=== PATIENT | male | born 1960 | race American Indian/Alaskan Native ===

== ENCOUNTER 2016-07-19 14:11 | Emergency (ER) | payer MEDICARE, MEDICAID ==
[2016-07-19 14:12] VITALS: PULSE 69
[2016-07-19 14:22] VITALS: TEMP 97.9; O2SAT 100; BMI 19.1
[2016-07-19 15:51] VITALS: RESP 12
--- NOTE | 2016-07-19 16:25 | RAD ---
PROCEDURE: Left Knee Radiographs. HISTORY: Pain. COMPARISON: None. FINDINGS: BONES: Normal. No fracture. JOINTS: Normal. No osteoarthritis. JOINT EFFUSION: None. OTHER FINDINGS: None. IMPRESSION: Normal radiographs of the left knee.
--- NOTE | 2016-07-19 17:13 | ED PDOC ---
Arrival/HPI - General Chief Complaint: Lower Extremity Problem/Injury Time Seen by Provider: 07/19/16 14:43 Historian: Patient - History of Present Illness Narrative History of Present Illness (Text): 07/19/16 17:12 56-year-old male presents today with left knee pain and left leg pain 2 weeks. Patient denies trauma or injury. Patient denies numbness weakness or tingling in the extremity. Patient states the leg was more swollen but seems to have decreased. Patient states is a history of DVT in the past. Denies fevers or chills. No chest pain or shortness of breath. Patient states he just came down after dialysis to have his knee evaluated. Past Medical History - Provider Review Nursing Documentation Reviewed: Yes - Travel History Have you recently traveled outside [place] w/in the past 3 mons?: No - Infectious Disease Hx of Infectious Diseases: None - Tetanus Immunization Tetanus Immunization: Up to Date - Cardiac Hx Congestive Heart Failure: Yes Hx Hypertension: Yes - Pulmonary Hx Respiratory Disorders: No Hx Asthma: No Hx Bronchitis: No Hx Chronic Obstructive Pulmonary Disease (COPD): Yes Hx Emphysema: No Hx Pneumonia: No Hx Respiratory Aspiration: No Hx Respiratory Tract Infection: No Hx Sleep Apnea: No Hx Tuberculosis: No - Neurological Hx Neurological Disorder: No Hx Alzheimer's Disease: No HX Cerebrovascular Accident: No Hx Dementia: No Hx Dizziness: Yes (after dialysis) Hx Meningitis: No Hx Migraine: No Hx Parkinson's Disease: No Hx Seizures: No Hx Transient Ischemic Attacks (TIA): No - HEENT Hx HEENT Disorder: No Hx Blind: No Hx Cataracts: No Hx Deafness: No Hx Difficulty Chewing: No Hx Epistaxis: No Hx Glaucoma: No Hx Macular Degeneration: No - Renal Hx Renal Disorder: Yes Hx Dialysis: Yes (Mon) Date of Last Dialysis Treatment: 07/19/16 Hx Kidney Stones: No Hx Neurogenic Bladder: No Hx Pyelonephritis: No Hx Renal Cancer: No Hx Renal Failure: No - Endocrine/Metabolic Hx Endocrine Disorders: No Hx Adrenal Cancer: No Hx Diabetes Insipidus: No Hx Diabetes Mellitus Type 1: No Hx Diabetes Mellitus Type 2: Yes Hx Hyperthyroidism: No Hx Hypothyroidism: No Hx Systemic Lupus Erythematosus: No - Hematological/Oncological Hx Blood Disorders: Yes Hx AIDS: No Hx Anemia: Yes Hx Cancer: No Hx Chemotherapy: No Hx Cirrhosis: No Hx Hemophilia: No Hx Hepatitis A: No Hx Hepatitis B: No Hx Hepatitis C: No Hx Metastasis: No Hx Shingles: No Hx Sickle Cell Disease: No Hx Unexplained Bleeding: No - Integumentary Hx Dermatological Disorder: No Hx Basal Cell Carcinoma: No Hx Eczema: No Hx Melanoma: No Hx Psoriasis: No Hx Squamous Cell Carcinoma: No - Musculoskeletal/Rheumatological Hx Musculoskeletal Disorders: No Hx Arthritis: No Hx Back Pain: Yes Hx Degenerative Joint Disease: No Hx Falls: No Hx Fractures: No Hx Gout: No Hx Herniated Disk: No Hx Myasthenia Gravis: No Hx Osteoarthritis: No Hx Osteomyelitis: No Hx Osteoporosis: No Hx Rhabdomyolysis: No Hx Spinal Stenosis: No Hx Unsteady Gait: No - Gastrointestinal Hx Gastrointestinal Disorders: Yes Hx Colostomy: No Hx Crohn's Disease: No Hx Diverticulitis: No Hx Gall Bladder Disease: No Hx Gastroesophageal Reflux: No Hx Gastrointestinal Ulcer: No Hx Ileostomy: No Hx Liver Failure: No Hx Pancreatitis: No HX Swallowing Problems: Yes - Genitourinary/Gynecological Hx Genitourinary Disorders: Yes Hx Hematuria: No Hx Incontinence: Yes Hx Prostate Problems: No Hx Sexually Transmitted Diseases: No Hx Urinary Tract Infection: No - Psychiatric Hx Psychophysiologic Disorder: No Hx Anxiety: No Hx Bipolar Disorder: No Hx Depression: Yes Hx Emotional Abuse: No Hx Hallucinations: No Hx Panic Disorder: No Hx Post Traumatic Stress Disorder: No Hx Psychosis: No Hx Physical Abuse: No Hx Schizophrenia: No Hx Sexual Abuse: No Hx Substance Use: No - Past Surgical History Past Surgical History: Non-Contributing - Surgical History Hx Amputation: No Hx Appendectomy: No Hx Cardiac Catheterization: No Hx Cholecystectomy: No Hx Coronary Stent: No Hx Gastric Bypass Surgery: No Hx Hysterectomy: No Hx Joint Replacement: No Hx Kidney Transplant: No Hx Liver Transplant: No Hx Mastectomy: No Hx Musculoskeletal Surgery: No Hx Open Heart Surgery: No Hx Orthopedic Surgery: No Hx Splenectomy: No Hx Valve Replacement: No - Anesthesia Hx Anesthesia: Yes Hx Anesthesia Reactions: No Hx Malignant Hyperthermia: No - Suicidal Assessment Feels Threatened In Home Enviroment: No Family/Social History - Physician Review Nursing Documentation Reviewed: Yes Family/Social History: Unknown Family HX Smoking Status: Never Smoked Hx Alcohol Use: No Hx Substance Use: No Hx Substance Use Treatment: No Allergies/Home Meds Allergies/Adverse Reactions: Allergies No Known Allergies Allergy (Verified 07/19/16 14:23) Home Medications: Home Meds Medication Instructions Recorded Confirmed Insulin Detemir [Levemir] 14 units SC BID PRN 03/11/13 05/17/16 Metoclopramide [Reglan] 10 mg PO DAILY 02/25/16 05/17/16 Calcium Acetate [Phoslyra] 667 mg PO TID 05/17/16 05/17/16 Darbepoetin Rony [Aranesp (RENAL)] 80 mcg IVP QWK 05/17/16 05/17/16 Doxercalciferol [Hectorol (RENAL)] 4 mcg IVP QOTHERDAY 05/17/16 05/17/16 Heparin [Heparin (RENAL)] 2,000 units IV QOTHERDAY 05/17/16 05/17/16 Iron Sucrose (RENAL) [Venofer 100 mg IV QOTHERDAY 05/17/16 05/17/16 (RENAL)] Review of Systems - Review of Systems Constitutional: absent: Fatigue, Fevers Respiratory: absent: SOB, Cough Cardiovascular: absent: Chest Pain, Palpitations Genitourinary Male: absent: Dysuria, Frequency Musculoskeletal: Arthralgias. absent: Back Pain, Neck Pain Skin: absent: Rash, Pruritis Psychiatric: absent: Anxiety, Depression Physical Exam Vital Signs Reviewed: Yes Vital Signs Temp Pulse Resp BP Pulse Ox 07/19/16 15:00 77 12 186/92 H 100 07/19/16 14:22 97.9 F 76 18 151/93 H 100 Temperature: Afebrile Blood Pressure: Hypertensive Pulse: Regular Respiratory Rate: Normal Appearance: Positive for: Well-Appearing, Non-Toxic, Comfortable Pain Distress: None Mental Status: Positive for: Alert and Oriented X 3 - Systems Exam Head: Present: Atraumatic Neck: Present: Normal Range of Motion Respiratory/Chest: Present: Clear to Auscultation, Good Air Exchange. No: Respiratory Distress, Accessory Muscle Use Cardiovascular: Present: Regular Rate and Rhythm, Normal S1, S2. No: Murmurs Lower Extremity: Present: NORMAL PULSES, Tenderness (left leg; + ttp over the lateral aspect of the thigh and anterior aspect of the knee. slightly decreased flexion of the knee. NO erythema. no calf tenderness. minimal edema of lower leg; sensation and distal pulses intact. ), Swelling, Neurovascularly Intact, Capillary Refill < 2 s. No: CALF TENDERNESS, Normal ROM, Erythema, Deformity Neurological: Present: GCS=15, Speech Normal Skin: Present: Warm, Dry, Rashes, Normal Color Psychiatric: Present: Alert, Oriented x 3 Medical Decision Making ED Course and Treatment: 07/19/16 17:18 Patient is nontoxic well-appearing in no distress with stable vital signs lungs are clear to auscultation bilaterally. Venous duplex of the left lower extremity: No DVT as read by the radiologist X-rays of the left knee: No fracture Tramadol given for pain Patient reassessment; patient is nontoxic well-appearing in no distress with stable vital signs Patient feeling better after medications julianne wrap applied. I discussed the results with patient about followup with a primary care physician within the next 2 days as well as the orthopedist. I've advised return if symptoms worsen persist or if there's concerning symptoms develop. Patient verbalizes understanding of discharge instructions and need for immediate followup. all aspects of this case were discussed the attending of record. Impression: Leg pain, knee pain Tramadol one tablet every 6 hours as needed for moderate to severe pain: May cause drowsiness Followup primary care physician within the next 2 days Follow up with the orthopedist within the next 2 days Return if symptoms worsen persist or if new symptoms develop - RAD Interpretation Radiology Orders: 07/19/16 14:43 KNEE LEFT 2 VIEWS (AP & LAT) [RAD] Stat DUPLEX LOWER EXTRM VEIN LEFT [US] Stat - Medication Orders Current Medication Orders: Discontinued Medications Tramadol HCl (Ultram) 50 mg PO STAT STA Stop: 07/19/16 14:45 Last Admin: 07/19/16 15:54 Dose: 50 MG Disposition/Present on Arrival - Present on Arrival Any Indicators Present on Arrival: No History of DVT/PE: No History of Uncontrolled Diabetes: No Urinary Catheter: No History of Decub. Ulcer: No History Surgical Site Infection Following: None - Disposition Have Diagnosis and Disposition been Completed?: Yes Diagnosis: Leg pain, Knee pain Disposition: HOME/ ROUTINE Disposition Time: 16:50 Patient Plan: Discharge Patient Problems: Current Active Problems Problem Status Diagnosed ESRD (end stage renal disease) Acute Fever Acute GI bleed Acute Pleural effusion Acute Condition: GOOD Discharge Instructions (ExitCare): Knee Pain (ED), Leg Pain (ED) Additional Instructions: tramadol every 6 hours as needed for moderate to severe pain follow up with the primary care physician within the next 2 days follow up with the orthopedist within the next 2 days return if symptoms worsen,persist or if new symptoms develop. Prescriptions: traMADol [Ultram] 50 mg PO Q6H PRN #6 tab PRN Reason: moderate to severe pain Referrals: Makenzie Miranda MD [Staff Provider] - Follow up with primary Leandro Gilbert MD [Primary Care Provider] - Follow up with primary Kamari Martinez III, MD [Medical Doctor] - Follow up with primary
--- NOTE | 2016-07-19 17:14 | US ---
PROCEDURE: Left lower extremity venous US HISTORY: Leg pain and swelling. Evaluate for DVT. PHYSICIAN(S): Rufus Sanchez MD. TECHNIQUE: Duplex sonography and color-flow Doppler with graded compression were used to evaluate the deep venous system of the left lower extremity. FINDINGS: The visualized deep venous system of the left lower extremity is sonographically normal and compressible. Normal wave forms and augmentation are seen. There is no sonographic evidence for deep venous thrombosis in the visualized segments of the left lower extremity. IMPRESSION: 1. No sonographic evidence for deep venous thrombosis in the visualized segments of the left lower extremity.
[2016-07-19 17:23] VITALS: BP 155/112; PULSE 79
== END 2016-07-19 17:27 | disposition home or self-care (01) ==
LOC: ED 14:11
DX: M25.562 Pain in left knee (principal); M79.605 Pain in left leg

== ENCOUNTER 2017-05-06 00:53 | Inpatient (IN) | payer MEDICARE, MEDICAID ==
[2017-05-06 00:54] VITALS: PULSE 69
--- NOTE | 2017-05-06 02:05 | ED PDOC ---
Arrival/HPI - General Chief Complaint: Trauma Time Seen by Provider: 05/06/17 01:03 Historian: Patient - History of Present Illness Narrative History of Present Illness (Text): 05/06/17 01:06 57 year old male, whose past medical history includes ESRD on (Dialysis , and Mon), secondary hyperparathyroidism, anemia, type II diabetes mellitus , diabetic neuropathy, diabetic retinopathy, DVT, PE, diabetic foot ulcers, esophageal cyst, abscess of the right lung, COPD, and nonischemic cardiomyopathy , presents s/p mechanical fall. Patient reports left hip pain, but denies any head injuries, LOC, fever, chills, chest pain, shortness of breath, nausea, vomiting, diarrhea, urinary symptoms, back pain, neck pain, headache, dizziness , or any other complaints. PMD: Dr. Miranda Symptom Onset: Sudden Symptom Course: Unchanged Activities at Onset: Light Context: Home Past Medical History - Provider Review Nursing Documentation Reviewed: Yes - Infectious Disease Hx of Infectious Diseases: None - Tetanus Immunization Tetanus Immunization: Up to Date - Cardiac Hx Congestive Heart Failure: Yes Hx Hypertension: Yes - Pulmonary Hx Respiratory Disorders: No Hx Asthma: No Hx Bronchitis: No Hx Chronic Obstructive Pulmonary Disease (COPD): Yes Hx Emphysema: No Hx Pneumonia: No Hx Respiratory Aspiration: No Hx Respiratory Tract Infection: No Hx Sleep Apnea: No Hx Tuberculosis: No - Neurological Hx Neurological Disorder: No Hx Alzheimer's Disease: No HX Cerebrovascular Accident: No Hx Dementia: No Hx Dizziness: Yes (after dialysis) Hx Meningitis: No Hx Migraine: No Hx Parkinson's Disease: No Hx Seizures: No Hx Transient Ischemic Attacks (TIA): No - HEENT Hx HEENT Disorder: No Hx Blind: No Hx Cataracts: No Hx Deafness: No Hx Difficulty Chewing: No Hx Epistaxis: No Hx Glaucoma: No Hx Macular Degeneration: No - Renal Hx Renal Disorder: Yes Hx Dialysis: Yes (Mon) Date of Last Dialysis Treatment: 07/19/16 Hx Kidney Stones: No Hx Neurogenic Bladder: No Hx Pyelonephritis: No Hx Renal Cancer: No Hx Renal Failure: No - Endocrine/Metabolic Hx Endocrine Disorders: No Hx Adrenal Cancer: No Hx Diabetes Insipidus: No Hx Diabetes Mellitus Type 1: No Hx Diabetes Mellitus Type 2: Yes Hx Hyperthyroidism: No Hx Hypothyroidism: No Hx Systemic Lupus Erythematosus: No - Hematological/Oncological Hx Blood Disorders: Yes Hx AIDS: No Hx Anemia: Yes Hx Cancer: No Hx Chemotherapy: No Hx Cirrhosis: No Hx Hemophilia: No Hx Hepatitis A: No Hx Hepatitis B: No Hx Hepatitis C: No Hx Metastasis: No Hx Shingles: No Hx Sickle Cell Disease: No Hx Unexplained Bleeding: No - Integumentary Hx Dermatological Disorder: No Hx Basal Cell Carcinoma: No Hx Eczema: No Hx Melanoma: No Hx Psoriasis: No Hx Squamous Cell Carcinoma: No - Musculoskeletal/Rheumatological Hx Musculoskeletal Disorders: No Hx Arthritis: No Hx Back Pain: Yes Hx Degenerative Joint Disease: No Hx Falls: No Hx Fractures: No Hx Gout: No Hx Herniated Disk: No Hx Myasthenia Gravis: No Hx Osteoarthritis: No Hx Osteomyelitis: No Hx Osteoporosis: No Hx Rhabdomyolysis: No Hx Spinal Stenosis: No Hx Unsteady Gait: No - Gastrointestinal Hx Gastrointestinal Disorders: Yes Hx Colostomy: No Hx Crohn's Disease: No Hx Diverticulitis: No Hx Gall Bladder Disease: No Hx Gastroesophageal Reflux: No Hx Ileostomy: No Hx Liver Failure: No Hx Pancreatitis: No HX Swallowing Problems: Yes - Genitourinary/Gynecological Hx Genitourinary Disorders: Yes Hx Hematuria: No Hx Incontinence: Yes Hx Prostate Problems: No Hx Sexually Transmitted Diseases: No Hx Urinary Tract Infection: No - Psychiatric Hx Psychophysiologic Disorder: No Hx Anxiety: No Hx Bipolar Disorder: No Hx Depression: Yes Hx Emotional Abuse: No Hx Hallucinations: No Hx Panic Disorder: No Hx Post Traumatic Stress Disorder: No Hx Psychosis: No Hx Physical Abuse: No Hx Schizophrenia: No Hx Sexual Abuse: No Hx Substance Use: No - Past Surgical History Past Surgical History: Non-Contributing - Surgical History Hx Amputation: No Hx Appendectomy: No Hx Cardiac Catheterization: No Hx Cholecystectomy: No Hx Coronary Stent: No Hx Gastric Bypass Surgery: No Hx Hysterectomy: No Hx Joint Replacement: No Hx Kidney Transplant: No Hx Liver Transplant: No Hx Mastectomy: No Hx Musculoskeletal Surgery: No Hx Open Heart Surgery: No Hx Orthopedic Surgery: No Hx Splenectomy: No Hx Valve Replacement: No - Anesthesia Hx Anesthesia: Yes Hx Anesthesia Reactions: No Hx Malignant Hyperthermia: No - Suicidal Assessment Feels Threatened In Home Enviroment: No Family/Social History - Physician Review Nursing Documentation Reviewed: Yes Family/Social History: No Known Family HX Smoking Status: Never Smoked Hx Alcohol Use: No Hx Substance Use: No Hx Substance Use Treatment: No Allergies/Home Meds Allergies/Adverse Reactions: Allergies No Known Allergies Allergy (Verified 07/19/16 14:23) Home Medications: Home Meds Medication Instructions Recorded Confirmed Insulin Detemir [Levemir] 14 units SC BID PRN 03/11/13 05/06/17 Metoclopramide [Reglan] 10 mg PO DAILY 02/25/16 05/06/17 Calcium Acetate [Phoslyra] 667 mg PO TID 05/17/16 05/06/17 Darbepoetin Rony [Aranesp (RENAL)] 80 mcg IVP QWK 05/17/16 05/06/17 Doxercalciferol [Hectorol (RENAL)] 4 mcg IVP QOTHERDAY 05/17/16 05/06/17 Heparin 2,000 units IV QOTHERDAY 05/17/16 05/06/17 Iron Sucrose (RENAL) [Venofer 100 mg IV QOTHERDAY 05/17/16 05/06/17 (RENAL)] Review of Systems - Physician Review All systems were reviewed & negative as marked: Yes - Review of Systems Constitutional: absent: Fevers, Other (Chills) Respiratory: absent: SOB Cardiovascular: absent: Chest Pain Gastrointestinal: absent: Diarrhea, Nausea, Vomiting Genitourinary Male: absent: Dysuria, Frequency, Hematuria Musculoskeletal: Other (left hip pain). absent: Back Pain, Neck Pain Neurological: absent: Headache, Dizziness Physical Exam Vital Signs Reviewed: Yes Vital Signs Temp Pulse Resp BP Pulse Ox 05/06/17 01:09 98.7 F 89 18 190/111 H 97 Temperature: Afebrile Blood Pressure: Hypertensive Pulse: Regular Respiratory Rate: Normal Appearance: Positive for: Well-Appearing, Non-Toxic, Comfortable Pain Distress: None Mental Status: Positive for: Alert and Oriented X 3 - Systems Exam Head: Present: Atraumatic, Normocephalic Pupils: Present: PERRL Extroacular Muscles: Present: EOMI Conjunctiva: Present: Normal Mouth: Present: Moist Mucous Membranes Neck: Present: Normal Range of Motion Respiratory/Chest: Present: Clear to Auscultation, Good Air Exchange. No: Respiratory Distress, Accessory Muscle Use Cardiovascular: Present: Regular Rate and Rhythm, Normal S1, S2. No: Murmurs Abdomen: Present: Normal Bowel Sounds. No: Tenderness, Distention, Peritoneal Signs Back: Present: Normal Inspection Upper Extremity: Present: Normal Inspection. No: Cyanosis, Edema Lower Extremity: Present: Tenderness (Left hip tender to palpation. ), Neurovascularly Intact, Other (Noted shortened distally ). No: Edema Neurological: Present: GCS=15, CN II-XII Intact, Speech Normal, Other ( Tremulous ) Skin: Present: Warm, Dry, Normal Color. No: Rashes Psychiatric: Present: Alert, Oriented x 3, Normal Insight, Normal Concentration Medical Decision Making ED Course and Treatment: 05/06/17 01:06 Impression: 57 year old male presents s/p mechanical fall. Patient complaining of left hip pain. Plan: -- Labs -- Dilaudid -- Hip Min 2V w/ Pelvis LT -- Reassess and disposition Progress Notes: 05/06/17 02:20 Hip X-Ray Impression: As read by me, left intertrochanteric hip fracture moderately displaced. 05/06/17 04:[address] Miranda who is aware and agrees with the plan. Patient will be admitted with orthopedic consult. - Lab Interpretations Lab Results: 05/06/17 02:58 05/06/17 02:58 Lab Results 05/06/17 02:58: Sodium 131 L, Potassium 5.0, Chloride 90 L, Carbon Dioxide 28, Anion Gap 19, BUN 61 H, Creatinine 8.4 H*, Est GFR ( Amer) 8, Est GFR ( Non-Af Amer) 7, Random Glucose 399 H* D, Calcium 9.5, Total Bilirubin 0.7, AST 31, ALT 30, Alkaline Phosphatase 126 D, Total Protein 8.1, Albumin 4.2, Globulin 3.9, Albumin/Globulin Ratio 1.1 05/06/17 02:58: PT 11.4, INR 1.00 05/06/17 02:58: WBC 10.4 D, RBC 4.44, Hgb 10.9 L, Hct 34.9 L, MCV 78.6 L, MCH 24.5 L, MCHC 31.2, RDW 13.8, Plt Count 178, MPV 11.2 H, Gran % 82.6 H, Lymph % ( Auto) 8.5 L, Tyler % (Auto) 8.5 H, Eos % (Auto) 0.2 L, Baso % (Auto) 0.2, Gran # 8.59 H, Lymph # 0.9 L, Tyler # 0.9 H, Eos # 0.0, Baso # 0.02 I have reviewed the lab results: Yes - RAD Interpretation Radiology Orders: 05/06/17 01:06 Hip Left [HIP MIN 2V W/ PELVIS LT] [RAD] Stat 05/06/17 02:17 CHEST PORTABLE [RAD] Stat - Medication Orders Current Medication Orders: Discontinued Medications Hydromorphone HCl (Dilaudid) 1 mg IVP STAT STA Stop: 05/06/17 02:19 Last Admin: 05/06/17 03:04 Dose: 1 mg MAR Pain Assessment Document 05/06/17 03:04 AD (Rec: 05/06/17 03:04 AD [facility] [id number] Pain Reassessment Is this a pain reassessment? No Presence of Pain Presence of Pain Yes Pain Scale Used Pain Scale Used Numeric Location Left, Right or Bilateral Left Pain Location Body Site Hip Description Intensity of Pain at present 8 Pain Behavior Facial Grimacing IVP Administration Document 05/06/17 03:04 AD (Rec: 05/06/17 03:04 AD [id number] Charges for Administration # of IVP Administrations 1 Insulin Human Regular (Humulin R) 10 units SC STAT STA Stop: 05/06/17 03:58 Last Admin: 05/06/17 04:07 Dose: 10 units MAR Blood Glucose Document 05/06/17 04:07 IT (Rec: 05/06/17 04:07 IT [id number]) Blood Glucose Finger Stick Blood Glucose (70-120) 343 Subcutaneous Administrations Document 05/06/17 04:07 IT (Rec: 05/06/17 04:07 IT [id number]) Injection Site MAR Injection Site Left Abdomen Charges for Administration # of Subcutaneous Administrations 1 - Scribe Statement The provider has reviewed the documentation as recorded by the Scribrocío Hoover Provider Scribe Attestation: All medical record entries made by the Scribe were at my direction and personally dictated by me. I have reviewed the chart and agree that the record accurately reflects my personal performance of the history, physical exam, medical decision making, and the department course for this patient. I have also personally directed, reviewed, and agree with the discharge instructions and disposition. Disposition/Present on Arrival - Present on Arrival Any Indicators Present on Arrival: No History of DVT/PE: No History of Uncontrolled Diabetes: No Urinary Catheter: No History of Decub. Ulcer: No History Surgical Site Infection Following: None - Disposition Have Diagnosis and Disposition been Completed?: Yes Diagnosis: Closed left hip fracture, ESRD (end stage renal disease) Disposition: HOSPITALIZED Disposition Time: 04:30 Patient Plan: Admission Patient Problems: Current Active Problems Problem Status Onset ESRD (end stage renal disease) Acute Closed left hip fracture Acute Condition: STABLE Forms: [employer] (Indian)
[2017-05-06] MEDS ORDERED: HYDROmorphone 2 mg/ml ISec IVP STA (02:18)
[2017-05-06 03:12] LABS: BASO # 0.02 K/mm3 (0.0-2.0); BASO % 0.2 % (0.0-3.0); EOS % 0.2 % (1.5-5.0); GRAN # 8.59 (1.4-6.5); GRAN % 82.6 % (50.0-68.0); HEMOGLOBIN 10.9 g/dL (14.0-18.0); LYMPH # 0.9 (1.2-3.4); LYMPH % 8.5 % (22.0-35.0); MEAN CELL VOLUME 78.6 fl (80.0-105.0); MEAN CORPUSCULAR HEMOGLOBIN 24.5 pg (25.0-35.0); MEAN CORPUSCULAR HGB CONC 31.2 g/dl (31.0-37.0); MEAN PLATELET VOLUME 11.2 fl (7.0-11.0); MONO # 0.9 (0.1-0.6); MONO % 8.5 % (1.0-6.0); RBC 4.44 10^6/uL (3.5-6.1); RED CELL DISTRIBUTION WIDTH 13.8 % (11.5-14.5); WHITE BLOOD COUNT 10.4 10^3/ul (4.5-11.0)
[2017-05-06 03:30] LABS: PROTHROMBIN TIME 11.4 SECONDS (9.4-12.5)
[2017-05-06 03:55] LABS: ALB/GLOB RATIO 1.1 (1.1-1.8); ALBUMIN 4.2 g/dL (3.0-4.8); CALCIUM 9.5 mg/dL (8.4-10.5)
[2017-05-06] MEDS ORDERED: Insulin Regular 1 UNITS/0.01 ML ML SC STA (03:57)
--- NOTE | 2017-05-06 08:21 | RAD ---
HISTORY: fall COMPARISON: 02/25/2016 FINDINGS: LUNGS: Mild alveolar density at the right lung base. Small infiltrate in this region is not excluded. No left lung infiltrate is seen. PLEURA: Chronic appearing right pleural thickening or pleural effusion. CARDIOVASCULAR: Stable. Aorta is unchanged. No pneumothorax is seen. OSSEOUS STRUCTURES: No significant abnormalities. VISUALIZED UPPER ABDOMEN: Normal. OTHER FINDINGS: Left axillary stent is stable. Trachea is midline. IMPRESSION: Possible small right lower lung field infiltrate. Chronic right pleural thickening or small pleural effusion. No appreciable rib fracture after reported trauma. No reading has been provided by the treating emergency room physician. The case was placed into the PA review folder.
--- NOTE | 2017-05-06 08:23 | RAD ---
PROCEDURE: Left Hip X-ray Radiographs. HISTORY: fall COMPARISON: None. FINDINGS: BONES: There is a angulated intertrochanteric fracture of the left hip. Left femoral head remains in position. Pubic rami and symphysis are intact. Left iliac bone and right iliac bone are intact. Right hip is intact. No sacroiliac joint widening is seen. JOINTS: See above SOFT TISSUES: Normal. OTHER FINDINGS: None. IMPRESSION: Left hip fracture.
[2017-05-06 12:37] LABS: INR 1.01 (0.93-1.08); PARTIAL THROMBOPLASTIN TIME 31.1 Seconds (25.1-36.5); PROTHROMBIN TIME 11.6 SECONDS (9.4-12.5)
[2017-05-06 13:18] VITALS: BMI 18.3
[2017-05-06] MEDS ORDERED: Pneumococcal 23-Valent Vaccine IM ONE (13:18)
[2017-05-06] MEDS ORDERED: Influenza Vaccine 60 mcg/0.5 mL SYR (4YR UP) IM ONE (13:18)
--- NOTE | 2017-05-06 20:48 | CON ---
DATE: HISTORY OF PRESENT ILLNESS: This is a 57-year-old male with left hip fracture, intertrochanteric, currently came to the emergency room this morning after falling at home. He has been prepared for renal dialysis and left hip needs to be stabilized with a peritrochanteric kai from [employer]. We are going to get a medical clearance by Dr. Sy, Dr. De Los Santos, and Dr. Miranda to perform the surgery this afternoon. FINAL DIAGNOSIS: Intertrochanteric fracture, left hip and for surgery when medically cleared. Joel Awad DO
[2017-05-06] MEDS ORDERED: Insulin Reg-LOW-Coverage SC SCH (22:00)
[2017-05-06] MEDS: Insulin Detemir 100 units/ml Vial (Levemir) SC SCH (22:05)
[2017-05-06] MEDS: Insulin Reg-LOW-Coverage SC SCH (22:06)
--- NOTE | 2017-05-06 23:20 | CON ---
DATE: CARDIOLOGY CONSULTATION REASON FOR CONSULTATION: Preoperative evaluation. HISTORY OF PRESENT ILLNESS: The patient is a 57-year-old male who has end-stage renal disease on hemodialysis 3 times a week, Monday, , and Monday for the past 5 years according to him, history of secondary hyperparathyroidism, history of diabetes mellitus, diabetic neuropathy, and diabetic foot ulcer. The patient presented because of a fall. He stated that he was sleeping on a chair and had a nightmare that made him jump and fall to the floor. The patient sustained left hip angulated intertrochanteric fracture. The patient is being considered for open reduction internal fixation. The cardiac history of this patient can be summarized due to the fact that in 04/2014 he had a cardiac catheterization, which revealed nonischemic cardiomyopathy and moderate pulmonary hypertension. The most recent echo from last year revealed normal ejection fraction and right ventricular systolic pressure was measured at 31 mmHg. SPECT myocardial perfusion study performed in 05/2016 was essentially a normal SPECT myocardial perfusion study with fixed inferior defect most likely due to diaphragmatic attenuation and normal gated wall motion of the left ventricle. The patient denies any chest pain or shortness of breath at this time. He is currently undergoing hemodialysis. MEDICATIONS: The patient's home medications include Levemir insulin, Reglan, subcutaneous heparin with hemodialysis, and iron sucrose infusion with hemodialysis. REVIEW OF SYSTEMS: No dizziness. No palpitation. No retrosternal chest pain. PHYSICAL EXAMINATION: GENERAL: The patient is a middle-aged male who does not appear to be in acute distress at this time. VITAL SIGNS: Blood pressure 144/83, heart rate 84, temperature 98, and respirations 18. HEENT: Pale conjunctivae. CHEST: Clear. HEART: S1 and S2 regular. ABDOMEN: Soft. EXTREMITIES: No edema. LABORATORY DATA: Hemoglobin and hematocrit are 10.9 and 34.9, white count and platelet count are within normal limits. PT/INR is within normal limits. SMA-7. Sodium 131, potassium 5.2, chloride 90, CO2 28, glucose 399, BUN 61, and creatinine 8.4. ASSESSMENT: 1. Left hip angulated intertrochanteric fracture. 2. End-stage renal disease, on hemodialysis. 3. Anemia. RECOMMENDATIONS: I have reviewed the patient's EKG and clear the patient cardiac barber for open reduction internal fixation if his electrolytes post hemodialysis are within normal limits; however, the patient at this point is insisting not to go for surgery. Bill Sue MD
[2017-05-07 07:33] LABS: BASO # 0.04 K/mm3 (0.0-2.0); BASO % 0.4 % (0.0-3.0); EOS # 0.1 (0.0-0.7); EOS % 0.7 % (1.5-5.0); GRAN # 7.42 (1.4-6.5); GRAN % 70.6 % (50.0-68.0); HEMOGLOBIN 10.6 g/dL (14.0-18.0); LYMPH # 1.6 (1.2-3.4); LYMPH % 15.4 % (22.0-35.0); MEAN CELL VOLUME 79.1 fl (80.0-105.0); MEAN CORPUSCULAR HEMOGLOBIN 24.6 pg (25.0-35.0); MEAN CORPUSCULAR HGB CONC 31.1 g/dl (31.0-37.0); MEAN PLATELET VOLUME 10.9 fl (7.0-11.0); MONO # 1.4 (0.1-0.6); MONO % 12.9 % (1.0-6.0); RBC 4.31 10^6/uL (3.5-6.1); WHITE BLOOD COUNT 10.5 10^3/ul (4.5-11.0)
[2017-05-07 07:48] LABS: ALB/GLOB RATIO 0.9 (1.1-1.8); ALBUMIN 3.4 g/dL (3.0-4.8); CALCIUM 9.4 mg/dL (8.4-10.5)
[2017-05-07] MEDS ORDERED: Propofol 10 mg/ml Inj (20 ML) ONE (09:17)
[2017-05-07] MEDS ORDERED: Bupivacaine 0.5% Inj(30mL) ONE (09:41)
--- NOTE | 2017-05-07 10:00 | CARD ---
APPROVED REPORT EKG Measurement Heart [id number] <Conclusion> Sinus rhythm with frequent premature ventricular complexes, new Left anterior fascicular block Anteroseptal infarct, old STTW changes Prolonged QTc
[2017-05-07] MEDS ORDERED: Bupivacaine 0.5% Inj(30mL) IJ ONE (10:34)
[2017-05-07] MEDS ORDERED: HYDROmorphone 0.5 mg/0.5 ml ISec IVP PRN (10:57)
[2017-05-07] MEDS: Insulin Reg-LOW-Coverage SC SCH ×4 (12:48→22:08)
[2017-05-07 13:30] LABS: IRON 28 ug/dL (45-180)
[2017-05-07 13:41] LABS: TOTAL IRON BINDING CAPACITY 166 ug/dL (261-462)
[2017-05-07 14:10] LABS: % IRON SATURATION 17 % (20-55)
[2017-05-07 17:19] LABS: FOLATE 6.5 ng/mL
--- NOTE | 2017-05-07 20:05 | PN ---
DATE: SUBJECTIVE: The patient underwent open reduction and internal fixation with nail/retrograde approach this morning. He denies any chest pain or shortness of breath. PHYSICAL EXAMINATION VITAL SIGNS: Blood pressure 150/74, heart rate 73, temperature 99.5 and respirations 18. HEENT: [place] conjunctivae. CHEST: Clear. HEART: S1 and S2 regular. EXTREMITIES: No edema. LABORATORY DATA: Hemoglobin and hematocrit in the morning 10.6 and 34.1, white count and platelet count are within normal limits. Today, SMA-7 this morning sodium 133, potassium 4.8, chloride 92, CO2 of 27, glucose of 56, BUN 45, creatinine 6.7. Postoperative EKG revealed sinus rhythm with anterior fascicular block, old anterior wall myocardial infarction. ASSESSMENT: 1. Status post open reduction and internal fixation of left intratrochanteric fracture. 2. End-stage renal disease on hemodialysis. 3. Anemia. 4. Frequent ventricular activity noticed on the preoperative EKG. RECOMMENDATIONS: Continue current subcutaneous Lovenox 30 mg once a day, start Coreg 3.125 mg twice a day. Obtain CBC and SMA-7 and transferred the patient to telemetry. Bill Sue MD
[2017-05-07] MEDS ORDERED: Oxycodone/Acetaminophen 5/325 mg Tab PO PRN (21:07)
[2017-05-07] MEDS: Insulin Detemir 100 units/ml Vial (Levemir) SC SCH (22:07)
--- NOTE | 2017-05-08 00:38 | HP ---
CHIEF COMPLAINT: Trauma and hip pain. HISTORY OF PRESENT ILLNESS: Mr. Stephanie Jackson is a 57-year-old my private patient with past medical history of end-stage renal disease on hemodialysis 3 times a week, secondary hyperthyroidism, anemia, insulin-dependent diabetes mellitus type 2, diabetic neuropathy, diabetic nephropathy, diabetic retinopathy, DVT, PE, diabetic foot ulcers, esophageal cyst, COPD, nonischemic cardiomyopathy, came into the Emergency Room after fall. The patients reports that he has left pain, but denies any head injury, loss of consciousness, fever, chills, nausea, vomiting, or diarrhea. The patient was seen in the presence of his and his son was on the phone and Dr. Awad, Orthopedic was on the bedside also. In my presence, the patient give consent for the surgery. PAST MEDICAL HISTORY: As above. The patient is very noncompliant, has history of COPD, feeling dizziness after dialysis, diabetes mellitus type 2, insulin requiring, not controlled, history of anemia, back pain,. FAMILY HISTORY: Father and mother noncontributory. HABITS: Never smoke, nondrug, or ethanol. ALLERGIES: THE PATIENT IS NOT ALLERGIC WITH ANY MEDICATIONS. HOME MEDICATIONS: Mainly insulin, Reglan, Calcium, iron and Venofer. REVIEW OF SYSTEMS: The patient seen and examined on the bedside in his room on 05/06/2017, was on the bedside also. Dr. Awad was there, explained to the patient of procedure and getting consent. The patient's son was on the phone, having pain in the left hip otherwise, no nausea, vomiting, or diarrhea. No hematuria or hematochezia. No headache. No dizziness. No chest pain or palpitations. No fever. No chills. PHYSICAL EXAMINATION VITAL SIGNS: Temperature of 98.8, pulse of 80, blood pressure of 146/86, respirations of 18. HEENT: Normocephalic and atraumatic. Eyes; PERRLA. Extraocular muscles intact. Conjunctivae clear. Nose patent. Mucous membrane moist. NECK: Supple. No carotid bruits, JVD or thyromegaly. CHEST: Bilaterally symmetrical. HEART: S1 and S2 positive. LUNGS: Clear to auscultation. ABDOMEN: Soft. Bowel sounds are positive. No organomegaly. EXTREMITIES: No edema, no cyanosis. Left leg range of motion is decreased. NEUROLOGIC: The patient is oriented x3. Cranial nerves II to XII are grossly intact. LABORATORY DATA: White blood cell 10.5, hemoglobin 10.6, hematocrit 34.1, platelets 187. Sodium 133, potassium 4.8, BUN 45, creatinine 6.7, glucose 251. ASSESSMENT AND PLAN: Mr. Renetta Brown is a 57-year-old male with history of anemia, hypochloremia, renal insufficiency on hemodialysis, insulin-dependent diabetes mellitus type 2, not very well controlled, noncompliant, seen by the Station Engineer for cardiac clearance. Seen by Dr. Sue, history of secondary hyperthyroidism, diabetic neuropathy, diabetic nephropathy, diabetic retinopathy, history of fall, hip fracture, yesterday went for hip surgery, left hip angulated intratrochanteric fracture, procedure of that surgery and afterwards rehab was explained to the patient by Dr. Awad and by me in the presence of and son was on the phone. We will continue present treatment. Repeat labs. We will followup. Makenzie Miranda MD SUZANNE
[2017-05-08] MEDS: Albuterol-Ipratrop 3 mg / 0.5 (3 ml) UD IH SCH ×4 (03:10→20:03)
--- NOTE | 2017-05-08 06:11 | CON ---
DATE: REFERRING PHYSICIAN: Makenzie Miranda MD REASON FOR CONSULTATION: Management of end-stage renal disease, on hemodialysis. CHIEF COMPLAINT AND HISTORY OF PRESENT ILLNESS: This is a 57-year-old male, who has a past medical history of end-stage renal disease, on hemodialysis; secondary hyperparathyroidism; diabetes type 2; retinopathy, and cardiomyopathy. The patient had a fall and was found to have left hip fracture, and he was admitted to the hospital for further management. The patient had his regular dialysis treatment yesterday and had no issues. He was taken to the OR this morning by Dr. Awad, who I spoke with. The patient was comfortable this morning when I saw him before surgery. He has no headaches. No dizziness. No loss of consciousness. No nausea. No vomiting. No dysuria, frequency, no nocturia. He has a fistula that has been working fairly well. ALLERGIES: NO KNOWN DRUG ALLERGIES. HOME MEDICATIONS: Have been reviewed on the [facility]. PAST MEDICAL HISTORY: 1. End-stage renal disease, on hemodialysis. 2. Secondary hyperparathyroidism. 3. Diabetes mellitus type 2. 4. Diabetic neuropathy. 5. Diabetic retinopathy. 6. Diabetic nephropathy. 7. DVT/PE. 8. Esophageal cyst. 9. COPD. 10. Right lung abscess. 11. Nonischemic cardiomyopathy. SOCIAL HISTORY: The patient lives with his whom he is to. He has 2 children. He denies smoking or drinking. FAMILY HISTORY: The patient's mother and father in their early 50s, but the patient is not sure with the causes. PHYSICAL EXAMINATION: VITAL SIGNS: Temperature is 99.5, pulse of 73, blood pressure of 150/74, respirations of 18, and O2 saturation of 99%. GENERAL: The patient lying in bed, uncomfortable, and in no acute distress. HEENT: Atraumatic and normocephalic. Anicteric sclerae. Moist mucosa. [place] conjunctivae. No oral lesions. NECK: No JVD, anterior and posterior adenopathy, thyromegaly, or bruits. CARDIOVASCULAR: S1 and S2 regular. No murmur, rubs, or gallop. LUNGS: Clear to auscultation bilaterally. No wheezes, rales, or rhonchi. ABDOMEN: Bowel sounds are positive. Soft, nontender and nondistended. No hepatosplenomegaly. No rebound and no guarding EXTREMITIES: No cyanosis, clubbing, or edema. NEUROLOGIC: No facial asymmetry. Tongue is midline. No uvula deviation. Power is 5/5 upper extremity and lower extremity. Sensation intact in upper extremity and lower extremity. PSYCHIATRIC: She is awake, alert and oriented x3. No anxiety or depression. She has normal affect. GENITOURINARY: No CVA tenderness. VASCULAR: 2+ pulses in the carotid pulses and pedal pulses. SKIN: No erythema or nodules SPINE: Shows normal curvature. LABORATORY DATA: X-ray of the left hip shows hip fracture. He has a chest x-ray done, it shows possible small left lung infiltrate. ASSESSMENT: 1. Fall. 2. Left hip fracture. 3. End-stage renal disease, on hemodialysis. 4. Secondary hyperparathyroidism. 5. Anemia. 6. Diabetic nephropathy. 7. Diabetic neuropathy. 8. Diabetic retinopathy. 9. Nonischemic cardiomyopathy. PLAN: The patient is currently comfortable. He was optimized for the procedure. The patient is going to continue his current hemodialysis treatment. His pain is under control. The patient is mostly need physical therapy for his hip fracture. He is on insulin coverage. The patient has been placed on Coreg. The patient is on Levemir for his diabetes and Lovenox for DVT prophylaxis, although I would not recommend Lovenox because of the patient being on dialysis. I will put the patient on heparin instead and this should be the agent of choice for DVT prophylaxis subcu. The patient may be placed on oral anticoagulation, preferably with Coumadin if needed. The patient is on Ultram for pain and Tylenol. The patient will have a repeat blood work done tomorrow. He also has iron-deficiency and this will be adjusted on dialysis. Thank you for allowing me to participate in the care of your patient. Leandro Gilbert MD
[2017-05-08 07:13] LABS: HEMOGLOBIN 10.1 g/dL (14.0-18.0); MEAN CELL VOLUME 78.2 fl (80.0-105.0); MEAN CORPUSCULAR HEMOGLOBIN 23.9 pg (25.0-35.0); MEAN CORPUSCULAR HGB CONC 30.6 g/dl (31.0-37.0); MEAN PLATELET VOLUME 12.1 fl (7.0-11.0); RBC 4.22 10^6/uL (3.5-6.1); WHITE BLOOD COUNT 10.8 10^3/ul (4.5-11.0)
[2017-05-08 07:24] LABS: ALB/GLOB RATIO 0.9 (1.1-1.8); ALBUMIN 3.3 g/dL (3.0-4.8); CALCIUM 9.1 mg/dL (8.4-10.5)
--- NOTE | 2017-05-08 07:35 | CON ---
DATE: 05/07/2017 REFERRING PHYSICIAN: Makenzie Miranda MD REASON FOR CONSULTATION: Status post fall with hip fracture, history of chronic lung disease, suspected sleep apnea syndrome. HISTORY OF PRESENT ILLNESS: This is a 57-year-old gentleman with past medical history of significant for renal failure, dialysis dependent; secondary hyperparathyroidism; anemia; diabetes; history of neuropathy; diabetic retinopathy; history of PE and DVT; history of foot ulcer; esophagitis; history of lung abscess; chronic lung disease; cardiomyopathy, apparently had a fall at home which was a mechanical fall, ended up breaking left hip, seen by Orthopedic Surgery, scheduled for hip replacement, status post surgery lying in the bed, is at bedside. No headache. No rhinitis. He has hip pain. No chest pain. No nausea. No leg swelling. PAST MEDICAL HISTORY: As per history of present illness. FAMILY HISTORY: No significant cardiopulmonary disease reported. SOCIAL HISTORY: Nonsmoker, nondrinker. ALLERGIES: NONE KNOWN. MEDICATIONS: He is on Coreg 3.125 mg twice a day, heparin 5000 units subcu q.12 hours, insulin coverage, Levemir 14 units subcu at bedtime, PhosLo 667 with meals three times a day, Reglan 10 mg daily, Tylenol p.r.n., Ultram 50 mg three times a day p.r.n. REVIEW OF SYSTEMS: No headache. No rhinitis. No cough. No sputum production, No hemoptysis. No emesis. No hematuria. No diarrhea. Has left hip pain. No leg swelling. PHYSICAL EXAMINATION GENERAL: Lying in the bed, in mild distress secondary to pain. VITAL SIGNS: Temperature is 99, heart rate is 73, respiratory rate is 18, blood pressure is 150/70, and pulse oximetry is 99% on 3L nasal cannula. HEENT: Moist mucous membrane. Crowded airway. Mallampati score is 4. NECK: Supple. No JVD. LUNGS: Have a fair airflow with few rhonchi. HEART: S1 and S2. ABDOMEN: Soft, nontender. No organomegaly. EXTREMITIES: Left hip tender. NEUROLOGIC: Awake, alert, and follows simple commands. LABORATORY DATA: Shows hemoglobin 10.6, hematocrit 34.1, WBC 10.5, and platelet is 187. INR 1.01, PTT of 31. Sodium 133, potassium 4.8, chloride 92, bicarbonate 27, BUN 45, creatinine 6.7, glucose 256, calcium 9.4, and iron 28. AST 37, ALT 27, alkaline phosphatase is 105, albumin 3.4, cholesterol 119, B12 of 440, folate 6.5. IMPRESSION AND PLAN: Status post fall with hip fracture; renal failure, dialysis dependent; anemia; diabetes; gastroparesis; history of pulmonary embolism/deep venous thrombosis; esophagitis; history of lung abscess in the past; cardiomyopathy. I spoke to the patient's at bedside, all the questions answered. We will add inhaled bronchodilator, incentive spirometer, gastric prophylaxis, we will place on Lovenox 30 mg subcu daily. May add Percocet for a day or so for left hip pain. Out of bed to chair, physical therapy. Thank you and we will follow with you. Lorie Zamora MD
[2017-05-08] MEDS: Insulin Reg-LOW-Coverage SC SCH ×4 (07:53→23:15)
--- NOTE | 2017-05-08 09:20 | CARD ---
APPROVED REPORT EKG Measurement Heart [id number] <Conclusion> Normal sinus rhythm Left anterior fascicular block Anteroseptal infarct, old PVC's no linger present, QTc shorter
[2017-05-08] MEDS: Metoclopramide 5 mg/5 ml Oral Sol PO SCH (09:22)
--- NOTE | 2017-05-08 09:36 | PN ---
DATE: 05/07/2017 SUBJECTIVE: The patient is a 57-year-old male. The patient is seen and examined at the bedside and looking comfortable. Status post surgery today of left hip by Dr. Awad and getting pain medication and eat regular lunch while he was sitting on the bedside. Also underwent open reduction and internal fixation with the nail and retrograde approach. Th is morning no chest pain, no shortness of breath, no fever, no chills. PHYSICAL EXAMINATION: VITAL SIGNS: Blood pressure 150/74, heart rate 73, temperature 99.5, and respiratory rate 18. HEENT: Head is normocephalic and atraumatic. Eyes, PERRLA. Extraocular muscles intact. Conjunctivae clear. Nose patent. Mucous membranes moist. NECK: Supple. No carotid bruits. No JVP or thyromegaly. CHEST: Bilaterally symmetrical. HEART: S1 and S2 positive. LUNGS: Clear to auscultation. ABDOMEN: Soft. Bowel sounds positive. No organomegaly. NEUROLOGIC: The patient is awake and alert. Oriented x3. Obeying simple order. EXTREMITIES: No edema. No cyanosis. Left leg range of motion is 0. MEDICATIONS: Coreg, albuterol, heparin, insulin, Levemir, Percocet, PhosLo, Reglan, Tylenol, and tramadol. LABORATORY DATA: White blood cells 10.5, hemoglobin 10.6, hematocrit 34.1, and platelets 187. Sodium 133, potassium 4.8, BUN 45, creatinine 6.7, glucose 226, iron 28, ASSESSMENT AND PLAN: The patient is a 52-year-old male with anemia, hyperchloremia, renal insufficiency is on hemodialysis, insulin independent uncontrolled diabetes mellitus, iron deficiency, status post open reduction and internal fixation of the left intertrochanteric fracture, frequent ventricular activity on the perioperative EKG as per tack welder. Continue current subcutaneous Lovenox, Coreg, GI and DVT prophylaxis, iron infusion given, history of chronic obstructive pulmonary disease, and obstructive sleep apnea syndrome. The patient is seen by tack welder and transfer table operator, consult written for Dr. Leandro Gilbert, and for also the patient's refrigeration technician. was sitting at the bedside, length of discussion done, all questions answered. The patient has history of secondary hyperthyroidism, diabetic neuropathy, diabetic retinopathy, history of deep venous thrombosis, pulmonary embolism, diabetic foot ulcer, esophageal cyst and abscess, nonischemic cardiomyopathy. Now, we will give pain management out of bed, physical therapy, dialysis, and we will follow up. Makenzie Miranda MD MTDAvi
--- NOTE | 2017-05-08 09:36 | OP ---
PROCEDURE DATE: 05/07/2017 ORTHOPEDIC SURGICAL REPORT PREOPERATIVE DIAGNOSIS: Displaced intertrochanteric fracture, left hip. POSTOPERATIVE DIAGNOSIS: Displaced intertrochanteric fracture, left hip. PROCEDURE: Open reduction and internal fixation with a [employer] peritrochanteric kai 180 mm long, lag screw of 105 mm long, and locked distally with a 34-mm cortical screw. TYPE OF ANESTHESIA: LMA. DESCRIPTION OF PROCEDURE: The patient was taken to OR, left hip prepped and draped in sterile fashion on the fracture table. X-ray showed we could reduce the fracture with traction, so at this time i made an inch and half incision above the greater trochanter size 3 inches. Deep knife was used to go through the fascia. Palpation done under the greater trochanter putting the threaded-tip guidewire just medial to the tip anteriorly and we put the guidewire down, passed the fracture and over-reamed it for 7 cm with a 16 mm reamer and putting the kai and aligned the kai with a femoral neck and head, and with the help of the outriggers put in the second incision to go into the femoral head and neck with a threaded-tip guidewire. Once in good position, we over-reamed it with the 11-mm reamer and then put in the lag screw that was 105 mm long and locked the kai proximally, then put in the third incision with the help of the jig with a 5 mm distal locking screw. X-ray showed good position of the three screws of fracture. Wounds are irrigated with normal saline and Kantrex. The jig was removed and the wounds closed with 2-0 Vicryl with deep layer and fascia and stainless steel nessa. The patient was taken to recovery room in good condition. Joel Awad DO SUZANNE
--- NOTE | 2017-05-08 09:41 | PN ---
DATE: 05/08/2017 FIRST DAY POSTOP REPORT LOCATION: Room 375, bed 1. SUBJECTIVE: Recovering from his left hip surgery from yesterday, which was 05/07/2017. He is feeling much better. No appreciable pain. He is resting in bed. He came to the Telemetry for cardiac reasons, but was still going to write an order for up out of bed in the ambulation with physical therapy, and he will be going to renal dialysis tomorrow. His blood work is good. His hemoglobin started at 10.9 preop and now it is 10.1 postop. PLAN: We will help the medical doctors follow him for the electrolyte balance. Joel Awad DO
[2017-05-08] MEDS ORDERED: Enoxaparin 30 mg Syringe SC SCH (10:00)
[2017-05-08 11:33] LABS: BASO # 0.02 K/mm3 (0.0-2.0); BASO % 0.2 % (0.0-3.0); EOS # 0.1 (0.0-0.7); EOS % 0.7 % (1.5-5.0); GRAN # 8.08 (1.4-6.5); GRAN % 74.2 % (50.0-68.0); LYMPH # 1.4 (1.2-3.4); LYMPH % 13.2 % (22.0-35.0); MEAN CELL VOLUME 78.9 fl (80.0-105.0); MEAN CORPUSCULAR HEMOGLOBIN 24.5 pg (25.0-35.0); MEAN CORPUSCULAR HGB CONC 31.1 g/dl (31.0-37.0); MEAN PLATELET VOLUME 11.2 fl (7.0-11.0); MONO # 1.3 (0.1-0.6); MONO % 11.7 % (1.0-6.0); RBC 4.08 10^6/uL (3.5-6.1); RED CELL DISTRIBUTION WIDTH 13.9 % (11.5-14.5); WHITE BLOOD COUNT 10.9 10^3/ul (4.5-11.0)
[2017-05-08 11:44] LABS: ALB/GLOB RATIO 0.9 (1.1-1.8); ALBUMIN 3.4 g/dL (3.0-4.8); CALCIUM 9.3 mg/dL (8.4-10.5)
--- NOTE | 2017-05-08 12:03 | PN ---
DATE: 05/08/2017 SUBJECTIVE: The patient is comfortable, no complaints of any chest pain. No shortness of breath. No headaches. PHYSICAL EXAMINATION: VITAL SIGNS: Temperature is 99.1, pulse is 83, blood pressure is 136/79, and respirations are 19. GENERAL: The patient is lying in bed, flat, comfortable. HEENT: No oral lesion. Anicteric sclerae. Moist mucosa. NECK: No JVD, adenopathy, or thyromegaly. CARDIOVASCULAR: S1 and S2, regular. No murmurs, rubs, or gallops. LUNGS: Clear to auscultation bilaterally. No wheeze, rales, or rhonchi. ABDOMEN: Bowel sounds are positive, soft, nontender and nondistended. EXTREMITIES: No cyanosis, clubbing or edema. LABORATORY DATA: White count of 10.8, hemoglobin 10.1. Potassium 5.1. ASSESSMENT: 1. End-stage renal disease, on hemodialysis Monday, , and Monday. 2. Left hip fracture, status post open reduction and internal fixation. 3. Secondary hyperparathyroidism. 4. Anemia. 5. Diabetic neuropathy. 6. Diabetic nephropathy. 7. Diabetic retinopathy. 8. Nonischemic cardiomyopathy. PLAN: The patient is currently on carvedilol. He is going to continue with nebulizer treatments. The patient is on heparin for DVT prophylaxis. He is on oxycodone for pain. The patient is on Levemir for diabetes. The patient is on tramadol for pain. He is going to continue with renal diet. The patient is due for dialysis tomorrow. The patient's hemoglobin is stable at 10.1. Leandro Gilbert MD
--- NOTE | 2017-05-08 12:13 | CP.PCM.PN ---
Subjective - Date & Time of Evaluation Date of Evaluation: 05/08/17 Time of Evaluation: 11:00 Objective - Vital Signs/Intake and Output Vital Signs (last 24 hours): Temp Pulse Resp BP Pulse Ox 99.2 F 77 18 101/65 98 05/08/17 12:00 05/08/17 12:00 05/08/17 12:00 05/08/17 12:00 05/08/17 12:00 Intake and Output: 05/08/17 05/08/17 06:59 18:59 Intake Total 120 Output Total 320 Balance -200 - Medications Medications: Current Medications Acetaminophen (Tylenol 325mg Tab) 650 mg PO Q6H PRN PRN Reason: Pain, moderate (4-7) Last Admin: 05/07/17 16:13 Dose: 650 mg Albuterol/Ipratropium (Duoneb 3 Mg/0.5 Mg (3 Ml) Ud) 3 ml IH [id number] [facility] Last Admin: 05/08/17 08:01 Dose: 3 ml Calcium Acetate (Phoslo) 667 mg PO TID [facility] Last Admin: 05/08/17 09:18 Dose: 667 mg Carvedilol (Coreg) 3.125 mg PO BID [facility] Last Admin: 05/08/17 09:18 Dose: 3.125 mg Heparin Sodium (Porcine) (Heparin) 5,000 units SC Q12 [facility] PRN Reason: Protocol Last Admin: 05/08/17 09:18 Dose: 5,000 units Insulin Detemir (Levemir) 14 unit SC HS [facility] Last Admin: 05/07/17 22:07 Dose: 14 unit Insulin Human Regular (Humulin R Low) 0 units SC ACHS [facility] PRN Reason: Protocol Last Admin: 05/08/17 07:53 Dose: Not Given Metoclopramide HCl (Reglan) 10 mg PO DAILY [facility] Last Admin: 05/08/17 09:22 Dose: 10 mg Oxycodone/Acetaminophen (Percocet 5/325 Mg Tab) 1 tab PO Q6H PRN PRN Reason: Pain, severe (8-10) Stop: 05/10/17 21:08 Tramadol HCl (Ultram) 50 mg PO TID PRN PRN Reason: Pain, moderate (4-7) Last Admin: 05/08/17 09:18 Dose: 50 mg - Labs Labs: 05/08/17 11:25 05/08/17 11:25 PT 11.6 SECONDS (9.4-12.5) 05/06/17 11:55 INR 1.01 (0.93-1.08) 05/06/17 11:55 APTT 31.1 Seconds (25.1-36.5) 05/06/17 11:55
--- NOTE | 2017-05-08 15:13 | RAD ---
PROCEDURE: Fluoroscopy up to 1 hour HISTORY: LT ORIF HIP COMPARISON: TECHNIQUE: Fluoroscopy was provided in the operating room. 48 seconds of fluoro time were use. Seven images were submitted FINDINGS: The study shows placement of a compression screw and kai in the left hip. There are no complicating factors IMPRESSION: As above
--- NOTE | 2017-05-08 18:54 | OP ---
PROCEDURE DATE: 05/07/2017 This 57-year-old male underwent left hip open reduction and internal fixation yesterday, which is 05/07/2017. PREOPERATIVE DIAGNOSIS: Left intertrochanteric fracture. POSTOPERATIVE DIAGNOSIS: Left intertrochanteric fracture. PROCEDURE: Open reduction and internal fixation with a peritrochanteric kai using 180 mm long kai x 100 mm long lag screw and locked distally. TYPE OF ANESTHESIA: General anesthesia with LMA. DESCRIPTION OF PROCEDURE: The patient was taken to the OR, left hip prepped and draped in a sterile fashion on the fracture table with gentle traction to reduce the fracture and with adequate LMA anesthesia, we made an incision proximal to the left hip about 3 inches that was 2 cm long greater trochanter, entered the greater trochanter with a threaded-tip guidewire down the shaft and over-reamed the proximal femur with the 17 mm reamer and put in the [employer] peritrochanteric kai 180 mm long x 11 mm. Then, second incision with the help of the jig went into the femoral head and neck to allow us to center of the femoral neck on both the AP and lateral projection and then put in the lag screw 100 mm long in the subchondral bone that locked the fracture in place. Then, we put a third incision to lock the kai with a cortical screw with the help of the jig. X-ray showed good position of the fracture and the hardware. Three wounds were cleaned with normal saline and closed in layers using 0-Vicryl deep layer, 2-0 Vicryl subcutaneous tissue, and skin with stainless steel nessa. The patient was taken to recovery room in good condition with sterile dressing. Joel Awad DO
--- NOTE | 2017-05-08 22:08 | PN ---
DATE: REASON FOR CONSULTATION AND FOLLOWUP: Preop evaluation, postop followup, status post open reduction and internal fixation of left hip. SUBJECTIVE: The patient denies any chest pain, shortness of breath, or any palpitation. OBJECTIVE: GENERAL: Lying flat in the bed, not in apparent distress. VITAL SIGNS: Temperature afebrile, heart rate 87, blood pressure 101/65. HEENT: PERRLA. Extraocular muscles intact. NECK: Supple. No carotid bruits or thyromegaly. CHEST: Clear to auscultation. HEART: S1 and S2, regular. ABDOMEN: Soft. EXTREMITIES: Clubbing and cyanosis negative. LABORATORY DATA: Blood workup as follows: WBC 10.9, hemoglobin 10.0, hematocrit 32.3, and platelet count 186. Chemistry shows sodium 130, potassium 5, chloride 92, carbon dioxide 25, anion gap of 21, BUN 72, and creatinine 8.8. IMPRESSION: Status post fall, status post open reduction fracture of left hip; end-stage renal disease, on dialysis; anemia. The patient had cardiac catheterization, revealed nonischemic cardiomyopathy, moderate pulmonary hypertension. Most recent echo last year revealed ejection fraction of 31%. A SPECT myocardial perfusion study, essentially normal myocardial perfusion study, fixed defect due to diaphragmatic attenuation. RECOMMENDATION: Continue Coreg, continue DVT prophylaxis, continue MARIANO inhibitor as blood pressure tolerated, low dose. We will follow with you. Thank you Dr. Miranda for providing us the opportunity in taking care of the patient, Stephanie Jackson. We will add ramipril. If remains stable, discontinue telemetry, rehab, we will follow with you. We will continue dialysis. Lorie De Los Santos MD
[2017-05-08] MEDS: Insulin Detemir 100 units/ml Vial (Levemir) SC SCH (23:16)
[2017-05-09] MEDS: Albuterol-Ipratrop 3 mg / 0.5 (3 ml) UD IH SCH ×4 (02:03→20:23)
[2017-05-09 06:47] LABS: BASO # 0.01 K/mm3 (0.0-2.0); BASO % 0.1 % (0.0-3.0); EOS # 0.2 (0.0-0.7); EOS % 1.6 % (1.5-5.0); GRAN # 6.38 (1.4-6.5); GRAN % 70.1 % (50.0-68.0); HEMOGLOBIN 9.2 g/dL (14.0-18.0); LYMPH # 1.4 (1.2-3.4); LYMPH % 15.8 % (22.0-35.0); MEAN CELL VOLUME 76.9 fl (80.0-105.0); MEAN CORPUSCULAR HEMOGLOBIN 24.7 pg (25.0-35.0); MEAN CORPUSCULAR HGB CONC 32.1 g/dl (31.0-37.0); MEAN PLATELET VOLUME 11.4 fl (7.0-11.0); MONO # 1.1 (0.1-0.6); MONO % 12.4 % (1.0-6.0); RBC 3.73 10^6/uL (3.5-6.1); RED CELL DISTRIBUTION WIDTH 13.9 % (11.5-14.5); WHITE BLOOD COUNT 9.1 10^3/ul (4.5-11.0)
[2017-05-09 07:01] LABS: ALB/GLOB RATIO 0.9 (1.1-1.8); ALBUMIN 3.1 g/dL (3.0-4.8); MAGNESIUM 2.2 mg/dL (1.7-2.2)
[2017-05-09] MEDS ORDERED: Doxercalciferol 4 mcg/2 ml Inj IVP ONE (07:30)
--- NOTE | 2017-05-09 08:31 | PN ---
DATE: 05/08/2017 PULMONARY PROGRESS NOTE REFERRING PHYSICIAN: Makenzie Miranda MD SUBJECTIVE: He is lying in the bed, feels better, was out of bed to chair, still having hip pain, not much cough, short of breath with exertion. No nausea, no vomiting, no diarrhea reported. OBJECTIVE: GENERAL: In no acute distress. VITAL SIGNS: Temperature is 98, heart rate is , respiratory rate is 18, blood pressure is 125/70, and pulse oximetry is 97% on room air. HEENT: Moist mucous membranes. Crowded airway. NECK: Supple. No JVD. LUNGS: Have a fair airflow with few rhonchi. HEART: S1 and S2. ABDOMEN: Soft, nontender. No organomegaly. EXTREMITIES: There is no edema. NEUROLOGIC: Awake and alert. Follows simple commands. MEDICATIONS: He is on Altace 1.25 mg daily, Coreg 3.125 mg twice a day, DuoNeb q.6 hours, heparin 5000 units subcu q.12 hours, insulin coverage, Levemir 14 units subcu at bedtime, oxycodone with Tylenol 5/325 one tablet q.6 hours p.r.n., PhosLo 667 with meals three times a day, Reglan 10 mg daily, Tylenol p.r.n. basis, Ultram 50 mg three times a day p.r.n. LABORATORY DATA: Shows hemoglobin 10.0, hematocrit , WBC 10.9, and platelet is 186. INR 1.01. PTT is 31. Sodium 133, potassium 5.0, chloride 92, bicarbonate 25, BUN 72, creatinine 8.3, glucose 140, calcium is 9.3, AST 38, ALT 25, alkaline phosphatase is 102, albumin 3.4. IMPRESSION AND PLAN: Status post fall with hip fracture, status post hip replacement, chronic obstructive lung disease, anemia, diabetes, gastroparesis, history of pulmonary embolism/deep venous thrombosis in the remote past, esophagitis, history of lung abscess, cardiomyopathy. Pulmonary point of view, doing well . Continue bronchodilator. Keep head at 45 degrees. Gastric prophylaxis. Start deep venous thrombosis prophylaxis, out of bed to chair, pain management. Thank you and we will follow with you. Lorie Zamora MD [facility] # [id number]
[2017-05-09] MEDS: Insulin Reg-LOW-Coverage SC SCH ×3 (08:47→17:34)
--- NOTE | 2017-05-09 11:14 | PN ---
DATE: SUBJECTIVE: Patient is comfortable. He has no complaint of any chest pain or shortness of breath or headaches. PHYSICAL EXAMINATION VITAL SIGNS: Temperature is 99.4, pulse of 88, blood pressure 123/75, respirations 20. GENERAL: The patient is lying in bed, flat, comfortable. HEENT: No oral lesion. Anicteric sclerae. Moist mucosa. NECK: No JVD, adenopathy, or thyromegaly. CARDIOVASCULAR: S1 and S2, regular. No murmurs, rubs, or gallops. LUNGS: Clear to auscultation bilaterally. No wheeze, rales, or rhonchi. ABDOMEN: Bowel sounds are positive. Soft, nontender and nondistended. EXTREMITIES: No cyanosis, clubbing or edema. LABS: Potassium is 5.3, sodium is 130. ASSESSMENT 1. End-stage renal disease, on hemodialysis on Monday, and Monday. 2. Left hip fracture, status post open reduction and internal fixation. 3. Secondary hyperparathyroidism. 4. Anemia. 5. Diabetic neuropathy. 6. Diabetic nephropathy. 7. Diabetic retinopathy. 8. Nonischemic cardiomyopathy. PLAN: The patient is currently comfortable. He is on ramipril for hypertension. He is on carvedilol also. The patient is on Levemir for his diabetes. Patient is getting dialyzed today. Patient was seen on dialysis, no issues. Patient is on Reglan. He is going to continue on Ultram for pain as needed, mostly likely subacute rehab. Patient has hyponatremia and potassium will improve with dialysis. Leandro Gilbert MD
[2017-05-09] MEDS: Metoclopramide 5 mg/5 ml Oral Sol PO SCH (11:40)
--- NOTE | 2017-05-09 13:09 | PN ---
DATE: REASON FOR CONSULTATION AND FOLLOWUP: Preop evaluation, risk stratification and postop followup, status post fall, status post fracture, status post open reduction internal fixation. SUBJECTIVE: The patient denies any chest pain or shortness of breath. Seen in dialysis, having dialysis. OBJECTIVE: GENERAL: Not in apparent distress. VITAL SIGNS: As follows: Temperature 99.4, heart rate 82, and blood pressure 105/54. HEENT: PERRLA. Extraocular muscles intact. NECK: Supple. No carotid bruits or thyromegaly. CHEST: Clear to auscultation. HEART: S1 and S2, regular. ABDOMEN: Soft. EXTREMITIES: Clubbing and cyanosis negative. LABORATORY DATA: Blood workup as follows: WBC , hematocrit 28.7, and platelet count 189. Chemistry shows sodium 130, potassium 5.3, chloride 90, carbon dioxide 25, anion gap of 21, BUN , and creatinine 9.5. IMPRESSION: Status post fall, status post fracture, status post left hip open reduction internal fixation; end-stage renal disease, on dialysis; anemia; history of cardiac catheterization revealed nonischemic cardiomyopathy, moderate pulmonary hypertension. Most recent echo last year revealed ejection fraction of 31%. A SPECT myocardial perfusion study, essentially normal myocardial perfusion study, fixed defect due to diaphragmatic attenuation. RECOMMENDATIONS: Continue Coreg, continue DVT prophylaxis, continue MARIANO inhibitor as blood pressure is tolerated. Continue dialysis. CVS status is stable. Continue subq heparin. Thank you Dr. Miranda for providing us the opportunity in taking care of the patient, Renetta. Consider rehab. For DVT prophylaxis, continue subq heparin. Lorie De Los Santos MD
[2017-05-09 17:37] VITALS: BP 102/60; PULSE 93; TEMP 100
[2017-05-09 19:10] VITALS: RESP 22; O2SAT 94
--- NOTE | 2017-05-10 01:57 | PN ---
DATE: 05/09/2017 REFERRING PHYSICIAN: Makenzie Miranda MD SUBJECTIVE: He is lying in the bed, having dinner at night, was unremarkable, feels better. No headache. No rhinitis. No nausea. Mild left hip discomfort. No leg swelling. OBJECTIVE: GENERAL: In no acute distress. VITAL SIGNS: Temperature is 100, heart rate is 93, respiratory rate is 22, blood pressure is 102/60 and pulse oximetry 94%. HEENT: Moist mucous membranes. Crowded airway. NECK: Supple. No JVD. LUNGS: Have a fair airflow with rhonchi. HEART: S1 and S2. ABDOMEN: Soft and nontender. No organomegaly. EXTREMITIES: There is left hip tenderness. No edema. NEUROLOGIC: Awake and alert. Follows simple command. MEDICATIONS: Reviewed and noting no new changes in medication reported. LABORATORY DATA: Reviewed and shows hemoglobin 9.2, hematocrit 28.7, WBC 9.1, and platelet is 189. INR is 1.01. PTT 31. Sodium 130, potassium 5.3, chloride 90, bicarbonate 24, BUN 88, creatinine 9.5, glucose 178, calcium is 9.0, phosphors 6.3, magnesium 2.2, AST 31, ALT 16, alk phos is 100. Albumin is 3.1. IMPRESSION AND PLAN: Status post fall with hip fracture, chronic obstructive lung disease, anemia, diabetes, gastroparesis, pulmonary embolism, history of deep vein thrombosis in the past, esophagitis, history of lung abscess, and cardiomyopathy. From pulmonary point of view, doing well, keep head at 45 degrees. Gastric prophylaxis, deep venous thrombosis prophylaxis, fall precautions, may need to send nasal swab for influenza. Thank you and we will follow with you. Lorie Zamora MD
--- NOTE | 2017-05-10 04:21 | PN ---
DATE: 05/08/2017 SUBJECTIVE: The patient was seen and examined at the bedside on 05/08/2017 actually by me and my nurse practitioner, Yazmin, and the patient looks comfortable. No nausea, vomiting, or diarrhea. No hematuria. No hematochezia. No headache. No dizziness. No chest pain. No palpitation. PHYSICAL EXAMINATION: VITAL SIGNS: Temperature 99.2, pulse 77, respiratory rate 18, blood pressure 101/65, pulse oximetry is 98%. HEENT: Head normocephalic, atraumatic. Eyes, PERRLA. Extraocular muscles are intact. Conjunctivae are clear. Nose patent. Mucous membranes moist. NECK: Supple. No carotid bruits, JVD or thyromegaly. CHEST: Bilaterally symmetrical. HEART: S1 and S2 positive. LUNGS: Clear to auscultation. ABDOMEN: Soft. Bowel sounds positive. No organomegaly. EXTREMITIES: No edema. No cyanosis. NEUROLOGICAL: The patient is awake and alert. Moving all 4 extremities. No focal deficits. MEDICATIONS: Acetaminophen, albuterol, calcium acetate, Coreg, heparin, insulin, Reglan, Percocet, tramadol. LABS: White blood cell 10.9, hemoglobin 10, hematocrit 32.2, platelets 182. Sodium 136, potassium 5.0, BUN 72, creatinine 8.6, glucose 140. ASSESSMENT AND PLAN: Mr. Stephanie Jackson is a 57-year-old male with anemia; renal insufficiency, on hemodialysis; insulin-dependent diabetes mellitus, not very well controlled; hypochloremia; status post fall with a hip fracture, status post hip replacement; chronic obstructive lung disease; diabetes mellitus; gastroparesis; history of pulmonary embolism/deep venous thrombosis in the remote past; esophagitis; history of lung abscess; cardiomyopathy. The patient is getting pain management, out of bed, physical therapy, continue bronchodilators. Keep head elevated at 45 degrees, gastric prophylaxis, deep venous thrombosis prophylaxis. We will follow up. Makenzie Miranda MD
== END 2017-05-09 21:25 | disposition home or self-care (01) | DRG 480 ==
LOC: ED 00:53 → ERH 06:23 → 5RNO 08:21 → 3RSO 05-07 18:54 → 3RNO 05-08 22:49
PROVIDERS: ADMIT Internal Medicine; ATTEND Internal Medicine
PROC: 5A1D70Z Performance of Urinary Filtration, Intermittent, Less than 6 Hours Per Day (ICD-10-PCS; 2017-05-06)
PROC: 0QS704Z Reposition Left Upper Femur with Internal Fixation Device, Open Approach (ICD-10-PCS; principal; 2017-05-07 09:00)
PROC: 5A1D70Z Performance of Urinary Filtration, Intermittent, Less than 6 Hours Per Day (ICD-10-PCS; 2017-05-09)
DX: S72.142A Displaced intertrochanteric fracture of left femur, initial encounter for closed fracture (principal); N18.6 End stage renal disease; I13.2 Hypertensive heart and chronic kidney disease with heart failure and with stage 5 chronic kidney disease, or end stage renal disease; E11.21 Type 2 diabetes mellitus with diabetic nephropathy; E87.8 Other disorders of electrolyte and fluid balance, not elsewhere classified; K31.84 Gastroparesis; E11.43 Type 2 diabetes mellitus with diabetic autonomic (poly)neuropathy; E11.319 Type 2 diabetes mellitus with unspecified diabetic retinopathy without macular edema; N25.81 Secondary hyperparathyroidism of renal origin; I42.9 Cardiomyopathy, unspecified; I50.9 Heart failure, unspecified; I27.20 Pulmonary hypertension, unspecified; E11.22 Type 2 diabetes mellitus with diabetic chronic kidney disease; Y92.009 Unspecified place in unspecified non-institutional (private) residence as the place of occurrence of the external cause; E11.65 Type 2 diabetes mellitus with hyperglycemia; J44.9 Chronic obstructive pulmonary disease, unspecified; G47.33 Obstructive sleep apnea (adult) (pediatric); D50.9 Iron deficiency anemia, unspecified; Z79.4 Long term (current) use of insulin; Z86.711 Personal history of pulmonary embolism; Z86.718 Personal history of other venous thrombosis and embolism; Z99.2 Dependence on renal dialysis; Z91.19 Patient's noncompliance with other medical treatment and regimen; K22.8 Other specified diseases of esophagus; W07.XXXA Fall from chair, initial encounter

== ENCOUNTER 2017-06-22 14:19 | Inpatient (IN) | payer MEDICARE, MEDICAID ==
[2017-06-22 14:20] VITALS: PULSE 69; BMI 18.3
--- NOTE | 2017-06-22 14:55 | ED PDOC ---
Arrival/HPI - General Time Seen by Provider: 06/22/17 14:47 Historian: Patient - History of Present Illness Narrative History of Present Illness (Text): 06/22/17 14:54 57 y/o male, pmh including ESRD under dialysis 3times per week (M/W/F)/DM with neuropathy and retinopathy/copd/pleural effusion/dvt/pe/GI bleed, surgical history of lt. intertrochanteric fracture with ORIF on 05/08/2017, nkda, c/o lt. sided facial and jaw swelling x 3 days with pain. Aching and swelling, no fever or chills, no night sweat, no difficulty swallowing, no neck pain, no palpitation, no rash, no other medical or psychological complaints. Past Medical History - Provider Review Nursing Documentation Reviewed: Yes - Infectious Disease Hx of Infectious Diseases: None - Tetanus Immunization Tetanus Immunization: Up to Date - Cardiac Hx Cardiac Disorders: Yes Hx Congestive Heart Failure: Yes Hx Hypertension: Yes - Pulmonary Hx Respiratory Disorders: Yes (PLEURAL EFFUSION,) Hx Asthma: No Hx Bronchitis: No Hx Chronic Obstructive Pulmonary Disease (COPD): Yes Hx Emphysema: No Hx Pneumonia: Yes Hx Respiratory Aspiration: No Hx Respiratory Tract Infection: No Hx Sleep Apnea: No Hx Tuberculosis: No - Neurological Hx Neurological Disorder: Yes (DIABETIC NUEROPATHY) Hx Alzheimer's Disease: No HX Cerebrovascular Accident: No Hx Dementia: No Hx Dizziness: Yes (after dialysis) Hx Meningitis: No Hx Migraine: No Hx Parkinson's Disease: No Hx Seizures: No Hx Transient Ischemic Attacks (TIA): No - HEENT Hx HEENT Disorder: Yes Hx Blind: No Hx Cataracts: No Hx Deafness: No Hx Difficulty Chewing: No Hx Epistaxis: No Hx Glaucoma: No Hx Macular Degeneration: No - Renal Hx Renal Disorder: Yes Hx Dialysis: Yes (Mon) Date of Last Dialysis Treatment: 05/06/17 Hx Kidney Stones: No Hx Neurogenic Bladder: No Hx Pyelonephritis: No Hx Renal Cancer: No Hx Renal Failure: No - Endocrine/Metabolic Hx Endocrine Disorders: Yes Hx Adrenal Cancer: No Hx Diabetes Insipidus: No Hx Diabetes Mellitus Type 1: No Hx Diabetes Mellitus Type 2: Yes Hx Hyperthyroidism: No Hx Hypothyroidism: No Hx Systemic Lupus Erythematosus: No - Hematological/Oncological Hx Blood Disorders: Yes Hx AIDS: No Hx Anemia: Yes Hx Cancer: No Hx Chemotherapy: No Hx Cirrhosis: No Hx Hemophilia: No Hx Hepatitis A: No Hx Hepatitis B: No Hx Hepatitis C: No Hx Metastasis: No Hx Shingles: No Hx Sickle Cell Disease: No Hx Unexplained Bleeding: No - Integumentary Hx Dermatological Disorder: Yes Hx Basal Cell Carcinoma: No Hx Eczema: No Hx Melanoma: No Hx Psoriasis: No Hx Squamous Cell Carcinoma: No Other/Comment: BILATERAL LE EDEMA.VERY TIGHT SKIN TO BOTH LE WITH BUMPS,DRY THIN FLAKY SKIN. PLANTAR SIDE OF FEET HAS CALLOUSED AREA. - Musculoskeletal/Rheumatological Hx Musculoskeletal Disorders: No Hx Arthritis: No Hx Back Pain: Yes Hx Degenerative Joint Disease: No Hx Falls: Yes (last fall 05-05-17) Hx Fractures: No Hx Gout: No Hx Herniated Disk: No Hx Myasthenia Gravis: No Hx Osteoarthritis: No Hx Osteomyelitis: No Hx Osteoporosis: No Hx Rhabdomyolysis: No Hx Spinal Stenosis: No Hx Unsteady Gait: No - Gastrointestinal Hx Gastrointestinal Disorders: Yes Hx Colostomy: No Hx Crohn's Disease: No Hx Diverticulitis: No Hx Gall Bladder Disease: No Hx Gastroesophageal Reflux: No Hx Ileostomy: No Hx Liver Failure: No Hx Pancreatitis: No HX Swallowing Problems: Yes - Genitourinary/Gynecological Hx Genitourinary Disorders: Yes Hx Hematuria: No Hx Incontinence: Yes Hx Prostate Problems: No Hx Sexually Transmitted Diseases: No Hx Urinary Tract Infection: No - Psychiatric Hx Psychophysiologic Disorder: No Hx Anxiety: No Hx Bipolar Disorder: No Hx Depression: Yes Hx Emotional Abuse: No Hx Hallucinations: No Hx Panic Disorder: No Hx Post Traumatic Stress Disorder: No Hx Psychosis: No Hx Physical Abuse: No Hx Schizophrenia: No Hx Sexual Abuse: No Hx Substance Use: No - Past Surgical History Past Surgical History: Non-Contributing - Surgical History Hx Amputation: No Hx Appendectomy: No Hx Cardiac Catheterization: No Hx Cholecystectomy: No Hx Coronary Stent: No Hx Gastric Bypass Surgery: No Hx Hysterectomy: No Hx Joint Replacement: No Hx Kidney Transplant: No Hx Liver Transplant: No Hx Mastectomy: No Hx Musculoskeletal Surgery: No Hx Open Heart Surgery: No Hx Orthopedic Surgery: No Hx Splenectomy: No Hx Valve Replacement: No - Anesthesia Hx Anesthesia: Yes Hx Anesthesia Reactions: No Hx Malignant Hyperthermia: No - Suicidal Assessment Feels Threatened In Home Enviroment: No Family/Social History - Physician Review Nursing Documentation Reviewed: Yes Family/Social History: Unknown Family HX Smoking Status: Never Smoked Hx Alcohol Use: No Hx Substance Use: No Hx Substance Use Treatment: No Allergies/Home Meds Allergies/Adverse Reactions: Allergies No Known Allergies Allergy (Verified 06/22/17 15:10) Home Medications: Home Meds Medication Instructions Recorded Confirmed Metoclopramide [Reglan] 10 mg PO DAILY 02/25/16 05/06/17 Calcium Acetate [Phoslyra] 667 mg PO TID 05/17/16 05/06/17 Darbepoetin Rony [Aranesp (RENAL)] 80 mcg IVP QWK 05/17/16 05/06/17 Doxercalciferol [Hectorol (RENAL)] 4 mcg IVP QOTHERDAY 05/17/16 05/06/17 Iron Sucrose (RENAL) [Venofer 100 mg IV QOTHERDAY 05/17/16 05/06/17 (RENAL)] Review of Systems - Review of Systems Constitutional: absent: Fatigue, Fevers Eyes: absent: Vision Changes ENT: Other (Lt. sided facial and jaw swelling. ). absent: Hearing Changes Respiratory: absent: SOB, Cough Cardiovascular: absent: Chest Pain Gastrointestinal: absent: Abdominal Pain, Nausea, Vomiting Musculoskeletal: absent: Arthralgias, Back Pain Skin: absent: Rash, Pruritis Neurological: absent: Headache Psychiatric: absent: Anxiety, Depression, Suicidal Ideation Physical Exam Vital Signs Reviewed: Yes Vital Signs Temp Pulse Resp BP Pulse Ox 06/22/17 16:20 74 18 166/85 H 98 06/22/17 15:15 98.4 F 73 18 175/86 H 100 Temperature: Afebrile Blood Pressure: Hypertensive Pulse: Regular Respiratory Rate: Normal Appearance: Positive for: Well-Appearing, Non-Toxic, Comfortable Pain Distress: Mild Mental Status: Positive for: Alert and Oriented X 3 - Systems Exam Head: Present: Atraumatic, Normocephalic Pupils: Present: PERRL Extroacular Muscles: Present: EOMI Conjunctiva: Present: Normal Ears: Present: NORMAL TM, Normal Canal. No: Erythema Mouth: Present: Moist Mucous Membranes, Normal Lips, Normal Tounge, Other ( visible multiple dental caries noted on the lt. upper and lower molars with no gingival abscess, moderate lt. sided facial swelling including preseptal with mild celluitis. ) Neck: Present: Normal Range of Motion, Lymphadenopathy (lt. anterior cervical lymphenapathy), Trachea Midline, Other (no chin swelling. ). No: Meningeal Signs, MIDLINE TENDERNESS, Paraspinal Tenderness Respiratory/Chest: Present: Clear to Auscultation, Good Air Exchange. No: Respiratory Distress, Accessory Muscle Use Cardiovascular: Present: Regular Rate and Rhythm, Normal S1, S2. No: Murmurs Abdomen: Present: Normal Bowel Sounds. No: Tenderness, Distention, Peritoneal Signs, Rebound, Guarding Back: Present: Normal Inspection Upper Extremity: Present: Normal Inspection. No: Cyanosis, Edema Lower Extremity: Present: Normal Inspection. No: Edema Neurological: Present: GCS=15, Speech Normal, Motor Func Grossly Intact, Gait Normal, Memory Normal Skin: Present: Warm, Dry, Normal Color. No: Rashes Psychiatric: Present: Alert, Oriented x 3, Normal Insight, Normal Concentration Medical Decision Making ED Course and Treatment: 06/22/17 15:32 -labs -CT facial -IV Vancomycin/zosyn 2.25g due to renal function/percocet/benadryl -observe and reassess 06/22/17 17:28 -CT facial show: Findings are most compatible with left preseptal orbital cellulitis and left facial cellulitis. No evidence of drainable fluid collection. Extensive mandibular periodontal disease. -Labs are non-significant except hgb 9.5 from 9.2 (chronic anemia), BUN 47 from 88, Creatine 7.1 from 9.5 -I discussed with the patient that he will need admission for IV antibiotics, pt. agreed to be admitted -Calling Dr. Miranda for admission. 06/22/17 18:11 -I discussed with Dr. Miranda, discussed about the case/labs/radiology result and treatment, agreed on to admit to her service with Dr. House (ID) for routine consult. -I discussed with Dr. Abdi about the case/labs reviewed, she will put in the admission. - Lab Interpretations Lab Results: 06/22/17 17:00 06/22/17 17:00 Lab Results 06/22/17 17:00: WBC 7.2 D, RBC 3.90, Hgb 9.5 L, Hct 30.8 L, MCV 79.0 L, MCH 24.4 L, MCHC 30.8 L, RDW 14.9 H, Plt Count 223, MPV 9.6, Gran % 62.9, Lymph % ( Auto) 23.3, [place] % (Auto) 11.6 H, Eos % (Auto) 1.9, Baso % (Auto) 0.3, Gran # 4.54, Lymph # (Auto) 1.7, [place] # (Auto) 0.8 H, Eos # (Auto) 0.1, Baso # (Auto) 0.02, ESR Pending 06/22/17 17:00: Sodium 137, Potassium 4.3, Chloride 92 L, Carbon Dioxide 30, Anion Gap 19, BUN 47 H, Creatinine 7.1 H, Est GFR ( Amer) 10, Est GFR ( Non-Af Amer) 8, Random Glucose 222 H, Calcium 10.0, Total Bilirubin 0.4, AST 17 D, ALT 15, Alkaline Phosphatase 93, Total Protein 7.7, Albumin 3.7, Globulin 3.9, Albumin/Globulin Ratio 1.0 L 06/22/17 16:33: POC Glucose (mg/dL) 200 H - RAD Interpretation Radiology Orders: 06/22/17 15:26 MAXILLOFACIAL W/O CONTRAST [CT] Stat FINDINGS: NASAL BONES: The nasal bones are intact. ORBITS: There is mild left periorbital soft tissue swelling. The globes are symmetric. The retro bulbar fat pad is clear. No acute fracture. PARANASAL SINUSES/ MASTOIDS: There is mild polypoid mucosal thickening in the maxillary sinuses. The remaining included paranasal sinuses are predominantly clear. The mastoid air cells are clear. MAXILLA: There is diffuse subcutaneous edema and soft tissue swelling overlying the left maxilla and zygomatic arch. No evidence of drainable fluid collection. MANDIBLE/ TEMPOROMANDIBULAR JOINTS: Within normal limits. SKULL BASE: Unremarkable. TEMPORAL BONES: Middle ears and mastoid grossly unremarkable. OTHER FINDINGS: There are periapical lucencies in the mandibular molars and premolars. IMPRESSION: Findings are most compatible with left preseptal orbital cellulitis and left facial cellulitis. No evidence of drainable fluid collection. Extensive mandibular periodontal disease. Special Education Resource Teacher: Radiologist - Medication Orders Current Medication Orders: Vancomycin HCl (Vancomycin 1gm) 1 gm in 250 mls @ 167 mls/hr IVPB STAT STA PRN Reason: Protocol Stop: 06/22/17 18:13 Discontinued Medications Diphenhydramine HCl (Benadryl) 25 mg IVP STAT STA Stop: 06/22/17 15:29 Last Admin: 06/22/17 16:46 Dose: 25 mg IVP Administration Document 06/22/17 16:46 OCS (Rec: 06/22/17 16:46 [id number] Charges for Administration # of IVP Administrations 1 Piperacillin Sod/Tazobactam Sod (Zosyn 2.25 Gm In 0.9% 100 Ml) 2.25 gm in 100 mls @ 200 mls/hr IVPB STAT STA PRN Reason: Protocol Stop: 06/22/17 17:22 Last Admin: 06/22/17 17:33 Dose: 200 mls/hr eMAR Start Stop Document 06/22/17 17:33 OCS (Rec: 06/22/17 17:33 [id number] Intravenous Solution Start Date 06/22/17 Start Time 17:33 End Date 06/22/17 End time 18:03 Total Infusion Time 30 Oxycodone/Acetaminophen (Percocet 5/325 Mg Tab) 1 tab PO STAT STA Stop: 06/22/17 15:33 Last Admin: 06/22/17 16:45 Dose: 1 tab MAR Pain Assessment Document 06/22/17 16:45 OCS (Rec: 06/22/17 16:46 [id number] Pain Reassessment Is this a pain reassessment? Yes Sleep Is patient sleeping during reassessment? No Presence of Pain Presence of Pain Yes Pain Scale Used Pain Scale Used Numeric Location Pain Location Body Site Face Description Description Constant Aggravating Factors ADL's - PA / LANDMEN / Resident Statement MD/DO has reviewed & agrees with the documentation as recorded. Disposition/Present on Arrival - Present on Arrival Any Indicators Present on Arrival: No History of DVT/PE: No History of Uncontrolled Diabetes: No Urinary Catheter: No History of Decub. Ulcer: No History Surgical Site Infection Following: None - Disposition Have Diagnosis and Disposition been Completed?: Yes Diagnosis: Diffuse cellulitis of face, Dental caries, ESRD (end stage renal disease) Disposition: HOSPITALIZED Disposition Time: 15:32 Patient Plan: Admission Patient Problems: Current Active Problems Problem Status Onset ESRD (end stage renal disease) Acute Diffuse cellulitis of face Acute Dental caries Acute Condition: STABLE Discharge Instructions (ExitCare): Cellulitis (ED)
[2017-06-22] MEDS ORDERED: DiphenhydrAMINE 50 mg/ml Inj IVP STA (15:28)
[2017-06-22] MEDS ORDERED: Oxycodone/Acetaminophen 5/325 mg Tab PO STA (15:32)
--- NOTE | 2017-06-22 16:35 | CT ---
PROCEDURE: CT MAXILLOFACIAL BONES WITHOUT CONTRAST HISTORY: Left sided facial swelling x 3 days. COMPARISON: None TECHNIQUE: Contiguous axial CT images of the maxillofacial bones were obtained. Coronal and sagittal reformats were generated. Radiation dose: Total exam DLP = 836.12 mGy-cm. This CT exam was performed using one or more of the following dose reduction techniques: Automated exposure control, adjustment of the mA and/or kV according to patient size, and/or use of iterative reconstruction technique. FINDINGS: NASAL BONES: The nasal bones are intact. ORBITS: There is mild left periorbital soft tissue swelling. The globes are symmetric. The retro bulbar fat pad is clear. No acute fracture. PARANASAL SINUSES/ MASTOIDS: There is mild polypoid mucosal thickening in the maxillary sinuses. The remaining included paranasal sinuses are predominantly clear. The mastoid air cells are clear. MAXILLA: There is diffuse subcutaneous edema and soft tissue swelling overlying the left maxilla and zygomatic arch. No evidence of drainable fluid collection. MANDIBLE/ TEMPOROMANDIBULAR JOINTS: Within normal limits. SKULL BASE: Unremarkable. TEMPORAL BONES: Middle ears and mastoid grossly unremarkable. OTHER FINDINGS: There are periapical lucencies in the mandibular molars and premolars. IMPRESSION: Findings are most compatible with left preseptal orbital cellulitis and left facial cellulitis. No evidence of drainable fluid collection. Extensive mandibular periodontal disease.
[2017-06-22] MEDS ORDERED: Vancomycin 1gm in NS 250ml 1 GM/250 ML BAG IVPB STA (16:44)
[2017-06-22] MEDS ORDERED: Piperacillin/Tazobact 2.25gm 2.25 GM/100 ML BAG IVPB STA (16:53)
[2017-06-22 17:11] LABS: BASO # 0.02 K/mm3 (0.0-2.0); BASO % 0.3 % (0.0-3.0); EOS # 0.1 (0.0-0.7); EOS % 1.9 % (1.5-5.0); GRAN # 4.54 (1.4-6.5); GRAN % 62.9 % (50.0-68.0); HEMOGLOBIN 9.5 g/dL (14.0-18.0); LYMPH # 1.7 (1.2-3.4); LYMPH % 23.3 % (22.0-35.0); MEAN CORPUSCULAR HEMOGLOBIN 24.4 pg (25.0-35.0); MEAN CORPUSCULAR HGB CONC 30.8 g/dl (31.0-37.0); MEAN PLATELET VOLUME 9.6 fl (7.0-11.0); MONO # 0.8 (0.1-0.6); MONO % 11.6 % (1.0-6.0); RBC 3.9 10^6/uL (3.5-6.1); RED CELL DISTRIBUTION WIDTH 14.9 % (11.5-14.5); WHITE BLOOD COUNT 7.2 10^3/ul (4.5-11.0)
[2017-06-22 17:21] LABS: ALBUMIN 3.7 g/dL (3.0-4.8)
[2017-06-22] MEDS: Insulin Reg-LOW-Coverage SC SCH (22:09)
[2017-06-22] MEDS: Insulin Detemir 100 units/ml Vial (Levemir) SC SCH (22:09)
[2017-06-22] MEDS: Piperacillin/Tazobact 2.25gm 2.25 GM/100 ML BAG IVPB SCH (23:30)
[2017-06-23] MEDS: Albuterol-Ipratrop 3 mg / 0.5 (3 ml) UD IH SCH ×4 (01:31→21:21)
[2017-06-23] MEDS: Piperacillin/Tazobact 2.25gm 2.25 GM/100 ML BAG IVPB SCH ×3 (06:46→23:49)
[2017-06-23 07:52] LABS: ALB/GLOB RATIO 0.9 (1.1-1.8); ALBUMIN 3.4 g/dL (3.0-4.8); BASO # 0.02 K/mm3 (0.0-2.0); BASO % 0.3 % (0.0-3.0); CALCIUM 9.6 mg/dL (8.4-10.5); EOS # 0.2 (0.0-0.7); EOS % 2.7 % (1.5-5.0); GRAN # 4.82 (1.4-6.5); HEMOGLOBIN 8.8 g/dL (14.0-18.0); LYMPH # 1.4 (1.2-3.4); LYMPH % 19.6 % (22.0-35.0); MEAN CELL VOLUME 78.6 fl (80.0-105.0); MEAN CORPUSCULAR HEMOGLOBIN 24.1 pg (25.0-35.0); MEAN CORPUSCULAR HGB CONC 30.7 g/dl (31.0-37.0); MEAN PLATELET VOLUME 10.7 fl (7.0-11.0); MONO # 0.7 (0.1-0.6); MONO % 9.4 % (1.0-6.0); RBC 3.65 10^6/uL (3.5-6.1); WHITE BLOOD COUNT 7.1 10^3/ul (4.5-11.0)
[2017-06-23] MEDS: Insulin Reg-LOW-Coverage SC SCH ×4 (08:00→22:48)
[2017-06-23] MEDS ORDERED: Doxercalciferol 4 mcg/2 ml Inj IVP SCH (08:15)
[2017-06-23] MEDS: Metoclopramide 5 mg/5 ml Oral Sol PO SCH (11:00)
--- NOTE | 2017-06-23 13:09 | CON ---
DATE: REFERRING PHYSICIAN: Makenzie Miranda MD REASON FOR CONSULTATION: Management of end-stage renal disease, on dialysis. CHIEF COMPLAINT AND HISTORY OF PRESENT ILLNESS: This is a 57-year-old male who has a history of end-stage renal disease and is on hemodialysis on Monday, Monday and Monday, with diabetic neuropathy and retinopathy. The patient came into the hospital because he was having swelling of his face and jaw for the past few days. He denies any chest pain, shortness of breath. No nausea. No vomiting. No fever, headache or chills. The patient had a fall and developed a fracture, and had left hip fracture and ORIF done. The patient has no other complaints. He does have difficulty in ambulating. REVIEW OF SYSTEMS: All other review of symptoms are within normal limits except what was mentioned. ALLERGIES: NO KNOWN DRUG ALLERGIES. HOME MEDICATIONS: Has been reviewed on the [facility]. PAST MEDICAL HISTORY: 1. Fall. 2. Left hip fracture. 3. End-stage renal disease, on hemodialysis. 4. Secondary hyperparathyroidism. 5. Diabetes type 2. 6. Diabetic neuropathy. 7. Diabetic retinopathy. 8. Diabetic nephropathy. 9. DVT/PE. 10. Esophageal cyst. 11. COPD. 12. Right lung abscess. 13. Nonischemic cardiomyopathy. SOCIAL HISTORY: The patient is . Lives with his . He has two children. He does not smoke or drink. FAMILY HISTORY: The patient's mother and father in their early 50s. The patient is not sure of the cause. PHYSICAL EXAMINATION: VITAL SIGNS: Temperature is 98.4, pulse is 77, blood pressure is 165/89, respirations 20, O2 saturation 97%. GENERAL: The patient lying in bed, uncomfortable, and in no acute distress. HEENT: Atraumatic and normocephalic. Anicteric sclerae. Moist mucosa. [place] conjunctivae. No oral lesions. There is left-sided facial swelling, mild cellulitis. NECK: No JVD, anterior and posterior adenopathy, thyromegaly, or bruits. CARDIOVASCULAR: S1 and S2 regular. No murmur, rubs, or gallop. LUNGS: Clear to auscultation bilaterally. No wheezes, rales, or rhonchi. ABDOMEN: Bowel sounds are positive. Soft, nontender and nondistended. No hepatosplenomegaly. No rebound and no guarding EXTREMITIES: No cyanosis, clubbing. Lower extremities, 1+ edema. NEUROLOGIC: No facial asymmetry. Tongue is midline. No uvula deviation. Power is 5/5 upper extremity and lower extremity. Sensation intact in upper extremity and lower extremity. PSYCHIATRIC: He is awake, alert and oriented x3. No anxiety or depression. He has normal affect. GENITOURINARY: No CVA tenderness. VASCULAR: 2+ pulses in the carotid pulses and pedal pulses. SKIN: No erythema or nodules SPINE: Shows normal curvature. LABORATORY DATA: Labs have been reviewed. White count of 7.2, hemoglobin 9.5, platelet count is 223. Chemistry shows a creatinine is 7.1, potassium is 4.3. A maxillofacial CT done shows findings consistent with a left orbital cellulitis and left facial cellulitis. There is extensive mandibular periodontal disease. ASSESSMENT: 1. Left orbital cellulitis and left facial cellulitis. 2. Diabetic nephropathy. 3. Diabetic neuropathy. 4. Diabetic retinopathy. 5. Nonischemic cardiomyopathy. 6. Anemia secondary to chronic kidney disease. 7. Secondary hyperparathyroidism. 8. End-stage renal disease, on hemodialysis Monday, Monday and Monday. PLAN: The patient is currently comfortable. He is admitted to the hospital. He is going to continue his Coreg. He is on Hectorol for his secondary hyperparathyroidism. He will get dialysis. He is on Levemir for his diabetes. He is going to continue his PhosLo for his phosphate binder. The patient is on tramadol for pain. He was given vancomycin and Zosyn in the ER. The patient is going to continue with Zosyn, renally dosed. He is on renal diet. The patient is going to get dialyzed today. He is going to continue his Aranesp. He is anemic because of his infection. We will continue dialysis Monday, Monday and Monday. Thank you for allowing me to participate in the care of your patient. Leandro Gilbert MD
--- NOTE | 2017-06-23 14:16 | CP.PCM.HP ---
<Yazmin Hoang - Last Filed: 06/23/17 14:12> History of Present Illness - History of Present Illness History of Present Illness: Chief Complaint: L oribital edema 57 yr male previously discharged from [facility] w/ history of ESRD (HEMO - MWF), fall w. hip fracture, ORIF (05/08/17), COPD, Anemia , DM II, Diabetic neuropathy, Diabetic retinopathy, gasteroparesis, Pulmonary embolism, DVT, esophagitis, lung abscess, & cardiomyopathy. Pt admitted to [facility] for diffuse cellulitis of face & dental caries. Today, pt seen in hemodialysis. With oozing of L eye. Pt denies any fever, chills, chest pain, shortness of breath, diarrhea, constipation, paresthesia, or urinary changes. Present on Admission - Present on Admission Any Indicators Present on Admission: Yes History of DVT/PE: Yes History of Uncontrolled Diabetes: Yes Urinary Catheter: No Decubitus Ulcer Present: No Review of Systems - Constitutional Constitutional: As Per HPI - EENT Eyes: As Per HPI Ears: As Per HPI Nose/Mouth/Throat: As Per HPI - Cardiovascular Cardiovascular: As Per HPI - Respiratory Respiratory: As Per HPI - Gastrointestinal Gastrointestinal: As Per HPI - Genitourinary Genitourinary: As Per HPI - Reproductive: Male Reproductive:Male: As Per HPI - Musculoskeletal Musculoskeletal: As Per HPI - Integumentary Integumentary: As Per HPI - Neurological Neurological: As Per HPI - Psychiatric Psychiatric: As Per HPI - Endocrine Endocrine: As Per HPI - Hematologic/Lymphatic Hematologic: As Per HPI Past Patient History - Infectious Disease Hx of Infectious Diseases: None - Tetanus Immunizations Tetanus Immunization: Up to Date - Past Social History Smoking Status: Never Smoked - CARDIAC Hx Cardiac Disorders: Yes Hx Congestive Heart Failure: Yes Hx Hypertension: Yes - PULMONARY Hx Respiratory Disorders: Yes (PLEURAL EFFUSION,) Hx Asthma: No Hx Bronchitis: No Hx Chronic Obstructive Pulmonary Disease (COPD): Yes Hx Emphysema: No Hx Pneumonia: Yes Hx Respiratory Aspiration: No Hx Respiratory Tract Infection: No Hx Sleep Apnea: No Hx Tuberculosis: No - NEUROLOGICAL Hx Neurological Disorder: Yes (DIABETIC NUEROPATHY) Hx Alzheimer's Disease: No HX Cerebrovascular Accident: No Hx Dementia: No Hx Dizziness: Yes (after dialysis) Hx Meningitis: No Hx Migraine: No Hx Parkinson's Disease: No Hx Seizures: No Hx Transient Ischemic Attacks (TIA): No - HEENT Hx HEENT Problems: Yes Hx Blind: No Hx Cataracts: No Hx Deafness: No Hx Difficulty Chewing: No Hx Epistaxis: No Hx Glaucoma: No Hx Macular Degeneration: No - RENAL Hx Chronic Kidney Disease: Yes Hx Dialysis: Yes (MWF) Hx Kidney Stones: No Hx Neurogenic Bladder: No Hx Pyelonephritis: No Hx Renal (Kidney) Cancer: No Hx Renal Failure: No - ENDOCRINE/METABOLIC Hx Endocrine Disorders: Yes Hx Adrenal Cancer: No Hx Diabetes Insipidus: No Hx Diabetes Mellitus Type 1: No Hx Diabetes Mellitus Type 2: Yes Hx Hyperthyroidism: No Hx Hypothyroidism: No Hx Systemic Lupus Erythematosus: No - HEMATOLOGICAL/ONCOLOGICAL Hx Blood Disorders: Yes Hx AIDS: No Hx Anemia: Yes Hx Cancer: No Hx Chemotherapy: No Hx Cirrhosis: No Hx Hemophilia: No Hx Hepatitis A: No Hx Hepatitis B: No Hx Hepatitis C: No Hx Metastesis: No Hx Shingles: No Hx Sickle Cell Disease: No Hx Unexplained Bleeding: No - INTEGUMENTARY Hx Dermatological Problems: Yes Hx Basil Cell: No Hx Eczema: No Hx Melanoma: No Hx Psoriasis: No Hx Squamous Cell: No Other/Comment: BILATERAL LE EDEMA.VERY TIGHT SKIN TO BOTH LE WITH BUMPS,DRY THIN FLAKY SKIN. PLANTAR SIDE OF FEET HAS CALLOUSED AREA. - MUSCULOSKELETAL/RHEUMATOLOGICAL Hx Musculoskeletal Disorders: No Hx Arthritis: No Hx Back Pain: Yes Hx Degenerative Joint Disease: No Hx Falls: Yes (last fall 05-05-17) Hx Fractures: No Hx Gout: No Hx Herniated Disk: No Hx Myasthenia Gravis: No Hx Osteoarthritis: No Hx Osteomyelitis: No Hx Osteoporosis: No Hx Rhabdomyolysis: No Hx Spinal Stenosis: No Hx Unsteady Gait: No - GASTROINTESTINAL Hx Gastrointestinal Disorders: Yes Hx Colostomy: No Hx Crohn's Disease: No Hx Diverticulitis: No Hx Gall Bladder Disease: No Hx Gastroesophageal Reflux: No Hx Ileostomy: No Hx Liver Failure: No Hx Pancreatitis: No HX Swallowing Problems: Yes - GENITOURINARY/GYNECOLOGICAL Hx Genitourinary Disorders: Yes Hx Hematuria: No Hx Incontinence: Yes Hx Prostate Problems: No Hx Sexually Transmitted Disorders: No Hx Urinary Tract Infection: No - PSYCHIATRIC Hx Psychophysiologic Disorder: No Hx Anxiety: No Hx Bipolar Disorder: No Hx Depression: Yes Hx Emotional Abuse: No Hx Hallucinations: No Hx Panic Symptoms: No Hx Post Traumatic Stress Disorder: No Hx Psychosis: No Hx Physical Abuse: No Hx Schizophrenia: No Hx Sexual Abuse: No Hx Substance Use: No - SURGICAL HISTORY Hx Amputation: No Hx Appendectomy: No Hx Cardiac Catheterization: No Hx Cholecystectomy: No Hx Coronary Stent: No Hx Gastric Bypass Surgery: No Hx Hysterectomy: No Hx Joint Replacement: No Hx Kidney Transplant: No Hx Liver Transplant: No Hx Mastectomy: No Hx Musculoskeletal Surgery: No Hx Open Heart Surgery: No Hx Orthopedic Surgery: No Hx Splenectomy: No Hx Valve Replacement: No - ANESTHESIA Hx Anesthesia: Yes Hx Anesthesia Reactions: No Hx Malignant Hyperthermia: No Meds Allergies/Adverse Reactions: Allergies Allergy/AdvReac Type Severity Reaction Status Date / Time No Known Allergies Allergy Verified 06/22/17 15:10 Physical Exam - Constitutional Appears: No Acute Distress, Older Than Stated Age, Chronically Ill - Head Exam Additional comments: generalized edema - Eye Exam Eye Exam: Conjunctival injection, Periorbital swelling, Periorbital tenderness - ENT Exam Additional comments: poor dentition - Neck Exam Neck exam: Positive for: Normal Inspection - Respiratory Exam Respiratory Exam: Clear to Auscultation Bilateral, NORMAL BREATHING PATTERN - Cardiovascular Exam Cardiovascular Exam: +S1, +S2 - GI/Abdominal Exam GI & Abdominal Exam: Normal Bowel Sounds, Soft. absent: Tenderness - Back Exam Back exam: NORMAL INSPECTION - Neurological Exam Neurological exam: Alert, Oriented x3, Reflexes Normal - Psychiatric Exam Psychiatric exam: Normal Affect, Normal Mood - Skin Skin Exam: Dry, Intact, Warm Results - Vital Signs Recent Vital Signs: Last Vital Signs Temp 98.4 F 06/23/17 07:30 Pulse 77 06/23/17 07:30 Resp 20 06/23/17 07:30 BP 165/89 H 06/23/17 07:30 Pulse Ox 97 06/23/17 07:30 - Labs Result Diagrams: 06/23/17 07:20 06/23/17 07:20 Labs: Laboratory Results - last 24 hr 06/22/17 06/23/17 06/23/17 21:47 07:01 07:20 WBC 7.1 RBC 3.65 Hgb 8.8 L Hct 28.7 L MCV 78.6 L MCH 24.1 L MCHC 30.7 L RDW 15.0 H Plt Count 240 MPV 10.7 Gran % 68.0 Lymph % (Auto) 19.6 L Ness % (Auto) 9.4 H Eos % (Auto) 2.7 Baso % (Auto) 0.3 Gran # 4.82 Lymph # (Auto) 1.4 Ness # (Auto) 0.7 H Eos # (Auto) 0.2 Baso # (Auto) 0.02 Sodium Potassium Chloride Carbon Dioxide Anion Gap BUN Creatinine Est GFR ( Amer) Est GFR (Non-Af Amer) POC Glucose (mg/dL) 244 H 161 H Random Glucose Calcium Phosphorus Total Bilirubin AST ALT Alkaline Phosphatase Total Protein Albumin Globulin Albumin/Globulin Ratio 06/23/17 06/23/17 07:20 11:34 WBC RBC Hgb Hct MCV MCH MCHC RDW Plt Count MPV Gran % Lymph % (Auto) Ness % (Auto) Eos % (Auto) Baso % (Auto) Gran # Lymph # (Auto) Ness # (Auto) Eos # (Auto) Baso # (Auto) Sodium 138 Potassium 4.4 Chloride 97 L Carbon Dioxide 28 Anion Gap 18 BUN 52 H Creatinine 8.0 H* Est GFR ( Amer) 8 Est GFR (Non-Af Amer) 7 POC Glucose (mg/dL) 153 H Random Glucose 210 H Calcium 9.6 Phosphorus 6.5 H Total Bilirubin 0.4 AST 17 ALT 15 Alkaline Phosphatase 78 Total Protein 7.2 Albumin 3.4 Globulin 3.8 Albumin/Globulin Ratio 0.9 L Assessment & Plan (1) Anemia, chronic disease Status: Acute (2) Dental caries Status: Acute (3) Diffuse cellulitis of face Status: Acute (4) ESRD (end stage renal disease) Status: Acute - Assessment and Plan (Free Text) Plan: IV vancomycin & IV zosyn given. L eye culture ordered. Labs ordered. VTE/GI prophylaxis. PT/OT. pain management: PO tramadol Consults: ID - Dr. House Nephro - Dr. Castañeda Reviwed: CT = L preseptal; orbital cellulitis & L facial cellulitis, no evidence of drainable fluid collection, extensive periodental disease - Date & Time Date: 06/23/17 Time: 09:30 <Makenzie Miranda - Last Filed: 06/23/17 21:14> Results - Vital Signs Recent Vital Signs: Last Vital Signs Temp 98.9 F 06/23/17 14:00 Pulse 70 06/23/17 17:06 Resp 18 06/23/17 14:00 BP 177/96 H 06/23/17 17:06 Pulse Ox 94 L 06/23/17 14:00 - Labs Result Diagrams: 06/23/17 07:20 06/23/17 07:20 Labs: Laboratory Results - last 24 hr 06/22/17 06/23/17 06/23/17 21:47 07:01 07:20 WBC 7.1 RBC 3.65 Hgb 8.8 L Hct 28.7 L MCV 78.6 L MCH 24.1 L MCHC 30.7 L RDW 15.0 H Plt Count 240 MPV 10.7 Gran % 68.0 Lymph % (Auto) 19.6 L Ness % (Auto) 9.4 H Eos % (Auto) 2.7 Baso % (Auto) 0.3 Gran # 4.82 Lymph # (Auto) 1.4 Ness # (Auto) 0.7 H Eos # (Auto) 0.2 Baso # (Auto) 0.02 Sodium Potassium Chloride Carbon Dioxide Anion Gap BUN Creatinine Est GFR ( Amer) Est GFR (Non-Af Amer) POC Glucose (mg/dL) 244 H 161 H Random Glucose Calcium Phosphorus Total Bilirubin AST ALT Alkaline Phosphatase Total Protein Albumin Globulin Albumin/Globulin Ratio 06/23/17 06/23/17 06/23/17 07:20 11:34 16:15 WBC RBC Hgb Hct MCV MCH MCHC RDW Plt Count MPV Gran % Lymph % (Auto) Ness % (Auto) Eos % (Auto) Baso % (Auto) Gran # Lymph # (Auto) Ness # (Auto) Eos # (Auto) Baso # (Auto) Sodium 138 Potassium 4.4 Chloride 97 L Carbon Dioxide 28 Anion Gap 18 BUN 52 H Creatinine 8.0 H* Est GFR ( Amer) 8 Est GFR (Non-Af Amer) 7 POC Glucose (mg/dL) 153 H 201 H Random Glucose 210 H Calcium 9.6 Phosphorus 6.5 H Total Bilirubin 0.4 AST 17 ALT 15 Alkaline Phosphatase 78 Total Protein 7.2 Albumin 3.4 Globulin 3.8 Albumin/Globulin Ratio 0.9 L Assessment & Plan - Assessment and Plan (Free Text) Plan: 57 yr male previously discharged from [facility] w/ history of ESRD (HEMO - MWF), fall w. hip fracture, ORIF (05/08/17), COPD, Anemia , DM II, Diabetic neuropathy, Diabetic retinopathy, gasteroparesis, Pulmonary embolism, DVT, esophagitis, lung abscess, & cardiomyopathy. Pt admitted to [facility] for diffuse cellulitis of face & dental caries. Today, pt seen in hemodialysis. With oozing of L eye. Pt denies any fever, chills, chest pain, shortness of breath, diarrhea, constipation, paresthesia, or urinary changes.pt is seen and examined at bed side . agreed all above . d/d with [employer] . , id , nephro consult called , will f/u
--- NOTE | 2017-06-23 19:23 | CP.PCM.CON ---
History of Present Illness - History of Present Illness History of Present Illness: 57 year old male with PMH of ESRD on HD, DM, COPD, diabetic retinopathy and neuropathy, history of DVT and PE, history of diabetic foot ulcers, history of right lung abscess, non-ischemic cardiomyopathy was brought in to [facility] because of a 3-4 day history of left facial swelling and pain. He states that he has been having issues with his teeth and felt some pain along the lower jaw on the right, then he started having swelling of the left side of the face. He denies having trauma to the face, no insect bites, no scratches, no animal contacts. He also denies fever or chills, no sore throat, no cough or rhinorrhea, no eye pain or blurring of vision, no headache or dizziness, no chest pain, no diarrhea , no dysuria, no abdominal pain. CT scan of the face showed pre-septal cellulitis. Infectious Diseases consult is requested to further evaluate and manage. Review of Systems - Review of Systems All systems: reviewed and no additional remarkable complaints except (as per HPI ) Past Patient History - Infectious Disease Hx of Infectious Diseases: None - Tetanus Immunizations Tetanus Immunization: Up to Date - Past Social History Smoking Status: Never Smoked - CARDIAC Hx Cardiac Disorders: Yes Hx Congestive Heart Failure: Yes Hx Hypertension: Yes - PULMONARY Hx Respiratory Disorders: Yes (PLEURAL EFFUSION,) Hx Asthma: No Hx Bronchitis: No Hx Chronic Obstructive Pulmonary Disease (COPD): Yes Hx Emphysema: No Hx Pneumonia: Yes Hx Respiratory Aspiration: No Hx Respiratory Tract Infection: No Hx Sleep Apnea: No Hx Tuberculosis: No - NEUROLOGICAL Hx Neurological Disorder: Yes (DIABETIC NUEROPATHY) Hx Alzheimer's Disease: No HX Cerebrovascular Accident: No Hx Dementia: No Hx Dizziness: Yes (after dialysis) Hx Meningitis: No Hx Migraine: No Hx Parkinson's Disease: No Hx Seizures: No Hx Transient Ischemic Attacks (TIA): No - HEENT Hx HEENT Problems: Yes Hx Blind: No Hx Cataracts: No Hx Deafness: No Hx Difficulty Chewing: No Hx Epistaxis: No Hx Glaucoma: No Hx Macular Degeneration: No - RENAL Hx Chronic Kidney Disease: Yes Hx Dialysis: Yes (MWF) Hx Kidney Stones: No Hx Neurogenic Bladder: No Hx Pyelonephritis: No Hx Renal (Kidney) Cancer: No Hx Renal Failure: No - ENDOCRINE/METABOLIC Hx Endocrine Disorders: Yes Hx Adrenal Cancer: No Hx Diabetes Insipidus: No Hx Diabetes Mellitus Type 1: No Hx Diabetes Mellitus Type 2: Yes Hx Hyperthyroidism: No Hx Hypothyroidism: No Hx Systemic Lupus Erythematosus: No - HEMATOLOGICAL/ONCOLOGICAL Hx Blood Disorders: Yes Hx AIDS: No Hx Anemia: Yes Hx Cancer: No Hx Chemotherapy: No Hx Cirrhosis: No Hx Hemophilia: No Hx Hepatitis A: No Hx Hepatitis B: No Hx Hepatitis C: No Hx Metastesis: No Hx Shingles: No Hx Sickle Cell Disease: No Hx Unexplained Bleeding: No - INTEGUMENTARY Hx Dermatological Problems: Yes Hx Basil Cell: No Hx Eczema: No Hx Melanoma: No Hx Psoriasis: No Hx Squamous Cell: No Other/Comment: BILATERAL LE EDEMA.VERY TIGHT SKIN TO BOTH LE WITH BUMPS,DRY THIN FLAKY SKIN. PLANTAR SIDE OF FEET HAS CALLOUSED AREA. - MUSCULOSKELETAL/RHEUMATOLOGICAL Hx Musculoskeletal Disorders: No Hx Arthritis: No Hx Back Pain: Yes Hx Degenerative Joint Disease: No Hx Falls: Yes (last fall 05-05-17) Hx Fractures: No Hx Gout: No Hx Herniated Disk: No Hx Myasthenia Gravis: No Hx Osteoarthritis: No Hx Osteomyelitis: No Hx Osteoporosis: No Hx Rhabdomyolysis: No Hx Spinal Stenosis: No Hx Unsteady Gait: No - GASTROINTESTINAL Hx Gastrointestinal Disorders: Yes Hx Colostomy: No Hx Crohn's Disease: No Hx Diverticulitis: No Hx Gall Bladder Disease: No Hx Gastroesophageal Reflux: No Hx Ileostomy: No Hx Liver Failure: No Hx Pancreatitis: No HX Swallowing Problems: Yes - GENITOURINARY/GYNECOLOGICAL Hx Genitourinary Disorders: Yes Hx Hematuria: No Hx Incontinence: Yes Hx Prostate Problems: No Hx Sexually Transmitted Disorders: No Hx Urinary Tract Infection: No - PSYCHIATRIC Hx Psychophysiologic Disorder: No Hx Anxiety: No Hx Bipolar Disorder: No Hx Depression: Yes Hx Emotional Abuse: No Hx Hallucinations: No Hx Panic Symptoms: No Hx Post Traumatic Stress Disorder: No Hx Psychosis: No Hx Physical Abuse: No Hx Schizophrenia: No Hx Sexual Abuse: No Hx Substance Use: No - SURGICAL HISTORY Hx Amputation: No Hx Appendectomy: No Hx Cardiac Catheterization: No Hx Cholecystectomy: No Hx Coronary Stent: No Hx Gastric Bypass Surgery: No Hx Hysterectomy: No Hx Joint Replacement: No Hx Kidney Transplant: No Hx Liver Transplant: No Hx Mastectomy: No Hx Musculoskeletal Surgery: No Hx Open Heart Surgery: No Hx Orthopedic Surgery: No Hx Splenectomy: No Hx Valve Replacement: No - ANESTHESIA Hx Anesthesia: Yes Hx Anesthesia Reactions: No Hx Malignant Hyperthermia: No Meds Allergies/Adverse Reactions: Allergies Allergy/AdvReac Type Severity Reaction Status Date / Time No Known Allergies Allergy Verified 06/22/17 15:10 - Medications Medications: Current Medications Acetaminophen (Tylenol 325mg Tab) 650 mg PO Q6H PRN PRN Reason: Pain, Mild (1-3) Albuterol/Ipratropium (Duoneb 3 Mg/0.5 Mg (3 Ml) Ud) 3 ml IH [id number] [facility] Last Admin: 06/23/17 07:17 Dose: Not Given Calcium Acetate (Phoslo) 667 mg PO TID [facility] Carvedilol (Coreg) 3.125 mg PO BID [facility] Last Admin: 06/22/17 22:06 Dose: 3.125 mg Piperacillin Sod/Tazobactam Sod (Zosyn 2.25 Gm In 0.9% 100 Ml) 2.25 gm in 100 mls @ 100 mls/hr IVPB Q6 JEANETTE PRN Reason: Protocol Stop: 07/02/17 00:01 Last Admin: 06/23/17 06:46 Dose: Not Given Insulin Detemir (Levemir) 14 unit SC HS [facility] Last Admin: 06/22/17 22:09 Dose: Not Given Insulin Human Regular (Humulin R Low) 0 units SC ACHS [facility] PRN Reason: Protocol Last Admin: 06/22/17 22:09 Dose: Not Given Metoclopramide HCl (Reglan) 5 mg PO DAILY [facility] Tramadol HCl (Ultram) 50 mg PO TID PRN PRN Reason: Pain, moderate (4-7) Physical Exam - Constitutional Appears: Non-toxic, Chronically Ill - Eye Exam Eye Exam: absent: Conjunctival injection, Periorbital tenderness - ENT Exam ENT Exam: Normal Oropharynx Additional comments: left side of face with swelling along the jaw line, around the left eye; poor dentition noted - Neck Exam Neck exam: Negative for: Lymphadenopathy, Meningismus - Respiratory Exam Respiratory Exam: Decreased Breath Sounds - Cardiovascular Exam Cardiovascular Exam: +S1, +S2 - GI/Abdominal Exam GI & Abdominal Exam: Soft. absent: Tenderness - Extremities Exam Extremities exam: Positive for: normal inspection (left upper arm AV fistula with good thrill) Results - Vital Signs Recent Vital Signs: Last Vital Signs Temp 98.4 F 06/23/17 07:30 Pulse 77 06/23/17 07:30 Resp 20 06/23/17 07:30 BP 165/89 H 06/23/17 07:30 Pulse Ox 97 06/23/17 07:30 - Labs Result Diagrams: 06/23/17 07:20 06/23/17 07:20 Labs: Laboratory Results - last 24 hr 06/22/17 06/23/17 06/23/17 21:47 07:01 07:20 WBC 7.1 RBC 3.65 Hgb 8.8 L Hct 28.7 L MCV 78.6 L MCH 24.1 L MCHC 30.7 L RDW 15.0 H Plt Count 240 MPV 10.7 Gran % 68.0 Lymph % (Auto) 19.6 L Graham % (Auto) 9.4 H Eos % (Auto) 2.7 Baso % (Auto) 0.3 Gran # 4.82 Lymph # (Auto) 1.4 Graham # (Auto) 0.7 H Eos # (Auto) 0.2 Baso # (Auto) 0.02 Sodium Potassium Chloride Carbon Dioxide Anion Gap BUN Creatinine Est GFR ( Amer) Est GFR (Non-Af Amer) POC Glucose (mg/dL) 244 H 161 H Random Glucose Calcium Phosphorus Total Bilirubin AST ALT Alkaline Phosphatase Total Protein Albumin Globulin Albumin/Globulin Ratio 06/23/17 07:20 WBC RBC Hgb Hct MCV MCH MCHC RDW Plt Count MPV Gran % Lymph % (Auto) Graham % (Auto) Eos % (Auto) Baso % (Auto) Gran # Lymph # (Auto) Graham # (Auto) Eos # (Auto) Baso # (Auto) Sodium 138 Potassium 4.4 Chloride 97 L Carbon Dioxide 28 Anion Gap 18 BUN 52 H Creatinine 8.0 H* Est GFR ( Amer) 8 Est GFR (Non-Af Amer) 7 POC Glucose (mg/dL) Random Glucose 210 H Calcium 9.6 Phosphorus 6.5 H Total Bilirubin 0.4 AST 17 ALT 15 Alkaline Phosphatase 78 Total Protein 7.2 Albumin 3.4 Globulin 3.8 Albumin/Globulin Ratio 0.9 L Assessment & Plan - Assessment and Plan (Free Text) Plan: Assessment Left facial pre-septal cellulitis ESRD on HD DM COPD diabetic retinopathy and neuropathy history of DVT and PE history of diabetic foot ulcers history of right lung abscess non-ischemic cardiomyopathy Plan Started patient on a dose of IV Vanco and Zosyn and will follow up blood cx will monitor clinical response
[2017-06-23] MEDS: Insulin Detemir 100 units/ml Vial (Levemir) SC SCH (22:48)
[2017-06-24] MEDS: Albuterol-Ipratrop 3 mg / 0.5 (3 ml) UD IH SCH ×4 (02:21→19:04)
[2017-06-24] MEDS ORDERED: Iron Sucrose 100 mg/5 ml Inj IV SCH (10:00)
[2017-06-24] MEDS ORDERED: Doxercalciferol 4 mcg/2 ml Inj IVP SCH (10:00)
[2017-06-24] MEDS: Insulin Reg-LOW-Coverage SC SCH ×5 (10:17→22:39)
[2017-06-24] MEDS: Piperacillin/Tazobact 2.25gm 2.25 GM/100 ML BAG IVPB SCH ×2 (10:19→21:22)
[2017-06-24] MEDS: Metoclopramide 5 mg/5 ml Oral Sol PO SCH (10:29)
--- NOTE | 2017-06-24 16:21 | PN ---
DATE: SUBJECTIVE: The patient is seen and examined on the bedside, looking comfortable, having the swelling in the left eye and left cheek. No nausea, vomiting, diarrhea. No fever. No chills. No headache. No dizziness. No chest pain. No palpitation. PHYSICAL EXAMINATION: VITAL SIGNS: Temperature 99.1, pulse 86, blood pressure 151/81, respiratory rate 20. HEENT: Head normocephalic, atraumatic. Eyes PERRLA. Extraocular muscles intact. Conjunctivae clear. Nose patent. Mucous membrane moist. NECK: Supple. No carotid bruit. No JVD or thyromegaly. CHEST: Bilaterally symmetrical. HEART: S1 and S2 positive. LUNGS: Clear to auscultation. ABDOMEN: Soft. Bowel sounds positive. No organomegaly. EXTREMITIES: No edema. No cyanosis. NEUROLOGICAL: The patient is awake and alert. Moving all 4 extremities. No focal deficits. LABORATORY DATA: White blood cells 7.1, hemoglobin 8.8, hematocrit 28.7, platelets 240. Sodium 138, potassium 4.4, BUN 52, creatinine 8.0, glucose 231. MEDICATIONS: Codeine, DuoNeb, insulin, Levemir, PhosLo, Reglan, Tylenol, tramadol, Zosyn. ASSESSMENT AND PLAN: Mr. Stephanie Jackson, a 57-year-old male with anemia of chronic disease, renal insufficiency, getting dialysis 3 times a week, has history of diabetes mellitus, chronic obstructive pulmonary disease, diabetic retinopathy, diabetic nephropathy, diabetic neuropathy, history of deep venous thrombosis and pulmonary embolism, diabetic foot ulcers, history of right lung abscess, nonischemic cardiomyopathy, has left facial preseptal cellulitis. Starting the patient on IV vancomycin and Zosyn. We will follow up with blood results and cultures from the left eye. Maxillofacial CT scan done shows compatible with left preseptal orbital cellulitis and left facial cellulitis. No evidence of drainable fluid collection, extensive mandibular periodontal disease. Appreciated ID input. Seen by Dr. Leandro Gilbert, the patient's wheelabrator operator. Repeat labs. We will follow up. Makenzie Miranda MD [facility] # [id number]
[2017-06-24] MEDS: Insulin Detemir 100 units/ml Vial (Levemir) SC SCH (22:39)
[2017-06-25] MEDS: Albuterol-Ipratrop 3 mg / 0.5 (3 ml) UD IH SCH ×4 (01:22→19:10)
[2017-06-25 07:33] LABS: HEMOGLOBIN 8.6 g/dL (14.0-18.0); MEAN CELL VOLUME 78.9 fl (80.0-105.0); MEAN CORPUSCULAR HEMOGLOBIN 23.9 pg (25.0-35.0); MEAN CORPUSCULAR HGB CONC 30.3 g/dl (31.0-37.0); MEAN PLATELET VOLUME 9.9 fl (7.0-11.0); RBC 3.6 10^6/uL (3.5-6.1); WHITE BLOOD COUNT 5.5 10^3/ul (4.5-11.0)
[2017-06-25 07:57] LABS: CALCIUM 10.3 mg/dL (8.4-10.5)
[2017-06-25] MEDS: Insulin Reg-LOW-Coverage SC SCH ×4 (08:04→21:44)
[2017-06-25] MEDS: Metoclopramide 5 mg/5 ml Oral Sol PO SCH (09:10)
[2017-06-25] MEDS: Piperacillin/Tazobact 2.25gm 2.25 GM/100 ML BAG IVPB SCH ×2 (09:11→23:20)
[2017-06-25] MEDS ORDERED: Vancomycin 1gm in NS 250ml 1 GM/250 ML BAG IVPB STA (13:00)
--- NOTE | 2017-06-25 17:05 | PN ---
DATE: 06/25/2017 SUBJECTIVE: The patient is in bed, in no acute distress, nontoxic. PHYSICAL EXAMINATION: VITAL SIGNS: Temperature is 97, blood pressure is 160/90, respiratory rate of 18. HEENT: Reveals the facial edema is less. NECK: Supple. LUNGS: Have decreased breath sounds. HEART: Normal S1, S2. ABDOMEN: Soft, nontender. LABORATORY DATA: Reveals a white count is 5.5, hemoglobin of 8, platelets of 183. Chemistries are noted. Microbiology reveals the blood cultures are negative. ASSESSMENT AND PLAN: This is a 57-year-old male with left facial preseptal cellulitis; end-stage renal disease, on hemodialysis; diabetes; and chronic fructose lung disease. On vancomycin and Zosyn. Slowly improving and the Zosyn is adjusted for renal failure and we will give another dose of vancomycin today and order a vancomycin random level for tomorrow. We will follow closely with you. Marcos House MD
--- NOTE | 2017-06-25 20:48 | PN ---
DATE: SUBJECTIVE: The patient is a 57-year-old male. Patient is seen and examined at the bedside. Looking comfortable. Still has swelling of the left side of the eye and left cheek. No nausea, vomiting, diarrhea. No hematuria, no hematochezia. No headache, no dizziness. No visual changes. No fever, no chills. PHYSICAL EXAMINATION: VITAL SIGNS: Temperature 97.8, pulse 68, blood pressure 156/87, respiratory rate 18. HEENT: Head normocephalic, atraumatic. Eyes, PERRLA. Extraocular muscles are intact. Conjunctivae are clear. Nose patent. Mucous membranes moist. NECK: Supple. No carotid bruits. No JVD or thyromegaly. CHEST: Bilaterally symmetrical. HEART: S1 and S2 positive. LUNGS: Clear to auscultation. ABDOMEN: Soft. Bowel sounds positive. No organomegaly. EXTREMITIES: No edema. No cyanosis. NEUROLOGICAL: The patient is awake and alert. Moving all 4 extremities. No focal deficits. MEDICATIONS: Coreg, DuoNeb, Levemir, calcium, Reglan, Tylenol, tramadol, Zosyn. LABORATORY DATA: White blood cell 5.5, hemoglobin 8.6, hematocrit 28.4, platelets 183. Sodium 135, potassium 5.2, BUN 51, creatinine 8.2, glucose 209. ASSESSMENT AND PLAN: Mr. Stephanie Jackson is a 57-year-old male with anemia, hyperkalemia, hypochloremia, renal insufficiency on hemodialysis, diabetes mellitus, seen by Dr. Everette Leblanc, Infectious Disease, has history of chronic obstructive pulmonary disease, diabetic retinopathy, deep venous thrombosis and pulmonary embolism, diabetic foot ulcers, right lung abscess, nonischemic cardiomyopathy, left facial preseptal cellulitis, getting vancomycin and Zosyn. Follow up with blood cultures. Getting dialysis. Out of bed. Physical therapy. We will follow up. Makenzie Miranda MD
[2017-06-25] MEDS: Insulin Detemir 100 units/ml Vial (Levemir) SC SCH (22:44)
[2017-06-25 23:39] LABS: PH,URINE 6.5 (4.7-8.0); URINE BILIRUBIN NEGATIVE (NEGATIVE); URINE BLOOD LARGE (NEGATIVE); URINE GLUCOSE (UA) NEGATIVE (NEGATIVE); URINE LEUKOCYTE ESTERASE MODERATE Leu/uL (NEGATIVE); URINE PROTEIN >=300 mg/dL (<30 mg/dL); URINE UROBILINOGEN 0.2 E.U./dL (<1 E.U./dL)
[2017-06-25 23:43] LABS: URINE APPEARANCE TURBID (CLEAR); URINE COLOR YELLOW (YELLOW)
[2017-06-26 00:09] LABS: URINE EPITHELIAL CELLS 0 - 2 /hpf (0-5); URINE WBC 15 - 20 /hpf (0-6)
[2017-06-26 00:10] LABS: URINE AMORPHOUS SEDIMENT FEW; URINE BACTERIA MOD (NEG)
[2017-06-26] MEDS: Albuterol-Ipratrop 3 mg / 0.5 (3 ml) UD IH SCH ×3 (01:18→14:22)
[2017-06-26 07:41] LABS: BASO # 0.02 K/mm3 (0.0-2.0); BASO % 0.3 % (0.0-3.0); EOS # 0.2 (0.0-0.7); GRAN # 5.7 (1.4-6.5); GRAN % 71.8 % (50.0-68.0); HEMOGLOBIN 9.1 g/dL (14.0-18.0); LYMPH # 1.4 (1.2-3.4); MEAN CELL VOLUME 77.4 fl (80.0-105.0); MEAN CORPUSCULAR HEMOGLOBIN 23.9 pg (25.0-35.0); MEAN PLATELET VOLUME 10.5 fl (7.0-11.0); MONO # 0.6 (0.1-0.6); MONO % 7.9 % (1.0-6.0); RBC 3.8 10^6/uL (3.5-6.1); WHITE BLOOD COUNT 7.9 10^3/ul (4.5-11.0)
[2017-06-26 07:56] LABS: ALBUMIN 3.6 g/dL (3.0-4.8)
[2017-06-26] MEDS: Insulin Reg-LOW-Coverage SC SCH ×3 (09:08→16:55)
--- NOTE | 2017-06-26 09:57 | PN ---
DATE: 06/24/2017 SUBJECTIVE: The patient is seen earlier this morning. No fevers or chills. No nausea, no vomiting. PHYSICAL EXAMINATION: VITAL SIGNS: Temperature is 98, blood pressure is 150/80, respiratory rate of 16. HEENT: Unremarkable. Left side of his face has improved. NECK: Supple. HEART: Normal S1 and S2. LUNGS: Have decreased breath sounds. ABDOMEN: Soft, nontender. LABORATORY DATA: Reveals a white count of 7.1, hemoglobin of 8. BUN of 52, creatinine of 8. ASSESSMENT AND PLAN: This is a 57-year-old male with end-stage renal disease, on hemodialysis; diabetes mellitus; chronic obstructive lung disease; diabetic retinopathy, neuropathy; history of deep venous thrombosis; pulmonary emboli; history of diabetic foot ulcer; history of right lung abscess; nonischemic cardiomyopathy with a left facial preseptal cellulitis with end-stage renal disease, on hemodialysis. On vancomycin and Zosyn, improving. blood cultures have been negative. We will follow with you. Marcos House MD
--- NOTE | 2017-06-26 10:17 | PN ---
DATE: SUBJECTIVE: The patient has no complaints of any chest pain, any shortness of breath. No headaches or dizziness. PHYSICAL EXAMINATION VITAL SIGNS: Temperature is 99, pulse of 89, blood pressure is 169/91, respirations 18. GENERAL: The patient is lying in bed, flat, comfortable. HEENT: No oral lesion. Anicteric sclerae. Moist mucosa. Left-sided periorbital swelling and edema, improving. NECK: No JVD, adenopathy, or thyromegaly. CARDIOVASCULAR: S1 and S2, regular. No murmurs, rubs, or gallops. LUNGS: Clear to auscultation bilaterally. No wheeze, rales, or rhonchi. ABDOMEN: Bowel sounds are positive. Soft, nontender and nondistended. EXTREMITIES: No cyanosis, clubbing or edema. ASSESSMENT 1. End-stage renal disease, on hemodialysis. 2. Left orbital cellulitis and left facial cellulitis. 3. Diabetic nephropathy. 4. Diabetic retinopathy. 5. Diabetic neuropathy. 6. Nonischemic cardiomyopathy. 7. Anemia secondary to chronic kidney disease. 8. Secondary hyperparathyroidism. PLAN: The patient is currently comfortable. The patient is on Coreg. He is going to continue with Levemir for diabetes. He is on PhosLo for his secondary hyperparathyroidism. The patient is on Zosyn for antibiotics and renal diet. His dialysis in Monday, Monday, and Monday. He should be getting dialysis today. Leandro Gilbert MD
[2017-06-26] MEDS: Metoclopramide 5 mg/5 ml Oral Sol PO SCH (12:16)
[2017-06-26] MEDS: Piperacillin/Tazobact 2.25gm 2.25 GM/100 ML BAG IVPB SCH (12:16)
--- NOTE | 2017-06-26 14:00 | CP.PCM.PN ---
Subjective - Date & Time of Evaluation Date of Evaluation: 06/26/17 Time of Evaluation: 13:00 - Subjective Subjective: Still with some left facial swelling but a little better, no fevers. Objective - Vital Signs/Intake and Output Vital Signs (last 24 hours): Temp Pulse Resp BP Pulse Ox 99 F 89 18 169/91 H 98 06/26/17 09:23 06/26/17 09:23 06/26/17 09:23 06/26/17 09:23 06/26/17 09:23 Intake and Output: 06/26/17 06/26/17 06:59 18:59 Intake Total 940 Balance 940 - Medications Medications: Current Medications Acetaminophen (Tylenol 325mg Tab) 650 mg PO Q6H PRN PRN Reason: Pain, Mild (1-3) Albuterol/Ipratropium (Duoneb 3 Mg/0.5 Mg (3 Ml) Ud) 3 ml IH [id number] [facility] Last Admin: 06/26/17 07:35 Dose: Not Given Calcium Acetate (Phoslo) 667 mg PO TID [facility] Last Admin: 06/25/17 17:53 Dose: 667 mg Carvedilol (Coreg) 3.125 mg PO BID [facility] Last Admin: 06/25/17 17:53 Dose: 3.125 mg Piperacillin Sod/Tazobactam Sod (Zosyn 2.25 Gm In 0.9% 100 Ml) 2.25 gm in 100 mls @ 100 mls/hr IVPB Q12 [facility] PRN Reason: Protocol Last Admin: 06/25/17 23:20 Dose: 100 mls/hr Insulin Detemir (Levemir) 14 unit SC HS [facility] Last Admin: 06/25/17 22:44 Dose: Not Given Insulin Human Regular (Humulin R Low) 0 units SC ACHS [facility] PRN Reason: Protocol Last Admin: 06/26/17 09:08 Dose: Not Given Metoclopramide HCl (Reglan) 5 mg PO DAILY [facility] Last Admin: 06/25/17 09:10 Dose: 5 mg Tramadol HCl (Ultram) 50 mg PO TID PRN PRN Reason: Pain, moderate (4-7) - Labs Labs: 06/26/17 07:00 06/26/17 07:00 - Constitutional Appears: Non-toxic, Chronically Ill - ENT Exam Additional comments: left face still with some swelling but a little better. - Neck Exam Neck Exam: absent: Meningismus - Respiratory Exam Respiratory Exam: Decreased Breath Sounds - Cardiovascular Exam Cardiovascular Exam: +S1, +S2 - GI/Abdominal Exam GI & Abdominal Exam: Soft. absent: Tenderness Assessment and Plan - Assessment and Plan (Free Text) Plan: Assessment Left facial pre-septal cellulitis, slowly improving ESRD on HD DM COPD diabetic retinopathy and neuropathy history of DVT and PE history of diabetic foot ulcers history of right lung abscess non-ischemic cardiomyopathy Plan continue intermittent IV Vanco and Zosyn day 4 to complete 7-10 days of therapy
[2017-06-26 15:54] VITALS: PULSE 80; RESP 20; TEMP 100; O2SAT 93
--- NOTE | 2017-06-26 15:55 | CP.PCM.PN ---
<Yazmin Hoang - Last Filed: 06/26/17 15:52> Subjective - Date & Time of Evaluation Date of Evaluation: 06/26/17 Time of Evaluation: 11:40 - Subjective Subjective: Chief Complaint: L orbital edema, L mandible edema 57 yr male previously discharged from [facility] w/ history of ESRD (HEMO - MWF), fall w. hip fracture, ORIF (05/08/17), COPD, Anemia , DM II, Diabetic neuropathy, Diabetic retinopathy, gasteroparesis, Pulmonary embolism, DVT, esophagitis, lung abscess, & cardiomyopathy. [place] [facility] [place]ulitis of face & dental caries. Today, pt seen at bedside out of bed to chair eating lunch. Less noted of L eye and decreased edema of L side of face. Pt denies any fever, chills, chest pain, shortness of breath, diarrhea , constipation, paresthesia, or urinary changes. Objective - Vital Signs/Intake and Output Vital Signs (last 24 hours): Temp Pulse Resp BP Pulse Ox 99 F 89 18 150/80 98 06/26/17 09:23 06/26/17 09:23 06/26/17 09:23 06/26/17 12:15 06/26/17 09:23 Intake and Output: 06/26/17 06/26/17 06:59 18:59 Intake Total 940 0 Balance 940 0 - Medications Medications: Current Medications Acetaminophen (Tylenol 325mg Tab) 650 mg PO Q6H PRN PRN Reason: Pain, Mild (1-3) Albuterol/Ipratropium (Duoneb 3 Mg/0.5 Mg (3 Ml) Ud) 3 ml IH [id number] [facility] Last Admin: 06/26/17 14:22 Dose: Not Given Calcium Acetate (Phoslo) 667 mg PO TID [facility] Last Admin: 06/26/17 13:58 Dose: 667 mg Carvedilol (Coreg) 3.125 mg PO BID [facility] Last Admin: 06/26/17 12:15 Dose: 3.125 mg Piperacillin Sod/Tazobactam Sod (Zosyn 2.25 Gm In 0.9% 100 Ml) 2.25 gm in 100 mls @ 100 mls/hr IVPB Q12 [facility] PRN Reason: Protocol Last Admin: 06/26/17 12:16 Dose: 100 mls/hr Insulin Detemir (Levemir) 14 unit SC HS [facility] Last Admin: 06/25/17 22:44 Dose: Not Given Insulin Human Regular (Humulin R Low) 0 units SC ACHS [facility] PRN Reason: Protocol Last Admin: 06/26/17 12:08 Dose: Not Given Metoclopramide HCl (Reglan) 5 mg PO DAILY [facility] Last Admin: 06/26/17 12:16 Dose: 5 mg Tramadol HCl (Ultram) 50 mg PO TID PRN PRN Reason: Pain, moderate (4-7) - Labs Labs: 06/26/17 07:00 06/26/17 13:00 - Constitutional Appears: No Acute Distress, Older Than Stated Age, Chronically Ill - Head Exam Additional comments: L face edema - Eye Exam Eye Exam: Conjunctival injection, Periorbital swelling, Periorbital tenderness Additional comments: L eye discharge - ENT Exam ENT Exam: Mucous Membranes Moist Additional comments: poor dentition. L mandible edema - Neck Exam Neck Exam: Full ROM, Normal Inspection. absent: Lymphadenopathy - Respiratory Exam Respiratory Exam: Clear to Ausculation Bilateral, NORMAL BREATHING PATTERN - Cardiovascular Exam Cardiovascular Exam: REGULAR RHYTHM, +S1, +S2. absent: Murmur - GI/Abdominal Exam GI & Abdominal Exam: Soft, Normal Bowel Sounds. absent: Tenderness - Extremities Exam Extremities Exam: Full ROM, Normal Capillary Refill, Normal Inspection. absent : Joint Swelling, Pedal Edema - Back Exam Back Exam: NORMAL INSPECTION - Neurological Exam Neurological Exam: Alert, Awake, Oriented x3 - Psychiatric Exam Psychiatric exam: Normal Affect, Normal Mood - Skin Skin Exam: Dry, Intact, Normal Color, Warm Assessment and Plan (1) Hyperkalemia Status: Acute (2) Anemia, chronic disease Status: Acute (3) Dental caries Status: Acute (4) Diffuse cellulitis of face Status: Acute (5) ESRD (end stage renal disease) Status: Acute - Assessment and Plan (Free Text) Plan: Improved. IV vancomycin & IV zosyn given. L eye culture pending. Labs ordered. VTE/GI prophylaxis. PT/OT. TCU evaluation pending. pain management: PO tramadol Consults: ID - Dr. House Nephro - Dr. Castañeda Reviwed: CT = L preseptal; orbital cellulitis & L facial cellulitis, no evidence of drainable fluid collection, extensive periodental disease <RuthMakenzie - Last Filed: 06/26/17 22:08> Objective - Vital Signs/Intake and Output Vital Signs (last 24 hours): Temp Pulse Resp BP Pulse Ox 100 F H 80 20 140/76 93 L 06/26/17 14:00 06/26/17 14:00 06/26/17 14:00 06/26/17 17:16 06/26/17 14:00 Intake and Output: 06/26/17 06/27/17 18:59 06:59 Intake Total 0 Balance 0 - Labs Labs: 06/26/17 07:00 06/26/17 13:00 Assessment and Plan - Assessment and Plan (Free Text) Plan: 57 yr male previously discharged from [facility] w/ history of ESRD (HEMO - MWF), fall w. hip fracture, ORIF (05/08/17), COPD, Anemia , DM II, Diabetic neuropathy, Diabetic retinopathy, gasteroparesis, Pulmonary embolism, DVT, esophagitis, lung abscess, & cardiomyopathy. [place] [facility] [place] diffuse cellulitis of face & dental caries. Today, pt seen at bedside out of bed to chair eating lunch. Less noted of L eye and decreased edema of L side of face. Pt denies any fever, chills, chest pain, shortness of breath, diarrhea , constipation, paresthesia, or urinary changes.pt is seen and examined at bed side , looking comfortable , chart , meds and labs noted . will f/u
[2017-06-26 17:18] VITALS: BP 140/76
[2017-06-29] MEDS ORDERED: DARBEPOETIN ALFA IVP SCH (10:00)
== END 2017-06-26 18:29 | DRG 602 ==
LOC: ED 14:19 → ERH 18:09 → 5RSO 21:01
PROVIDERS: ADMIT Internal Medicine; ATTEND Internal Medicine
DX: L03.213 Periorbital cellulitis (principal); N18.6 End stage renal disease; I13.2 Hypertensive heart and chronic kidney disease with heart failure and with stage 5 chronic kidney disease, or end stage renal disease; E11.21 Type 2 diabetes mellitus with diabetic nephropathy; H05.012 Cellulitis of left orbit; E11.40 Type 2 diabetes mellitus with diabetic neuropathy, unspecified; E11.319 Type 2 diabetes mellitus with unspecified diabetic retinopathy without macular edema; E87.8 Other disorders of electrolyte and fluid balance, not elsewhere classified; I42.9 Cardiomyopathy, unspecified; N25.81 Secondary hyperparathyroidism of renal origin; I50.9 Heart failure, unspecified; L03.211 Cellulitis of face; K02.9 Dental caries, unspecified; E11.22 Type 2 diabetes mellitus with diabetic chronic kidney disease; D63.1 Anemia in chronic kidney disease; J44.9 Chronic obstructive pulmonary disease, unspecified; K22.8 Other specified diseases of esophagus; K20.9 Esophagitis, unspecified; E87.6 Hypokalemia; Z86.711 Personal history of pulmonary embolism; Z86.718 Personal history of other venous thrombosis and embolism; Z87.01 Personal history of pneumonia (recurrent); Z99.2 Dependence on renal dialysis; Z91.81 History of falling; S72.002D Fracture of unspecified part of neck of left femur, subsequent encounter for closed fracture with routine healing

== ENCOUNTER 2017-06-26 18:37 | Inpatient (IN) | payer OTHER, MEDICAID ==
[2017-06-26 18:55] VITALS: BMI 18.5
[2017-06-26] MEDS: Albuterol-Ipratrop 3 mg / 0.5 (3 ml) UD IH SCH (22:00)
[2017-06-26] MEDS ORDERED: Influenza Vaccine 60 mcg/0.5 mL SYR (4YR UP) IM ONE (22:06)
[2017-06-26] MEDS ORDERED: Pneumococcal 23-Valent Vaccine IM ONE (22:06)
[2017-06-26] MEDS: Insulin Detemir 100 units/ml Vial (Levemir) SC SCH (22:23)
[2017-06-26] MEDS: Insulin Reg-LOW-Coverage SC SCH (22:23)
[2017-06-27] MEDS: Albuterol-Ipratrop 3 mg / 0.5 (3 ml) UD IH SCH ×4 (01:31→20:55)
[2017-06-27] MEDS: Piperacillin/Tazobact 2.25gm 2.25 GM/100 ML BAG IVPB SCH ×2 (05:47→18:26)
[2017-06-27] MEDS: Insulin Reg-LOW-Coverage SC SCH ×4 (06:45→21:59)
[2017-06-27 07:34] LABS: BASO # 0.03 K/mm3 (0.0-2.0); BASO % 0.4 % (0.0-3.0); EOS # 0.2 (0.0-0.7); EOS % 3.1 % (1.5-5.0); GRAN # 4.17 (1.4-6.5); HEMOGLOBIN 8.4 g/dL (14.0-18.0); LYMPH # 1.8 (1.2-3.4); LYMPH % 25.1 % (22.0-35.0); MEAN CELL VOLUME 78.7 fl (80.0-105.0); MEAN CORPUSCULAR HEMOGLOBIN 23.6 pg (25.0-35.0); MEAN PLATELET VOLUME 10.5 fl (7.0-11.0); MONO # 0.9 (0.1-0.6); MONO % 12.4 % (1.0-6.0); RBC 3.56 10^6/uL (3.5-6.1); WHITE BLOOD COUNT 7.1 10^3/ul (4.5-11.0)
[2017-06-27 08:03] LABS: ALB/GLOB RATIO 0.9 (1.1-1.8); ALBUMIN 3.4 g/dL (3.0-4.8); CALCIUM 9.9 mg/dL (8.4-10.5)
--- NOTE | 2017-06-27 16:01 | CP.PCM.CON ---
History of Present Illness - History of Present Illness History of Present Illness: 57 year old male with PMH of ESRD on HD, DM, COPD, diabetic retinopathy and neuropathy, history of DVT and PE, history of diabetic foot ulcers, history of right lung abscess, non-ischemic cardiomyopathy was [place] [facility] [place] because of left sided facial swelling and was found to have left facial pre- septal cellulitis. He has been on antibiotics and has been slowly improving. He is now transferred to [facility] for continued medical therapy and physical rehab. Infectious Diseases consult is requested to continue his antibiotic therapy. He is feeling better, left side swelling is slowly improving, with much improved pain, no fever or chills, no nausea or vomiting, no headache or dizziness, no abdominal pain, no chest pain , no SOB, no cough or colds, no sore throat, no diarrhea, no dysuria. Review of Systems - Review of Systems All systems: reviewed and no additional remarkable complaints except (as per HPI ) Past Patient History - Infectious Disease Hx of Infectious Diseases: None - Tetanus Immunizations Tetanus Immunization: Up to Date - Past Social History Smoking Status: Never Smoked - CARDIAC Hx Cardiac Disorders: Yes Hx Congestive Heart Failure: Yes Hx Hypertension: Yes - PULMONARY Hx Chronic Obstructive Pulmonary Disease (COPD): Yes - NEUROLOGICAL HX Cerebrovascular Accident: No - HEENT Hx HEENT Problems: Yes Hx Blind: No Hx Cataracts: No Hx Deafness: No Hx Difficulty Chewing: No Hx Epistaxis: No Hx Glaucoma: No Hx Macular Degeneration: No - RENAL Hx Renal Failure: No - ENDOCRINE/METABOLIC Hx Diabetes Mellitus Type 1: No Hx Diabetes Mellitus Type 2: Yes Hx Hypothyroidism: No - HEMATOLOGICAL/ONCOLOGICAL Hx Blood Disorders: Yes Hx AIDS: No Hx Anemia: Yes Hx Cancer: No Hx Chemotherapy: No Hx Cirrhosis: No Hx Hemophilia: No Hx Hepatitis A: No Hx Hepatitis B: No Hx Hepatitis C: No Hx Metastesis: No Hx Shingles: No Hx Sickle Cell Disease: No Hx Unexplained Bleeding: No - INTEGUMENTARY Hx Dermatological Problems: Yes Hx Basil Cell: No Hx Eczema: No Hx Melanoma: No Hx Psoriasis: No Hx Squamous Cell: No Other/Comment: BILATERAL LE EDEMA.VERY TIGHT SKIN TO BOTH LE WITH BUMPS,DRY THIN FLAKY SKIN. PLANTAR SIDE OF FEET HAS CALLOUSED AREA. - MUSCULOSKELETAL/RHEUMATOLOGICAL Hx Falls: Yes (past) - GASTROINTESTINAL Hx Gastrointestinal Disorders: (missing teeth) - GENITOURINARY/GYNECOLOGICAL Hx Reproductive Disorders: No - PSYCHIATRIC Hx Psychophysiologic Disorder: No Hx Anxiety: No Hx Bipolar Disorder: No Hx Depression: Yes Hx Emotional Abuse: No Hx Hallucinations: No Hx Panic Symptoms: No Hx Post Traumatic Stress Disorder: No Hx Psychosis: No Hx Physical Abuse: No Hx Schizophrenia: No Hx Sexual Abuse: No Hx Substance Use: No - SURGICAL HISTORY Hx Amputation: No Hx Appendectomy: No Hx Cardiac Catheterization: No Hx Cholecystectomy: No Hx Coronary Stent: No Hx Gastric Bypass Surgery: No Hx Hysterectomy: No Hx Joint Replacement: No Hx Kidney Transplant: No Hx Liver Transplant: No Hx Mastectomy: No Hx Musculoskeletal Surgery: No Hx Open Heart Surgery: No Hx Orthopedic Surgery: No Hx Splenectomy: No Hx Valve Replacement: No - ANESTHESIA Hx Anesthesia: Yes Hx Anesthesia Reactions: No Hx Malignant Hyperthermia: No Meds Allergies/Adverse Reactions: Allergies Allergy/AdvReac Type Severity Reaction Status Date / Time No Known Allergies Allergy Verified 06/22/17 15:10 - Medications Medications: Current Medications Acetaminophen (Tylenol 325mg Tab) 650 mg PO Q4H PRN; Protocol PRN Reason: Pain, Mild (1-3) Albuterol/Ipratropium (Duoneb 3 Mg/0.5 Mg (3 Ml) Ud) 3 ml IH [id number] [facility] PRN Reason: Protocol Calcium Acetate (Phoslo) 667 mg PO WM [facility] PRN Reason: Protocol Carvedilol (Coreg) 3.125 mg PO 0800,1800 [facility] PRN Reason: Protocol Piperacillin Sod/Tazobactam Sod (Zosyn 2.25 Gm In 0.9% 100 Ml) 2.25 gm in 100 mls @ 100 mls/hr IVPB 0600,1800 [facility] PRN Reason: Protocol Stop: 07/04/17 06:01 Insulin Detemir (Levemir) 14 unit SC HS [facility] PRN Reason: Protocol Last Admin: 06/26/17 22:23 Dose: 14 unit Insulin Human Regular (Humulin R Low) 0 units SC ACHS [facility] PRN Reason: Protocol Last Admin: 06/26/17 22:23 Dose: Not Given Metoclopramide HCl (Reglan) 5 mg PO DAILY [facility] PRN Reason: Protocol Tramadol HCl (Ultram) 50 mg PO TID PRN; Protocol PRN Reason: Pain, moderate (4-7) Physical Exam - Constitutional Appears: Non-toxic, Chronically Ill - Head Exam Head Exam: NORMAL INSPECTION - ENT Exam ENT Exam: Mucous Membranes Moist Additional comments: left side of face with slowly improving swelling - Neck Exam Neck exam: Negative for: Meningismus - Respiratory Exam Respiratory Exam: Decreased Breath Sounds - Cardiovascular Exam Cardiovascular Exam: +S1, +S2 - GI/Abdominal Exam GI & Abdominal Exam: Soft. absent: Tenderness Results - Vital Signs Recent Vital Signs: Last Vital Signs Temp 98.8 F 06/26/17 21:56 Pulse 71 06/26/17 21:56 Resp 20 06/26/17 21:56 BP 150/75 06/26/17 21:56 Pulse Ox 94 L 06/26/17 19:44 - Labs Result Diagrams: 06/27/17 06:45 06/27/17 06:45 Labs: Laboratory Results - last 24 hr 06/26/17 22:08 POC Glucose (mg/dL) 287 H Assessment & Plan - Assessment and Plan (Free Text) Plan: Assessment Left facial pre-septal cellulitis, slowly improving ESRD on HD DM COPD diabetic retinopathy and neuropathy history of DVT and PE history of diabetic foot ulcers history of right lung abscess non-ischemic cardiomyopathy Plan continue doxycycline and Zosyn day 5 to complete 7-10 days of therapy
[2017-06-27] MEDS: Insulin Detemir 100 units/ml Vial (Levemir) SC SCH (22:50)
[2017-06-28] MEDS: Albuterol-Ipratrop 3 mg / 0.5 (3 ml) UD IH SCH ×4 (02:30→19:34)
[2017-06-28] MEDS: Piperacillin/Tazobact 2.25gm 2.25 GM/100 ML BAG IVPB SCH ×2 (06:01→18:10)
[2017-06-28] MEDS: Insulin Reg-LOW-Coverage SC SCH ×4 (07:08→21:41)
--- NOTE | 2017-06-28 12:58 | HP ---
CHIEF COMPLAINT: Pain in the eye, deconditioned. HISTORY OF PRESENT ILLNESS: Mr. Jackson is a 57-year-old, my private patient with a past medical history of renal insufficiency - on hemodialysis, insulin-dependent diabetes mellitus, hypertension, hypercholesterolemia, COPD, diabetic retinopathy, diabetic neuropathy, diabetic nephropathy, history of DVT and PE, diabetic foot ulcer, history of right lung abscess, cardiomyopathy, was initially admitted in for the left-sided facial swelling, and eye infection, who was noted to have preseptal cellulitis. He has been given IV antibiotics - slowly improving. He is now transferred to TCU for continuity of medical therapy and PT and OT. ID is on the case. Plan was to continue antibiotics to complete the course. The patient is feeling better, getting physical therapy. No nausea, vomiting or diarrhea. No hematuria or hematochezia. No headache or dizziness. No chest pain, no palpitation. PAST MEDICAL HISTORY: As above - COPD, diabetic nephropathy, diabetic neuropathy, diabetic retinopathy, noncompliance, cardiomyopathy. ALLERGIES: THE PATIENT IS NOT ALLERGIC WITH ANY MEDICATIONS. FAMILY HISTORY: Father and mother, noncontributory. HABITS: Never smoked. No drugs or ethanol. MEDICATIONS: Tylenol, DuoNeb, PhosLo, Coreg, Zosyn, Levemir insulin, Reglan and tramadol. REVIEW OF SYSTEMS: The patient is seen and examined at the bedside, looking comfortable. No nausea, vomiting or diarrhea. No hematuria or hematochezia. No swelling of the legs. No fever. No chills. No dysuria. PHYSICAL EXAMINATION: VITAL SIGNS: Temperature 98.8, pulse 71, respiratory rate 20, and blood pressure 120/75. HEENT: Head: Normocephalic, atraumatic. Eyes: PERRLA. Left eye is a little bit swollen, but better. Nose patent. Mucous membranes are moist. NECK: Supple. No carotid bruit. No JVD or thyromegaly. CHEST: Bilaterally symmetrical. HEART: S1, S2 positive. LUNGS: Clear to auscultation. ABDOMEN: Soft. Bowel sounds are present. No organomegaly. EXTREMITIES: No edema. No cyanosis. NEUROLOGIC: The patient is awake and alert. Moving all four extremities. No focal deficits. LABORATORY DATA: White blood cells 7.1, hemoglobin 8.4, hematocrit 28, and platelets 177,000. Sodium 140, potassium 4.5, BUN 61, creatinine 7.4, and glucose is 72. ASSESSMENT AND PLAN: Mr. Jackson is a 57-year-old male with anemia, renal insufficiency, hyponatremia, has left facial preseptal cellulitis - slowly improving, diabetic retinopathy, diabetic neuropathy, diabetic nephropathy - on hemodialysis, insulin-dependent diabetes mellitus, chronic obstructive pulmonary disease, history of deep venous thrombosis and pulmonary embolism, history of diabetic foot ulcer, right lung abscess and nonischemic cardiomyopathy. Continue doxycycline and Zosyn day #5, to complete 10 days. Out of bed, physical therapy. Repeat labs. We will follow. Makenzie Miranda MD MTDD
[2017-06-28 14:24] LABS: BASO # 0.02 K/mm3 (0.0-2.0); BASO % 0.3 % (0.0-3.0); EOS # 0.3 (0.0-0.7); EOS % 3.7 % (1.5-5.0); GRAN # 4.62 (1.4-6.5); HEMOGLOBIN 8.8 g/dL (14.0-18.0); LYMPH # 1.6 (1.2-3.4); LYMPH % 21.9 % (22.0-35.0); MEAN CORPUSCULAR HEMOGLOBIN 23.8 pg (25.0-35.0); MEAN CORPUSCULAR HGB CONC 30.9 g/dl (31.0-37.0); MEAN PLATELET VOLUME 10.1 fl (7.0-11.0); MONO # 0.7 (0.1-0.6); MONO % 9.1 % (1.0-6.0); RBC 3.7 10^6/uL (3.5-6.1); RED CELL DISTRIBUTION WIDTH 14.8 % (11.5-14.5); WHITE BLOOD COUNT 7.1 10^3/ul (4.5-11.0)
[2017-06-28 15:56] LABS: ALB/GLOB RATIO 0.9 (1.1-1.8); ALBUMIN 3.8 g/dL (3.0-4.8); CALCIUM 10.6 mg/dL (8.4-10.5)
[2017-06-28] MEDS: Insulin Detemir 100 units/ml Vial (Levemir) SC SCH (21:42)
[2017-06-29] MEDS: Albuterol-Ipratrop 3 mg / 0.5 (3 ml) UD IH SCH ×4 (03:00→19:39)
--- NOTE | 2017-06-29 04:27 | PN ---
DATE: SUBJECTIVE: Patient is seen and examined on the bedside. Looking comfortable. Getting physical therapy. No nausea, vomiting or diarrhea. No hematuria or hematochezia. No swelling of the legs. No chest pain. No palpitation. No headache. No dizziness. PHYSICAL EXAMINATION: VITAL SIGNS: Temperature 99, pulse 59, blood pressure 183/95, respiratory rate 18. HEENT: Head is normocephalic and atraumatic. Eyes, PERRLA. Extraocular muscles intact. Conjunctivae clear. Nose patent. Mucous membranes moist. NECK: Supple. No carotid bruit. No JVD or thyromegaly. CHEST: Bilaterally symmetrical. HEART: S1 and S2 positive. LUNGS: Clear to auscultation. ABDOMEN: Soft. Bowel sounds present. No organomegaly. EXTREMITIES: No edema. No cyanosis. NEUROLOGIC: Patient is awake, alert. Moving all 4 extremities. No focal deficit. MEDICATIONS: Coreg, doxycycline, DuoNeb, insulin, Levemir, PhosLo, Reglan, Tylenol, tramadol, Zosyn. LABORATORY DATA: White blood cells 7.1, hemoglobin 8.8, hematocrit 28.5, platelets 178. Sodium 135, potassium 5.3, BUN 77, creatinine 1.0, glucose 275, calcium 10.6. ASSESSMENT AND PLAN: Mr. Stephanie Jackson is a 57-year-old male with anemia, hyperkalemia, hypochloremia, renal insufficiency, hyperglycemia, hypocalcemia, had chronic obstructive pulmonary disease, diabetic nephropathy, diabetic retinopathy, diabetic neuropathy. No new complaint. As per nursing staff, patient is receiving insulin, sugar is high and is taking blood pressure medications also, urged to be compliant. Length of time discussion done. History of right lung abscess and nonischemic cardiomyopathy, history of diabetic foot ulcer. Continue doxycycline and Zosyn day 6, to complete day 10. Gastrointestinal and deep venous thrombosis prophylaxis. Repeat labs. We will follow up. Makenzie Miranda MD
[2017-06-29] MEDS: Piperacillin/Tazobact 2.25gm 2.25 GM/100 ML BAG IVPB SCH ×2 (05:23→17:23)
[2017-06-29] MEDS: Insulin Reg-LOW-Coverage SC SCH ×5 (08:05→22:26)
--- NOTE | 2017-06-29 15:48 | CP.PCM.PN ---
Subjective - Date & Time of Evaluation Date of Evaluation: 06/29/17 Time of Evaluation: 09:20 - Subjective Subjective: Facial swelling is slowly improving, no fevers. Objective - Vital Signs/Intake and Output Vital Signs (last 24 hours): Temp Pulse Resp BP Pulse Ox 99 F 74 18 135/76 95 06/28/17 10:00 06/29/17 08:18 06/28/17 10:00 06/29/17 08:18 06/28/17 10:00 - Medications Medications: Current Medications Acetaminophen (Tylenol 325mg Tab) 650 mg PO Q4H PRN; Protocol PRN Reason: Pain, Mild (1-3) Albuterol/Ipratropium (Duoneb 3 Mg/0.5 Mg (3 Ml) Ud) 3 ml IH [id number] [facility] PRN Reason: Protocol Last Admin: 06/29/17 08:52 Dose: Not Given Calcium Acetate (Phoslo) 667 mg PO WM [facility] PRN Reason: Protocol Last Admin: 06/28/17 18:10 Dose: 667 mg Carvedilol (Coreg) 3.125 mg PO 0800,1800 [facility] PRN Reason: Protocol Last Admin: 06/29/17 08:18 Dose: 3.125 mg Doxycycline Hyclate (Doryx) 100 mg PO Q12 [facility] PRN Reason: Protocol Last Admin: 06/28/17 21:41 Dose: 100 mg Piperacillin Sod/Tazobactam Sod (Zosyn 2.25 Gm In 0.9% 100 Ml) 2.25 gm in 100 mls @ 100 mls/hr IVPB 0600,1800 [facility] PRN Reason: Protocol Stop: 07/04/17 06:01 Last Admin: 06/29/17 05:23 Dose: 100 mls/hr Insulin Detemir (Levemir) 14 unit SC HS [facility] PRN Reason: Protocol Last Admin: 06/28/17 21:42 Dose: 14 unit Insulin Human Regular (Humulin R Low) 0 units SC ACHS [facility] PRN Reason: Protocol Last Admin: 06/29/17 08:05 Dose: Not Given Metoclopramide HCl (Reglan) 5 mg PO DAILY [facility] PRN Reason: Protocol Last Admin: 06/28/17 10:13 Dose: 5 mg Tramadol HCl (Ultram) 50 mg PO TID PRN; Protocol PRN Reason: Pain, moderate (4-7) - Labs Labs: 06/28/17 13:46 06/28/17 13:46 - Constitutional Appears: Chronically Ill - Head Exam Head Exam: NORMAL INSPECTION - ENT Exam ENT Exam: Mucous Membranes Moist Additional comments: left side of face with slowly decreasing swelling - Respiratory Exam Respiratory Exam: Decreased Breath Sounds - Cardiovascular Exam Cardiovascular Exam: +S1, +S2 - GI/Abdominal Exam GI & Abdominal Exam: Soft. absent: Tenderness Assessment and Plan - Assessment and Plan (Free Text) Plan: Assessment Left facial pre-septal cellulitis, slowly improving ESRD on HD DM COPD diabetic retinopathy and neuropathy history of DVT and PE history of diabetic foot ulcers history of right lung abscess non-ischemic cardiomyopathy Plan continue doxycycline and Zosyn day 7 to complete 7-10 days of therapy
[2017-06-29] MEDS: Insulin Detemir 100 units/ml Vial (Levemir) SC SCH ×2 (21:54→22:00)
--- NOTE | 2017-06-30 01:42 | PN ---
DATE: SUBJECTIVE: Patient is seen and examined on the bedside, looking comfortable. Facial swelling is slowly improving and no fever, no chills. Patient is noncompliant, receiving medication, urged to be compliant. Education done. No nausea, vomiting, or diarrhea. No hematuria or hematochezia. No headache. No dizziness. No chest pain. No palpitation. PHYSICAL EXAMINATION: VITAL SIGNS: Temperature 99, pulse 74, respiratory rate 18, blood pressure 135/76, pulse oximetry 95. HEENT: Head is normocephalic and atraumatic. Eyes, PERRLA. Extraocular muscles intact. Conjunctivae clear. Nose patent. Mucous membranes moist. NECK: Supple. No carotid bruits. No JVD or thyromegaly. CHEST: Bilaterally symmetrical. HEART: S1 and S2 positive. LUNGS: Clear to auscultation. ABDOMEN: Soft. Bowel sounds present. No organomegaly. EXTREMITIES: No edema. No cyanosis. NEUROLOGIC: Patient is awake, alert. Moving all 4 extremities. No focal deficit. MEDICATIONS: Tylenol, DuoNeb, PhosLo, Coreg, doxycycline, Zosyn, insulin, Reglan, tramadol. LABORATORY DATA: White blood cell is 7.1, hemoglobin 8.8, hematocrit 28.5, platelets 178. Sodium 135, potassium 5.3, BUN 77, creatinine 10.0, glucose 279. ASSESSMENT AND PLAN: Mr. Stephanie Jackson is a 57-year-old male with anemia, hyperkalemia, hyperchloremia, renal insufficiency, hyperglycemia, insulin-dependent diabetes mellitus type 2, noncompliant, refusing insulin, urged to be compliant, left facial preseptal cellulitis slowly improving, chronic obstructive pulmonary disease, diabetic retinopathy, diabetic neuropathy, diabetic nephropathy, history of deep venous thrombosis and pulmonary embolism, history of diabetic foot ulcer, history of right lung abscess, nonischemic cardiomyopathy. Continue doxycycline and Zosyn, today is day 7 of 7 to 10 days of therapy. Gastrointestinal and deep venous thrombosis prophylaxis. Getting physical therapy. Repeat labs. We will follow up. Makenzie Miranda MD
[2017-06-30] MEDS: Piperacillin/Tazobact 2.25gm 2.25 GM/100 ML BAG IVPB SCH ×3 (05:18→22:16)
[2017-06-30] MEDS: Insulin Reg-LOW-Coverage SC SCH ×4 (06:49→22:15)
[2017-06-30] MEDS: Albuterol-Ipratrop 3 mg / 0.5 (3 ml) UD IH SCH ×3 (07:25→21:00)
--- NOTE | 2017-06-30 12:55 | CP.PCM.PCO ---
Physician Communication Note - Physician Communication Note Physician Communication Note: Patient not in room x2, Psychiatry will assess patient tomorrow
--- NOTE | 2017-06-30 17:08 | CP.PCM.PN ---
Subjective - Date & Time of Evaluation Date of Evaluation: 06/30/17 Time of Evaluation: 11:45 - Subjective Subjective: Facial swelling is slowly improving, no fevers. Objective - Vital Signs/Intake and Output Vital Signs (last 24 hours): Temp Pulse Resp BP Pulse Ox 97.4 F L 74 18 171/75 H 100 06/29/17 17:49 06/30/17 08:34 06/29/17 17:49 06/30/17 08:34 06/29/17 17:49 - Medications Medications: Current Medications Acetaminophen (Tylenol 325mg Tab) 650 mg PO Q4H PRN; Protocol PRN Reason: Pain, Mild (1-3) Albuterol/Ipratropium (Duoneb 3 Mg/0.5 Mg (3 Ml) Ud) 3 ml IH [id number] JEANETTE PRN Reason: Protocol Last Admin: 06/30/17 07:25 Dose: Not Given Calcium Acetate (Phoslo) 667 mg PO WM JEANETTE PRN Reason: Protocol Last Admin: 06/30/17 08:33 Dose: 667 mg Carvedilol (Coreg) 3.125 mg PO 0800,1800 JEANETTE PRN Reason: Protocol Last Admin: 06/30/17 08:34 Dose: 3.125 mg Doxycycline Hyclate (Doryx) 100 mg PO Q12 JEANETTE PRN Reason: Protocol Last Admin: 06/29/17 21:55 Dose: 100 mg Insulin Detemir (Levemir) 14 unit SC HS JEANETTE PRN Reason: Protocol Last Admin: 06/29/17 22:00 Dose: Not Given Insulin Human Regular (Humulin R Low) 0 units SC ACHS JEANETTE PRN Reason: Protocol Last Admin: 06/30/17 06:49 Dose: Not Given Metoclopramide HCl (Reglan) 5 mg PO DAILY JEANETTE PRN Reason: Protocol Last Admin: 06/29/17 09:35 Dose: 5 mg Tramadol HCl (Ultram) 50 mg PO TID PRN; Protocol PRN Reason: Pain, moderate (4-7) - Labs Labs: 06/28/17 13:46 06/28/17 13:46 - Constitutional Appears: Chronically Ill - Head Exam Head Exam: NORMAL INSPECTION - ENT Exam ENT Exam: Mucous Membranes Moist Additional comments: decreasing swelling of the left side of the face - Respiratory Exam Respiratory Exam: Decreased Breath Sounds - Cardiovascular Exam Cardiovascular Exam: +S1, +S2 - GI/Abdominal Exam GI & Abdominal Exam: Soft. absent: Tenderness Assessment and Plan - Assessment and Plan (Free Text) Plan: Assessment Left facial pre-septal cellulitis, slowly improving ESRD on HD DM COPD diabetic retinopathy and neuropathy history of DVT and PE history of diabetic foot ulcers history of right lung abscess non-ischemic cardiomyopathy Plan continue doxycycline and Zosyn day 8 to complete 7-10 days of therapy
--- NOTE | 2017-06-30 22:12 | PN ---
DATE: SUBJECTIVE: Patient is seen and examined on the bedside, looking comfortable, just came back from dialysis. Eye is getting better. Cheek is getting better. No fever, no chills. No nausea, vomiting, or diarrhea. No hematuria or hematochezia. No swelling of legs. No chest pain. No palpitation. PHYSICAL EXAMINATION VITAL SIGNS: Temperature 97.4, pulse 74, respiratory rate 18, blood pressure 175/75, pulse oximetry 100%. HEENT: Head is normocephalic and atraumatic. Eyes, PERRLA. Extraocular muscles intact. Conjunctivae clear. Nose patent. Mucous membranes moist. NECK: Supple. No carotid bruits, JVD or thyromegaly. CHEST: Bilaterally symmetrical. HEART: S1, S2 positive. LUNGS: Clear to auscultation. ABDOMEN: Soft. Bowel sounds present. No organomegaly. EXTREMITIES: No edema. No cyanosis. NEUROLOGIC: Patient is awake, alert. Moving all 4 extremities. No focal deficit. MEDICATIONS: Acetaminophen, DuoNeb, calcium, carvedilol, doxycycline, insulin, Reglan, tramadol. LABORATORY DATA: White blood cell is 7.1, hemoglobin 8.8, hematocrit 28.5, platelets 178. Sodium 135, potassium 5.3, BUN 77, creatinine 10.0, glucose is 279. ASSESSMENT AND PLAN: Mr. Stephanie Jackson is a 57-year-old male with anemia; hyperkalemia; renal insufficiency, on hemodialysis three times a week; hyperglycemia; has left facial preseptal cellulitis slowly improving; chronic obstructive pulmonary disease; diabetic retinopathy; diabetic neuropathy; diabetic nephropathy; history of deep venous thrombosis and pulmonary embolism; history of diabetic foot ulcers; history of right lung abscess; nonischemic cardiomyopathy. Continue doxycycline and Zosyn, day 8, to be completed for 10 days of therapy. Gastrointestinal and deep venous thrombosis prophylaxis. Continue dialysis. We will follow up. Makenzie Miranda MD
[2017-06-30] MEDS: Insulin Detemir 100 units/ml Vial (Levemir) SC SCH (22:15)
[2017-07-01] MEDS: Albuterol-Ipratrop 3 mg / 0.5 (3 ml) UD IH SCH ×4 (01:21→21:40)
[2017-07-01] MEDS: Piperacillin/Tazobact 2.25gm 2.25 GM/100 ML BAG IVPB SCH ×2 (05:13→14:49)
[2017-07-01] MEDS: Insulin Reg-LOW-Coverage SC SCH ×4 (06:43→21:35)
[2017-07-01] MEDS: Insulin Detemir 100 units/ml Vial (Levemir) SC SCH (21:36)
--- NOTE | 2017-07-02 00:36 | CON ---
DATE: HISTORY OF PRESENT ILLNESS: The patient is a male, usually prior history of anxiety, possible depression, no psychiatric follow up at this time, who Psychiatry was consulted on for possible anxiety and depression in the unit. Hiral Hou APN had tried to see the patient on two occasions yesterday; however, he was not in his room. I reviewed recent notes and met with the patient at bedside and it is unclear why the consult was requested. I spoke with the patient who is alert and oriented to month and year, current location, and he denies feeling depressed. He denies having any active anxiety and reports no major issues with sleeping. The patient denies having any perceptual disturbance, specifically, he denies having someone playing tricks on him. Affect is a little constricted and preoccupied; however, he is not responding to internal stimuli. He is in good control and he has been eating breakfast and he does not appear to be bizarrely or oddly related. Responses are relevant to questioning and they are consistent. He defers from any psychiatric management at this time and does not have any specific needs and staff nurse indicates he is generally been in control and compliant with staff request, demonstrating fair insight and judgment. PSYCHIATRIC HISTORY: Patient reports that he was once prescribed Restoril as sleeping pill in the past; but however, this was many years ago. Denies any other psychiatric treatments except for psychiatric condition about 20 to 30 years ago; however, he cannot recall this before. He denies any history of suicide attempts or instances of hallucinations or paranoia. He denies any history of self-harm behavior. SOCIAL HISTORY: The patient was born and raised in . He is . He lives with his and two kids who were 18 and 16-1/2 years old. He is unemployed. He denies any drug or alcohol issues. MEDICATIONS: The patient is not on any relevant psychiatric medications at this time. Vital signs and recent lab works were reviewed by this provider. IMPRESSION: Anxiety disorder by history, rule out adjustment disorder with anxiety though the patient denies having any symptoms at this time. RECOMMENDATION: At this time, there does not appear to be any acute indication for psychiatric intervention at this time and the patient defers any psychiatric management. He is oriented to month, year, and location and superficially oriented to circumstances. He has been in good control and generally responds with staff request. He demonstrates fair appetite. When I spoke with him this morning, he is not responding to internal stimuli. He denies having any mental health problems. This provider will sign off at this time. Please re-consult psychiatrist as necessary if there are any acute changes in the patient's mental status or functioning. Maria Del Rosario Romero MD
[2017-07-02] MEDS: Albuterol-Ipratrop 3 mg / 0.5 (3 ml) UD IH SCH ×5 (03:00→21:36)
[2017-07-02] MEDS: Insulin Reg-LOW-Coverage SC SCH ×4 (07:01→21:50)
--- NOTE | 2017-07-02 13:44 | PN ---
DATE: 07/02/2017 SUBJECTIVE: The patient is in bed, in no acute distress, nontoxic. No fevers. Doing much better. PHYSICAL EXAMINATION VITAL SIGNS: Temperature is 98, blood pressure is 170/90, respiratory rate of 16, heart rate is 70. HEENT: Examination is much improved. The swelling on the cheek on the left side of his face is greatly improved. NECK: Supple. LUNGS: Have decreased breath sounds. HEART: Normal S1 and S2. ABDOMEN: Soft. LABORATORY DATA: Examination reveals a white count of 7.1, hemoglobin of 8, platelets of 178,000. Chemistries are noted. The patient's creatinine is 10. ASSESSMENT AND PLAN: This is a 57-year-old male with left facial preseptal cellulitis, improving with an end-stage renal disease, on hemodialysis; diabetes mellitus; chronic obstructive lung disease; diabetic retinopathy; neuropathy and today is day #10 of Zosyn and the patient is also on p.o. doxycycline. The Zosyn was discontinued by pharmacy, will reinstate it to complete the therapy. We will follow with you. Marcos House MD
[2017-07-02] MEDS: Piperacillin/Tazobact 2.25gm 2.25 GM/100 ML BAG IVPB SCH ×3 (14:29→23:00)
[2017-07-02] MEDS: Insulin Detemir 100 units/ml Vial (Levemir) SC SCH (21:50)
[2017-07-03] MEDS: Piperacillin/Tazobact 2.25gm 2.25 GM/100 ML BAG IVPB SCH ×2 (05:03→18:36)
[2017-07-03] MEDS: Insulin Reg-LOW-Coverage SC SCH ×4 (07:04→22:06)
--- NOTE | 2017-07-03 08:58 | PN ---
DATE: 07/01/2017 SUBJECTIVE: The patient is in bed in no acute distress, nontoxic. No fevers. PHYSICAL EXAMINATION: VITAL SIGNS: Temperature is 97, blood pressure is 170/70, respiratory rate of 20. HEENT: Unremarkable. NECK: Supple. LUNGS: Have decreased breath sounds. HEART: Normal S1, S2. ABDOMEN: Soft, nontender. LABORATORY EXAMINATION: Reveals a white count of 7.1, hemoglobin of 8, platelets of 177. Chemistries reveals the patient has a BUN of 77, creatinine of 10. ASSESSMENT AND PLAN: A 57-year-old male with left facial preseptal cellulitis, slowly improving; end-stage renal disease on hemodialysis; diabetes mellitus, chronic obstructive lung disease, diabetic retinopathy, neuropathy and currently on day #9 of Zosyn and doxycycline. Review of orders reveals the patient's doxycycline and his active Zosyn has been discontinued. The patient states he is doing much better and we will follow with you. Marcos House MD
[2017-07-03] MEDS: Albuterol-Ipratrop 3 mg / 0.5 (3 ml) UD IH SCH ×3 (10:44→15:13)
[2017-07-03 13:51] VITALS: O2SAT 95
--- NOTE | 2017-07-03 14:50 | CP.PCM.PN ---
Subjective - Date & Time of Evaluation Date of Evaluation: 07/03/17 Time of Evaluation: 12:35 - Subjective Subjective: Left facial swelling is slowly improving, no fevers. Objective - Vital Signs/Intake and Output Vital Signs (last 24 hours): Temp Pulse Resp BP Pulse Ox 98.5 F 70 20 168/86 H 91 L 07/02/17 17:32 07/03/17 08:58 07/02/17 17:32 07/03/17 08:58 07/02/17 17:32 - Medications Medications: Current Medications Acetaminophen (Tylenol 325mg Tab) 650 mg PO Q4H PRN; Protocol PRN Reason: Pain, Mild (1-3) Albuterol/Ipratropium (Duoneb 3 Mg/0.5 Mg (3 Ml) Ud) 3 ml IH [id number] JEANETTE PRN Reason: Protocol Last Admin: 07/03/17 10:44 Dose: Not Given Calcium Acetate (Phoslo) 667 mg PO WM JEANETTE PRN Reason: Protocol Last Admin: 07/03/17 08:58 Dose: 667 mg Carvedilol (Coreg) 3.125 mg PO 0800,1800 JEANETTE PRN Reason: Protocol Last Admin: 07/03/17 08:58 Dose: 3.125 mg Doxycycline Hyclate (Doryx) 100 mg PO Q12 JEANETTE PRN Reason: Protocol Last Admin: 07/03/17 09:02 Dose: 100 mg Piperacillin Sod/Tazobactam Sod (Zosyn 2.25 Gm In 0.9% 100 Ml) 2.25 gm in 100 mls @ 100 mls/hr IVPB Q6 JEANETTE PRN Reason: Protocol Stop: 07/11/17 12:01 Last Admin: 07/03/17 05:03 Dose: 100 mls/hr Insulin Detemir (Levemir) 14 unit SC HS JEANETTE PRN Reason: Protocol Last Admin: 07/02/17 21:50 Dose: Not Given Insulin Human Regular (Humulin R Low) 0 units SC ACHS JEANETTE PRN Reason: Protocol Last Admin: 07/03/17 07:04 Dose: Not Given Metoclopramide HCl (Reglan) 5 mg PO DAILY JEANETTE PRN Reason: Protocol Last Admin: 07/03/17 09:02 Dose: 5 mg Tramadol HCl (Ultram) 50 mg PO TID PRN; Protocol PRN Reason: Pain, moderate (4-7) - Labs Labs: 06/28/17 13:46 06/28/17 13:46 - Constitutional Appears: Chronically Ill - Head Exam Head Exam: NORMAL INSPECTION - ENT Exam ENT Exam: Mucous Membranes Moist Additional comments: left side of the face with slowly improving swelling - Neck Exam Neck Exam: absent: Meningismus - Respiratory Exam Respiratory Exam: Decreased Breath Sounds - Cardiovascular Exam Cardiovascular Exam: +S1, +S2 - GI/Abdominal Exam GI & Abdominal Exam: Soft. absent: Tenderness Assessment and Plan - Assessment and Plan (Free Text) Plan: Assessment Left facial pre-septal cellulitis, slowly improving ESRD on HD DM COPD diabetic retinopathy and neuropathy history of DVT and PE history of diabetic foot ulcers history of right lung abscess non-ischemic cardiomyopathy Plan continue doxycycline and Zosyn day 11 and august d/c after today
[2017-07-03 14:51] LABS: BASO # 0.03 K/mm3 (0.0-2.0); BASO % 0.3 % (0.0-3.0); EOS # 0.2 (0.0-0.7); EOS % 2.5 % (1.5-5.0); GRAN # 6.82 (1.4-6.5); GRAN % 73.4 % (50.0-68.0); LYMPH # 1.6 (1.2-3.4); LYMPH % 17.5 % (22.0-35.0); MEAN CELL VOLUME 74.6 fl (80.0-105.0); MEAN CORPUSCULAR HEMOGLOBIN 25.1 pg (25.0-35.0); MEAN CORPUSCULAR HGB CONC 33.7 g/dl (31.0-37.0); MEAN PLATELET VOLUME 10.6 fl (7.0-11.0); MONO # 0.6 (0.1-0.6); MONO % 6.3 % (1.0-6.0); RBC 3.58 10^6/uL (3.5-6.1); RED CELL DISTRIBUTION WIDTH 14.8 % (11.5-14.5); WHITE BLOOD COUNT 9.3 10^3/ul (4.5-11.0)
[2017-07-03 15:05] LABS: ALBUMIN 3.7 g/dL (3.0-4.8); CALCIUM 10.5 mg/dL (8.4-10.5)
--- NOTE | 2017-07-03 19:09 | CP.PCM.PN ---
<Yazmin Hoang - Last Filed: 07/03/17 19:09> Subjective - Date & Time of Evaluation Date of Evaluation: 07/03/17 Time of Evaluation: 11:30 - Subjective Subjective: Chief Complaint: deconditioning 57 yr male previously discharged from [facility] w/ history of ESRD (HEMO - MWF), fall w. hip fracture, ORIF (05/08/17), COPD, Anemia , DM II, Diabetic neuropathy, Diabetic retinopathy, gasteroparesis, Pulmonary embolism, DVT, esophagitis, lung abscess, & cardiomyopathy. Pt admitted to [facility] for diffuse cellulitis of face & dental caries. Pt transfered to TCU for physical therapy. Today, pt seen sitting in hallway on his walker seat. Improvement noted of L eye and decreased edema of L side of face. Pt denies any fever, chills, chest pain, shortness of breath, diarrhea, constipation, paresthesia, or urinary changes. Objective - Vital Signs/Intake and Output Vital Signs (last 24 hours): Temp Pulse Resp BP Pulse Ox 98.7 F 72 16 189/96 H 95 07/03/17 10:00 07/03/17 10:00 07/03/17 10:00 07/03/17 18:34 07/03/17 10:00 - Medications Medications: Current Medications Acetaminophen (Tylenol 325mg Tab) 650 mg PO Q4H PRN; Protocol PRN Reason: Pain, Mild (1-3) Albuterol/Ipratropium (Duoneb 3 Mg/0.5 Mg (3 Ml) Ud) 3 ml IH [id number] JEANETTE PRN Reason: Protocol Last Admin: 07/03/17 15:13 Dose: Not Given Calcium Acetate (Phoslo) 667 mg PO WM JEANETTE PRN Reason: Protocol Last Admin: 07/03/17 18:35 Dose: 667 mg Carvedilol (Coreg) 3.125 mg PO 0800,1800 JEANETTE PRN Reason: Protocol Last Admin: 07/03/17 18:34 Dose: 3.125 mg Doxycycline Hyclate (Doryx) 100 mg PO Q12 JEANETTE PRN Reason: Protocol Last Admin: 07/03/17 09:02 Dose: 100 mg Piperacillin Sod/Tazobactam Sod (Zosyn 2.25 Gm In 0.9% 100 Ml) 2.25 gm in 100 mls @ 100 mls/hr IVPB Q6 JEANETTE PRN Reason: Protocol Stop: 07/11/17 12:01 Last Admin: 07/03/17 18:36 Dose: 100 mls/hr Insulin Detemir (Levemir) 14 unit SC HS JEANETTE PRN Reason: Protocol Last Admin: 07/02/17 21:50 Dose: Not Given Insulin Human Regular (Humulin R Low) 0 units SC ACHS JEANETTE PRN Reason: Protocol Last Admin: 07/03/17 18:35 Dose: Not Given Metoclopramide HCl (Reglan) 5 mg PO DAILY JEANETTE PRN Reason: Protocol Last Admin: 07/03/17 09:02 Dose: 5 mg Tramadol HCl (Ultram) 50 mg PO TID PRN; Protocol PRN Reason: Pain, moderate (4-7) - Labs Labs: 07/03/17 13:50 07/03/17 13:50 - Constitutional Appears: Older Than Stated Age, Chronically Ill - Eye Exam Additional comments: L eye edema improved. - ENT Exam Additional comments: L mandible edema improved. poor dentition - Neck Exam Neck Exam: Full ROM, Normal Inspection. absent: Lymphadenopathy - Respiratory Exam Respiratory Exam: Clear to Ausculation Bilateral, NORMAL BREATHING PATTERN - Cardiovascular Exam Cardiovascular Exam: REGULAR RHYTHM, +S1, +S2. absent: Murmur - GI/Abdominal Exam GI & Abdominal Exam: Soft, Normal Bowel Sounds. absent: Tenderness - Extremities Exam Additional comments: L AV fistula - Back Exam Back Exam: NORMAL INSPECTION - Neurological Exam Neurological Exam: Alert, Awake, Oriented x3 - Psychiatric Exam Psychiatric exam: Normal Affect, Normal Mood - Skin Skin Exam: Dry, Intact, Normal Color, Warm Assessment and Plan (1) Anemia, chronic disease Status: Acute (2) Dental caries Status: Acute (3) Diffuse cellulitis of face Status: Acute (4) ESRD (end stage renal disease) Status: Acute - Assessment and Plan (Free Text) Plan: Improved. PO doxycycline & IV zosyn. s/p IV vancomycin. VTE/GI prophylaxis. PT/ OT in TCU. pain management: PO tramadol Consults: ID - Dr. House Nephro - Dr. Castañeda Reviwed: CT = L preseptal; orbital cellulitis & L facial cellulitis, no evidence of drainable fluid collection, extensive periodental disease <Makenzie Miranda - Last Filed: 07/03/17 23:19> Objective - Vital Signs/Intake and Output Vital Signs (last 24 hours): Temp Pulse Resp BP Pulse Ox 98.7 F 72 16 189/96 H 95 07/03/17 10:00 07/03/17 10:00 07/03/17 10:00 07/03/17 18:34 07/03/17 10:00 - Medications Medications: Current Medications Acetaminophen (Tylenol 325mg Tab) 650 mg PO Q4H PRN; Protocol PRN Reason: Pain, Mild (1-3) Albuterol/Ipratropium (Duoneb 3 Mg/0.5 Mg (3 Ml) Ud) 3 ml IH [id number] JEANETTE PRN Reason: Protocol Last Admin: 07/03/17 15:13 Dose: Not Given Calcium Acetate (Phoslo) 667 mg PO WM JEANETTE PRN Reason: Protocol Last Admin: 07/03/17 18:35 Dose: 667 mg Carvedilol (Coreg) 3.125 mg PO 0800,1800 JEANETTE PRN Reason: Protocol Last Admin: 07/03/17 18:34 Dose: 3.125 mg Doxycycline Hyclate (Doryx) 100 mg PO Q12 JEANETTE PRN Reason: Protocol Last Admin: 07/03/17 21:52 Dose: 100 mg Piperacillin Sod/Tazobactam Sod (Zosyn 2.25 Gm In 0.9% 100 Ml) 2.25 gm in 100 mls @ 100 mls/hr IVPB Q6 JEANETTE PRN Reason: Protocol Stop: 07/11/17 12:01 Last Admin: 07/03/17 18:36 Dose: 100 mls/hr Insulin Detemir (Levemir) 14 unit SC HS JEANETTE PRN Reason: Protocol Last Admin: 07/03/17 22:06 Dose: Not Given Insulin Human Regular (Humulin R Low) 0 units SC ACHS JEANETTE PRN Reason: Protocol Last Admin: 07/03/17 22:06 Dose: Not Given Metoclopramide HCl (Reglan) 5 mg PO DAILY JEANETTE PRN Reason: Protocol Last Admin: 07/03/17 09:02 Dose: 5 mg Tramadol HCl (Ultram) 50 mg PO TID PRN; Protocol PRN Reason: Pain, moderate (4-7) - Labs Labs: 07/03/17 13:50 07/03/17 13:50 Assessment and Plan - Assessment and Plan (Free Text) Plan: 57 yr male previously discharged from [facility] w/ history of ESRD (HEMO - MWF), fall w. hip fracture, ORIF (05/08/17), COPD, Anemia , DM II, Diabetic neuropathy, Diabetic retinopathy, gasteroparesis, Pulmonary embolism, DVT, esophagitis, lung abscess, & cardiomyopathy. Pt admitted to [facility] for diffuse cellulitis of face & dental caries. Pt transfered to TCU for physical therapy. Today, pt seen sitting in hallway on his walker seat. Improvement noted of L eye and decreased edema of L side of face. Pt denies any fever, chills, chest pain, shortness of breath, diarrhea, constipation, paresthesia, or urinary changes.pt is seen and examined at bed side , looking comfortable . agreed all above , d/d with veterinary manager , chart , meds and labs noted , will f/u
[2017-07-03] MEDS: Insulin Detemir 100 units/ml Vial (Levemir) SC SCH (22:06)
[2017-07-04] MEDS: Piperacillin/Tazobact 2.25gm 2.25 GM/100 ML BAG IVPB SCH ×4 (00:04→17:35)
[2017-07-04] MEDS: Albuterol-Ipratrop 3 mg / 0.5 (3 ml) UD IH SCH ×3 (02:50→13:15)
[2017-07-04] MEDS: Insulin Reg-LOW-Coverage SC SCH ×3 (06:34→17:33)
--- NOTE | 2017-07-04 08:52 | PN ---
DATE: 07/02/2017 SUBJECTIVE: Patient is a 57-year-old male. Patient was seen and examined on the bedside on 07/02/2017, looking comfortable. No nausea, vomiting, or diarrhea. No hematuria or hematochezia. No swelling of the legs. No chest pain. No palpitation. No headache. No dizziness. PHYSICAL EXAMINATION: VITAL SIGNS: Temperature is 98, blood pressure 170/90, respiratory rate 16, pulse 70. HEENT: Head normocephalic, atraumatic. Eyes: PERRLA. Extraocular movements are intact. Conjunctivae clear. Nose: Patent. Mucous membranes are moist. NECK: Supple. No carotid bruits, JVD, or thyromegaly. CHEST: Bilaterally symmetrical. HEART: S1 and S2 positive. LUNGS: Clear to auscultation. ABDOMEN: Soft. Bowel sounds positive. No organomegaly. EXTREMITIES: No edema. No cyanosis. NEUROLOGIC: Patient is awake, alert. Moving all 4 extremities. No focal deficit. LABORATORY DATA: White blood cells 7.1, hemoglobin 8, platelet 178,000. We do not have recent labs today, but I reviewed old labs. MEDICATIONS: Reviewed by me. ASSESSMENT AND PLAN: a 57-year-old male with left facial preseptal cellulitis, got intravenous antibiotics, improved with; has a history of end-stage renal disease, on hemodialysis 3 times a week; insulin-dependent diabetes mellitus, not very well controlled; noncompliant for insulin; urged to be compliant; chronic obstructive lung disease; diabetic retinopathy; diabetic neuropathy; diabetic nephropathy. Today is day #10 of the Zosyn and patient is also on p.o. doxycycline. Zosyn discontinued by the pharmacy and Dr. House restarted that to complete the therapy. Appreciated Dr. House's input. Physical therapy, gastrointestinal and deep venous thrombosis prophylaxis. Repeat labs. We will follow. Makenzie Miranda MD MTDD
--- NOTE | 2017-07-04 17:14 | CP.PCM.PN ---
Subjective - Date & Time of Evaluation Date of Evaluation: 07/04/17 Time of Evaluation: 11:40 - Subjective Subjective: Left facial swelling is improved, no fevers, no diarrhea. Objective - Vital Signs/Intake and Output Vital Signs (last 24 hours): Temp Pulse Resp BP Pulse Ox 98.3 F 72 18 151/85 H 95 07/04/17 10:00 07/04/17 10:00 07/04/17 10:00 07/04/17 10:00 07/04/17 10:00 - Medications Medications: Current Medications Acetaminophen (Tylenol 325mg Tab) 650 mg PO Q4H PRN; Protocol PRN Reason: Pain, Mild (1-3) Albuterol/Ipratropium (Duoneb 3 Mg/0.5 Mg (3 Ml) Ud) 3 ml IH [id number] JEANETTE PRN Reason: Protocol Last Admin: 07/04/17 13:15 Dose: Not Given Calcium Acetate (Phoslo) 667 mg PO WM JEANETTE PRN Reason: Protocol Last Admin: 07/04/17 12:39 Dose: 667 mg Carvedilol (Coreg) 3.125 mg PO 0800,1800 JEANETTE PRN Reason: Protocol Last Admin: 07/04/17 08:30 Dose: 3.125 mg Doxycycline Hyclate (Doryx) 100 mg PO Q12 JEANETTE PRN Reason: Protocol Last Admin: 07/04/17 09:26 Dose: 100 mg Piperacillin Sod/Tazobactam Sod (Zosyn 2.25 Gm In 0.9% 100 Ml) 2.25 gm in 100 mls @ 100 mls/hr IVPB Q6 JEANETTE PRN Reason: Protocol Stop: 07/11/17 12:01 Last Admin: 07/04/17 12:12 Dose: 100 mls/hr Insulin Detemir (Levemir) 14 unit SC HS JEANETTE PRN Reason: Protocol Last Admin: 07/03/17 22:06 Dose: Not Given Insulin Human Regular (Humulin R Low) 0 units SC ACHS JEANETTE PRN Reason: Protocol Last Admin: 07/04/17 12:38 Dose: Not Given Metoclopramide HCl (Reglan) 5 mg PO DAILY JEANETTE PRN Reason: Protocol Last Admin: 07/04/17 09:27 Dose: 5 mg Tramadol HCl (Ultram) 50 mg PO TID PRN; Protocol PRN Reason: Pain, moderate (4-7) - Labs Labs: 07/03/17 13:50 07/03/17 13:50 - Constitutional Appears: Chronically Ill - Head Exam Head Exam: NORMAL INSPECTION - ENT Exam ENT Exam: Mucous Membranes Moist Additional comments: decreased left facial swelling - Neck Exam Neck Exam: absent: Meningismus - Respiratory Exam Respiratory Exam: Decreased Breath Sounds - Cardiovascular Exam Cardiovascular Exam: +S1, +S2 - GI/Abdominal Exam GI & Abdominal Exam: Soft. absent: Tenderness Assessment and Plan - Assessment and Plan (Free Text) Plan: Assessment Left facial pre-septal cellulitis, clinically improving ESRD on HD DM COPD diabetic retinopathy and neuropathy history of DVT and PE history of diabetic foot ulcers history of right lung abscess non-ischemic cardiomyopathy Plan on doxycycline and Zosyn day 12 and august d/c after today
[2017-07-04 17:38] VITALS: BP 178/95; PULSE 71
[2017-07-04 17:50] VITALS: RESP 16; TEMP 97.8
--- NOTE | 2017-07-05 03:26 | DS ---
CHIEF COMPLAINT: Swelling of the eye, pain in the eye, need IV antibiotics. HISTORY OF PRESENT ILLNESS: Mr. Stephanie Jackson is a 57-year-old male with past medical history of renal insufficiency on hemodialysis, insulin-dependent diabetes mellitus, hypertension, hypercholesterolemia, COPD, diabetic adenopathy, diabetic neuropathy, diabetic nephropathy, DVT, PE, foot ulcers, came in [facility] for swelling of the eye, infection of the left-sided eye, who was noticed to have cellulitis, started on antibiotics, improving slowly. The patient was transferred to TCU to continue medical treatment, antibiotics, PT and OT, now patient improved. I saw the patient early in the morning. His eyes was better, antibiotics was done. Discharged home. Follow up as out patient. PAST MEDICAL HISTORY: As above, COPD, diabetic neuropathy, diabetic nephropathy, diabetic retinopathy, noncompliance, cardiomyopathy. ALLERGIES: THE PATIENT IS NOT ALLERGIC WITH ANY MEDICATIONS. FAMILY HISTORY: Father and mother noncontributory. HABITS: Never smoked. No drug. No ethanol. HOME MEDICATIONS: Reviewed by me. REVIEW OF SYSTEMS: The patient was seen and examined at the bedside, early in the morning, looking comfortable. No nausea, vomiting or diarrhea. No hematuria, hematochezia. No swelling of the leg. No chest pain. No palpitation. No headache. No dizziness. Left facial swelling improved. No fever. No chills. PHYSICAL EXAMINATION: VITAL SIGNS: Temperature 98.3, pulse 72, respiratory rate 18, blood pressure 150/85, pulse oximetry 95, HEENT: Head normocephalic and atraumatic. Eyes, PERRLA. Extraocular muscles intact. Conjunctivae clear. Nose patent. Mucous membranes moist. NECK: Supple. No carotid bruit, JVD, or thyromegaly. CHEST: Bilaterally symmetrical. HEART: S1 and S2 positive. LUNGS: Clear to auscultation. ABDOMEN: Soft, bowel sounds positive. No organomegaly. EXTREMITIES: No edema. No cyanosis. NEUROLOGICAL: The patient is awake and alert. Moving all four extremities. No focal deficits. MEDICATIONS: Tylenol, albuterol, calcium, Coreg, doxycycline, Zosyn, insulin, Reglan, tramadol. LABORATORY DATA: White blood cells 9.3, hemoglobin 9.0, hematocrit 26.7, platelets 228. Sodium 137, potassium 5.0, BUN 92, creatinine 11.1, glucose 153. ASSESSMENT AND PLAN: Mr. Stephanie Jackson is a 57-year-old male with anemia, renal insufficiency, on hemodialysis; came with left facial preseptal cellulitis, clinically improved; diabetes mellitus; chronic obstructive pulmonary disease; diabetic retinopathy; diabetic neuropathy; diabetic nephropathy; history of deep venous thrombosis and pulmonary embolism; history of diabetic foot ulcer; right lung abscess; nonischemic cardiomyopathy, was on doxycycline and Zosyn day 12 and now discontinued antibiotics. Discharged the patient to home. Discussion done with the patient's . Prescription medication was given on the bedside. Follow up as outpatient. Makenzie Miranda MD
== END 2017-07-04 18:18 | disposition home health service (06) | DRG 602 ==
LOC: TRCU 18:37
PROVIDERS: ADMIT Internal Medicine; ATTEND Internal Medicine
PROC: F07Z9FZ Gait Training/Functional Ambulation Treatment using Assistive, Adaptive, Supportive or Protective Equipment (ICD-10-PCS; principal; 2017-06-28)
PROC: F07L6YZ Therapeutic Exercise Treatment of Musculoskeletal System - Lower Back / Lower Extremity using Other Equipment (ICD-10-PCS; 2017-06-28)
PROC: F08Z2ZZ Grooming/Personal Hygiene Treatment (ICD-10-PCS; 2017-06-28)
PROC: F08Z1ZZ Dressing Techniques Treatment (ICD-10-PCS; 2017-06-28)
PROC: F07Z8ZZ Transfer Training Treatment (ICD-10-PCS; 2017-07-01)
DX: L03.213 Periorbital cellulitis (principal); N18.6 End stage renal disease; I13.2 Hypertensive heart and chronic kidney disease with heart failure and with stage 5 chronic kidney disease, or end stage renal disease; I42.9 Cardiomyopathy, unspecified; L03.211 Cellulitis of face; E11.21 Type 2 diabetes mellitus with diabetic nephropathy; E11.319 Type 2 diabetes mellitus with unspecified diabetic retinopathy without macular edema; E11.40 Type 2 diabetes mellitus with diabetic neuropathy, unspecified; E83.51 Hypocalcemia; I50.9 Heart failure, unspecified; J44.9 Chronic obstructive pulmonary disease, unspecified; E11.65 Type 2 diabetes mellitus with hyperglycemia; E11.22 Type 2 diabetes mellitus with diabetic chronic kidney disease; E87.5 Hyperkalemia; D63.8 Anemia in other chronic diseases classified elsewhere; E78.00 Pure hypercholesterolemia, unspecified; F41.9 Anxiety disorder, unspecified; K02.9 Dental caries, unspecified; Z86.711 Personal history of pulmonary embolism; Z99.2 Dependence on renal dialysis; Z86.718 Personal history of other venous thrombosis and embolism; Z91.19 Patient's noncompliance with other medical treatment and regimen; Z79.4 Long term (current) use of insulin

== ENCOUNTER 2017-07-09 00:09 | Inpatient (IN) | payer MEDICARE, MEDICAID ==
[2017-07-09 00:09] VITALS: PULSE 69; BMI 18.5
[2017-07-09] MEDS ORDERED: Piperacill/Tazo 4.5gm in NS 4.5 GM/100 ML BAG IVPB STA (00:56)
--- NOTE | 2017-07-09 01:03 | ED PDOC ---
Arrival/HPI - General Historian: Patient <Jason Samson - Last Filed: 07/09/17 01:19> <Chris Arias - Last Filed: 07/09/17 02:03> - General Chief Complaint: ENT Problem Time Seen by Provider: 07/09/17 00:12 - History of Present Illness Narrative History of Present Illness (Text): 07/09/17 00:59 57yo male with PMHx of IDDM, hypertension, COPD, neuropathy, PE/DVT, ESRD on dialysis MWF referred to ED by Dr. Salinas. The by the bedside states patient was seen here for left sided facial and arm pain on 06/26/17. Patient was discharged on 07/06/17. the states patient still had some swelling, when he was discharged home, but it became worse. she spoke with Dr. Staples this evening and was referred to ED. Pt admits to an episode of vomiting 2days ago. He otherwise denies fever, chills, chest pain, abdominal pain, dizziness, any other complaint. (Jason Samson) Past Medical History - Provider Review Nursing Documentation Reviewed: Yes - Infectious Disease Hx of Infectious Diseases: None - Tetanus Immunization Tetanus Immunization: Up to Date - Cardiac Hx Cardiac Disorders: Yes Hx Hypertension: Yes - Pulmonary Hx Chronic Obstructive Pulmonary Disease (COPD): Yes - Neurological HX Cerebrovascular Accident: No - HEENT Hx HEENT Disorder: Yes Hx Blind: No Hx Cataracts: No Hx Deafness: No Hx Difficulty Chewing: No Hx Epistaxis: No Hx Glaucoma: No Hx Macular Degeneration: No - Renal Date of Last Dialysis Treatment: 07/07/17 Hx Renal Failure: Yes - Endocrine/Metabolic Hx Diabetes Mellitus Type 2: Yes - Hematological/Oncological Hx Blood Disorders: Yes Hx AIDS: No Hx Anemia: Yes Hx Cancer: No Hx Chemotherapy: No Hx Cirrhosis: No Hx Hemophilia: No Hx Hepatitis A: No Hx Hepatitis B: No Hx Hepatitis C: No Hx Metastasis: No Hx Shingles: No Hx Sickle Cell Disease: No Hx Unexplained Bleeding: No - Integumentary Hx Dermatological Disorder: Yes Hx Basal Cell Carcinoma: No Hx Eczema: No Hx Melanoma: No Hx Psoriasis: No Hx Squamous Cell Carcinoma: No Other/Comment: BILATERAL LE EDEMA.VERY TIGHT SKIN TO BOTH LE WITH BUMPS,DRY THIN FLAKY SKIN. PLANTAR SIDE OF FEET HAS CALLOUSED AREA. - Musculoskeletal/Rheumatological Hx Arthritis: Yes - Gastrointestinal Hx Gastrointestinal Disorders: (missing teeth) - Genitourinary/Gynecological Hx Reproductive Disorders: No - Psychiatric Hx Psychophysiologic Disorder: No Hx Anxiety: No Hx Bipolar Disorder: No Hx Depression: Yes Hx Emotional Abuse: No Hx Hallucinations: No Hx Panic Disorder: No Hx Post Traumatic Stress Disorder: No Hx Psychosis: No Hx Physical Abuse: No Hx Schizophrenia: No Hx Sexual Abuse: No Hx Substance Use: No - Past Surgical History Past Surgical History: Non-Contributing - Surgical History Hx Amputation: No Hx Appendectomy: No Hx Cardiac Catheterization: No Hx Cholecystectomy: No Hx Coronary Stent: No Hx Gastric Bypass Surgery: No Hx Hysterectomy: No Hx Joint Replacement: No Hx Kidney Transplant: No Hx Liver Transplant: No Hx Mastectomy: No Hx Musculoskeletal Surgery: No Hx Open Heart Surgery: No Hx Orthopedic Surgery: No Hx Splenectomy: No Hx Valve Replacement: No - Anesthesia Hx Anesthesia: Yes Hx Anesthesia Reactions: No Hx Malignant Hyperthermia: No - Suicidal Assessment Feels Threatened In Home Enviroment: No <Jason Samson A - Last Filed: 07/09/17 01:19> Family/Social History - Physician Review Nursing Documentation Reviewed: Yes Family/Social History: Unknown Family HX Smoking Status: Never Smoked Hx Alcohol Use: No Hx Substance Use: No Hx Substance Use Treatment: No <Jason Samson A - Last Filed: 07/09/17 01:19> Allergies/Home Meds <Jason Samson A - Last Filed: 07/09/17 01:19> <Chris Arias - Last Filed: 07/09/17 02:03> Allergies/Adverse Reactions: Allergies No Known Allergies Allergy (Verified 07/09/17 00:51) Home Medications: Home Meds Medication Instructions Recorded Confirmed Metoclopramide [Reglan] 5 mg PO ACTID 06/23/17 07/09/17 Review of Systems - Physician Review All systems were reviewed & negative as marked: Yes - Review of Systems Constitutional: Normal Eyes: Other (LEft facial/eye swelling) ENT: Normal Respiratory: Normal Cardiovascular: Normal Gastrointestinal: Normal Genitourinary Male: Normal Musculoskeletal: Arthralgias (Left arm swelling) Skin: Normal Neurological: Normal Endocrine: Normal Hemo/Lymphatic: Normal Psychiatric: Normal <Jason Samson A - Last Filed: 07/09/17 01:19> Physical Exam Vital Signs Reviewed: Yes Temperature: Afebrile Blood Pressure: Normal Pulse: Regular Respiratory Rate: Normal Appearance: Positive for: Well-Appearing, Non-Toxic, Comfortable Pain Distress: None Mental Status: Positive for: Alert and Oriented X 3 - Systems Exam Head: Present: Atraumatic, Normocephalic Pupils: Present: PERRL Extroacular Muscles: Present: EOMI, Other (Left periorbital swelling) Conjunctiva: Present: Normal Mouth: Present: Moist Mucous Membranes Neck: Present: Normal Range of Motion Respiratory/Chest: Present: Clear to Auscultation, Good Air Exchange. No: Respiratory Distress, Accessory Muscle Use Cardiovascular: Present: Regular Rate and Rhythm, Normal S1, S2. No: Murmurs Abdomen: Present: Normal Bowel Sounds. No: Tenderness, Distention, Peritoneal Signs Back: Present: Normal Inspection Upper Extremity: Present: Normal ROM, NORMAL PULSES, Swelling (Diffuse left arm swelling), Other (Contracted left fingers noted, likley baseline). No: Cyanosis , Edema, Tenderness, Temperature Abnormalties Lower Extremity: Present: Normal Inspection. No: Edema Neurological: Present: GCS=15, CN II-XII Intact, Speech Normal Skin: Present: Warm, Dry, Normal Color. No: Rashes Psychiatric: Present: Alert, Oriented x 3, Normal Insight, Normal Concentration <Jason Samson - Last Filed: 07/09/17 01:19> Vital Signs Temp Pulse Resp BP Pulse Ox 07/09/17 00:46 98.4 F 69 18 187/92 H 98 Medical Decision Making <Jason Samson - Last Filed: 07/09/17 01:19> <Chris Arias - Last Filed: 07/09/17 02:03> ED Course and Treatment: 07/09/17 01:20 Pt in ED for stated history. He was hemodynamically stable. Prominent swelling of the left preorbital and left arm was noted. Labs pending Case was DW Dr. Guero Baker who is covering Dr. Miranda and pt was admitted. Dr. House consult. Review of pt's chart show that he was treated with Zosyn and Doxycyline. PT was was treated with same medication in ED. (Jason Samson A) - Medication Orders Current Medication Orders: Doxycycline Hyclate 100 mg/ (Sodium Chloride) 100 mls @ 100 mls/hr IVPB STAT STA PRN Reason: Protocol Stop: 07/09/17 02:16 Discontinued Medications Piperacillin Sod/Tazobactam Sod (Zosyn 4.5 Gm In Ns 100ml) 4.5 gm in 100 mls @ 200 mls/hr IVPB STAT STA PRN Reason: Protocol Stop: 07/09/17 01:25 Last Admin: 07/09/17 01:54 Dose: 200 mls/hr eMAR Start Stop Document 07/09/17 01:54 RD (Rec: 07/09/17 01:55 RD [id number]) Intravenous Solution Start Date 07/09/17 Start Time 01:55 End Date 07/09/17 End time 02:25 Total Infusion Time 30 - PA / PRINTER FLOOR COVERING ASSISTANT / Resident Statement / has reviewed & agrees with the documentation as recorded. DRAGAN has examined the patient and agrees with the treatment plan. <Chris Arias - Last Filed: 07/09/17 02:03> Disposition/Present on Arrival - Present on Arrival Any Indicators Present on Arrival: No History of DVT/PE: No History of Uncontrolled Diabetes: No Urinary Catheter: No History of Decub. Ulcer: No History Surgical Site Infection Following: None - Disposition Have Diagnosis and Disposition been Completed?: Yes Disposition Time: 01:15 Patient Plan: Admission <Jason Samson - Last Filed: 07/09/17 01:19> <Chris Arias - Last Filed: 07/09/17 02:03> - Disposition Diagnosis: Periorbital cellulitis of left eye, Left arm swelling Disposition: HOSPITALIZED Condition: FAIR Discharge Instructions (ExitCare): Cellulitis (ED) Forms: [employer] (Polish)
[2017-07-09 02:03] LABS: VENOUS BLOOD GAS PO2 52 mm/Hg (30-55); VENOUS BLOOD PH 7.33 (7.32-7.43)
[2017-07-09 02:10] LABS: BASO # 0.03 K/mm3 (0.0-2.0); BASO % 0.4 % (0.0-3.0); EOS # 0.2 (0.0-0.7); EOS % 2.9 % (1.5-5.0); GRAN # 4.29 (1.4-6.5); GRAN % 61.3 % (50.0-68.0); HEMOGLOBIN 10.2 g/dL (14.0-18.0); LYMPH # 1.7 (1.2-3.4); LYMPH % 24.3 % (22.0-35.0); MEAN CELL VOLUME 74.9 fl (80.0-105.0); MEAN CORPUSCULAR HEMOGLOBIN 24.2 pg (25.0-35.0); MEAN CORPUSCULAR HGB CONC 32.3 g/dl (31.0-37.0); MONO # 0.8 (0.1-0.6); MONO % 11.1 % (1.0-6.0); PLATELET COUNT 214 10^3/uL (120.0-450.0); RBC 4.22 10^6/uL (3.5-6.1); RED CELL DISTRIBUTION WIDTH 14.9 % (11.5-14.5)
[2017-07-09 02:24] LABS: INR 1.03 (0.93-1.08); PARTIAL THROMBOPLASTIN TIME 30.5 Seconds (25.1-36.5); PROTHROMBIN TIME 11.8 SECONDS (9.4-12.5)
[2017-07-09 02:40] LABS: ALBUMIN 3.8 g/dL (3.0-4.8); CALCIUM 10.6 mg/dL (8.4-10.5)
--- NOTE | 2017-07-09 04:28 | CP.PCM.PN ---
Subjective - Date & Time of Evaluation Date of Evaluation: 07/09/17 Time of Evaluation: 04:23 - Subjective Subjective: Nurse call with BP 187/91. Patient seen at bedside. Has no complaints. Denies headache, dizziness, nausea, chest pain, sob, pains anywhere, anxiety. States that he is on Coreg 3.125mg at home twice a day and did not skip any dose. Medical record was reviewed. 57 year old male was admitted with periorbital cellulitis of left eye, left arm swelling Has PMH of HTN, COPD, IDDM, ESRD, PE/DVT, neuropathy, anemia. Objective - Vital Signs/Intake and Output Vital Signs (last 24 hours): Temp Pulse Resp BP Pulse Ox 98.4 F 75 20 187/91 H 96 07/09/17 00:46 07/09/17 04:14 07/09/17 03:35 07/09/17 04:14 07/09/17 02:42 - Labs Labs: PT 11.8 SECONDS (9.4-12.5) 07/09/17 01:50 INR 1.03 (0.93-1.08) 07/09/17 01:50 APTT 30.5 Seconds (25.1-36.5) 07/09/17 01:50 Most Recent Lab Values WBC 7.0 10^3/ul (4.5-11.0) D 07/09/17 01:50 RBC 4.22 10^6/uL (3.5-6.1) 07/09/17 01:50 Hgb 10.2 g/dL (14.0-18.0) L 07/09/17 01:50 Hct 31.6 % (42.0-52.0) L 07/09/17 01:50 MCV 74.9 fl (80.0-105.0) L 07/09/17 01:50 MCH 24.2 pg (25.0-35.0) L 07/09/17 01:50 MCHC 32.3 g/dl (31.0-37.0) 07/09/17 01:50 RDW 14.9 % (11.5-14.5) H 07/09/17 01:50 Plt Count 214 10^3/uL (120.0-450.0) 07/09/17 01:50 Gran % 61.3 % (50.0-68.0) 07/09/17 01:50 Lymph % (Auto) 24.3 % (22.0-35.0) 07/09/17 01:50 Morgan % (Auto) 11.1 % (1.0-6.0) H 07/09/17 01:50 Eos % (Auto) 2.9 % (1.5-5.0) 07/09/17 01:50 Baso % (Auto) 0.4 % (0.0-3.0) 07/09/17 01:50 Gran # 4.29 (1.4-6.5) 07/09/17 01:50 Lymph # (Auto) 1.7 (1.2-3.4) 07/09/17 01:50 Morgan # (Auto) 0.8 (0.1-0.6) H 07/09/17 01:50 Eos # (Auto) 0.2 (0.0-0.7) 07/09/17 01:50 Baso # (Auto) 0.03 K/mm3 (0.0-2.0) 07/09/17 01:50 PT 11.8 SECONDS (9.4-12.5) 07/09/17 01:50 INR 1.03 (0.93-1.08) 07/09/17 01:50 APTT 30.5 Seconds (25.1-36.5) 07/09/17 01:50 pO2 52 mm/Hg (30-55) 07/09/17 01:50 VBG pH 7.33 (7.32-7.43) 07/09/17 01:50 VBG pCO2 60.0 (40-60) 07/09/17 01:50 VBG HCO3 31.6 mmol/l (21-28) H 07/09/17 01:50 VBG Total CO2 33.4 mmol.L (22-28) H 07/09/17 01:50 VBG O2 Sat (Calc) 85.8 % (40-65) H 07/09/17 01:50 VBG Base Excess 4.0 mmol/L (0.0-2.0) H 07/09/17 01:50 VBG Potassium 3.9 mmol/L (3.6-5.2) 07/09/17 01:50 Sodium 135.0 mmol/L (132-148) 07/09/17 01:50 Chloride 96.0 mmol/L (98-107) L 07/09/17 01:50 Glucose 254 mg/dl (75-110) H 07/09/17 01:50 Lactate 0.9 mmol/L (0.7-2.1) 07/09/17 01:50 FiO2 21.0 % 07/09/17 01:50 Sodium 137 mmol/L (132-148) 07/09/17 01:50 Potassium 4.0 mmol/L (3.6-5.0) 07/09/17 01:50 Chloride 93 mmol/L (98-107) L 07/09/17 01:50 Carbon Dioxide 30 mmol/L (21-33) 07/09/17 01:50 Anion Gap 18 (10-20) 07/09/17 01:50 BUN 60 mg/dL (7-21) H 07/09/17 01:50 Creatinine 8.1 mg/dl (0.8-1.5) H* D 07/09/17 01:50 Est GFR ( Amer) 8 07/09/17 01:50 Est GFR (Non-Af Amer) 7 07/09/17 01:50 POC Glucose (mg/dL) 220 mg/dL (65-110) H 07/09/17 03:34 Random Glucose 247 mg/dL (70-110) H 07/09/17 01:50 Calcium 10.6 mg/dL (8.4-10.5) H 07/09/17 01:50 Phosphorus 8.2 mg/dL (2.5-4.5) H 07/09/17 01:50 Magnesium 2.2 mg/dL (1.7-2.2) 07/09/17 01:50 Total Bilirubin 0.5 mg/dL (0.2-1.3) 07/09/17 01:50 AST 27 U/L (17-59) 07/09/17 01:50 ALT 21 U/L (7-56) 07/09/17 01:50 Alkaline Phosphatase 62 U/L (38-126) 07/09/17 01:50 Total Protein 7.7 g/dL (5.8-8.3) 07/09/17 01:50 Albumin 3.8 g/dL (3.0-4.8) 07/09/17 01:50 Globulin 3.9 gm/dL 07/09/17 01:50 Albumin/Globulin Ratio 1.0 (1.1-1.8) L 07/09/17 01:50 Venous Blood Potassium 3.9 mmol/L (3.6-5.2) 07/09/17 01:50 - Constitutional Appears: Well, No Acute Distress - Head Exam Head Exam: ATRAUMATIC, NORMAL INSPECTION - Eye Exam Additional comments: Left periorbital swelling + - ENT Exam ENT Exam: Normal External Ear Exam - Neck Exam Neck Exam: Normal Inspection - Respiratory Exam Respiratory Exam: NORMAL BREATHING PATTERN - Cardiovascular Exam Cardiovascular Exam: absent: JVD - GI/Abdominal Exam GI & Abdominal Exam: absent: Distended - Rectal Exam Rectal Exam: Deferred - Exam Additional comments: Deferred. - Extremities Exam Extremities Exam: Normal Inspection - Back Exam Back Exam: NORMAL INSPECTION - Neurological Exam Neurological Exam: Alert, Awake, Oriented x3 - Psychiatric Exam Psychiatric exam: Normal Affect, Normal Mood - Skin Skin Exam: Normal Color Assessment and Plan - Assessment and Plan (Free Text) Assessment: Elevated blood pressure reading. HTN. ESRD. COPD. IDDM. Hx PE/DVT. Neuropathy. Anemia. Plan: Clonidine 0.1 mg PO x 1. Continue present management.
[2017-07-09] MEDS: Insulin Regular 1 UNITS/0.01 ML ML SC SCH ×4 (08:06→21:24)
[2017-07-09] MEDS ORDERED: Vancomycin 1gm in NS 250ml 1 GM/250 ML BAG IVPB STA (09:06)
[2017-07-09] MEDS ORDERED: Influenza Vaccine 60 mcg/0.5 mL SYR (4YR UP) IM ONE (11:40)
[2017-07-09] MEDS ORDERED: Pneumococcal 23-Valent Vaccine IM ONE (11:40)
--- NOTE | 2017-07-09 20:10 | HP ---
HISTORY OF PRESENT ILLNESS: The patient is a 57-year-old male admitted today for left facial and arm pain. Patient is status post discharged on 07/06/2017 for facial cellulitis and received IV antibiotics and returns to the emergency room for recurrence of facial swelling and discomfort. He denies any fevers or chills. He denies any shortness of breath. PAST MEDICAL HISTORY: Includes type 2 insulin dependent diabetes mellitus; hypertension; history of end-stage kidney disease, on hemodialysis; COPD. PAST SURGICAL HISTORY: Includes DVT, diabetic foot ulcer, right lung abscess. He also has a left axillary shunt present on chest x-ray. ALLERGIES: PATIENT REPORTS NO KNOWN ALLERGIES. CURRENT MEDICATIONS: Include Coreg 3.125 mg twice daily, PhosLo 667 mg three times daily. He is currently on tramadol 50 mg three times daily, Reglan 5 mg three times daily with meals, Tylenol p.r.n., and he was started on meropenem per Infectious Disease, Dr. House. FAMILY HISTORY: Noncontributory. SOCIAL HISTORY: Patient denies any tobacco or alcohol use. REVIEW OF SYSTEMS: Essentially as above. PHYSICAL EXAMINATION: GENERAL: Patient is a well-developed male in no acute distress. HEENT: Shows some predominantly left-sided periorbital and facial swelling with some neck swelling as well as left shoulder and arm swelling. There is an AV fistula present in the left arm with good bruit. NECK: Supple. LUNGS: Clear. HEART: Regular rate and rhythm. ABDOMEN: Soft, nontender. Bowel sounds are normoactive. EXTREMITIES: Without cyanosis. There is 2+ edema of the left upper extremity. LABORATORY DATA: WBC is 7.0, hemoglobin 10.2, hematocrit 31.6. Sodium 137, potassium 4.0, chloride 93, CO2 of 30, BUN 60, creatinine 8.1, glucose 247, calcium 10.6, phosphorus 8.2. IMPRESSION: 1. Rule out recurrent facial cellulitis, rule out subclavian vein thrombosis. 2. Insulin-dependent diabetes mellitus. 3. End-stage kidney disease, on hemodialysis. 4. Chronic obstructive pulmonary disease. 5. Cardiomyopathy. 6. History of deep venous thrombosis and pulmonary embolus. PLAN: As above, the patient has been seen by Infectious Disease. Dr. House has started empirically on meropenem. We will obtain a stat venous Doppler of the left upper extremity to rule out subclavian vein thrombosis. We will check D-dimer. Continue renal followup and Dr. Miranda to resume care of the patient in the a.m. MANJIT Gibson MD
--- NOTE | 2017-07-09 20:27 | CON ---
DATE: 07/09/2017 LOCATION: The patient is seen in room 563, bed 2. CHIEF COMPLAINT: Facial swelling x1 day. HISTORY OF PRESENT ILLNESS: This is a 57-year-old male with end-stage renal disease on hemodialysis, chronic obstructive lung disease, diabetic retinopathy and neuropathy, history of DVT, pulmonary emboli, history of diabetic foot ulcer, history of a right lung abscess, nonischemic cardiomyopathy, had been complaining of facial swelling, was just recently discharged, now readmitted with facial swelling and arm swelling of the left side. The patient denies any fevers, any chills. No nausea, no vomiting, no chest pain, and recently had completed the antibiotic therapy. No abdominal pain, diarrhea, or constipation. No headaches. The patient was seen by emergency room and states the patient was recently discharged on 07/06, had been doing well. However, last 24 hours at home, the patient's face swelled up. PAST MEDICAL HISTORY: Significant for pulmonary emboli, DVT, diabetes with diabetic foot ulcer, diabetic neuropathy, diabetic retinopathy and nephropathy, end-stage renal disease on hemodialysis. Patient with chronic obstructive lung disease and hypertension. The patient is dialyzed on Monday, Monday, and Monday. The patient has nonischemic cardiomyopathy, congestive heart failure, history of right lung abscess. PAST SURGICAL HISTORY: Significant for dialysis catheter and access. ALLERGIES: THE PATIENT HAS NO KNOWN ALLERGIES. MEDICATIONS AT HOME: Include insulin, Coreg, tramadol. PHYSICAL EXAMINATION: VITAL SIGNS: The patient is in bed with a temperature of 98, blood pressure is 165/80, respiratory rate of 20, heart rate of 71. HEENT: Reveal the left side of face is swollen. Oral cavity has significant cavitary cavities in his tooth, necrotic tooth on the left side. Molar tooth is evident. LUNGS: Decreased breath sounds. HEART: Normal S1, S2. ABDOMEN: Soft, nontender. No organomegaly. No rebound. LABORATORY EXAMINATION: Reveals a white count of 7, hemoglobin of 10, and platelets of 214. BUN of 60, creatinine of 8.1. ASSESSMENT AND PLAN: A 57-year-old male with end-stage renal disease on hemodialysis, chronic obstructive lung disease, diabetes with diabetic retinopathy and neuropathy, history of deep venous thrombosis and pulmonary emboli, diabetic foot infection, nonischemic cardiomyopathy with congestive heart failure and hypertension. He is admitted with a left facial cellulitis and edema secondary to left molar necrotic tooth and we will treat the patient with a dose of vancomycin 1 g IV x1 dose adjusted for renal failure and meropenem 250 mg IV every 12 hours, also adjusted for renal failure. Pending blood culture results. Should have an oral surgeon and dental evaluation of that tooth and we will make further recommendations upon availability of initial results and response. The patient has had an HIV test in 01/2017, which was negative and hepatitis profile which was negative. We will follow closely with you. Marcos House MD
[2017-07-09] MEDS: Insulin Detemir 100 units/ml Vial (Levemir) SC SCH ×2 (21:27→21:37)
--- NOTE | 2017-07-09 23:18 | CARD ---
APPROVED REPORT EKG Measurement Heart [id number] CT [id number] <Conclusion> Normal sinus rhythm Left anterior fascicular block Minimal voltage criteria for LVH, may be normal variant Anteroseptal infarct, age undetermined Abnormal ECG
[2017-07-10 08:06] LABS: BASO # 0.03 K/mm3 (0.0-2.0); BASO % 0.4 % (0.0-3.0); EOS # 0.3 (0.0-0.7); EOS % 3.1 % (1.5-5.0); GRAN # 5.37 (1.4-6.5); GRAN % 67.4 % (50.0-68.0); HEMOGLOBIN 8.8 g/dL (14.0-18.0); LYMPH # 1.7 (1.2-3.4); LYMPH % 21.2 % (22.0-35.0); MEAN CELL VOLUME 73.5 fl (80.0-105.0); MEAN CORPUSCULAR HEMOGLOBIN 23.5 pg (25.0-35.0); MONO # 0.6 (0.1-0.6); MONO % 7.9 % (1.0-6.0); PLATELET COUNT 215 10^3/uL (120.0-450.0); RBC 3.74 10^6/uL (3.5-6.1); RED CELL DISTRIBUTION WIDTH 14.7 % (11.5-14.5)
[2017-07-10 08:24] LABS: ALB/GLOB RATIO 0.9 (1.1-1.8); ALBUMIN 3.5 g/dL (3.0-4.8); CALCIUM 10.5 mg/dL (8.4-10.5)
--- NOTE | 2017-07-10 09:13 | US ---
PROCEDURE: Left upper extremity venous ultrasound HISTORY: Arm pain and swelling. Evaluate for deep venous thrombosis. PHYSICIAN(S): uRfus Sanchez MD. FINDINGS: The visualized leftinternal jugular vein is sonographically normal and compressible. No evidence of obstruction or thrombus is seen. The visualized segments of the left subclavian vein are patent. No sonographic evidence of obstruction or thrombosis is seen. The visualized deep venous system of the proximal leftupper extremity is sonographically normal and compressible. IMPRESSION: 1. No sonographic evidence for deep venous thrombosis in the visualized segments of the left upper extremity.
[2017-07-10] MEDS: Insulin Regular 1 UNITS/0.01 ML ML SC SCH ×3 (17:11→21:36)
--- NOTE | 2017-07-10 17:42 | CON ---
DATE: 07/10/2017 CHIEF COMPLAINT AND HISTORY OF PRESENT ILLNESS: This is a 57-year-old male who is coming into the hospital because of left arm swelling, left facial swelling. The patient has a past medical history of end-stage renal disease, on hemodialysis. He has hypertension, diabetes type 2. The patient had gone to [place] for evaluation of his access last week. I spoke to the patient's on Monday regarding the access. I also spoke with the interventional project executive who saw the patient. The patient has a central vein stenosis. He said that the fistula is still functional. The patient had been at [facility] for dialysis and was discharged home. The patient complains of vomiting for the past two days. He is concerned about the swelling that he has. The patient was also admitted to the hospital few weeks ago because he had facial cellulitis and received IV antibiotics. The patient denies any chest pain or shortness of breath. No nausea, no vomiting today. No dysuria. No weakness. He has been continuing to go for dialysis. ALLERGIES: NO KNOWN DRUG ALLERGIES. HOME MEDICATIONS: Have been reviewed on the [facility]. The patient is on carvedilol, insulin, PhosLo, metoclopramide, and tramadol. PAST MEDICAL HISTORY: 1. Fall. 2. Left hip fracture. 3. End-stage renal disease, on hemodialysis. 4. Secondary hyperparathyroidism. 5. Diabetes type 2. 6. Diabetic neuropathy. 7. Diabetic retinopathy. 8. Diabetic nephropathy. 9. DVT/PE. 10. Esophageal cyst. 11. COPD. 12. Right lung abscess. 13. Nonischemic cardiomyopathy. FAMILY HISTORY: The patient's mother and father in their early 50s. The patient is not sure the cause. SOCIAL HISTORY: The patient is . He lives with his . He has two children. He does not smoke or drink. PHYSICAL EXAMINATION: VITAL SIGNS: Temperature is 98.2, pulse is 69, blood pressure is 176/86, respirations 20, O2 saturation 96%. Height is 5 feet 7 inches, weight is 122 pounds, and BMI is 19. GENERAL: The patient lying in bed, uncomfortable, and in no acute distress. HEENT: Left facial swelling. NECK: No JVD, anterior and posterior adenopathy, thyromegaly, or bruits. CARDIOVASCULAR: S1 and S2 regular. No murmur, rubs, or gallop. LUNGS: Clear to auscultation bilaterally. No wheezes, rales, or rhonchi. ABDOMEN: Bowel sounds are positive. Soft, nontender and nondistended. No hepatosplenomegaly. No rebound and no guarding. EXTREMITIES: There is swelling in the left arm. In the fistula, there is thrill and bruit that is present. NEUROLOGIC: No facial asymmetry. Tongue is midline. No uvula deviation. Power is 5/5 upper extremity and lower extremity. Sensation intact in upper extremity and lower extremity. PSYCHIATRIC: She is awake, alert and oriented x3. No anxiety or depression. She has normal affect. GENITOURINARY: No CVA tenderness. VASCULAR: 2+ pulses in the carotid pulses and pedal pulses. SKIN: No erythema or nodules. SPINE: Shows normal curvature. LABORATORY DATA: White count is 7, hemoglobin 10.2. INR is 1.03. Chemistry shows creatinine of 8.8, calcium is 10.6. The patient's EKG shows sinus rhythm with left anterior fascicular block. There is minimal voltage criteria for LVH. Left arm ultrasound is pending. ASSESSMENT: 1. Left arm swelling secondary to central vein stenosis. 2. Diabetic nephropathy. 3. Diabetic neuropathy. 4. Diabetic retinopathy. 5. End-stage renal disease, on hemodialysis Monday, Monday, Monday. 6. Secondary hyperparathyroidism. 7. Anemia secondary to chronic kidney disease. PLAN: The patient is currently having significant amount of swelling. He had a fistulogram done in [facility] [facility], the number there is [phone]. I did speak to the interventional project executive there. The patient may need further vascular evaluation. I have asked consultation with Felix Dockery for evaluation. The patient may need his fistula ligated and a new fistula placed. In the meantime, he may need a Perm-A-Cath placed. The patient had been in [facility] before coming home and he was there for rehab after his hip fracture. The patient's calcium is elevated. I will discontinue his PhosLo and place him on Renagel to help improve his calcium. The patient is on tramadol for pain. He has been started on IV antibiotics. He is on Coreg for his cardiomyopathy. His blood pressure is elevated, so I will place him on Norvasc to see if the blood pressure improves. He is currently in a heart-healthy diet, I will change that to a renal diet. Thank you for allowing me to participate in the care of your patient. I did speak to the patient's a few days ago and gave her the plan of care. Leandro Gilbert MD
--- NOTE | 2017-07-10 17:59 | CP.PCM.PN ---
Subjective - Date & Time of Evaluation Date of Evaluation: 07/10/17 Time of Evaluation: 11:40 - Subjective Subjective: Still with swelling of the left side of the face but a little less painful, no fevers, not in distress. Objective - Vital Signs/Intake and Output Vital Signs (last 24 hours): Temp Pulse Resp BP Pulse Ox 98.3 F 79 20 160/96 H 96 07/10/17 07:30 07/10/17 07:30 07/10/17 07:30 07/10/17 07:30 07/10/17 07:30 Intake and Output: 07/10/17 07/10/17 06:59 18:59 Intake Total 900 Balance 900 - Medications Medications: Current Medications Acetaminophen (Tylenol 325mg Tab) 650 mg PO Q6 PRN PRN Reason: Pain, Mild (1-3) Amlodipine Besylate (Norvasc) 10 mg PO DAILY [facility] Carvedilol (Coreg) 3.125 mg PO BID [facility] Last Admin: 07/09/17 17:02 Dose: 3.125 mg Meropenem 250 mg/ Sodium (Chloride) 100 mls @ 100 mls/hr IVPB Q12H [facility] PRN Reason: Protocol Stop: 07/18/17 09:16 Last Admin: 07/09/17 21:27 Dose: 100 mls/hr Insulin Detemir (Levemir) 14 unit SC HS [facility] Last Admin: 07/09/17 21:37 Dose: Not Given Insulin Human Regular (Humulin R) 0 units SC ACHS [facility] PRN Reason: Protocol Last Admin: 07/09/17 21:24 Dose: Not Given Metoclopramide HCl (Reglan) 5 mg PO ACTID [facility] Last Admin: 07/09/17 17:03 Dose: 5 mg Sevelamer HCl (Renagel) 800 mg PO AC [facility] Tramadol HCl (Ultram) 50 mg PO TID PRN PRN Reason: Pain, moderate (4-7) - Labs Labs: 07/10/17 08:00 07/10/17 08:00 PT 11.8 SECONDS (9.4-12.5) 07/09/17 01:50 INR 1.03 (0.93-1.08) 07/09/17 01:50 APTT 30.5 Seconds (25.1-36.5) 07/09/17 01:50 - Constitutional Appears: Non-toxic, Chronically Ill - Head Exam Head Exam: NORMAL INSPECTION - ENT Exam ENT Exam: Mucous Membranes Moist Additional comments: swelling on the left side of the face, left lower teeth with caries and some necrosis - Neck Exam Neck Exam: absent: Meningismus - Respiratory Exam Respiratory Exam: Decreased Breath Sounds - Cardiovascular Exam Cardiovascular Exam: +S1, +S2 - GI/Abdominal Exam GI & Abdominal Exam: Soft. absent: Tenderness Assessment and Plan - Assessment and Plan (Free Text) Plan: Assessment Left facial pre-septal cellulitis, with dental caries and necrotic left lower molars ESRD on HD DM COPD diabetic retinopathy and neuropathy history of DVT and PE history of diabetic foot ulcers history of right lung abscess non-ischemic cardiomyopathy Plan continue Merrem day 2; patient need oral surgeon will monitor clinically
[2017-07-10] MEDS: Insulin Detemir 100 units/ml Vial (Levemir) SC SCH (21:36)
--- NOTE | 2017-07-10 23:03 | CP.PCM.PN ---
<Yazmin Hoang - Last Filed: 07/10/17 22:59> Subjective - Date & Time of Evaluation Date of Evaluation: 07/10/17 Time of Evaluation: 11:40 - Subjective Subjective: Chief Complaint: L sided arm swelling 57 yr male w/ history of ESRD ([facility] - MWF), fall w. hip fracture, ORIF (05/08/17), COPD, Anemia, DM II, Diabetic neuropathy, Diabetic retinopathy, gasteroparesis, Pulmonary embolism, DVT, esophagitis, lung abscess , & cardiomyopathy. Pt previously admitted for diffuse cellulitis of face & dental caries and discharged from TCU on 07/06. Pt re-admitted to [facility] for L sided facial pain (related to L eye periorbital cellulitis) and L arm pain ( related to swelling). Today, pt seen eating his lunch in bed. Pt denies any fever, chills, chest pain, shortness of breath, diarrhea, constipation, paresthesia, or urinary changes. Objective - Vital Signs/Intake and Output Vital Signs (last 24 hours): Temp Pulse Resp BP Pulse Ox 98.4 F 67 18 173/84 H 94 L 07/10/17 14:00 07/10/17 18:39 07/10/17 14:00 07/10/17 18:39 07/10/17 14:00 Intake and Output: 07/10/17 07/11/17 18:59 06:59 Intake Total 120 480 Balance 120 480 - Medications Medications: Current Medications Acetaminophen (Tylenol 325mg Tab) 650 mg PO Q6 PRN PRN Reason: Pain, Mild (1-3) Amlodipine Besylate (Norvasc) 10 mg PO DAILY [facility] Last Admin: 07/10/17 11:57 Dose: 10 mg Carvedilol (Coreg) 3.125 mg PO BID [facility] Last Admin: 07/10/17 18:39 Dose: 3.125 mg Meropenem 250 mg/ Sodium (Chloride) 100 mls @ 100 mls/hr IVPB Q12H [facility] PRN Reason: Protocol Stop: 07/18/17 09:16 Last Admin: 07/10/17 21:36 Dose: 100 mls/hr Insulin Detemir (Levemir) [address] [facility] Last Admin: 07/10/17 21:36 Dose: Not Given Insulin Human Regular (Humulin R) 0 units SC ACHS [facility] PRN Reason: Protocol Last Admin: 07/10/17 21:36 Dose: Not Given Metoclopramide HCl (Reglan) 5 mg PO ACTID [facility] Last Admin: 07/10/17 20:06 Dose: Not Given Sevelamer HCl (Renagel) 800 mg PO AC [facility] Last Admin: 07/10/17 17:10 Dose: 800 mg Tramadol HCl (Ultram) 50 mg PO TID PRN PRN Reason: Pain, moderate (4-7) - Labs Labs: 07/10/17 08:00 07/10/17 08:00 PT 11.8 SECONDS (9.4-12.5) 07/09/17 01:50 INR 1.03 (0.93-1.08) 07/09/17 01:50 APTT 30.5 Seconds (25.1-36.5) 07/09/17 01:50 - Constitutional Appears: Older Than Stated Age, Chronically Ill - Head Exam Head Exam: ATRAUMATIC - Eye Exam Eye Exam: Periorbital swelling Additional comments: L eye periorbital swelling - ENT Exam Additional comments: L sided facial/mandibular swelling. poor dentition - Neck Exam Neck Exam: Full ROM, Normal Inspection - Respiratory Exam Respiratory Exam: Clear to Ausculation Bilateral, NORMAL BREATHING PATTERN - Cardiovascular Exam Cardiovascular Exam: REGULAR RHYTHM, +S1, +S2. absent: Murmur - GI/Abdominal Exam GI & Abdominal Exam: Soft, Normal Bowel Sounds. absent: Tenderness - Extremities Exam Additional comments: L AV fistula. L arm swelling +2 - Back Exam Back Exam: NORMAL INSPECTION - Neurological Exam Neurological Exam: Alert, Awake, CN II-XII Intact, Normal Gait, Oriented x3 - Psychiatric Exam Psychiatric exam: Normal Affect, Normal Mood - Skin Skin Exam: Dry, Intact Assessment and Plan (1) Left arm swelling Status: Acute (2) Periorbital cellulitis of left eye Status: Acute (3) Anemia, chronic disease Status: Acute (4) Dental caries Status: Acute (5) ESRD (end stage renal disease) Status: Acute - Assessment and Plan (Free Text) Plan: IV merren (s/p vanco IV, zosyn IV & s/p PO doxycycline). Per ID, pt has facial edma seconday to L molar nectroic tooth & should have oral surgeon & dental evaluation). Per Nephro, patient needs his fistula to have further vascular evaluation and possible perm-a-cath placement. VTE/GI prophylaxis. PT onboard. pain management: PO tramadol Consults: ID - Dr. House Nephro - Dr. Castañeda Vascular - Dr. Alex Dockery Reviwed: ECG = ABNORMAL, NSR, L anterior fasicular block, min voltage criteria for LVH, may be a normal vaiant, anteroseptal infarct, age undetermined L arm doppler = WNL CT = L preseptal; orbital cellulitis & L facial cellulitis, no evidence of drainable fluid collection, extensive periodental disease <Makenzie Miranda - Last Filed: 07/13/17 08:30> Subjective - Subjective Subjective: 57 yr male w/ history of ESRD ([facility] - MWF), fall w. hip fracture, ORIF (05/08/17), COPD, Anemia, DM II, Diabetic neuropathy, Diabetic retinopathy, gasteroparesis, Pulmonary embolism, DVT, esophagitis, lung abscess , & cardiomyopathy. Pt previously admitted for diffuse cellulitis of face & dental caries and discharged from TCU on 07/06. Pt re-admitted to [facility] for L sided facial pain (related to L eye periorbital cellulitis) and L arm pain ( related to swelling). Today, pt seen eating his lunch in bed. Pt denies any fever, chills, chest pain, shortness of breath, diarrhea, constipation, paresthesia, or urinary changes.pt is seen and examined at bed side , agreed all above , chart , meds and labs noted , d/d done with TILE DECORATOR , will f/u Objective - Vital Signs/Intake and Output Vital Signs (last 24 hours): Temp Pulse Resp BP Pulse Ox 98.0 F 76 18 150/81 95 07/12/17 07:30 07/12/17 13:11 07/12/17 07:30 07/12/17 13:11 07/12/17 07:30 Intake and Output: 07/13/17 07/13/17 06:59 18:59 Intake Total 720 Balance 720 - Medications Medications: Current Medications Acetaminophen (Tylenol 325mg Tab) 650 mg PO Q6 PRN PRN Reason: Pain, Mild (1-3) Amlodipine Besylate (Norvasc) 10 mg PO DAILY [facility] Last Admin: 07/12/17 13:11 Dose: 10 mg Carvedilol (Coreg) 3.125 mg PO BID [facility] Last Admin: 07/12/17 17:10 Dose: Not Given Meropenem 250 mg/ Sodium (Chloride) 100 mls @ 100 mls/hr IVPB Q12H [facility] PRN Reason: Protocol Stop: 07/18/17 09:16 Last Admin: 07/12/17 21:59 Dose: 100 mls/hr Insulin Detemir (Levemir) 14 unit SC HS [facility] Last Admin: 07/12/17 22:00 Dose: Not Given Insulin Human Regular (Humulin R) 0 units SC ACHS [facility] PRN Reason: Protocol Last Admin: 07/12/17 21:59 Dose: Not Given Metoclopramide HCl (Reglan) 5 mg PO ACTID [facility] Last Admin: 07/12/17 17:09 Dose: 5 mg Sevelamer HCl (Renagel) 800 mg PO AC [facility] Last Admin: 07/12/17 17:09 Dose: 800 mg Tramadol HCl (Ultram) 50 mg PO TID PRN PRN Reason: Pain, moderate (4-7) - Labs Labs: 07/12/17 07:50 07/12/17 07:50 PT 11.8 SECONDS (9.4-12.5) 07/09/17 01:50 INR 1.03 (0.93-1.08) 07/09/17 01:50 APTT 30.5 Seconds (25.1-36.5) 07/09/17 01:50
--- NOTE | 2017-07-11 08:15 | CON ---
DATE: 07/10/2017 REQUESTING PHYSICIAN: Leandro Gilbert MD REASON FOR REQUEST: Chronic renal failure, left arm edema. REPORT OF CONSULTATION: This 57-year-old male patient with chronic renal failure had an AV graft placed in his arm six years ago. The patient denies any problems with dialysis and denies any intervention on his dialysis access. The patient was recently hospitalized and left the hospital with edema of his left arm, which was stated to have gotten worse since he was admitted. The patient had a left arm venous Duplex which did not show any evidence of obstruction. PAST MEDICAL HISTORY: Remarkable for coronary artery disease, chronic obstructive pulmonary disease, diabetes mellitus, hypertension. PAST SURGICAL HISTORY: Remarkable for the previously mentioned upper extremity left AV graft. REVIEW OF SYSTEMS: SKIN: The patient gave no history of acne, eczema, dermatitis. HEAD AND NECK: No migraines. No , double vision, sore throat, hearing disorder. RESPIRATORY: No recent cough, cold, hemoptysis. CARDIOVASCULAR: No chest pains or palpitations. GASTROINTESTINAL: No abdominal pain. The patient gave a history of nausea, vomiting. No constipation or hematochezia. GENITOURINARY: The patient has chronic renal failure. MUSCULOSKELETAL: The patient has swelling of his left upper extremity. NEUROLOGIC: No paralysis, paresthesias, seizures, problems swallowing or speaking. PSYCHIATRIC: The patient has a history of depression. ALLERGIES: NO KNOWN ALLERGIES. FAMILY HISTORY: Not contributory. SOCIAL HISTORY: The patient is disabled and denies alcohol or tobacco use. MEDICATIONS: As reviewed in the medical reconciliation sheet. PHYSICAL EXAMINATION: GENERAL: Revealed a cooperative middle-aged patient, in no acute distress. VITAL SIGNS: Stable. HEAD AND NECK: Neck supple. No masses. Mucous membranes pink. No jaundice. CHEST: No masses. Equal expansion. Pulse, good volume, regular. CARDIOVASCULAR: Heart sounds 1 and 2 were heard without any murmurs. LUNGS: Clear. Good air entry. ABDOMEN: Soft, nontender. No masses. Bowel sounds were present. BACK: No masses, no tenderness. EXTREMITIES: Lower extremity, no edema, ulcers, or gangrene. Upper extremity, there was 1 to 2+ swelling of the left upper extremity with thrill in his left AV graft. LYMPHATIC: No adenopathy. THYROID: No masses, no enlargement. NEUROLOGIC: Alert, oriented. No obvious gross deficits. IMPRESSION: Chronic renal failure, diabetes mellitus, left arm edema. RECOMMENDATIONS: In the absence of any improvement of his edema with elevation and the fact that the upper arm Duplex was normal, a fistulogram of the graft as well as the central veins looking for any abnormalities would be indicated. Felix Dockery MD
[2017-07-11] MEDS: Insulin Regular 1 UNITS/0.01 ML ML SC SCH ×4 (08:47→17:16)
--- NOTE | 2017-07-11 16:14 | PN ---
DATE: 07/11/2017 SUBJECTIVE: The patient does not complain of any chest pain or shortness of breath. PHYSICAL EXAMINATION VITAL SIGNS: Temperature is 98.2, pulse of 66, blood pressure 146/69, respirations 20. HEENT: Left face has mild edema. EXTREMITIES: Left arm with 1+ edema. ASSESSMENT 1. Left arm swelling secondary to chronic central vein stenosis. 2. Diabetic nephropathy. 3. Diabetic neuropathy. 4. Diabetic retinopathy. 5. End-stage renal disease, on hemodialysis Monday, Monday, Monday. 6. Left arteriovenous fistula. 7. Secondary hyperparathyroidism. 8. Anemia secondary to chronic kidney disease. 9. Chronic obstructive pulmonary disease. PLAN: The patient is currently admitted to the hospital. The patient has a chronic central venous stenosis. I did review the records from [facility]. The patient is on Levemir for his diabetes. He is going to continue on Norvasc for hypertension. He is on Reglan. The patient was on Renagel for secondary hyperparathyroidism. He is on Ultram for pain. I did review the notes from Dr. Felix Dockery. The patient did have a fistulogram done and the records are in the chart. We will await for the input from Vascular Surgery. The patient is on renal diet as well. Leandro Gilbert MD
--- NOTE | 2017-07-12 00:30 | PN ---
DATE: 07/11/2017 SUBJECTIVE: The patient is in bed, in no acute distress. The patient is seen earlier today in room 563, bed 2. PHYSICAL EXAMINATION VITAL SIGNS: Temperature is 98, blood pressure is 150/80, respiratory rate of 16. HEENT: Unremarkable. NECK: Supple. LUNGS: Have decreased breath sounds. HEART: Normal S1 and S2. ABDOMEN: Soft. LABORATORY EXAMINATION: Reveals the patient's white count is 8,000, hemoglobin of 8, platelets of 215. Coagulation is noted. Chemistries are noted with a creatinine of 10. Microbiology revels the blood cultures are negative. Review of orders reveals the patient to be on meropenem. ASSESSMENT AND PLAN: This is a 57-year-old male with left facial preseptal cellulitis and dental cavities and necrotic the molar and an end-stage renal disease, on hemodialysis; diabetes; chronic obstructive lung disease; diabetic retinopathy; neuropathy, on day #3 of meropenem and we will have surgical involvement regarding the tooth. Dr. Gilbert note is reviewed. Dr. Felix Dockery's note is reviewed. We will follow closely with you. Marcos House MD
[2017-07-12] MEDS: Insulin Regular 1 UNITS/0.01 ML ML SC SCH ×5 (04:45→21:59)
[2017-07-12] MEDS: Insulin Detemir 100 units/ml Vial (Levemir) SC SCH ×2 (04:46→22:00)
[2017-07-12 07:56] LABS: HEMOGLOBIN 8.9 g/dL (14.0-18.0); MEAN CELL VOLUME 74.1 fl (80.0-105.0); MEAN CORPUSCULAR HEMOGLOBIN 23.5 pg (25.0-35.0); MEAN CORPUSCULAR HGB CONC 31.8 g/dl (31.0-37.0); MEAN PLATELET VOLUME 10.3 fl (7.0-11.0); RBC 3.78 10^6/uL (3.5-6.1); RED CELL DISTRIBUTION WIDTH 14.5 % (11.5-14.5); WHITE BLOOD COUNT 7.4 10^3/ul (4.5-11.0)
[2017-07-12 08:15] LABS: CALCIUM 9.8 mg/dL (8.4-10.5)
[2017-07-12] MEDS ORDERED: Darbepoetin Alfa 100 mcg/ml Inj IVP ONE (08:21)
--- NOTE | 2017-07-12 08:33 | PN ---
DATE: 07/11/2017 SUBJECTIVE: The patient is a 57-year-old male. The patient was seen and examined on the bedside, looking comfortable. No nausea, vomiting or diarrhea. No hematuria or hematochezia. No swelling of the legs. No chest pain, no palpitation. No shortness of breath. PHYSICAL EXAMINATION: VITAL SIGNS: Temperature 98.2, pulse 66, blood pressure 143/59, respiratory rate 20. HEENT: Head normocephalic and atraumatic. Eyes, PERRLA. Extraocular muscles intact. Conjunctivae clear. Nose patent. Mucous membrane moist. NECK: Supple. No carotid bruit, JVD, or thyromegaly. CHEST: Bilaterally symmetrical. HEART: S1 and S2 positive. LUNGS: Clear to auscultation. ABDOMEN: Soft. Bowel sounds present. No organomegaly. EXTREMITIES: No edema, no cyanosis. NEUROLOGIC: Patient is awake, alert. Moving all 4 extremities. No focal deficit. MEDICATIONS: Coreg, insulin, Levemir, meropenem, Norvasc, Reglan, Renagel, Tylenol, tramadol. LABORATORY DATA: White blood cell 8.0, hemoglobin 8.8, hematocrit 27.5, platelets 215. Glucose 154. ASSESSMENT AND PLAN: a 57-year-old male with left arm swelling secondary to chronic central venous stenosis, diabetic nephropathy, diabetic neuropathy, diabetic retinopathy, end-stage renal disease, on hemodialysis Monday, Monday and Monday, left arteriovenous fistula, secondary hyperparathyroidism, anemia of chronic disease, acute on chronic due to kidney disease, chronic obstructive pulmonary disease. The patient was recently discharged because of cellulitis of the left preseptal area, history of chronic central venous stenosis. The patient is getting Levemir, Norvasc for hypertension, Reglan for gastroparesis. Reviewed all doctors' notes. Gastrointestinal and deep venous thrombosis prophylaxis. Repeat labs. We will follow up. Makenzie Miranda MD MTDD
--- NOTE | 2017-07-12 12:27 | CP.PCM.CON ---
History of Present Illness - History of Present Illness History of Present Illness: Surgery consult for Dr. Rosa 57 yr male w/ history of ESRD (HEMO - MWF), Central venous stenosis, fall w. hip fracture, ORIF (05/08/17), COPD, Anemia, DM II, Diabetic neuropathy, Diabetic retinopathy, gasteroparesis, Pulmonary embolism, DVT, esophagitis, lung abscess, & cardiomyopathy. Pt previously admitted for diffuse cellulitis of L face, L orbital & extensive mandibular dental caries and discharged from TCU on 07/06. [place] [facility] [place] sided facial pain and L arm pain and swelling. Surgery is consulted to evaluate for L arm swelling that has L AVF being used for HD. Pt seen and evaluated at [facility] with Dr. Rosa. Pt reports that L hand and arm swelling started 6 weeks ago. Symptoms are gradually gotten worse. Reports decreased ROM, redness of the L hands and arm. Pt R IJ HD catheter placed and removed once L AVF matured. L AVF has good flows and denies problem with HD. L AVF was placed in 2013. No bleeding from AVF. Pt denies any trauma, fever, chills, chest pain, shortness of breath, diarrhea, constipation, paresthesia, numbness, tingling, cold hands, nausea, vomiting, chest pain, shortness of breath or urinary changes. L upper extremity venous US shows no DVT during this admissions. PMH: ESRD (HD - MWF), fall w. hip fracture, ORIF (05/08/17), COPD, Anemia, DM II , Diabetic neuropathy, Diabetic retinopathy, gasteroparesis, Pulmonary embolism , DVT, esophagitis, lung abscess, & cardiomyopathy. PSH: L arm fistula 2013, R IJ HD catherter placement and removal 2013 Review of Systems - Review of Systems Review of Systems: See HPI Past Patient History - Infectious Disease Hx of Infectious Diseases: None - Tetanus Immunizations Tetanus Immunization: Up to Date - Past Social History Smoking Status: Never Smoked - CARDIAC Hx Cardiac Disorders: Yes Hx Hypertension: Yes - PULMONARY Hx Respiratory Disorders: Yes Hx Chronic Obstructive Pulmonary Disease (COPD): Yes - NEUROLOGICAL HX Cerebrovascular Accident: No - HEENT Hx HEENT Problems: Yes - RENAL Hx Chronic Kidney Disease: Yes Hx Renal Failure: Yes - ENDOCRINE/METABOLIC Hx Endocrine Disorders: Yes Hx Diabetes Mellitus Type 2: Yes - HEMATOLOGICAL/ONCOLOGICAL Hx Blood Disorders: Yes Hx Anemia: Yes - INTEGUMENTARY Hx Dermatological Problems: Yes - MUSCULOSKELETAL/RHEUMATOLOGICAL Hx Arthritis: Yes Hx Falls: Yes - GASTROINTESTINAL Hx Gastrointestinal Disorders: (missing teeth) - GENITOURINARY/GYNECOLOGICAL Hx Genitourinary Disorders: Yes Hx Incontinence: Yes - PSYCHIATRIC Hx Psychophysiologic Disorder: Yes Hx Anxiety: Yes Hx Depression: Yes Hx Substance Use: No - SURGICAL HISTORY Hx Surgeries: Yes - ANESTHESIA Hx Anesthesia: Yes Hx Anesthesia Reactions: No Hx Malignant Hyperthermia: No Meds Allergies/Adverse Reactions: Allergies Allergy/AdvReac Type Severity Reaction Status Date / Time No Known Allergies Allergy Verified 07/09/17 00:51 - Medications Medications: Current Medications Acetaminophen (Tylenol 325mg Tab) 650 mg PO Q6 PRN PRN Reason: Pain, Mild (1-3) Amlodipine Besylate (Norvasc) 10 mg PO DAILY [facility] Last Admin: 07/11/17 12:33 Dose: Not Given Carvedilol (Coreg) 3.125 mg PO BID [facility] Last Admin: 07/11/17 18:13 Dose: Not Given Meropenem 250 mg/ Sodium (Chloride) 100 mls @ 100 mls/hr IVPB Q12H [facility] PRN Reason: Protocol Stop: 07/18/17 09:16 Last Admin: 07/11/17 21:41 Dose: 100 mls/hr Insulin Detemir (Levemir) 14 unit SC HS [facility] Last Admin: 07/12/17 04:46 Dose: Not Given Insulin Human Regular (Humulin R) 0 units SC ACHS [facility] PRN Reason: Protocol Last Admin: 07/12/17 07:56 Dose: Not Given Metoclopramide HCl (Reglan) 5 mg PO ACTID [facility] Last Admin: 07/12/17 07:56 Dose: Not Given Sevelamer HCl (Renagel) 800 mg PO AC [facility] Last Admin: 07/12/17 07:56 Dose: Not Given Tramadol HCl (Ultram) 50 mg PO TID PRN PRN Reason: Pain, moderate (4-7) Physical Exam - Constitutional Appears: No Acute Distress - Head Exam Additional comments: L facial swelling. - Eye Exam Eye Exam: EOMI, PERRL Pupil Exam: NORMAL ACCOMODATION, PERRL - ENT Exam ENT Exam: Mucous Membranes Moist - Neck Exam Additional comments: L neck swelling - Respiratory Exam Respiratory Exam: NORMAL BREATHING PATTERN - Cardiovascular Exam Cardiovascular Exam: REGULAR RHYTHM - GI/Abdominal Exam GI & Abdominal Exam: Soft. absent: Distended, Guarding, Hernia - Extremities Exam Extremities exam: Negative for: full ROM, normal inspection Additional comments: L arm AVF in place. FUnctioning. No bleeding. L hand/ arm swollen, erythema. L Hand/ finger Decreased ROM - Back Exam Back exam: NORMAL INSPECTION - Neurological Exam Neurological exam: Alert, CN II-XII Intact, Normal Gait, Oriented x3, Reflexes Normal - Psychiatric Exam Psychiatric exam: Normal Affect, Normal Mood - Skin Skin Exam: Dry, Intact, Normal Color, Warm Results - Vital Signs Recent Vital Signs: Last Vital Signs Temp 98.0 F 07/12/17 07:30 Pulse 67 07/12/17 07:30 Resp 18 07/12/17 07:30 BP 162/88 H 07/12/17 07:30 Pulse Ox 95 07/12/17 07:30 - Labs Result Diagrams: 07/12/17 07:50 07/12/17 07:50 Labs: Laboratory Results - last 24 hr 07/11/17 07/11/17 07/12/17 16:10 21:04 06:17 WBC RBC Hgb Hct MCV MCH MCHC RDW Plt Count MPV Sodium Potassium Chloride Carbon Dioxide Anion Gap BUN Creatinine Est GFR ( Amer) Est GFR (Non-Af Amer) POC Glucose (mg/dL) 176 H 154 H 114 H Random Glucose Calcium 07/12/17 07/12/17 07/12/17 07:50 07:50 12:07 WBC 7.4 RBC 3.78 Hgb 8.9 L Hct 28.0 L MCV 74.1 L MCH 23.5 L MCHC 31.8 RDW 14.5 Plt Count 196 MPV 10.3 Sodium 137 Potassium 4.2 Chloride 97 L Carbon Dioxide 25 Anion Gap 19 BUN 71 H Creatinine 9.0 H* Est GFR ( Amer) 7 Est GFR (Non-Af Amer) 6 POC Glucose (mg/dL) 152 H Random Glucose 125 H Calcium 9.8 Assessment & Plan - Assessment and Plan (Free Text) Assessment: L arm swelling with working L AVF with concurrent L facial/orbital cellulitis and extensive periodontal disease and h/o Central venous stenosis US: no upper extremity DVT Plan: -Keep L arm and head elevated. -Recommend IR L arm fistulogram -Control L facial cellulitis -Discussed possible R arm fistula creation with risk and benefits in the future. -We will follow -COntinue using L AVF Pt seem and examined with Dr. Rosa
--- NOTE | 2017-07-12 14:40 | PN ---
DATE: SUBJECTIVE: The patient has no complaints of any chest pain, no shortness of breath, no headaches. OBJECTIVE: VITAL SIGNS: Temperature is 98, pulse of 67, blood pressure 162/88, respirations 18. GENERAL: The patient is lying in bed, flat, comfortable. HEENT: No oral lesion. Anicteric sclerae. Moist mucosa. In the left portion of the face, the patient has edema. NECK: No JVD, adenopathy, or thyromegaly. CARDIOVASCULAR: S1 and S2, regular. No murmurs, rubs, or gallops. LUNGS: Clear to auscultation bilaterally. No wheeze, rales, or rhonchi. ABDOMEN: Bowel sounds are positive, soft, nontender and nondistended. EXTREMITIES: No cyanosis, clubbing. In the left arm, there is 1+ edema. LABORATORY DATA: White count of 7.4, hemoglobin 8.9. Creatinine is 9. ASSESSMENT: 1. Left arm swelling secondary to chronic central vein stenosis. 2. End-stage renal disease, on hemodialysis Monday, Monday, and Monday. 3. Diabetic neuropathy. 4. Diabetic retinopathy. 5. Left arteriovenous fistula. 6. Secondary hyperparathyroidism. 7. Anemia secondary to chronic kidney disease. 8. Chronic obstructive pulmonary disease. PLAN: The patient continues to have left arm edema. I did speak to vascular surgeon, Dr. Felix Dockery. The patient has a chronic central vein stenosis. This was discussed with the patient's . I spoke to her at length yesterday and I also had Dr. Felix Dockery talked to the patient's . He basically has two options regarding his swelling and the central vein stenosis. He can continue with fistula until the fistula is not functional, then he will require second fistula. The other option is that a second fistula will be placed in the right arm and while that matures, continue to use left fistula and when the fistula is ready to be used in the right arm, to close off the fistula in the left arm. I also spoke with Dr. Rosa who had initially put the fistula in the left arm. I will have the patient followed up with him. No surgical intervention is required at this point. Leandro Ofelia, MD
[2017-07-12] MEDS ORDERED: Lidocaine 2% Inj (20ml) ONE (15:05)
[2017-07-12] MEDS ORDERED: Iodixanol 320 MG/ML 100 ML BOTTLE IV ONE (15:07)
[2017-07-12] MEDS ORDERED: Midazolam 2 MG/2 ML VIAL ONE (15:10)
--- NOTE | 2017-07-12 15:44 | CP.PCM.PN ---
Subjective - Date & Time of Evaluation Date of Evaluation: 07/12/17 Time of Evaluation: 11:40 - Subjective Subjective: Chief Complaint: L sided arm swelling 57 yr male w/ history of ESRD (HE[facility] - MWF), fall w. hip fracture, ORIF (05/08/17), COPD, Anemia, DM II, Diabetic neuropathy, Diabetic retinopathy, gasteroparesis, Pulmonary embolism, DVT, esophagitis, lung abscess , & cardiomyopathy. Pt previously admitted for diffuse cellulitis of face & dental caries and discharged from TCU on 07/06. Pt re-admitted to [facility] [place] for L sided facial pain (related to L eye periorbital cellulitis) and L arm pain ( related to swelling). Today, pt seen eating his lunch. He has been saying that he wishes to "stop hemodialysis." Pt has been known to be noncompliant and family is aware of patient's comments/wishes. Pt denies any fever, chills, chest pain, shortness of breath, diarrhea, constipation, paresthesia, or urinary changes. Objective - Vital Signs/Intake and Output Vital Signs (last 24 hours): Temp Pulse Resp BP Pulse Ox 98.0 F 76 18 150/81 95 07/12/17 07:30 07/12/17 13:11 07/12/17 07:30 07/12/17 13:11 07/12/17 07:30 Intake and Output: 07/12/17 07/12/17 06:59 18:59 Intake Total 600 960 Balance 600 960 - Medications Medications: Current Medications Acetaminophen (Tylenol 325mg Tab) 650 mg PO Q6 PRN PRN Reason: Pain, Mild (1-3) Amlodipine Besylate (Norvasc) 10 mg PO DAILY [facility] Last Admin: 07/12/17 13:11 Dose: 10 mg Carvedilol (Coreg) 3.125 mg PO BID [facility] Last Admin: 07/12/17 13:11 Dose: 3.125 mg Meropenem 250 mg/ Sodium (Chloride) 100 mls @ 100 mls/hr IVPB Q12H [facility] PRN Reason: Protocol Stop: 07/18/17 09:16 Last Admin: 07/12/17 13:12 Dose: 100 mls/hr Insulin Detemir (Levemir) 14 unit SC [facility] Last Admin: 07/12/17 04:46 Dose: Not Given Insulin Human Regular (Humulin R) 0 units SC ACHS [facility] PRN Reason: Protocol Last Admin: 07/12/17 12:00 Dose: Not Given Metoclopramide HCl (Reglan) 5 mg PO ACTID [facility] Last Admin: 07/12/17 13:12 Dose: 5 mg Sevelamer HCl (Renagel) 800 mg PO AC [facility] Last Admin: 07/12/17 13:11 Dose: 800 mg Tramadol HCl (Ultram) 50 mg PO TID PRN PRN Reason: Pain, moderate (4-7) - Labs Labs: 07/12/17 07:50 07/12/17 07:50 PT 11.8 SECONDS (9.4-12.5) 07/09/17 01:50 INR 1.03 (0.93-1.08) 07/09/17 01:50 APTT 30.5 Seconds (25.1-36.5) 07/09/17 01:50 - Constitutional Appears: No Acute Distress, Chronically Ill - Head Exam Head Exam: ATRAUMATIC, NORMAL INSPECTION, NORMOCEPHALIC - Eye Exam Eye Exam: EOMI, Normal appearance, PERRL Pupil Exam: NORMAL ACCOMODATION, PERRL - ENT Exam ENT Exam: Mucous Membranes Moist Additional comments: L eye periorbital swelling L sided facial/mandibular swelling. poor dentition - Neck Exam Neck Exam: Full ROM, Normal Inspection. absent: Lymphadenopathy - Respiratory Exam Respiratory Exam: Clear to Ausculation Bilateral, NORMAL BREATHING PATTERN - Cardiovascular Exam Cardiovascular Exam: REGULAR RHYTHM, +S1, +S2. absent: Murmur - GI/Abdominal Exam GI & Abdominal Exam: Soft, Normal Bowel Sounds. absent: Tenderness - Extremities Exam Extremities Exam: Normal Capillary Refill Additional comments: L AV fistula. L arm swelling +2 - Back Exam Back Exam: NORMAL INSPECTION - Neurological Exam Neurological Exam: Alert, Awake, CN II-XII Intact, Oriented x3 - Psychiatric Exam Psychiatric exam: Normal Affect, Normal Mood - Skin Skin Exam: Dry, Intact, Normal Color, Warm Assessment and Plan (1) Left arm swelling Status: Acute (2) Periorbital cellulitis of left eye Status: Acute (3) Anemia, chronic disease Status: Acute (4) Dental caries Status: Acute (5) ESRD (end stage renal disease) Status: Acute - Assessment and Plan (Free Text) Plan: IV merren (s/p vanco IV, zosyn IV & s/p PO doxycycline). Per ID, pt has facial edema secondary to L molar necrotic tooth & should have oral surgeon & dental evaluation). Per Nephro, patient needs his fistula to have further vascular evaluation and possible perm-a-cath placement. Per Surgery/Vascular, continue to use LAVF, elevate extremity and recommendations made for IR L arm fistulogram. VTE/GI prophylaxis. PT onboard. pain management: PO tramadol Consults: ID - Dr. House Nephro - Dr. Castañeda Vascular - Dr. Alex Dockery Surgery - Dr. Shady Sanchez / Dr. Michel Reviwed: ECG = ABNORMAL, NSR, L anterior fasicular block, min voltage criteria for LVH, may be a normal variant, anteroseptal infarct, age undetermined L arm doppler = WNL CT = L preseptal; orbital cellulitis & L facial cellulitis, no evidence of drainable fluid collection, extensive periodontal disease
--- NOTE | 2017-07-12 22:40 | PN ---
DATE: 07/12/2017 SUBJECTIVE: The patient is in bed, in no acute distress, nontoxic. PHYSICAL EXAMINATION: VITAL SIGNS: Temperature is 98, blood pressure is 150/80, respiratory rate of 18. HEENT: Unremarkable. NECK: Supple. LUNGS: Decreased breath sounds. HEART: Normal S1, S2. ABDOMEN: Soft, nontender. LABORATORY DATA: Reveals a white count of 7.4, hemoglobin of 8.9, platelets of 196. Chemistries reveal a BUN of 71, creatinine of 9. Microbiology reveals the blood cultures are negative. ASSESSMENT AND PLAN: A 57-year-old male with a left facial preseptal cellulitis; dental cavity necrotic molar tooth; end-stage renal disease, on hemodialysis; chronic obstructive lung disease; diabetic retinopathy; neuropathy, day #4 of meropenem and appears to be improving. Dr. Will's consultation is appreciated. Dr. Gilbert's note is reviewed. Dr. Miranda's note is reviewed. We will follow with you. Marcos House MD
[2017-07-13] MEDS ORDERED: Iodixanol 320 MG/ML 200 ML BOTTLE IV ONE (06:51)
[2017-07-13] MEDS ORDERED: Lidocaine 2% Inj (20ml) ONE (06:51)
[2017-07-13] MEDS ORDERED: HEPARIN SODIUM/NS 1,000 ML IV ONE (06:51)
[2017-07-13] MEDS ORDERED: Midazolam 2 MG/2 ML VIAL ONE (08:16)
--- NOTE | 2017-07-13 08:19 | CP.PCM.PN ---
Subjective - Date & Time of Evaluation Date of Evaluation: 07/13/17 Time of Evaluation: 08:15 - Subjective Subjective: Surgery: Dr. Rosa Patient feels better today. He feels like the swelling has improved. No acute events overnight. Objective - Vital Signs/Intake and Output Vital Signs (last 24 hours): Temp Pulse Resp BP Pulse Ox 98.0 F 76 18 150/81 95 07/12/17 07:30 07/12/17 13:11 07/12/17 07:30 07/12/17 13:11 07/12/17 07:30 Intake and Output: 07/13/17 07/13/17 06:59 18:59 Intake Total 720 Balance 720 - Medications Medications: Current Medications Acetaminophen (Tylenol 325mg Tab) 650 mg PO Q6 PRN PRN Reason: Pain, Mild (1-3) Amlodipine Besylate (Norvasc) 10 mg PO DAILY [facility] Last Admin: 07/12/17 13:11 Dose: 10 mg Carvedilol (Coreg) 3.125 mg PO BID [facility] Last Admin: 07/12/17 17:10 Dose: Not Given Meropenem 250 mg/ Sodium (Chloride) 100 mls @ 100 mls/hr IVPB Q12H [facility] PRN Reason: Protocol Stop: 07/18/17 09:16 Last Admin: 07/12/17 21:59 Dose: 100 mls/hr Insulin Detemir (Levemir) 14 unit SC HS [facility] Last Admin: 07/12/17 22:00 Dose: Not Given Insulin Human Regular (Humulin R) 0 units SC ACHS [facility] PRN Reason: Protocol Last Admin: 07/12/17 21:59 Dose: Not Given Metoclopramide HCl (Reglan) 5 mg PO ACTID [facility] Last Admin: 07/12/17 17:09 Dose: 5 mg Sevelamer HCl (Renagel) 800 mg PO AC [facility] Last Admin: 07/12/17 17:09 Dose: 800 mg Tramadol HCl (Ultram) 50 mg PO TID PRN PRN Reason: Pain, moderate (4-7) - Labs Labs: 07/12/17 07:50 07/12/17 07:50 PT 11.8 SECONDS (9.4-12.5) 07/09/17 01:50 INR 1.03 (0.93-1.08) 07/09/17 01:50 APTT 30.5 Seconds (25.1-36.5) 07/09/17 01:50 - Constitutional Appears: Non-toxic, No Acute Distress - Head Exam Head Exam: ATRAUMATIC, NORMOCEPHALIC Additional comments: left facial swelling improved - Eye Exam Eye Exam: EOMI, Normal appearance - ENT Exam ENT Exam: Mucous Membranes Moist - Respiratory Exam Respiratory Exam: NORMAL BREATHING PATTERN. absent: Respiratory Distress - Cardiovascular Exam Cardiovascular Exam: REGULAR RHYTHM. absent: Tachycardia - GI/Abdominal Exam GI & Abdominal Exam: absent: Distended, Guarding, Rebound - Extremities Exam Additional comments: left arm swelling, improved - Neurological Exam Neurological Exam: Alert, Awake - Psychiatric Exam Psychiatric exam: Normal Affect, Normal Mood Assessment and Plan - Assessment and Plan (Free Text) Assessment: 57 y/o male w/ left arm AVF and arm swelling Plan: patient for fistulagram today to evaluate for possible venous stenosis f/u results patient states he would like to avoid surgery at this time cont conservative treatment further recs per Dr. Rosa [facility] PGY3
[2017-07-13] MEDS: Insulin Regular 1 UNITS/0.01 ML ML SC SCH ×2 (17:14→20:49)
[2017-07-13 17:23] VITALS: BP 169/91; PULSE 66
[2017-07-13 17:53] VITALS: RESP 18; TEMP 97.4; O2SAT 97
--- NOTE | 2017-07-13 20:36 | VASCULAR ---
PROCEDURE: 1. Left upper extremity AV fistula angiogram. 2. Left innominate vein plasty HISTORY: End-stage renal disease. Malfunctioning AV access severe left neck and arm swelling PHYSICIAN(S): Rufus Sanchez MD. TECHNIQUE: The relative risks and indications of the procedure were explained to the patient and consent obtained. The patient was placed supine on the angiography table and the right arm prepped and draped in usual sterile fashion. Conscious sedation and monitoring provided throughout the procedure by a nurse. The left arm AV fistula was punctured under ultrasound guidance near the elbow in an antegrade direction with a micropuncture set. A 5 Armenian catheter was placed. An overlapping left upper extremity AV fistula angiogram was performed. Central venous imaging was obtained. Pressure was applied near the access site and reflux of the arterial anastomosis performed. A 7 Armenian sheath was placed the puncture site. 5 Armenian bearing sting catheter was is bands to the level of the left innominate vein occlusion. The occlusion could not be crossed with standard guidewire techniques. Subsequently the back end of a 0.035 glidewire was used to ensure across the chronic focal occlusion. Injection confirmed intraluminal position. 0.035 support wire was placed the IVC. The left innominate vein occlusion was dilated with a 6, 12, and 14 mm balloons. An excellent angiographic result was obtained. No stent was required. FINDINGS: The patient has a patent left upper extremity basilic vein transposition fistula. Multiple stents are present in the upper arm. The stents are patent. There is a short segment chronic occlusion of the left innominate vein. This was difficult to cross. Spleen dilated with 6, 12, and 14 mm balloons. The anastomosis is patent and normal. The SVC is patent and normal. IMPRESSION: 1. Chronic left innominate vein occlusion. 2. Successful venous angioplasty with 12 and 14 mm balloons. 3. Patent left basilic vein transposition fistula
--- NOTE | 2017-07-14 02:00 | PN ---
DATE: 07/13/2017 SUBJECTIVE: The patient is in bed, in no acute distress, nontoxic. PHYSICAL EXAMINATION: VITAL SIGNS: Temperature is 97, blood pressure is 160/90, respiratory rate of 18, and heart rate of 62. HEENT: Unremarkable. NECK: Supple. LUNGS: Have decreased breath sounds. HEART: Normal S1 and S2. ABDOMEN: Soft. LABORATORY DATA: Reveals a white count of 7.4, hemoglobin of 8, and platelets of 196. Creatinine is noted. The patient's oral examination is much improved. Blood cultures are negative. ASSESSMENT AND PLAN: This is a 57-year-old male who was admitted with a left facial preseptal cellulitis, dental cavity necrotic molar tooth, end-stage renal disease - on hemodialysis, chronic obstructive lung disease, diabetic retinopathy, neuropathy. May be switched to p.o. antibiotics. Follow the Oral surgeon as an outpatient. The patient is doing much better. Marcos House MD
--- NOTE | 2017-07-14 09:10 | PN ---
DATE: 07/13/2017 SUBJECTIVE: The patient has no complaints of any chest pain. No shortness of breath. No headaches. No dizziness. PHYSICAL EXAMINATION: VITAL SIGNS: Temperature is 97.4, pulse of 66, blood pressure is 169/91, respirations 18. GENERAL: The patient is lying in bed, flat, comfortable. HEENT: No oral lesion. Anicteric sclerae. Moist mucosa. NECK: No JVD, adenopathy, or thyromegaly. CARDIOVASCULAR: S1 and S2, regular. No murmurs, rubs, or gallops. LUNGS: Clear to auscultation bilaterally. No wheeze, rales, or rhonchi. ABDOMEN: Bowel sounds are positive, soft, nontender and nondistended. EXTREMITIES: Left arm, 1+ edema. LABORATORY DATA: Creatinine is 9. ASSESSMENT: 1. Left arm swelling secondary to chronic central vein stenosis, status post angioplasty. 2. End-stage renal disease, on hemodialysis Monday, Monday, and Monday. 3. Diabetic neuropathy. 4. Diabetic retinopathy. 5. Left arteriovenous fistula. 6. Secondary hyperparathyroidism. 7. Anemia secondary to chronic kidney disease. 8. Chronic obstructive pulmonary disease. PLAN: The patient is currently comfortable. The patient had intervention done by Dr. Rufus Sanchez. I appreciate his input. I did speak with him. I also spoke with the patient's . The patient should have improvement of the swelling. I did speak to Dr. Miranda regarding the case. The patient can be discharged from my perspective. We will see if the swelling improves. The other is that the patient will need surgery in the right arm, fistula and then the left fistula will need to be ligated and tied off. Leandro Gilbert MD
== END 2017-07-13 18:23 | disposition home or self-care (01) | DRG 602 ==
LOC: ED 00:09 → ERH 02:02 → 5RNO 03:30
PROVIDERS: ADMIT Internal Medicine; ATTEND Internal Medicine
PROC: 5A1D70Z Performance of Urinary Filtration, Intermittent, Less than 6 Hours Per Day (ICD-10-PCS; principal; 2017-07-10)
PROC: 5A1D70Z Performance of Urinary Filtration, Intermittent, Less than 6 Hours Per Day (ICD-10-PCS; 2017-07-12)
DX: L03.213 Periorbital cellulitis (principal); N18.6 End stage renal disease; I13.2 Hypertensive heart and chronic kidney disease with heart failure and with stage 5 chronic kidney disease, or end stage renal disease; I42.9 Cardiomyopathy, unspecified; I87.1 Compression of vein; N25.81 Secondary hyperparathyroidism of renal origin; Z99.2 Dependence on renal dialysis; E11.22 Type 2 diabetes mellitus with diabetic chronic kidney disease; K04.1 Necrosis of pulp; I50.9 Heart failure, unspecified; E11.21 Type 2 diabetes mellitus with diabetic nephropathy; D63.1 Anemia in chronic kidney disease; I25.10 Atherosclerotic heart disease of native coronary artery without angina pectoris; K31.84 Gastroparesis; E11.43 Type 2 diabetes mellitus with diabetic autonomic (poly)neuropathy; E11.319 Type 2 diabetes mellitus with unspecified diabetic retinopathy without macular edema; Z79.4 Long term (current) use of insulin; J44.9 Chronic obstructive pulmonary disease, unspecified; Z86.718 Personal history of other venous thrombosis and embolism; Z86.711 Personal history of pulmonary embolism

== ENCOUNTER 2017-08-29 05:57 | Inpatient (IN) | payer MEDICARE, MEDICAID ==
[2017-08-29 05:57] VITALS: PULSE 69
--- NOTE | 2017-08-29 06:28 | ED PDOC ---
Arrival/HPI - General Chief Complaint: Weakness/Neurological Deficit Time Seen by Provider: 08/29/17 06:03 Historian: Patient - History of Present Illness Narrative History of Present Illness (Text): Patient is a 57 year old male who presents to the Emergency department complaining of shaking that started 2-3 weeks ago. Patient reports that he has dialysis treatment on(M/W/F) and his last treatment was yesterday. Patient reports that his symptoms always happen after dialysis. He is also complaining of coughs. PMD: Time/Duration: > week Activities at Onset: Rest Context: Other (occurs after dialysis.) Past Medical History - Provider Review Nursing Documentation Reviewed: Yes - Infectious Disease Hx of Infectious Diseases: None - Tetanus Immunization Tetanus Immunization: Up to Date - Cardiac Hx Hypertension: Yes - Pulmonary Hx Chronic Obstructive Pulmonary Disease (COPD): Yes - Neurological HX Cerebrovascular Accident: No - HEENT Hx HEENT Disorder: Yes - Renal Hx Renal Failure: Yes - Endocrine/Metabolic Hx Diabetes Mellitus Type 2: Yes - Hematological/Oncological Hx Blood Disorders: Yes Hx Anemia: Yes - Integumentary Hx Dermatological Disorder: Yes - Musculoskeletal/Rheumatological Hx Arthritis: Yes - Gastrointestinal Hx Gastroesophageal Reflux: Yes - Genitourinary/Gynecological Hx Genitourinary Disorders: Yes Hx Incontinence: Yes - Psychiatric Hx Psychophysiologic Disorder: Yes Hx Anxiety: Yes Hx Depression: Yes Hx Substance Use: No - Past Surgical History Past Surgical History: Non-Contributing - Surgical History Hx Amputation: No Hx Appendectomy: No Hx Cardiac Catheterization: No Hx Cholecystectomy: No Hx Coronary Stent: No Hx Gastric Bypass Surgery: No Hx Hysterectomy: No Hx Joint Replacement: No Hx Kidney Transplant: No Hx Liver Transplant: No Hx Mastectomy: No Hx Musculoskeletal Surgery: No Hx Open Heart Surgery: No Hx Orthopedic Surgery: No Hx Splenectomy: No Hx Valve Replacement: No - Anesthesia Hx Anesthesia: Yes Hx Anesthesia Reactions: No Hx Malignant Hyperthermia: No - Suicidal Assessment Feels Threatened In Home Enviroment: No Family/Social History - Physician Review Nursing Documentation Reviewed: Yes Family/Social History: No Known Family HX Smoking Status: Never Smoked Hx Alcohol Use: No Hx Substance Use: No Hx Substance Use Treatment: No Allergies/Home Meds Allergies/Adverse Reactions: Allergies No Known Allergies Allergy (Verified 07/09/17 00:51) Home Medications: Home Meds Medication Instructions Recorded Confirmed Metoclopramide [Reglan] 5 mg PO ACTID 06/23/17 08/29/17 Review of Systems - Review of Systems Constitutional: absent: Fevers Respiratory: Cough Neurological: Other ("shaking") Physical Exam Vital Signs Reviewed: Yes Vital Signs Temp Pulse Resp BP Pulse Ox 08/29/17 06:13 99.2 F 76 18 178/79 H 95 Temperature: Afebrile Blood Pressure: Hypertensive Pulse: Regular Respiratory Rate: Normal Appearance: Positive for: Well-Appearing Mental Status: Positive for: Alert and Oriented X 3 - Systems Exam Head: Present: Atraumatic, Normocephalic Pupils: Present: PERRL Extroacular Muscles: Present: EOMI Conjunctiva: Present: Normal Mouth: Present: Moist Mucous Membranes Neck: Present: Normal Range of Motion Respiratory/Chest: Present: Clear to Auscultation, Good Air Exchange. No: Respiratory Distress, Accessory Muscle Use Cardiovascular: Present: Regular Rate and Rhythm, Normal S1, S2. No: Murmurs Abdomen: Present: Tenderness (mild diffuse tenderness). No: Distention, Peritoneal Signs Back: Present: Normal Inspection Upper Extremity: Present: Normal Inspection. No: Cyanosis, Edema Lower Extremity: Present: Normal Inspection. No: Edema Neurological: Present: GCS=15, CN II-XII Intact, Speech Normal Skin: Present: Warm, Dry, Normal Color. No: Rashes Psychiatric: Present: Alert, Oriented x 3, Normal Insight, Normal Concentration Medical Decision Making ED Course and Treatment: Impression: Patient is a 57 year old male who is complaining of shaking s/p dialysis with associated cough. Plan: --EKG --cardiac enzymes --labs --Urine culture --Chest X-ray --Pepcid --Zofran -- Reassess and disposition Prior Visits: Notes and results from previous visits were reviewed. Patient was last seen in the emergency department on 07/09/17 for cellulitis and was hospitalized. Progress Notes: EKG shows NSR at 77BPM with LAFB, LAD, left atrial enlargement, and 1 PVC. Interpreted by me. - Lab Interpretations Lab Results: Lab Results 08/29/17 06:06: POC Glucose (mg/dL) 137 H - RAD Interpretation Radiology Orders: 08/29/17 06:25 CHEST PORTABLE [RAD] Stat 08/29/17 06:26 ABD & PELVIS W/O PO OR IV CONT [CT] Stat - EKG Interpretation Interpreted by ED Physician: Yes Type: 12 lead EKG - Medication Orders Current Medication Orders: Famotidine (Pepcid 20mg/50ml Premix) 20 mg in 50 mls @ 100 mls/hr IVPB ONCE ONE Stop: 08/29/17 06:59 Discontinued Medications Ondansetron HCl (Zofran Inj) 8 mg IVP STAT STA Stop: 08/29/17 06:27 - Transfer of Care Patient signed out to Dr:: Boo Pending Labs:: CMP, CBC, trop, UA Pending Radiology Studies:: CXR, CT - Scribe Statement The provider has reviewed the documentation as recorded by the Scribe Rey Smith Provider Scribe Attestation: All medical record entries made by the Scribe were at my direction and personally dictated by me. I have reviewed the chart and agree that the record accurately reflects my personal performance of the history, physical exam, medical decision making, and the department course for this patient. I have also personally directed, reviewed, and agree with the discharge instructions and disposition. Disposition/Present on Arrival - Present on Arrival Any Indicators Present on Arrival: No History of DVT/PE: No History of Uncontrolled Diabetes: No Urinary Catheter: No History of Decub. Ulcer: No History Surgical Site Infection Following: None - Disposition Have Diagnosis and Disposition been Completed?: Yes Diagnosis: Vomiting Disposition Time: 07:00 Patient Problems: Current Active Problems Problem Status Onset Vomiting Acute Condition: UNKNOWN Forms: [employer] (Colombian)
[2017-08-29] MEDS ORDERED: Famotidine 20mg/50ml 20 MG/50 ML BAG IVPB ONE (06:30)
[2017-08-29 06:54] LABS: BASO # 0.02 K/mm3 (0.0-2.0); BASO % 0.2 % (0.0-3.0); EOS # 0.2 (0.0-0.7); EOS % 2.4 % (1.5-5.0); GRAN # 6.73 (1.4-6.5); GRAN % 70.1 % (50.0-68.0); LYMPH # 1.5 (1.2-3.4); MEAN CELL VOLUME 75.1 fl (80.0-105.0); MEAN CORPUSCULAR HEMOGLOBIN 24.1 pg (25.0-35.0); MEAN CORPUSCULAR HGB CONC 32.1 g/dl (31.0-37.0); MONO # 1.1 (0.1-0.6); MONO % 11.3 % (1.0-6.0); PLATELET COUNT 189 10^3/uL (120.0-450.0); RBC 4.86 10^6/uL (3.5-6.1); RED CELL DISTRIBUTION WIDTH 15.5 % (11.5-14.5); WHITE BLOOD COUNT 9.6 10^3/ul (4.5-11.0)
[2017-08-29 06:56] LABS: HEMOGLOBIN 11.7 g/dL (14.0-18.0)
[2017-08-29 07:40] LABS: ALB/GLOB RATIO 1.1 (1.1-1.8); ALBUMIN 3.7 g/dL (3.0-4.8); CALCIUM 10.4 mg/dL (8.4-10.5)
[2017-08-29 07:51] LABS: TROPONIN I 0.07 ng/mL
--- NOTE | 2017-08-29 08:04 | CT ---
EXAM: CT Abdomen and Pelvis Without Intravenous Contrast CLINICAL HISTORY: 57 years old, male; Signs and symptoms; Abdominal tenderness; Additional info: Diffuse tenderness TECHNIQUE: Axial computed tomography images of the abdomen and pelvis without intravenous contrast. All CT scans at this facility use one or more dose reduction techniques, viz.: automated exposure control; ma/kV adjustment per patient size (including targeted exams where dose is matched to indication; i.e. head); or iterative reconstruction technique. Coronal and sagittal reformatted images were created and reviewed. COMPARISON: DX - HIP W/WO PELVIS 2-3 VIEWS LT 2017-05-06 01:27 FINDINGS: Artifacts: Motion artifact does moderately limit the sensitivity of this examination. Lung bases: Right lung base consolidation secondary to atelectasis or infiltrate. Pleural space: Small right pleural effusion. Heart: Trace pericardial effusion. The heart is enlarged. ABDOMEN: Liver: The liver is within normal limits for this noncontrast study. Suspect trace perihepatic free fluid. Gallbladder and bile ducts: Unremarkable. No calcified stones. No ductal dilation. Pancreas: Unremarkable. No ductal dilation. Spleen: Unremarkable. No splenomegaly. Adrenals: Unremarkable. No mass. Kidneys and ureters: Nonspecific perinephric stranding bilaterally. No hydronephrosis or renal stones. Stomach and bowel: Residual barium is present in the colon from a prior exam. No obstruction. No mucosal thickening. There is no wall thickening or pericolonic stranding to suggest colitis. PELVIS: Appendix: Not visualized Bladder: The bladder is thick walled. No stones. Reproductive: The prostate gland demonstrates moderate hypertrophy. ABDOMEN and PELVIS: Intraperitoneal space: No free air. Bones/joints: There are postsurgical changes in the left hip. Surgical screw transfixes the left intertrochanteric fracture. Vasculature: The vasculature demonstrates diffuse atherosclerotic calcification. No abdominal aortic aneurysm. Lymph nodes: Unremarkable. No enlarged lymph nodes. IMPRESSION: Motion artifact limits the study. Thickwalled bladder. Findings could be secondary to cystitis. Clinical correlation recommended. Probable trace perihepatic free fluid. Prostate hypertrophy. Small right pleural effusion with right lung base consolidation secondary to atelectasis or infiltrate. Cardiomegaly and trace pericardial effusion.
[2017-08-29] MEDS ORDERED: cefTRIAXone 1 gm 1 GM/100 ML BAG IVPB STA (08:05)
[2017-08-29] MEDS ORDERED: Azithromycin 500MG/NS 250ml 500 MG/250 ML BAG IVPB STA (08:06)
--- NOTE | 2017-08-29 09:10 | RAD ---
HISTORY: cough COMPARISON: 05/06/2017 FINDINGS: LUNGS: There is an infiltrate in the right lower lobe. There is a small right pleural effusion which extends into the minor fissure PLEURA: As above CARDIOVASCULAR: Normal. OSSEOUS STRUCTURES: No significant abnormalities. VISUALIZED UPPER ABDOMEN: Normal. OTHER FINDINGS: None. IMPRESSION: There is an infiltrate in the right lower lobe. There is a small right pleural effusion which extends into the minor fissure
--- NOTE | 2017-08-29 13:07 | CT ---
PROCEDURE: CT HEAD WITHOUT CONTRAST. HISTORY: seizure / stroke eval COMPARISON: 01/18/2017 TECHNIQUE: Axial computed tomography images were obtained through the head/brain without intravenous contrast. Radiation dose: Total exam DLP = 854 mGy-cm. This CT exam was performed using one or more of the following dose reduction techniques: Automated exposure control, adjustment of the mA and/or kV according to patient size, and/or use of iterative reconstruction technique. FINDINGS: HEMORRHAGE: No intracranial hemorrhage. BRAIN: No mass effect or edema. Severe chronic microvascular changes in the periventricular white matter. No acute findings VENTRICLES: Unremarkable. No hydrocephalus. CALVARIUM: Unremarkable. PARANASAL SINUSES: Mucosal thickening in the maxillary sinuses MASTOID AIR CELLS: Unremarkable as visualized. No inflammatory changes. OTHER FINDINGS: None. IMPRESSION: No acute intracranial findings
--- NOTE | 2017-08-29 15:01 | CARD ---
APPROVED REPORT EKG Measurement Heart [id number] <Conclusion> Sinus rhythm with frequent premature ventricular complexes Possible Left atrial enlargement Left anterior fascicular block Left ventricular hypertrophy with QRS widening and repolarization abnormality Anteroseptal infarct, age undetermined Abnormal ECG
[2017-08-29 15:09] VITALS: BMI 19.1
[2017-08-29] MEDS ORDERED: Pneumococcal 23-Valent Vaccine IM ONE (15:10)
[2017-08-29] MEDS: Insulin Reg-LOW-Coverage SC SCH ×3 (16:10→21:41)
[2017-08-29] MEDS: Insulin Detemir 100 units/ml Vial (Levemir) SC SCH (21:41)
--- NOTE | 2017-08-30 01:42 | CON ---
DATE: PULMONARY CONSULTATION REFERRING PHYSICIAN: Dr. Miranda. REASON FOR CONSULTATION: Chronic lung disease, may have sleep apnea syndrome. HISTORY OF PRESENT ILLNESS: This is a 57-year-old gentleman with multiple medical problems including renal failure, dialysis dependent; hypertension; chronic lung disease; diabetes with peripheral neuropathy; anemia; arthritis; history of GERD; recurrent UTI; anxiety disorder; depression, who was having dialysis, started with a jerky movement of upper and lower extremity, was sent to ER, also was found to have infiltrate, admitted for further workup. At my examination, patient had jerky movement of mostly lower extremity, also has some movement of the upper extremity. He is fully awake and alert. No cough. No sputum production. No nausea, no vomiting, no diarrhea. No leg pain or leg swelling. PAST MEDICAL HISTORY: As per history of present illness. ALLERGIES: NONE KNOWN. SOCIAL HISTORY: Never smoked. Denying any alcohol use. FAMILY HISTORY: No significant cardiopulmonary disease reported. MEDICATIONS: He is on Coreg 3.125 mg twice a day, insulin coverage, Levemir 40 units subcu at bedtime, Norvasc 10 mg daily, PhosLo with the meals, Reglan 10 mg a.c. t.i.d., Tylenol p.r.n., Ultram 50 mg three times a day p.r.n. REVIEW OF SYSTEMS: No headache, no rhinitis. No cough. No sputum production. No vomiting, no hematuria. No diarrhea reported. Does have a jerky movement of upper and lower extremities. He is fully awake. Denying any headache. PHYSICAL EXAMINATION: GENERAL: Lying in the bed, in no acute distress. VITAL SIGNS: Temperature is 98, heart rate is 79, respiratory rate is 20, blood pressure 170/99, pulse ox 98% on room air. HEENT: Moist mucous membrane. Crowded airway. NECK: Supple. No JVD. LUNGS: Fair airflow with rhonchi. HEART: S1 and S2. ABDOMEN: Soft, nontender, no organomegaly. EXTREMITIES: There is no edema. NEUROLOGIC: Awake and alert. Follows simple command with consistent jerky movement of upper extremity. Occasionally have upper extremity jerky movement. LABORATORY DATA: Shows hemoglobin 11.7, hematocrit 36.5, WBC 9.6, platelet is 189. Sodium 141, potassium 4.7, chloride 96, bicarbonate 30, BUN 51, creatinine 7.6, glucose 91, calcium 10.4, magnesium 2.3. AST 18, ALT 20, alk phos is 47. Troponin 0.07. Albumin is 3.7. IMPRESSION AND PLAN: Right pleural effusion with pulmonary infiltrate; cardiomegaly; diabetes; peripheral neuropathy; gastroesophageal reflux disease; renal failure, dialysis dependent, had a jerky movement since the dialysis; stat consult of Dr. Dwaine Yeung has been called, also EEG has been ordered. CT of the head is done, which is unremarkable. We will now start antiseizure medication until seen by Neurology and has an EEG. Patient fully awake and alert. Pulmonary point of view, keep head elevated at 45 degrees. May add inhaled bronchodilator. We will discontinue his Reglan. Gastric prophylaxis, deep venous thrombosis prophylaxis. Aspiration precaution. We will get procalcitonin for the morning. We will give antibiotics. Thank you and we will follow with you. Lorie Zamora MD
--- NOTE | 2017-08-30 08:01 | CP.PCM.CON ---
History of Present Illness - History of Present Illness History of Present Illness: Neurology Consult note for Dr. Bertrand Reason for consult: intermittent shaking Please note patient is a poor historian despite being ao x 3. Patient is a 57yo male PMHx ESRD on HD for 7 years, HTN, DM presented to [facility] [place] for several weeks of intermittent shaking. Patient reports he gets "shaky" after HD at times although he feels better today. He reports he sometimes feels dizzy and "occupied" and admits to an unsteady gait. He reports that over the last few days he felt like he was jumping and shaking in bed with associated numbness. 2 months ago he said he was sleeping and shaking and found himself on the floor. Patient did not remember how he fell but had a L hip and shoulder fracture as a result. Patient denied any biting of the tongue, frothing at the mouth, and loss of bowel/bladder control. He also denied noticing any smells/ sounds prior to his shakes. He did admit to an intermittent headache but his greatest complaint was his "shakes." On ROS he denied fevers but admitted to chills and having had a cold for a week or so. He also admitted to decreased hearing in his left ear. Patient denied any chest pain and SOB but admitted to abdominal pain with no associated nausea, vomiting, bowel/bladder complaints. He also admitted to early satiety and feeling like there is a lot of food on top of his head and not in the proper location. Patient has been complaining of a productive cough and some itchiness. He denied any recent travel/sick contacts. PMHx: ESRD on HD for 7 years, HTN, DM PSurgHx: 2 RLE surgeries, L hip and L foot surgery, hand surgery, fistula Meds: pls see chart ALL: NKDA FamHx: denies SocHx: denies tobacco/EtOH/drug use Review of Systems - Review of Systems All systems: reviewed and no additional remarkable complaints except Review of Systems: as per HPI Past Patient History - Infectious Disease Hx of Infectious Diseases: None - Tetanus Immunizations Tetanus Immunization: Up to Date - Past Social History Smoking Status: Never Smoked - CARDIAC Hx Angina: Yes (after hd) Hx Congestive Heart Failure: Yes Hx Hypercholesterolemia: Yes Hx Hypertension: Yes Hx Peripheral Edema: Yes (ble +1, left arm on and off none presently) Other/Comment: cardiomyopathy, left arm dvt x2 as per pt, stress test 2014 - PULMONARY Hx Chronic Obstructive Pulmonary Disease (COPD): Yes Hx Pneumonia: Yes - NEUROLOGICAL Hx Neurological Disorder: Yes Hx Dizziness: Yes (after hd) Other/Comment: diabetic neuropathy pain/tingling/stinging/itch from b/l knees and below, involuntary jumping, shaking and jerking movements x 2 wks - HEENT Hx HEENT Problems: Yes (missing teeth) Other/Comment: inupiat left ear, blurred vision - RENAL Date of Last Dialysis Treatment: 08/28/17 - ENDOCRINE/METABOLIC Hx Endocrine Disorders: Yes (dka) Hx Diabetes Mellitus Type 2: Yes - HEMATOLOGICAL/ONCOLOGICAL Hx Blood Disorders: Yes Hx Anemia: Yes (blood transfusion) - INTEGUMENTARY Hx Dermatological Problems: Yes Other/Comment: left facial and orbital cellulitis chronic on and off, pt stated "I feel bumps under the skin on my face when I run my hands over skin"./ dry leathery skin ble with multiple dark brown skin discolorations, r knee healed wound scars, dark brown skin discoloratins to feet thick hard toenails both feet , multiple skin discolorations to both arms, multiple dark closed wounds b/l legs, healed diabetic foot ulcers - MUSCULOSKELETAL/RHEUMATOLOGICAL Hx Falls: Yes (apr 2017) - GASTROINTESTINAL Hx Gastrointestinal Disorders: Yes (+c dif 03/15/2013) Hx Gall Bladder Disease: Yes (gallstones dx 02/02/2013) Hx Gastroesophageal Reflux: Yes HX Swallowing Problems: Yes (dysphagia x 1 wk) Other/Comment: endo 02/26/16 dx hiatal hernia, gastric erostions with bx's, gastrophoresis with bx's, poor appetite denies weight loss, gi bleed - GENITOURINARY/GYNECOLOGICAL Hx Genitourinary Disorders: Yes Hx Incontinence: Yes (oliguria) - PSYCHIATRIC Hx Substance Use: No - SURGICAL HISTORY Hx Amputation: No Hx Appendectomy: No Hx Cardiac Catheterization: Yes (01/2013 dr cedeno) Hx Cholecystectomy: No Hx Coronary Stent: No Hx Gastric Bypass Surgery: No Hx Hysterectomy: No Hx Joint Replacement: No Hx Kidney Transplant: No Hx Liver Transplant: No Hx Mastectomy: No Hx Musculoskeletal Surgery: No Hx Open Heart Surgery: No Hx Orthopedic Surgery: Yes (L hip fx orif 05/07/17, pt fell) Hx Splenectomy: No Hx Valve Replacement: No Other/Comment: sanket av shunt, ultrasound guided r thoracentesis 05/20/13 2600 straw fluid drained, fistulagram 07/13/17 - ANESTHESIA Hx Anesthesia: Yes Hx Anesthesia Reactions: No Hx Malignant Hyperthermia: No Meds Allergies/Adverse Reactions: Allergies Allergy/AdvReac Type Severity Reaction Status Date / Time No Known Allergies Allergy Verified 07/09/17 00:51 - Medications Medications: Current Medications Acetaminophen (Tylenol 325mg Tab) 650 mg PO Q6H PRN PRN Reason: Pain, moderate (4-7) Amlodipine Besylate (Norvasc) 10 mg PO DAILY [facility] Calcium Acetate (Phoslo) 667 mg PO TID [facility] Last Admin: 08/29/17 18:58 Dose: 667 mg Carvedilol (Coreg) 3.125 mg PO BID [facility] Last Admin: 08/30/17 06:17 Dose: 3.125 mg Insulin Detemir (Levemir) 14 unit SC HS [facility] Last Admin: 08/29/17 21:41 Dose: Not Given Insulin Human Regular (Humulin R Low) 0 units SC [facility] PRN Reason: Protocol Last Admin: 08/29/17 21:41 Dose: Not Given Tramadol HCl (Ultram) 50 mg PO TID PRN PRN Reason: Pain, moderate (4-7) Last Admin: 08/30/17 03:26 Dose: 50 mg Physical Exam - Constitutional Appears: Non-toxic, No Acute Distress - Head Exam Head Exam: ATRAUMATIC, NORMAL INSPECTION, NORMOCEPHALIC - Eye Exam Eye Exam: EOMI, PERRL. absent: Conjunctival injection, Scleral icterus - ENT Exam ENT Exam: Mucous Membranes Dry - Neck Exam Neck exam: Positive for: Normal Inspection - Respiratory Exam Respiratory Exam: NORMAL BREATHING PATTERN. absent: Accessory Muscle Use, Respiratory Distress - Cardiovascular Exam Cardiovascular Exam: +S1, +S2 - GI/Abdominal Exam GI & Abdominal Exam: Soft. absent: Tenderness - Rectal Exam Rectal Exam: Deferred - Neurological Exam Neurological exam: Alert, CN II-XII Intact, Oriented x3 - Psychiatric Exam Psychiatric exam: Normal Affect, Normal Mood - Skin Skin Exam: Dry, Intact, Normal Color, Warm Results - Vital Signs Recent Vital Signs: Last Vital Signs Temp 97.8 F 08/29/17 22:10 Pulse 77 08/30/17 06:17 Resp 18 08/29/17 22:10 BP 172/88 H 08/30/17 06:17 Pulse Ox 98 08/29/17 22:10 - Labs Result Diagrams: 08/29/17 06:40 08/29/17 07:24 Labs: Laboratory Results - last 24 hr 08/29/17 08/29/17 08/29/17 11:45 16:10 21:07 POC Glucose (mg/dL) 180 H 171 H 91 08/30/17 05:10 POC Glucose (mg/dL) 80 Assessment & Plan - Assessment and Plan (Free Text) Assessment: Patient is a 57yo male PMHx ESRD on HD for 7 years, HTN, DM presented to [facility] [place] for several weeks of intermittent shaking. Plan: -transfer patient to remote TELE for newly dx seizures -please see EEG prelim report for findings -Depakote ER 1000mg po qdaily -Ativan 1mg ivp q2 prn seizures lasting greater than 2 minutes -f/u ammonia and prolactin -PT/OT/Speech therapy Neurology will continue to follow Discussed with Dr. Jerzy Weiss PGY2
--- NOTE | 2017-08-30 17:01 | HP ---
DATE OF EXAM: 08/29/2017 Patient was seen and examined at bedside on 08/29/2017. CHIEF COMPLAINT: Coughing, had a jerky movement. HISTORY OF PRESENT ILLNESS: Mr. Stephanie Jackson is a 57-year-old my private patient with history of multiple medical problems, has renal insufficiency, on hemodialysis three times a week, was sent to emergency department complaining of shaky that started 2-3 weeks ago. Patient reports that he was having dialysis treatment on Monday, Monday and Monday and his last treatment was yesterday. Patient reports that his symptoms always happen after dialysis. He is also complaining about coughing. No fever. No chills. Sometimes he is complaining about vomiting. No hematuria. No hematochezia. We admitted the patient. PAST MEDICAL HISTORY: Hypertension, COPD, renal failure on hemodialysis, diabetes mellitus type 2, anemia, arthritis, urinary incontinence, anxiety, depression, diabetic neuropathy, diabetic retinopathy, diabetic nephropathy. FAMILY HISTORY: Father and mother noncontributory. HABITS: Never smoke. No drugs. No ethanol. ALLERGIES: THE PATIENT IS NOT ALLERGIC WITH ANY MEDICATION. HOME MEDICATIONS: Metoclopramide. REVIEW OF SYSTEMS: The patient was seen and examined at the bedside on 08/29/2017. Shaky, coughing. No nausea or vomiting. No hematuria or hematochezia at that moment. No swelling of the legs. No chest pain. No palpitation. No headache or dizziness. PHYSICAL EXAMINATION: VITAL SIGNS: Temperature 99.2, pulse 76, respiratory rate 18, blood pressure 178/79, pulse oximetry 95%. HEENT: Head: Normocephalic and atraumatic. Eyes: PERRLA. Extraocular muscles intact. Conjunctivae clear. Nose patent. Mucous membranes moist. NECK: Supple. No carotid bruits. No JVD or thyromegaly. CHEST: Bilaterally symmetrical. HEART: S1 and S2 positive. LUNGS: Clear to auscultation. ABDOMEN: Soft. Bowel sounds present. No organomegaly. EXTREMITIES: No edema. No cyanosis. NEUROLOGICAL: Patient is awake and alert. Moving all 4 extremities. No focal deficits. LABORATORY DATA: White blood cell is 9.6, hemoglobin 11.7, hematocrit 36.5, platelet 189. Sodium 141, potassium 4.7, BUN 51, creatinine 7.6, glucose 180, magnesium 2.3. ASSESSMENT AND PLAN: Mr. Stephanie Jackson is 57-year-old male with anemia, hypochloremia, renal insufficiency, on hemodialysis three times a week, hypomagnesemia. CAT scan of the head, abdomen and pelvis done. History of hypertension, chronic obstructive lung disease, diabetes mellitus, peripheral neuropathy, diabetic retinopathy, diabetic nephropathy, arthritis, history of gastroesophageal reflux disease, recurrent urinary tract infection, anxiety, depression, right pleural effusion with pulmonary infiltrates, cardiomegaly, gastroesophageal reflux disease, dyspepsia. Now having jerky movements maybe related with dialysis due to uremia or maybe we need help from neurologist. Dr. Zamora put consult with Dr. Dwaine Yeung. Need EEG to rule out seizures. CAT scan of the head is unremarkable. Dr. Zamora added inhalers. Reglan was discontinued that was started for gastroparesis because he is always vomiting. Gastrointestinal and deep venous thrombosis prophylaxis. Aspiration precautions. We will follow up. Makenzie Miranda MD
[2017-08-30] MEDS: Insulin Reg-LOW-Coverage SC SCH ×2 (18:06→21:39)
[2017-08-30] MEDS: Divalproex 500 mg ER (ONCE DAILY formulation) PO SCH (18:11)
[2017-08-30] MEDS: Insulin Detemir 100 units/ml Vial (Levemir) SC SCH (21:52)
[2017-08-30] MEDS ORDERED: Vancomycin 1gm in NS 250ml 1 GM/250 ML BAG IVPB STA (22:25)
--- NOTE | 2017-08-30 23:22 | PN ---
DATE: 08/30/2017 SUBJECTIVE: The patient is a 57-year-old male. The patient was seen and examined at bedside, looking comfortable. No nausea, vomiting or diarrhea. No hematuria or hematochezia. No swelling of the legs. No chest pain, no palpitation. No headache or dizziness. PHYSICAL EXAMINATION: VITAL SIGNS: Temperature 98.1, pulse 73, blood pressure 162/85, respiratory rate 20. HEENT: Head normocephalic and atraumatic. Eyes, PERRLA. Extraocular muscles intact. Conjunctivae clear. Nose patent. Mucous membrane moist. NECK: Supple. No carotid bruit, JVD, or thyromegaly. CHEST: Bilaterally symmetrical. HEART: S1 and S2 positive. LUNGS: Clear to auscultation. ABDOMEN: Soft. Bowel sounds present. No organomegaly. EXTREMITIES: No edema, no cyanosis. NEUROLOGIC: Patient is awake, alert. Moving all 4 extremities. No focal deficits. MEDICATIONS: Ativan, Coreg, Depakote, Levemir, meropenem, amlodipine, calcium with phosphorus, tramadol, vancomycin. LABORATORY DATA: We do not have recent lab today, but I reviewed old labs. ASSESSMENT AND PLAN: Mr. Stephanie Jackson is a 57-year-old male with anemia, hyperchloremia, renal insufficiency, getting dialysis 3 times a week; hypermagnesemia; seen by Dr. Bertrand, neurologist and Dr. Zamora, computational sciences professor, went for CAT scan of the head. According to Dr. Bertrand, the patient has newly onset seizure, transferred the patient to telemetry. Please see EEG prelim report for findings. Depakote ER started. Ativan given. Follow up ammonia level and prolactin. We will continue present treatment. Gastrointestinal and deep venous thrombosis prophylaxis. Repeat labs. We will follow up. Makenzie Miranda MD
[2017-08-31 07:09] LABS: MEAN CELL VOLUME 75.7 fl (80.0-105.0); MEAN CORPUSCULAR HEMOGLOBIN 23.4 pg (25.0-35.0); MEAN CORPUSCULAR HGB CONC 30.9 g/dl (31.0-37.0); PLATELET COUNT 159 10^3/uL (120.0-450.0); RBC 4.28 10^6/uL (3.5-6.1); RED CELL DISTRIBUTION WIDTH 15.4 % (11.5-14.5); WHITE BLOOD COUNT 7.4 10^3/ul (4.5-11.0)
[2017-08-31 07:43] LABS: IRON 29 ug/dL (45-180)
[2017-08-31 07:49] LABS: ALB/GLOB RATIO 1.1 (1.1-1.8); ALBUMIN 3.7 g/dL (3.0-4.8); CALCIUM 10.1 mg/dL (8.4-10.5)
[2017-08-31 07:55] LABS: % IRON SATURATION 16 % (20-55); TOTAL IRON BINDING CAPACITY 177 ug/dL (261-462)
--- NOTE | 2017-08-31 08:40 | CP.PCM.PN ---
Subjective - Date & Time of Evaluation Date of Evaluation: 08/31/17 Time of Evaluation: 08:45 - Subjective Subjective: PGY2 Neuro Progress note for Dr. Bertrand Patient seen and examined at bedside. No acute events overnight as per nursing. Patient had HD yesterday at [facility]. He was lying in bed this AM under the covers. He denied having any seizures after HD [which he says he usually does have] and denied any headache, dizziness, chest pain, palpitations, SOB, abd pain, nausea, vomiting, bowel complaints, pain/swelling in his legs b/l. He did complain of a cough and some chills but was afebrile overnight. Objective - Vital Signs/Intake and Output Vital Signs (last 24 hours): Temp Pulse Resp BP Pulse Ox 98.4 F 72 18 148/80 92 L 08/31/17 00:00 08/31/17 06:00 08/31/17 00:00 08/31/17 00:00 08/31/17 00:00 Intake and Output: 08/31/17 08/31/17 06:59 18:59 Intake Total 890 Balance 890 - Medications Medications: Current Medications Acetaminophen (Tylenol 325mg Tab) 650 mg PO Q6H PRN PRN Reason: Pain, moderate (4-7) Amlodipine Besylate (Norvasc) 10 mg PO DAILY [facility] Last Admin: 08/30/17 18:12 Dose: 10 mg Calcium Acetate (Phoslo) 667 mg PO TID [facility] Last Admin: 08/30/17 18:12 Dose: 667 mg Carvedilol (Coreg) 3.125 mg PO BID [facility] Last Admin: 08/30/17 18:12 Dose: 3.125 mg Divalproex Sodium (Depakote Er(Once Daily)) 1,000 mg PO DAILY [facility] PRN Reason: Protocol Last Admin: 08/30/17 18:11 Dose: 1,000 mg Meropenem 250 mg/ Sodium (Chloride) 100 mls @ 100 mls/hr IVPB Q12H [facility] PRN Reason: Protocol Stop: 09/08/17 22:31 Last Admin: 08/30/17 23:07 Dose: 100 mls/hr Insulin Detemir (Levemir) 14 unit SC HS [facility] Last Admin: 08/30/17 21:52 Dose: Not Given Insulin Human Regular (Humulin R Low) 0 units SC ACHS [facility] PRN Reason: Protocol Last Admin: 08/30/17 21:39 Dose: Not Given Lorazepam (Ativan) 1 mg IVP Q2H PRN; Protocol PRN Reason: seizure Tramadol HCl (Ultram) 50 mg PO TID PRN PRN Reason: Pain, moderate (4-7) Last Admin: 08/30/17 03:26 Dose: 50 mg - Labs Labs: 08/31/17 06:30 08/31/17 06:30 - Constitutional Appears: Non-toxic, No Acute Distress - Head Exam Head Exam: ATRAUMATIC, NORMAL INSPECTION, NORMOCEPHALIC - Eye Exam Eye Exam: EOMI, Normal appearance, PERRL. absent: Conjunctival injection, Scleral icterus - ENT Exam ENT Exam: Mucous Membranes Moist - Neck Exam Neck Exam: Full ROM - Respiratory Exam Respiratory Exam: NORMAL BREATHING PATTERN. absent: Accessory Muscle Use, Respiratory Distress - Cardiovascular Exam Cardiovascular Exam: +S1, +S2. absent: Murmur - GI/Abdominal Exam GI & Abdominal Exam: Soft. absent: Tenderness - Rectal Exam Rectal Exam: Deferred - Extremities Exam Extremities Exam: Normal Capillary Refill, Normal Inspection - Neurological Exam Neurological Exam: Alert, Awake, CN II-XII Intact, Oriented x3 - Psychiatric Exam Psychiatric exam: Normal Affect, Normal Mood - Skin Skin Exam: Dry, Intact, Normal Color, Warm Assessment and Plan - Assessment and Plan (Free Text) Assessment: Patient is a 57yo male PMHx ESRD on HD for 7 years, HTN, DM presented to [facility] for several weeks of intermittent shaking. Found to have seizures on EEG and transferred to remote TELE. Plan: -please see EEG prelim report for findings of seizure activity -Depakote ER 1000mg po qdaily -Ativan 1mg ivp q2 prn seizures lasting greater than 2 minutes -ammonia wnl -f/u B12 and folate -recommend PT/OT/Speech therapy -continue management as per primary Discussed with Dr. Jerzy Weiss PGY2
[2017-08-31 08:42] VITALS: RESP 20
--- NOTE | 2017-08-31 09:08 | EEG ---
DATE: 08/29/2017 CONDITION OF THE RECORDING: This EEG was acquired by placing 16-channel using 10-20 international electrode system. Continuous EEG monitoring was done using spike detection software. All electrodes referentially to A1/A2 and P1/P2 effectively. There is a normal 8 to 10 Hz posterior dominant rhythm that is reactive, symmetric, and attenuates with eye opening. There is also tremendous muscle activity and electrode artifact as well. During the EEG at 14:08:48 until 14:11:13, there was a 2 Hz rhythmic activity discharge in the left frontal region, which was not artifact, which became a 6 Hz and then a 7 Hz rhythm ending at 14:11:13 with . This rhythm was in the left temporo-occipital region. There is no sleep recorded. Activation maneuvers did not exacerbate event. IMPRESSION: This is an abnormal awake and drowsy EEG. The presence of this multirhythmic activity indicates electrographic seizure. Clinical correlation is required. Daniel Bertrand MD [facility]
[2017-08-31] MEDS: Divalproex 500 mg ER (ONCE DAILY formulation) PO SCH (09:43)
[2017-08-31] MEDS: Insulin Reg-LOW-Coverage SC SCH ×4 (09:43→21:38)
[2017-08-31] MEDS: guaiFENesin DM 100 mg-10 mg/5 ml UD PO PRN ×2 (13:40→21:36)
[2017-08-31] MEDS: Albuterol-Ipratrop 3 mg / 0.5 (3 ml) UD IH SCH ×2 (14:21→20:50)
--- NOTE | 2017-08-31 16:28 | CON ---
DATE: 08/31/2017 REFERRING PHYSICIAN: Makenzie Miranda MD REASON FOR CONSULTATION: End-stage renal disease, on hemodialysis. CHIEF COMPLAINT AND HISTORY OF PRESENT ILLNESS: This is a 57-year-old male who has come into the hospital complaining of intermittent shaking. The patient has a history of end-stage renal disease, hypertension, diabetes type 2. He has been having these shaking episodes after doing the hemodialysis. He says he gets dizzy at times. He denies any headaches or chest pain. No abdominal pain, no back pain, no dysuria, no frequency, no nocturia. The shaking has been occurring for the past 2-3 weeks. He is continuing on dialysis three times a week. He gets dialysis Monday, Monday and Monday. He did get dialyzed yesterday at [facility]. He says he does feel well this morning. ALLERGIES: NO KNOWN DRUG ALLERGIES. MEDICATIONS: His home medications have been reviewed on the [facility]. PAST MEDICAL HISTORY: 1. End-stage renal disease, on hemodialysis. 2. Secondary hyperparathyroidism. 3. Diabetes type 2. 4. Falls. 5. Left hip fracture. 6. Diabetic neuropathy. 7. Diabetic retinopathy. 8. Diabetic nephropathy. 9. DVT/PE. 10. Esophageal cyst. 11. COPD. 12. Right lung abscess. 13. Nonischemic cardiomyopathy. FAMILY HISTORY: The patient's mother and father in their early 50s of unknown causes. SOCIAL HISTORY: The patient is . He lives with his . He has two children. PHYSICAL EXAMINATION VITAL SIGNS: Temperature is 98.7, pulse is 72, blood pressure is 150/80, respirations 20, O2 saturation 93%. Height is 5 feet 11 inches, weight is 136 pounds, and BMI is 19. GENERAL: The patient lying in bed, uncomfortable, and in no acute distress. HEENT: Atraumatic and normocephalic. Anicteric sclerae. Moist mucosa. [place] conjunctivae. No oral lesions. NECK: No JVD, anterior and posterior adenopathy, thyromegaly, or bruits. CARDIOVASCULAR: S1 and S2 regular. No murmur, rubs, or gallop. LUNGS: Clear to auscultation bilaterally. No wheezes, rales, or rhonchi. ABDOMEN: Bowel sounds are positive. Soft, nontender and nondistended. No hepatosplenomegaly. No rebound and no guarding EXTREMITIES: No cyanosis, clubbing, or edema. In the left arm, he has AV fistula with good bruit and thrill. NEUROLOGIC: No facial asymmetry. Tongue is midline. No uvula deviation. Power is 5/5 upper extremity and lower extremity. Sensation intact in upper extremity and lower extremity. PSYCHIATRIC: He has no hallucinations. He denies depression. He does get anxiety at times. He is alert and awake x2. GENITOURINARY: No CVA tenderness. VASCULAR: 2+ pulses in the carotid pulses and pedal pulses. SKIN: No erythema or nodules SPINE: Shows normal curvature. LABORATORY DATA: White count of 9.6, hemoglobin of 11.7, platelet counts of 189. Chemistry shows a sodium of 143, potassium is 4.2, iron saturation is 16%, ammonia is 16, troponin is 0.07. TSH is 1.6. EKG done shows heart rate of 77. There is PVCs. QRS is widened and shows possible LVH. Chest x-ray shows there is an infiltrate in the right lower lobe. CT of the head shows no acute intracranial findings. EEG done shows an abnormal awake EEG. CT of the abdomen and pelvis done shows motion artifact, prostate hypertrophy. ASSESSMENT: 1. End-stage renal disease, on hemodialysis. 2. Diabetic retinopathy. 3. Diabetic neuropathy. 4. Secondary hyperparathyroidism. 5. Anemia secondary to end-stage renal disease. 6. Left arteriovenous fistula. PLAN: The patient is currently comfortable. He has fistula that is functioning. He is continuing to get dialyzed. The patient is going to continue with carvedilol. He is receiving Levemir for his diabetes. He is on meropenem for antibiotics. He is on PhosLo for his secondary hyperparathyroidism and it is a phosphate binder. The patient is on Ultram for pain. He is on a renal diet. He was dialyzed yesterday at [facility]. He is going to be dialyzed tomorrow as per his regular treatment on Monday, Monday and Monday. There is no Acute Dialysis in the hospital at this time because of staffing issues and so the patient is going to [facility]. Thank you for allowing me to participate in the care . Leandro Gilbert MD [facility] # [id number]
--- NOTE | 2017-08-31 16:44 | CON ---
DATE: 08/31/2017 LOCATION: The patient is in bed in room 376, bed 1. CHIEF COMPLAINT: Weakness times several days and chills. HISTORY OF PRESENT ILLNESS: This is a 57-year-old male, known to me from previous admissions with a history of chronic renal failure, on hemodialysis; history of cardiomyopathy; chronic obstructive lung disease; diabetes mellitus with a foot ulcer; retinopathy; diabetic neuropathy and diabetic retinopathy and DVT; pulmonary emboli; history of right lung abscess, who is admitted now through the emergency room complaining of chills, weakness and was admitted with a diagnosis of pneumonia. Infectious Disease consultation requested for antibiotic choice. REVIEW OF SYSTEMS: Reveals the patient had low-grade fevers and chills, mild shortness of breath. No chest pain. No headaches. No blurred vision. No neck pain or sore throat. A 12-point review of systems is performed. PAST MEDICAL HISTORY: Significant for chronic renal failure, on hemodialysis; cardiomyopathy; chronic obstructive lung disease; diabetes mellitus; foot ulcer; diabetic retinopathy; diabetic neuropathy; DVT; PE; right lung abscess. PAST PATIENT REGISTRATION REPRESENTATIVE: Significant for dialysis catheter. ALLERGIES: THE PATIENT HAS NO KNOWN ALLERGIES. MEDICATIONS AT HOME: Include the patient to be on tramadol, Norvasc, Altace, Reglan, insulin, carvedilol, calcium. PHYSICAL EXAMINATION: GENERAL: The patient is in bed, appearing chronically ill and debilitated with a temperature of 98.7, T-max was 99.2 and pulse of 72, it was up to 115, respiratory rate of 20 and blood pressure is 150/80. The patient's O2 saturation at 93%. HEENT: Examination of HEENT is unremarkable. NECK: Supple. LUNGS: Have decreased breath sounds. HEART: Normal S1 and S2. ABDOMEN: Soft, nontender. LABORATORY DATA: Laboratory examination reveals a white count of 9.6, hemoglobin 11, platelets of 189. Chemistries reveals a BUN of 45, creatinine of 6.8. Toxicology is noted. Microbiology is pending. The patient had a chest x-ray and a CAT scan, which showed a right lower lobe infiltrate. ASSESSMENT AND PLAN: A 57-year-old male with chronic renal failure, on hemodialysis; chronic obstructive lung disease; diabetes mellitus; retinopathy; neuropathy; deep venous thrombosis; pulmonary embolism, now presenting with chills and found to have infiltrate. 1. Right lung healthcare-associated pneumonia. 2. Cystitis in a patient with chronic renal failure, on hemodialysis and chronic obstructive pulmonary disease and diabetic. I will treat the patient with vancomycin and meropenem pending panculture, blood culture and sputum culture and we will make further recommendations on the initial response. Of note is the patient's procalcitonin is 0.39 even in phase of a creatinine of 6.8, which speaks against the bacterial pneumonia. We will also order influenza serology and the rapid testing PCR. We will follow with you. On intermittent vancomycin, adjusted for renal failure and meropenem, also dose adjusted for the patient's renal failure. Marcos House MD cc: MD Janelle (Delete if not dictated.)
--- NOTE | 2017-08-31 20:20 | PN ---
DATE: 08/31/2017 PULMONARY PROGRESS NOTE REFERRING PHYSICIAN: Makenzie Miranda MD. SUBJECTIVE: He is lying in the bed, head at 45 degrees. Feels much better. No more jerky movement since antiseizure medication is started. EEG suggested of seizures. No headache. No rhinitis. No nausea. No vomiting. No diarrhea. No leg pain or leg swelling, but he is stuttering his back. OBJECTIVE: GENERAL: In no acute distress. VITAL SIGNS: Temp is 98, heart rate 67, respiratory rate is 20, blood pressure 135/69, pulse ox 94% on room air. HEENT: Moist mucous membrane. Crowded airway. NECK: Supple. No JVD. LUNGS: Have a fair airflow with few rhonchi. HEART: S1 and S2. ABDOMEN: Soft, nontender. No organomegaly. EXTREMITIES: No edema. NEUROLOGIC: Awake and alert. Follows simple command. MEDICATIONS: He is on Ativan 1 mg every 2 hours p.r.n., Coreg 3.125 mg twice a day, Depakote is extended release 1000 mg daily, also on DuoNeb every 6 hours, insulin coverage, meropenem is 250 mg every 12 hours, Norvasc 10 mg daily, PhosLo 667 three times a day, Robitussin DM 5 ml every 4 hours p.r.n., Tylenol p.r.n., Ultram 50 mg every 8 hours p.r.n. LABORATORY DATA: Shows hemoglobin 10, hematocrit 32.4, WBC 7.4, platelet is 159. Sodium 143, potassium 4.2, chloride 98, bicarbonate 30, BUN 45, creatinine 6.8, glucose 165, hemoglobin A1c 7.5, calcium 10.1, AST 27, ALT 28, alk phos is 57, albumin is 3.7, triglyceride 62, cholesterol is 130, TSH 1.63. IMPRESSION AND PLAN: Pleural effusion, pulmonary infiltrate, cardiomyopathy, , diabetes, peripheral neuropathy, gastroesophageal reflux disease, renal failure, dialysis dependent, seizure disorder. Pulmonary point of view, continue bronchodilator. Keep head at 45 degrees. Supplement oxygen. Seizure precaution. May have a sleep apnea syndrome. Refused continuous positive airway pressure use. Continue gastric prophylaxis, deep venous thrombosis prophylaxis. Fall precaution. Physical therapy. Thank you and we will follow with you. Lorie Zamora MD [facility] # [id number]
[2017-08-31] MEDS: Insulin Detemir 100 units/ml Vial (Levemir) SC SCH (21:37)
--- NOTE | 2017-09-01 00:23 | PN ---
DATE: 08/31/2017 SUBJECTIVE: The patient is 57-year-old male. The patient was seen and examined at the bedside, sitting on the chair in his room. Feels much better. No more seizures. No fever. No chills. No nausea, vomiting or diarrhea. No hematuria or hematochezia. No swelling of the leg. No chest pain. No palpitation. No headache. No dizziness. PHYSICAL EXAMINATION: VITAL SIGNS: Temperature 98, heart rate 67, respiratory rate 20, blood pressure 135/69, pulse oximetry 94% on room air. HEENT: Head, normocephalic and atraumatic. Eyes, PERRLA. Extraocular muscles intact. Conjunctivae clear. Nose patent. Mucous membrane moist. NECK: Supple. No carotid bruit. No JVD or thyromegaly. CHEST: Bilaterally symmetrical. HEART: S1, S2 positive. LUNGS: Clear to auscultation. ABDOMEN: Soft. Bowel sounds present. No organomegaly. EXTREMITIES: No edema, no cyanosis. NEUROLOGIC: Patient is awake, alert. Moving all four extremities. No focal deficits. MEDICATIONS: Ativan, Coreg, Depakote, DuoNeb, insulin coverage, meropenem, Norvasc, PhosLo, potassium and tramadol. LABORATORY DATA: Hemoglobin 10, hematocrit 32.4, white blood cells 7.4, platelet 159. Sodium 143, potassium 4.2, BUN 45, creatinine 6.8. Hemoglobin A1c 7.5. AST 27, ALT 28. TSH 1.63. ASSESSMENT AND PLAN: Mr. Stephanie Jackson is a 57-year-old male with pleural effusion, pulmonary infiltrates, rule out pneumonia, cardiomyopathies, insulin-dependant uncontrolled diabetes mellitus type 2, diabetic nephropathy, diabetic neuropathy, diabetic retinopathy, gastroesophageal reflux disease, gastroparesis, having hemodialysis three times a week; seizure disorder, new onset. Patient is getting supplement oxygen. Seizure precautions. Getting dialysis. Sleep apnea syndrome. Refused continuous positive airway pressure use. Patient is noncompliant,urged to be compliant. Continue gastric prophylaxis, deep vein thrombosis prophylaxis. Fall precautions. We will follow up. Makenzie Miranda MD [facility] # [id number]
[2017-09-01] MEDS: Albuterol-Ipratrop 3 mg / 0.5 (3 ml) UD IH SCH ×4 (02:52→20:51)
[2017-09-01 02:53] LABS: URINE BILIRUBIN NEGATIVE (NEGATIVE); URINE BLOOD LARGE (NEGATIVE); URINE GLUCOSE (UA) NEGATIVE (NEGATIVE); URINE LEUKOCYTE ESTERASE MODERATE Leu/uL (NEGATIVE); URINE PROTEIN >=300 mg/dL (<30 mg/dL); URINE UROBILINOGEN 0.2 E.U./dL (<1 E.U./dL)
[2017-09-01 02:54] LABS: URINE APPEARANCE CLOUDY (CLEAR); URINE COLOR YELLOW (YELLOW)
[2017-09-01 03:12] LABS: URINE BACTERIA MOD (NEG); URINE EPITHELIAL CELLS 0 - 2 /hpf (0-5); URINE WBC 20 - 25 /hpf (0-6)
[2017-09-01] MEDS: guaiFENesin DM 100 mg-10 mg/5 ml UD PO PRN (05:05)
[2017-09-01] MEDS: Insulin Reg-LOW-Coverage SC SCH ×6 (07:30→21:30)
--- NOTE | 2017-09-01 08:14 | CP.PCM.PN ---
Subjective - Date & Time of Evaluation Date of Evaluation: 09/01/17 Time of Evaluation: 08:30 - Subjective Subjective: PGY2 Neuro Progress note for Dr. Bertrand Patient seen and examined at bedside. No acute events overnight as per nursing. Patient denied acute complaints of fever, chills, headache, dizziness, chest pain, palpitations, SOB, cough, abd pain, nausea, vomiting, bowel/bladder complaints, pain/swelling in his legs b/l. Objective - Vital Signs/Intake and Output Vital Signs (last 24 hours): Temp Pulse Resp BP Pulse Ox 98.4 F 75 20 140/76 96 09/01/17 04:55 09/01/17 06:00 09/01/17 00:20 09/01/17 00:20 09/01/17 00:20 Intake and Output: 09/01/17 09/01/17 06:59 18:59 Intake Total 540 480 Output Total 100 Balance 440 480 - Medications Medications: Current Medications Acetaminophen (Tylenol 325mg Tab) 650 mg PO Q6H PRN PRN Reason: Pain, moderate (4-7) Albuterol/Ipratropium (Duoneb 3 Mg/0.5 Mg (3 Ml) Ud) 3 ml IH [id number] [facility] Last Admin: 09/01/17 07:31 Dose: 3 ml Amlodipine Besylate (Norvasc) 10 mg PO DAILY [facility] Last Admin: 08/31/17 09:42 Dose: 10 mg Calcium Acetate (Phoslo) 667 mg PO TID [facility] Last Admin: 08/31/17 17:07 Dose: 667 mg Carvedilol (Coreg) 3.125 mg PO BID [facility] Last Admin: 08/31/17 17:07 Dose: 3.125 mg Divalproex Sodium (Depakote Er(Once Daily)) 1,000 mg PO DAILY [facility] PRN Reason: Protocol Last Admin: 08/31/17 09:43 Dose: 1,000 mg Guaifenesin/Dextromethorphan (Robitussin Dm) 5 ml PO Q4H PRN PRN Reason: Cough Last Admin: 09/01/17 05:05 Dose: 5 ml Meropenem 250 mg/ Sodium (Chloride) 100 mls @ 100 mls/hr IVPB Q12H [facility] PRN Reason: Protocol Stop: 09/08/17 22:31 Last Admin: 08/31/17 21:53 Dose: 100 mls/hr Insulin Detemir (Levemir) 14 unit SC HS [facility] Last Admin: 08/31/17 21:37 Dose: Not Given Insulin Human Regular (Humulin R Low) 0 units SC ACHS [facility] PRN Reason: Protocol Last Admin: 08/31/17 21:38 Dose: Not Given Lorazepam (Ativan) 1 mg IVP Q2H PRN; Protocol PRN Reason: seizure Tramadol HCl (Ultram) 50 mg PO TID PRN PRN Reason: Pain, moderate (4-7) Last Admin: 08/31/17 21:35 Dose: 50 mg - Labs Labs: 08/31/17 06:30 08/31/17 06:30 - Constitutional Appears: Non-toxic, No Acute Distress - Head Exam Head Exam: ATRAUMATIC, NORMAL INSPECTION, NORMOCEPHALIC - Eye Exam Eye Exam: EOMI, Normal appearance, PERRL. absent: Conjunctival injection, Scleral icterus Pupil Exam: NORMAL ACCOMODATION, PERRL - ENT Exam ENT Exam: Mucous Membranes Moist - Neck Exam Neck Exam: Full ROM, Normal Inspection - Respiratory Exam Respiratory Exam: Chest Wall Tenderness, NORMAL BREATHING PATTERN. absent: Accessory Muscle Use, Respiratory Distress - Cardiovascular Exam Cardiovascular Exam: +S1, +S2 - Extremities Exam Extremities Exam: Normal Capillary Refill, Normal Inspection - Neurological Exam Neurological Exam: Alert, Awake, CN II-XII Intact, Oriented x3 Neuro motor strength exam: Left Upper Extremity: 5, Right Upper Extremity: 5, Left Lower Extremity: 5, Right Lower Extremity: 5 - Psychiatric Exam Psychiatric exam: Normal Affect, Normal Mood - Skin Skin Exam: Dry, Intact, Normal Color, Warm Assessment and Plan - Assessment and Plan (Free Text) Assessment: 57yo male PMHx ESRD on HD for 7 years, HTN, DM presented to [facility] [place] for several weeks of intermittent shaking. Found to have seizures on EEG and transferred to remote TELE. Plan: -please see EEG prelim report for findings of seizure activity -Depakote ER 1000mg po qdaily -f/u depakote level in the AM Depakote 17: 11 (low) -Ativan 1mg ivp q2 prn seizures lasting greater than 2 minutes -ammonia wnl -B12 and folate wnl -recommend PT/OT/Speech therapy -continue management as per primary Discussed with Dr. Jerzy Weiss PGY2
[2017-09-01] MEDS: Divalproex 500 mg ER (ONCE DAILY formulation) PO SCH (10:05)
--- NOTE | 2017-09-01 13:56 | CP.PCM.PN ---
Subjective - Date & Time of Evaluation Date of Evaluation: 09/01/17 Time of Evaluation: 13:30 - Subjective Subjective: Patient went for dialysis this morning, breathing better, no fevers. Objective - Vital Signs/Intake and Output Vital Signs (last 24 hours): Temp Pulse Resp BP Pulse Ox 98.4 F 75 20 140/76 96 09/01/17 04:55 09/01/17 06:00 09/01/17 00:20 09/01/17 00:20 09/01/17 00:20 Intake and Output: 09/01/17 09/01/17 06:59 18:59 Intake Total 540 480 Output Total 100 Balance 440 480 - Medications Medications: Current Medications Acetaminophen (Tylenol 325mg Tab) 650 mg PO Q6H PRN PRN Reason: Pain, moderate (4-7) Albuterol/Ipratropium (Duoneb 3 Mg/0.5 Mg (3 Ml) Ud) 3 ml IH [id number] [facility] Last Admin: 09/01/17 07:31 Dose: 3 ml Amlodipine Besylate (Norvasc) 10 mg PO DAILY [facility] Last Admin: 09/01/17 10:05 Dose: Not Given Calcium Acetate (Phoslo) 667 mg PO TID [facility] Last Admin: 09/01/17 10:05 Dose: Not Given Carvedilol (Coreg) 3.125 mg PO BID [facility] Last Admin: 09/01/17 10:05 Dose: Not Given Divalproex Sodium (Depakote Er(Once Daily)) 1,000 mg PO DAILY [facility] PRN Reason: Protocol Last Admin: 09/01/17 10:05 Dose: Not Given Guaifenesin/Dextromethorphan (Robitussin Dm) 5 ml PO Q4H PRN PRN Reason: Cough Last Admin: 09/01/17 05:05 Dose: 5 ml Meropenem 250 mg/ Sodium (Chloride) 100 mls @ 100 mls/hr IVPB Q12H [facility] PRN Reason: Protocol Stop: 09/08/17 22:31 Last Admin: 09/01/17 10:05 Dose: Not Given Insulin Detemir (Levemir) 14 unit SC HS [facility] Last Admin: 08/31/17 21:37 Dose: Not Given Insulin Human Regular (Humulin R Low) 0 units SC ACHS [facility] PRN Reason: Protocol Last Admin: 08/31/17 21:38 Dose: Not Given Lorazepam (Ativan) 1 mg IVP Q2H PRN; Protocol PRN Reason: seizure Tramadol HCl (Ultram) 50 mg PO TID PRN PRN Reason: Pain, moderate (4-7) Last Admin: 08/31/17 21:35 Dose: 50 mg - Labs Labs: 08/31/17 06:30 08/31/17 06:30 - Constitutional Appears: Chronically Ill - Head Exam Head Exam: NORMAL INSPECTION - Respiratory Exam Respiratory Exam: Decreased Breath Sounds - Cardiovascular Exam Cardiovascular Exam: +S1, +S2 - GI/Abdominal Exam GI & Abdominal Exam: Soft. absent: Tenderness Assessment and Plan - Assessment and Plan (Free Text) Plan: Assessment right sided HCAP history of left facial pre-septal cellulitis, with dental caries and necrotic left lower molars ESRD on HD DM COPD diabetic retinopathy and neuropathy history of DVT and PE history of diabetic foot ulcers history of right lung abscess non-ischemic cardiomyopathy Plan continue Merrem and intermittent Vancomycin day 2; blood cx are negative x 1 day ; will aim for 4-7 days of therapy will monitor clinically
--- NOTE | 2017-09-01 18:06 | PN ---
DATE: 09/01/2017 SUBJECTIVE: The patient has no complaints of any chest pain, any shortness of breath. No headaches or dizziness. PHYSICAL EXAMINATION: VITAL SIGNS: Temperature is 99.1, pulse is 97, blood pressure 140/79, respiratory rate is 20. GENERAL: The patient is lying in bed, flat, comfortable. HEENT: No oral lesion. Anicteric sclerae. Moist mucosa. NECK: No JVD, adenopathy, or thyromegaly. CARDIOVASCULAR: S1 and S2, regular. No murmurs, rubs, or gallops. LUNGS: Clear to auscultation bilaterally. No wheeze, rales, or rhonchi. ABDOMEN: Bowel sounds are positive, soft, nontender and nondistended. EXTREMITIES: No cyanosis, clubbing or edema. Left arm AV fistula with good thrill and bruit. LABORATORY DATA: Creatinine is 6.8. ASSESSMENT: 1. End-stage renal disease on hemodialysis Monday, Monday, and Monday. 2. Secondary hyperparathyroidism. 3. Diabetic retinopathy. 4. Diabetic neuropathy. 5. Anemia secondary to end-stage renal disease. 6. Left AV fistula. PLAN: The patient is dialyzed today. He is going to continue carvedilol. He is receiving Levemir for his diabetes. He is on amlodipine for his hypertension. The patient is on calcium acetate. He is going to be on a renal diet. Currently, the patient is being evaluated by Neurology for possible seizures. This is not related to uremic symptoms as the patient is being dialyzed adequately. The EEG does show findings of seizure activity. Leandro Gilbert MD
--- NOTE | 2017-09-01 18:49 | PN ---
DATE: 09/01/2017 PULMONARY PROGRESS NOTE REFERRING PHYSICIAN: Makenzie Miranda MD. SUBJECTIVE: He is lying in the dialysis chair, finishing up. Again started his jerky movement, upper and lower extremities. No headache. No rhinitis. No nausea. No vomiting, diarrhea, leg pain, leg swelling. OBJECTIVE: GENERAL: In no acute distress. VITAL SIGNS: Temp is 99, T-max 100.3, heart rate is 80, respiratory rate is 20, blood pressure 148/79, pulse ox 99% on room air. HEENT: Moist mucous membrane. Crowded airway. Mallampati score is 4. NECK: Supple. No JVD. LUNGS: Have a fair airflow with few rhonchi. HEART: S1 and S2. ABDOMEN: Soft, nontender. No organomegaly. EXTREMITIES: No edema. NEUROLOGICAL: Awake and alert. Follows simple command. LABORATORY DATA: Blood sugar this morning 163. Influenza A and B have been negative. Blood culture has been negative. MEDICATIONS: He is on Ativan 1 mg every 2 hours p.r.n., Coreg 3.125 mg twice a day, Depakote 1000 mg daily, insulin coverage, Levemir 40 units subcu at bedtime, meropenem 250 mg every 12 hours, Norvasc 10 mg daily, Robitussin 5 mL every 4 hours p.r.n., Tylenol p.r.n., Ultram 50 mg three times a day p.r.n. IMPRESSION AND PLAN: Pleural effusion, pulmonary infiltrate, cardiomyopathy, diabetes, peripheral neuropathy, gastroesophageal reflux disease, renal failure, dialysis dependent, seizure disorder. Apparently, his medication was not given, again has episode of seizure. Being followed by Neurology. Level is low. May need to increase Depakote, but first need to make sure if he had been getting or not. Seizure precaution. Aspiration precaution. Continue bronchodilator. Follow up labs in the morning. Thank you and we will follow with you. Lorie Zamora MD
[2017-09-01] MEDS: Insulin Detemir 100 units/ml Vial (Levemir) SC SCH (21:30)
--- NOTE | 2017-09-02 00:57 | PN ---
DATE: 09/01/2017 SUBJECTIVE: The patient is a 57-year-old male. The patient was seen and examined on 09/01/2017. Sitting on the chair, looking comfortable. No nausea, vomiting or diarrhea. Shaking movements is getting better. No headache. No dizziness. No fever. No chills. PHYSICAL EXAMINATION VITAL SIGNS: Temperature 99, T-max 100.3, heart rate 80, respiratory rate 20, blood pressure 140/79, pulse oximetry 99% on room air. HEENT: Head, normocephalic and atraumatic. Eyes, PERRLA. Extraocular muscles intact. Conjunctivae clear. Nose patent. Mucous membrane moist. NECK: Supple. No carotid bruit. No JVD or thyromegaly. CHEST: Bilaterally symmetrical. HEART: S1, S2 positive. LUNGS: Clear to auscultation. ABDOMEN: Soft, nontender. No organomegaly. EXTREMITIES: No edema, no cyanosis. NEUROLOGIC: Patient is awake, alert. Follows simple commands. LABORATORY DATA: We do not have recent labs today, but I reviewed old labs. Blood sugar is 163. MEDICATIONS: Ativan, Coreg, Depakote, insulin Levemir, meropenem, Norvasc, Robitussin, Tylenol, tramadol. ASSESSMENT AND PLAN: Mr. Stephanie Jackson is a 57-year-old male with multiple medical problems, pleural effusion, pulmonary hypertension and cardiomyopathy, new onset seizures, diabetes mellitus, diabetic neuropathy, diabetic nephropathy, diabetic retinopathy, gastroesophageal reflux disease, dialysis dependent. Apparently, seizure medication was not given again. Has episodes of seizure, being followed by neurologist, expecting that neurologist will take care of seizures and we will adjust the Depakote. Seizure precautions. Gastrointestinal and deep venous thrombosis prophylaxis. Repeat labs, aspiration precautions. We will follow up Makenzie Miranda MD
[2017-09-02] MEDS: Albuterol-Ipratrop 3 mg / 0.5 (3 ml) UD IH SCH ×3 (02:46→13:48)
[2017-09-02] MEDS: Insulin Reg-LOW-Coverage SC SCH ×2 (08:04→14:30)
[2017-09-02] MEDS: guaiFENesin DM 100 mg-10 mg/5 ml UD PO PRN ×2 (08:10→15:10)
[2017-09-02 08:53] VITALS: TEMP 99; O2SAT 94
[2017-09-02] MEDS: Divalproex 500 mg ER (ONCE DAILY formulation) PO SCH (09:46)
[2017-09-02 09:49] VITALS: BP 167/87
[2017-09-02 12:25] VITALS: PULSE 79
--- NOTE | 2017-09-03 01:26 | PN ---
DATE: 09/02/2017 PULMONARY PROGRESS NOTE REFERRING PHYSICIAN: Dr. Miranda. SUBJECTIVE: Patient is sitting on the side of the bed. Night was unremarkable. Feels better. Jerky movement is much better today. No headache, no rhinitis. No nausea. No vomiting or diarrhea. No leg pain or leg swelling. OBJECTIVE: GENERAL: In no acute distress. VITAL SIGNS: Temperature is 99, heart rate 79, respiratory rate is 20, blood pressure 167/87, pulse ox 94% on room air. HEENT: Moist mucous membrane. No ulcer or thrush noted. NECK: Supple. No JVD. LUNGS: Has fair airflow with rhonchi. HEART: S1 and S2. ABDOMEN: Soft, nontender. No organomegaly. EXTREMITIES: Not much edema. NEUROLOGIC: Awake and alert, follows simple command. MEDICATIONS: Reviewed and noted. No new changes in medication reported since yesterday. LABORATORY DATA: Reviewed. Blood sugar this morning 278. Microbiology, urine culture has gram negative rods. Blood culture has been negative. IMPRESSION AND PLAN: Pleural effusion; pulmonary infiltrate; cardiomyopathy; diabetes; peripheral neuropathy; gastroesophageal reflux disease; renal failure, dialysis dependent; urinary tract infection; seizure disorder. Pulmonary point of view, doing okay. Keep head at 45 degrees. Continue bronchodilator. Continue antibiotics. Continue Depakote. Follow up . Spoke to nursing staff to assure that patient is getting Depakote according to prescription. Thank you and we will follow with you. Lorie Zamora MD
== END 2017-09-02 15:38 | DRG 100 ==
LOC: ED 05:57 → ERH 08:34 → 5RSO 10:24 → OBSVTOIN 08-30 09:48 → 3RSO 08-30 17:30
PROVIDERS: ADMIT Internal Medicine; ATTEND Internal Medicine
DX: G40.909 Epilepsy, unspecified, not intractable, without status epilepticus (principal); J18.9 Pneumonia, unspecified organism; N18.6 End stage renal disease; J44.0 Chronic obstructive pulmonary disease with (acute) lower respiratory infection; I13.2 Hypertensive heart and chronic kidney disease with heart failure and with stage 5 chronic kidney disease, or end stage renal disease; I42.9 Cardiomyopathy, unspecified; N25.81 Secondary hyperparathyroidism of renal origin; D63.1 Anemia in chronic kidney disease; E11.21 Type 2 diabetes mellitus with diabetic nephropathy; E11.319 Type 2 diabetes mellitus with unspecified diabetic retinopathy without macular edema; E11.42 Type 2 diabetes mellitus with diabetic polyneuropathy; E11.22 Type 2 diabetes mellitus with diabetic chronic kidney disease; E11.43 Type 2 diabetes mellitus with diabetic autonomic (poly)neuropathy; E78.00 Pure hypercholesterolemia, unspecified; E83.41 Hypermagnesemia; E87.8 Other disorders of electrolyte and fluid balance, not elsewhere classified; G47.30 Sleep apnea, unspecified; Z86.718 Personal history of other venous thrombosis and embolism; Z86.711 Personal history of pulmonary embolism; I27.20 Pulmonary hypertension, unspecified; I50.9 Heart failure, unspecified; K21.9 Gastro-esophageal reflux disease without esophagitis; S72.002D Fracture of unspecified part of neck of left femur, subsequent encounter for closed fracture with routine healing; S42.90XD Fracture of unspecified shoulder girdle, part unspecified, subsequent encounter for fracture with routine healing; K31.84 Gastroparesis; M19.90 Unspecified osteoarthritis, unspecified site; N30.90 Cystitis, unspecified without hematuria; Y95 Nosocomial condition; Z87.01 Personal history of pneumonia (recurrent); Z87.440 Personal history of urinary (tract) infections; Z91.19 Patient's noncompliance with other medical treatment and regimen; Z99.2 Dependence on renal dialysis; K22.8 Other specified diseases of esophagus

== ENCOUNTER 2017-09-02 15:42 | Inpatient (IN) | payer OTHER, MEDICAID ==
[2017-09-02] MEDS ORDERED: MEROPENEM IVPB SCH (16:00)
[2017-09-02] MEDS: Insulin Reg-LOW-Coverage SC SCH ×2 (17:28→22:17)
[2017-09-02 17:31] VITALS: BMI 19.3
[2017-09-02] MEDS ORDERED: Pneumococcal 23-Valent Vaccine IM ONE (17:32)
[2017-09-02] MEDS: Albuterol-Ipratrop 3 mg / 0.5 (3 ml) UD IH SCH (19:59)
[2017-09-02] MEDS: Insulin Detemir 100 units/ml Vial (Levemir) SC SCH (22:18)
[2017-09-03] MEDS: Albuterol-Ipratrop 3 mg / 0.5 (3 ml) UD IH SCH ×4 (01:51→20:04)
[2017-09-03] MEDS: Insulin Reg-LOW-Coverage SC SCH ×5 (07:36→21:44)
[2017-09-03] MEDS: Divalproex 500 mg ER (ONCE DAILY formulation) PO SCH (10:35)
--- NOTE | 2017-09-03 15:39 | CON ---
DATE: 09/03/2017 LOCATION: The patient is seen earlier in room 322. CHIEF COMPLAINT: Weakness for several days. HISTORY OF PRESENT ILLNESS This is a 57-year-old male with end-stage renal disease on hemodialysis, chronic obstructive lung disease, diabetic retinopathy and neuropathy, history of DVT, history of pulmonary emboli, history of diabetic foot ulcers, right lung abscess, history of nonischemic cardiomyopathy, history of facial cellulitis, who is admitted to the acute care, had been receiving antibiotics and the patient now transferred to transitional care for physical therapy. The patient had episode of seizures, had been on meropenem and acute care. PAST MEDICAL HISTORY: Significant for end-stage renal disease on hemodialysis, chronic obstructive lung disease, diabetic retinopathy, diabetic foot ulcers, diabetic neuropathy, also with DVT, pulmonary emboli, facial cellulitis and nonischemic cardiomyopathy and right lung abscess. PAST SURGICAL HISTORY: Need for dialysis catheter anoop access. ALLERGIES: THE PATIENT HAS NO KNOWN ALLERGIES. MEDICATIONS: Are reviewed. PHYSICAL EXAMINATION: VITAL SIGNS: On exam, the patient's temperature is 98, blood pressure is 120/70, respiratory rate of 16. HEENT: Examination of HEENT is unremarkable. NECK: Supple. LUNGS: Have decreased breath sounds. HEART: Normal S1 and S2. ABDOMEN: Soft, nontender. LABORATORY DATA: Laboratory examination reveals a white count of 7.4, hemoglobin of 10. BUN of 45, creatinine of 6.8. ASSESSMENT AND PLAN: A 57-year-old male with right-sided healthcare-associated pneumonia and with end-stage renal disease on hemodialysis, COPD, had completed meropenem. There is a questionable seizures. We will discontinue the meropenem and complete with p.o. doxycycline. Follow the seizure activity and will complete 5 days of p.o. doxycycline 100 mg p.o. b.i.d. and we will make further recommendations. Marcos House MD
[2017-09-03] MEDS: POLYETHYLENE GLYCOL 3350 17 GM/Dose PACKET PO SCH (17:32)
[2017-09-03] MEDS: Ammonium Lactate 12% Lotion (225 g) EXT SCH (17:42)
[2017-09-03] MEDS: Insulin Detemir 100 units/ml Vial (Levemir) SC SCH (21:44)
[2017-09-03] MEDS: guaiFENesin DM 100 mg-10 mg/5 ml UD PO PRN (21:55)
[2017-09-04] MEDS: Albuterol-Ipratrop 3 mg / 0.5 (3 ml) UD IH SCH ×4 (01:48→21:00)
[2017-09-04] MEDS: Insulin Reg-LOW-Coverage SC SCH ×4 (06:55→22:03)
--- NOTE | 2017-09-04 08:28 | CON ---
DATE: 09/03/2017 REFERRING PHYSICIAN: Makenzie Miranda MD. SUBJECTIVE: He is out of bed to chair. Night was unremarkable. Still occasionally having jerky movement of upper and lower extremity, but overall much improved. No headache, no rhinitis. No nausea, no vomiting, no diarrhea. No leg pain or leg swelling. PAST MEDICAL HISTORY: Positive for renal failure, dialysis dependent, hypertension, chronic lung disease, diabetes, peripheral neuropathy, anemia, arthritis, GERD, reoccurring UTI, anxiety disorder, depression and now has seizures. ALLERGIES: NONE KNOWN. SOCIAL HISTORY: Nonsmoker, nondrinker. FAMILY HISTORY: No significant cardiopulmonary disease reported. OBJECTIVE: GENERAL: In no acute distress. VITAL SIGNS: Temperature is 98, heart rate is 71, respiratory rate is 20, blood pressure 132/72, pulse ox 97% on room air. HEENT: Moist mucous membrane. Crowded airway. NECK: Supple. No JVD. LUNGS: Have a fair airflow with rhonchi. HEART: S1 and S2. ABDOMEN: Soft, nontender. No organomegaly. EXTREMITIES: No edema. NEUROLOGIC: Awake, alert. Follows simple command. MEDICATIONS: He is on Ativan 0.5 mg every 12 p.r.n., Coreg 3.125 mg twice a day, Depakote 1000 mg daily, doxycycline 100 mg twice a day, DuoNeb every 6 hours, insulin coverage, Levemir 40 units subcutaneously at bedtime, Norvasc 10 mg daily, PhosLo with meal three times a day, Robitussin DM 5 mL every 4 hours p.r.n., Tylenol p.r.n., Ultram 50 mg three times a day p.r.n. basis. LABORATORY DATA: Reviewed. Blood sugar is 72. IMPRESSION AND PLAN: Small pleural effusion, pulmonary infiltrate, cardiomyopathy, diabetes, peripheral neuropathy, gastroesophageal reflux disease, renal failure, dialysis dependent, reoccurring seizure, still have seizure, but decreased frequency. We will suggest getting Depakote level for tomorrow. May have to add second drug or increase the dose? We will leave that for Neurology to decide. Keep head at 45 degrees. Bronchodilator, fall precaution, gastric prophylaxis. Mohammad Noah, MD
[2017-09-04] MEDS: Divalproex 500 mg ER (ONCE DAILY formulation) PO SCH (12:28)
[2017-09-04] MEDS: Ammonium Lactate 12% Lotion (225 g) EXT SCH ×2 (12:30→18:09)
[2017-09-04] MEDS: POLYETHYLENE GLYCOL 3350 17 GM/Dose PACKET PO SCH ×2 (12:31→18:09)
[2017-09-04] MEDS: guaiFENesin DM 100 mg-10 mg/5 ml UD PO PRN ×2 (13:26→22:00)
--- NOTE | 2017-09-04 17:15 | CP.PCM.PN ---
Subjective - Date & Time of Evaluation Date of Evaluation: 09/04/17 Time of Evaluation: 10:00 - Subjective Subjective: Patient is feeling better, no fevers, breathing better. No diarrhea. Objective - Vital Signs/Intake and Output Vital Signs (last 24 hours): Temp Pulse Resp BP Pulse Ox 98.6 F 70 16 133/62 97 09/03/17 16:00 09/03/17 17:33 09/03/17 16:00 09/03/17 17:33 09/03/17 16:00 - Medications Medications: Current Medications Acetaminophen (Tylenol 325mg Tab) 650 mg PO Q6H PRN PRN Reason: Pain, moderate (4-7) Albuterol/Ipratropium (Duoneb 3 Mg/0.5 Mg (3 Ml) Ud) 3 ml IH [id number] [facility] Last Admin: 09/04/17 01:48 Dose: Not Given Amlodipine Besylate (Norvasc) 10 mg PO DAILY [facility] Last Admin: 09/03/17 09:55 Dose: 10 mg Calcium Acetate (Phoslo) 667 mg PO TID [facility] Last Admin: 09/03/17 17:33 Dose: 667 mg Carvedilol (Coreg) 3.125 mg PO BID [facility] Last Admin: 09/03/17 17:33 Dose: 3.125 mg Divalproex Sodium (Depakote Er(Once Daily)) 1,000 mg PO DAILY [facility] PRN Reason: Protocol Last Admin: 09/03/17 10:35 Dose: 1,000 mg Docusate Sodium (Colace) 100 mg PO BID [facility] Last Admin: 09/03/17 17:32 Dose: 100 mg Doxycycline Hyclate (Doryx) 100 mg PO Q12 [facility] PRN Reason: Protocol Guaifenesin/Dextromethorphan (Robitussin Dm) 5 ml PO Q4H PRN PRN Reason: Cough Last Admin: 09/03/17 21:55 Dose: 5 ml Insulin Detemir (Levemir) 14 unit SC HS [facility] Last Admin: 09/03/17 21:44 Dose: Not Given Insulin Human Regular (Humulin R Low) 0 units SC ACHS [facility] PRN Reason: Protocol Last Admin: 09/03/17 21:44 Dose: Not Given Lactic Acid (Lac-Hydrin 12% Lotion (225 G)) 1 gm EXT BID [facility] Last Admin: 09/03/17 17:42 Dose: 1 applic Lorazepam (Ativan) 0.5 mg IVP Q2H PRN; Protocol PRN Reason: seizure Polyethylene Glycol (Miralax) 17 gm PO BID [facility] Last Admin: 09/03/17 17:32 Dose: 17 gm Tramadol HCl (Ultram) 50 mg PO TID PRN PRN Reason: Pain, moderate (4-7) Last Admin: 09/03/17 21:45 Dose: 50 mg - Constitutional Appears: Non-toxic, Chronically Ill - Head Exam Head Exam: NORMAL INSPECTION - ENT Exam ENT Exam: Mucous Membranes Moist - Neck Exam Neck Exam: absent: Meningismus - Respiratory Exam Respiratory Exam: Decreased Breath Sounds - Cardiovascular Exam Cardiovascular Exam: +S1, +S2 - GI/Abdominal Exam GI & Abdominal Exam: Soft. absent: Tenderness Assessment and Plan - Assessment and Plan (Free Text) Plan: Assessment right sided HCAP, clinically improving history of left facial pre-septal cellulitis, with dental caries and necrotic left lower molars ESRD on HD DM COPD diabetic retinopathy and neuropathy history of DVT and PE history of diabetic foot ulcers history of right lung abscess non-ischemic cardiomyopathy Plan continue doxycycline for 4 more days will monitor clinically
[2017-09-04] MEDS: Insulin Detemir 100 units/ml Vial (Levemir) SC SCH (22:02)
[2017-09-05] MEDS: Albuterol-Ipratrop 3 mg / 0.5 (3 ml) UD IH SCH ×4 (02:48→21:28)
[2017-09-05] MEDS: Insulin Reg-LOW-Coverage SC SCH ×4 (07:00→22:02)
--- NOTE | 2017-09-05 07:53 | CP.PCM.CON ---
History of Present Illness - History of Present Illness History of Present Illness: Neuro Consult note for Dr. Yeung 57yo male PMHx ESRD on HD for 7 years, HTN, DM presented [place] [facility] [place] for several weeks of intermittent shaking. Patient reports he used to get "shaky" after HD and would feel dizzy and "occupied" and admitted to an unsteady gait. He reports that over the last few days prior to admission he started to feel like he was jumping and shaking in bed with associated numbness. 2 months ago he said he was sleeping and shaking and found himself on the floor. Patient did not remember how he fell but had a L hip and shoulder fracture as a result. He denied any biting of the tongue, frothing at the mouth, and loss of bowel/ bladder control. He also denied noticing any smells/sounds prior to his shakes. He did admit to an intermittent headache but his greatest complaint was his "shakes." During hospital course patient was diagnosed with new onset epileptic seizures on EEG and transferred to [facility]. Patient was started on Depakote ER 1000mg po qd for seizures. Patient is currently in TCU and Neurology was reconsulted for seizure management. Patient was seen and examined standing up by his bed using his walker. He reported feeling much better and stated that his shakes have improved. He denied acute complaints of headache, dizziness, fever, chills, chest pain, SOB, cough, abd pain, nausea, vomiting, bowel complaints, pain/ swelling in his legs b/l. He has been working with PT and reports he feels stronger. PMHx: ESRD on HD for 7 years, HTN, DM PSurgHx: 2 RLE surgeries, L hip and L foot surgery, hand surgery, fistula Meds: pls see chart ALL: NKDA FamHx: denies SocHx: denies tobacco/EtOH/drug use Review of Systems - Review of Systems All systems: reviewed and no additional remarkable complaints except Review of Systems: as per HPI Past Patient History - Infectious Disease Hx of Infectious Diseases: None - Tetanus Immunizations Tetanus Immunization: Up to Date - Past Medical History & Family History Past Medical History?: Yes - Past Social History Smoking Status: Never Smoked - CARDIAC Hx Congestive Heart Failure: Yes Hx Hypercholesterolemia: Yes Hx Hypertension: Yes - PULMONARY Hx Chronic Obstructive Pulmonary Disease (COPD): Yes - NEUROLOGICAL Hx Neurological Disorder: Yes Hx Dizziness: Yes (after hd) Other/Comment: diabetic neuropathy pain/tingling/stinging/itch from b/l knees and below, involuntary jumping, shaking and jerking movements x 2 wks - HEENT Hx HEENT Problems: Yes (missing teeth) Other/Comment: [place] left ear, blurred vision - RENAL Hx Renal Failure: Yes (HD (MWF)) - ENDOCRINE/METABOLIC Hx Diabetes Mellitus Type 2: Yes - HEMATOLOGICAL/ONCOLOGICAL Hx Blood Disorders: Yes Hx Anemia: Yes (blood transfusion) - INTEGUMENTARY Hx Dermatological Problems: Yes Other/Comment: left facial and orbital cellulitis chronic on and off, pt stated "I feel bumps under the skin on my face when I run my hands over skin"./ dry leathery skin ble with multiple dark brown skin discolorations, r knee healed wound scars, dark brown skin discoloratins to feet thick hard toenails both feet , multiple skin discolorations to both arms, multiple dark closed wounds b/l legs, healed diabetic foot ulcers - MUSCULOSKELETAL/RHEUMATOLOGICAL Hx Falls: Yes (past) - GASTROINTESTINAL Hx Gastrointestinal Disorders: Yes (hx c dif/reflux/missing teeth) - GENITOURINARY/GYNECOLOGICAL Hx Genitourinary Disorders: Yes (esrd) Hx Reproductive Disorders: No - PSYCHIATRIC Hx Substance Use: No - SURGICAL HISTORY Hx Amputation: No Hx Appendectomy: No Hx Cardiac Catheterization: Yes (01/2013 dr cedeno) Hx Cholecystectomy: No Hx Coronary Stent: No Hx Gastric Bypass Surgery: No Hx Hysterectomy: No Hx Joint Replacement: No Hx Kidney Transplant: No Hx Liver Transplant: No Hx Mastectomy: No Hx Musculoskeletal Surgery: No Hx Open Heart Surgery: No Hx Orthopedic Surgery: Yes (L hip fx orif 05/07/17, pt fell) Hx Splenectomy: No Hx Valve Replacement: No Other/Comment: sanket av shunt, ultrasound guided r thoracentesis 05/20/13 2600 straw fluid drained, fistulagram 07/13/17 - ANESTHESIA Hx Anesthesia: Yes Hx Anesthesia Reactions: No Hx Malignant Hyperthermia: No Meds Allergies/Adverse Reactions: Allergies Allergy/AdvReac Type Severity Reaction Status Date / Time No Known Allergies Allergy Verified 09/02/17 15:51 - Medications Medications: Current Medications Acetaminophen (Tylenol 325mg Tab) 650 mg PO Q6H PRN PRN Reason: Pain, moderate (4-7) Albuterol/Ipratropium (Duoneb 3 Mg/0.5 Mg (3 Ml) Ud) 3 ml IH [id number] [facility] Last Admin: 09/05/17 02:48 Dose: Not Given Amlodipine Besylate (Norvasc) 10 mg PO DAILY [facility] Last Admin: 09/04/17 12:31 Dose: 10 mg Calcium Acetate (Phoslo) 667 mg PO TID [facility] Last Admin: 09/04/17 18:08 Dose: 667 mg Carvedilol (Coreg) 3.125 mg PO BID [facility] Last Admin: 09/04/17 19:35 Dose: 3.125 mg Divalproex Sodium (Depakote Er(Once Daily)) 1,000 mg PO DAILY [facility] PRN Reason: Protocol Last Admin: 09/04/17 12:28 Dose: 1,000 mg Docusate Sodium (Colace) 100 mg PO BID [facility] Last Admin: 09/04/17 19:36 Dose: 100 mg Doxycycline Hyclate (Doryx) 100 mg PO Q12 [facility] PRN Reason: Protocol Last Admin: 09/04/17 22:00 Dose: 100 mg Guaifenesin/Dextromethorphan (Robitussin Dm) 5 ml PO Q4H PRN PRN Reason: Cough Last Admin: 09/04/17 22:00 Dose: 5 ml Insulin Detemir (Levemir) 14 unit SC HS [facility] Last Admin: 09/04/17 22:02 Dose: Not Given Insulin Human Regular (Humulin R Low) 0 units SC [facility] PRN Reason: Protocol Last Admin: 09/05/17 07:00 Dose: Not Given Lactic Acid (Lac-Hydrin 12% Lotion (225 G)) 1 gm EXT BID [facility] Last Admin: 09/04/17 18:09 Dose: 1 applic Lorazepam (Ativan) 0.5 mg IVP Q2H PRN; Protocol PRN Reason: seizure Polyethylene Glycol (Miralax) 17 gm PO BID [facility] Last Admin: 09/04/17 18:09 Dose: 17 gm Tramadol HCl (Ultram) 50 mg PO TID PRN PRN Reason: Pain, moderate (4-7) Last Admin: 09/03/17 21:45 Dose: 50 mg Physical Exam - Constitutional Appears: Non-toxic, No Acute Distress - Head Exam Head Exam: ATRAUMATIC, NORMAL INSPECTION, NORMOCEPHALIC - Eye Exam Eye Exam: EOMI, Normal appearance, PERRL. absent: Conjunctival injection, Scleral icterus Pupil Exam: NORMAL ACCOMODATION - ENT Exam ENT Exam: Mucous Membranes Moist - Neck Exam Neck exam: Positive for: Full Rom, Normal Inspection - Respiratory Exam Respiratory Exam: NORMAL BREATHING PATTERN. absent: Accessory Muscle Use, Respiratory Distress - Cardiovascular Exam Cardiovascular Exam: +S1, +S2 - Extremities Exam Extremities exam: Positive for: normal capillary refill, normal inspection, pedal pulses present. Negative for: pedal edema - Back Exam Back exam: NORMAL INSPECTION. absent: rash noted - Neurological Exam Neurological exam: Alert, CN II-XII Intact, Oriented x3 Additional comments: strength 5/5 in all 4 extremities and sensation intact in all 4 extremities ambulating with walker - Psychiatric Exam Psychiatric exam: Normal Affect, Normal Mood - Skin Skin Exam: Dry, Intact, Normal Color, Warm Results - Vital Signs Recent Vital Signs: Last Vital Signs Temp 98.8 F 09/04/17 06:00 Pulse 74 09/04/17 19:35 Resp 19 09/04/17 06:00 BP 146/76 09/04/17 19:35 Pulse Ox 91 L 09/04/17 13:14 - Labs Labs: Laboratory Results - last 24 hr 09/04/17 09/04/17 09/04/17 05:30 11:10 17:55 POC Glucose (mg/dL) 151 H 140 H 174 H 09/04/17 09/05/17 09/05/17 21:54 02:02 05:14 POC Glucose (mg/dL) 221 H 176 H 124 H Assessment & Plan - Assessment and Plan (Free Text) Assessment: 57yo male PMHx ESRD on HD for 7 years, HTN, DM presented to [facility] for several weeks of intermittent shaking. Found to have seizures on EEG. Patient currently in TCU for rehab Plan: -please see EEG prelim report for findings of seizure activity -Depakote ER 1000mg po bid -Depakote 09/04: 14 (low) recheck Depakote level in AM -Ativan 1mg ivp q2 prn seizures lasting greater than 2 minutes -ammonia wnl -B12 and folate wnl -continue PT/OT/Speech therapy -continue management as per primary Discussed with Dr. Gamal Weiss PGY2
--- NOTE | 2017-09-05 08:43 | PN ---
DATE: 09/04/2017 PULMONARY PROGRESS NOTE REFERRING PHYSICIAN: Makenzie Miranda MD SUBJECTIVE: The patient is sitting on the chair, participating in therapy. Night was unremarkable. No headache, no rhinitis. No nausea, no vomiting, no diarrhea. Still has the occasional jerky movement of the upper and lower extremity. OBJECTIVE GENERAL: In no acute distress. VITAL SIGNS: Temperature is 98, heart rate is 90, respiratory rate is 20, blood pressure 145/85, pulse ox 91% on room air. HEENT: Moist mucous membrane. Crowded airway. NECK: Supple. No JVD. LUNGS: Have a fair airflow with rhonchi. HEART: S1 and S2. ABDOMEN: Soft, nontender. No organomegaly. EXTREMITIES: No edema. NEUROLOGICAL: Awake and alert. Follows simple command. MEDICATIONS: He is on Ativan 0.5 mg every 2 hours p.r.n., Colace 100 mg twice a day, Coreg 3.125 mg twice a day, Depakote 1000 mg daily, doxycycline 100 mg twice a day, DuoNeb every 6 hours, insulin coverage 40 units subcutaneously at bedtime, MiraLax 17 g twice a day, Norvasc 10 mg daily, PhosLo 667 three times a day, Robitussin 5 mL every 4 hours p.r.n., Tylenol p.r.n., Ultram 50 mg every 8 hours p.r.n. LABORATORY DATA: Shows blood sugar this morning is 140, valproic acid is 14. IMPRESSION AND PLAN: Small pleural effusion, pulmonary infiltrate, cardiomyopathy, diabetes, peripheral neuropathy, gastroesophageal reflux disease, renal failure, dialysis dependent, recurrent seizure, still have subtherapeutic Keppra level. We will reconsult Neurology, continue bronchodilator, keep head at 45 degrees. Continue dialysis. Fall precaution. Continue therapy. Thank you and we will follow with you. Lorie Zamora MD
[2017-09-05] MEDS: POLYETHYLENE GLYCOL 3350 17 GM/Dose PACKET PO SCH ×2 (10:13→17:30)
[2017-09-05] MEDS: Divalproex 500 mg ER (ONCE DAILY formulation) PO SCH (10:14)
[2017-09-05] MEDS: Ammonium Lactate 12% Lotion (225 g) EXT SCH ×2 (10:14→17:30)
--- NOTE | 2017-09-05 17:34 | PN ---
DATE: 09/05/2017 SUBJECTIVE: The patient seen in bed, in no acute distress, nontoxic. PHYSICAL EXAMINATION: VITAL SIGNS: Temperature is 98, blood pressure is 140/70, respiratory rate of 18, heart rate of 68. HEENT: Unremarkable. NECK: Supple. LUNGS: Decreased breath sounds. HEART: Normal S1, S2. ABDOMEN: Soft, nontender. LABORATORY EXAMINATION: Laboratories are reviewed. Microbiology reveals the cultures from the acute care side are negative. He did have a urine culture that grew Morganella morganii. ASSESSMENT AND PLAN: This is a 57-year-old male seen in 322, doing well, feeling much better with right-sided healthcare-associated pneumonia, clinically improving. History of left facial preseptal cellulitis with dental caries and necrotic left lower molar in a patient with end-stage renal disease on hemodialysis, diabetes, diabetic retinopathy, diabetic neuropathy, history of deep vein thrombosis and pulmonary embolism, history of diabetic foot ulcers, history of right lung abscess, nonischemic cardiomyopathy, on doxycycline for 3 more days. Currently, the patient is doing well on p.o. doxycycline and we will follow closely with you. We will discontinue the doxycycline after 3 more days of treatment. Marcos House MD
[2017-09-05] MEDS ORDERED: Divalproex 500 mg ER (ONCE DAILY formulation) PO SCH (18:00)
[2017-09-05] MEDS: guaiFENesin DM 100 mg-10 mg/5 ml UD PO PRN (22:00)
[2017-09-05] MEDS: Insulin Detemir 100 units/ml Vial (Levemir) SC SCH (22:01)
[2017-09-06] MEDS: Albuterol-Ipratrop 3 mg / 0.5 (3 ml) UD IH SCH ×4 (01:31→20:18)
--- NOTE | 2017-09-06 01:49 | PN ---
DATE: 09/05/2017 PULMONARY PROGRESS NOTE REFERRING PHYSICIAN: Dr. Miranda. SUBJECTIVE: Patient is sitting up in the chair. Night was unremarkable. Doing well in therapy. Still having jerky movement of the upper and lower extremities. Seen by Neurology. No new orders noted from Neurology. No nausea. No vomiting or diarrhea. No leg pain. No leg swelling. OBJECTIVE: GENERAL: In no acute distress. VITAL SIGNS: Temperature is 98, heart rate is 64, respiratory rate is 20, blood pressure 133/76, pulse ox 99% on room air. HEENT: Moist mucous membrane. Crowded airway. Mallampati score is 4. NECK: Supple. No JVD. LUNGS: Has fair airflow with rhonchi. HEART: S1 and S2. ABDOMEN: Soft, nontender. No organomegaly. EXTREMITIES: No edema. NEUROLOGIC: Awake and alert, follows simple command. MEDICATIONS: He is on Ativan 0.5 mg IV every 12 hours p.r.n., Colace 100 mg twice a day, Coreg 3.125 mg twice a day, Depakote 1000 mg twice a day, doxycycline 100 mg twice a day, DuoNeb every 6 hours, insulin coverage, Levemir 40 units subcutaneously at bedtime, MiraLax 17 g twice a day, Norvasc 10 mg daily, PhosLo three times a day, Robitussin DM 5 mL every 4 hours p.r.n., Tylenol p.r.n., tramadol 50 mg three times a day p.r.n. LABORATORY DATA: Shows glucose 191, valproic acid was 14 yesterday. IMPRESSION AND PLAN: Small pleural effusion; pulmonary infiltrate; cardiomyopathy; diabetes; peripheral neuropathy; gastroesophageal reflux disease; renal failure, dialysis dependent; seizure disorder; subtherapeutic Keppra. Neurology consult noted. Pulmonary point of view, continue bronchodilator, keep head at 45 degrees. Followup closely for seizure. Fall precaution. Continue therapy. Thank you and we will follow with you. Lorie Zamora MD
--- NOTE | 2017-09-06 04:50 | PN ---
DATE: 09/05/2017 SUBJECTIVE: The patient was seen on the bedside. Looking comfortable. No nausea, no vomiting, no diarrhea. No hematuria, no hematochezia. No swelling of the legs. No chest pain. No palpitation. Does not look like in acute distress. PHYSICAL EXAMINATION: VITAL SIGNS: Temperature 98, blood pressure 140/70, respiratory rate 18, heart rate 68. HEENT: Head normocephalic, atraumatic. Eyes PERRLA. Extraocular muscles are intact. Conjunctivae clear. Nose patent. Mucous membrane moist. NECK: Supple. No carotid bruit. No JVD. No thyromegaly. CHEST: Bilaterally symmetrical. HEART: S1 and S2 positive. LUNGS: Clear to auscultation. ABDOMEN: Soft. Bowel sounds positive. No organomegaly. EXTREMITIES: No edema. No cyanosis. NEUROLOGICAL: The patient is awake, alert. Follows simple commands. LABORATORY DATA: We do not have recent lab . The valproic acid is 14, glucose 173. We will repeat labs. MEDICATIONS: Ativan, Colace, Coreg, Depakote, doxycycline, DuoNeb, insulin, lactulose, Levemir, MiraLax, PhosLo, Robitussin, Tylenol. ASSESSMENT AND PLAN: Mr. Stephanie Jackson, with multiple medical problems, doing better, has right-sided healthcare-associated pneumonia, clinically improving, history of left facial , cellulitis with dental caries and necrotic left lower molar in the patient with end-stage renal disease, getting hemodialysis 3 times a week, history of diabetes mellitus, diabetic nephropathy, diabetic neuropathy, history of deep vein thrombosis, pulmonary emboli, history of diabetic foot ulcer, history of right lung abscess, noncompliant, cardiomyopathy. On doxycycline. Currently, the patient is doing well on p.o. doxycycline, and we will follow closely. The patient has new onset seizures. Neurologist is on the case. Seizure precautions. Repeat labs. We will follow up. Makenzie Miranda MD SUZANNE
[2017-09-06] MEDS: Insulin Reg-LOW-Coverage SC SCH ×4 (06:48→21:20)
[2017-09-06 06:52] LABS: HEMOGLOBIN 9.2 g/dL (14.0-18.0); MEAN CELL VOLUME 74.4 fl (80.0-105.0); MEAN CORPUSCULAR HEMOGLOBIN 23.3 pg (25.0-35.0); MEAN CORPUSCULAR HGB CONC 31.3 g/dl (31.0-37.0); PLATELET COUNT 203 10^3/uL (120.0-450.0); RBC 3.95 10^6/uL (3.5-6.1); RED CELL DISTRIBUTION WIDTH 14.9 % (11.5-14.5); WHITE BLOOD COUNT 6.3 10^3/ul (4.5-11.0)
[2017-09-06 07:47] LABS: CALCIUM 11.1 mg/dL (8.4-10.5)
[2017-09-06] MEDS: guaiFENesin DM 100 mg-10 mg/5 ml UD PO PRN ×3 (08:13→21:21)
--- NOTE | 2017-09-06 08:44 | CP.PCM.PN ---
Subjective - Date & Time of Evaluation Date of Evaluation: 09/06/17 Time of Evaluation: 07:30 - Subjective Subjective: PGY2 Neuro progress note for Dr. Yeung Patient seen and examined at bedside. Nursing reports not acute events overnight. Patient is in good spirits this AM and reported he feels much better. He denied any shaking episodes. On ROS patient denied fever, chills, headache, dizziness, chest pain, palpitations, SOB, cough, abd pain, nausea, vomiting, bowel complaints, pain/swelling in his legs b/l. He is ambulating with the walker and working with physical therapy. He is due for HD today. Objective - Vital Signs/Intake and Output Vital Signs (last 24 hours): Temp Pulse Resp BP Pulse Ox 98 F 64 18 133/76 99 09/05/17 17:56 09/05/17 17:56 09/05/17 17:56 09/05/17 17:56 09/05/17 11:49 - Medications Medications: Current Medications Acetaminophen (Tylenol 325mg Tab) 650 mg PO Q6H PRN PRN Reason: Pain, moderate (4-7) Albuterol/Ipratropium (Duoneb 3 Mg/0.5 Mg (3 Ml) Ud) 3 ml IH [id number] [facility] Last Admin: 09/06/17 07:18 Dose: Not Given Amlodipine Besylate (Norvasc) 10 mg PO DAILY [facility] Last Admin: 09/05/17 10:13 Dose: 10 mg Calcium Acetate (Phoslo) 667 mg PO TID [facility] Last Admin: 09/05/17 17:32 Dose: 667 mg Carvedilol (Coreg) 3.125 mg PO BID [facility] Last Admin: 09/05/17 17:28 Dose: 3.125 mg Divalproex Sodium (Depakote Dr (*Bid*)) 750 mg PO TID [facility] PRN Reason: Protocol Docusate Sodium (Colace) 100 mg PO BID [facility] Last Admin: 09/05/17 17:28 Dose: 100 mg Doxycycline Hyclate (Doryx) 100 mg PO Q12 [facility] PRN Reason: Protocol Last Admin: 09/05/17 22:00 Dose: 100 mg Guaifenesin/Dextromethorphan (Robitussin Dm) 5 ml PO Q4H PRN PRN Reason: Cough Last Admin: 09/06/17 08:13 Dose: 5 ml Insulin Detemir (Levemir) 14 unit SC HS [facility] Last Admin: 09/05/17 22:01 Dose: Not Given Insulin Human Regular (Humulin R Low) 0 units SC ACHS [facility] PRN Reason: Protocol Last Admin: 09/06/17 06:48 Dose: Not Given Lactic Acid (Lac-Hydrin 12% Lotion (225 G)) 1 gm EXT BID [facility] Last Admin: 09/05/17 17:30 Dose: 1 applic Lorazepam (Ativan) 0.25 mg IVP Q6H PRN; Protocol PRN Reason: seizure Polyethylene Glycol (Miralax) 17 gm PO BID [facility] Last Admin: 09/05/17 17:30 Dose: 17 gm - Labs Labs: 09/06/17 06:35 09/06/17 06:35 - Constitutional Appears: Non-toxic, No Acute Distress - Head Exam Head Exam: ATRAUMATIC, NORMAL INSPECTION, NORMOCEPHALIC - Eye Exam Eye Exam: EOMI, Normal appearance, PERRL. absent: Conjunctival injection, Scleral icterus Pupil Exam: NORMAL ACCOMODATION - ENT Exam ENT Exam: Mucous Membranes Moist Additional comments: poor dentition - Neck Exam Neck Exam: Full ROM - Respiratory Exam Respiratory Exam: NORMAL BREATHING PATTERN. absent: Accessory Muscle Use, Respiratory Distress - Cardiovascular Exam Cardiovascular Exam: +S1, +S2 - Neurological Exam Neurological Exam: Alert, Awake, CN II-XII Intact, Oriented x3 Neuro motor strength exam: Left Upper Extremity: 5, Right Upper Extremity: 5, Left Lower Extremity: 5, Right Lower Extremity: 5 - Psychiatric Exam Psychiatric exam: Normal Affect, Normal Mood - Skin Skin Exam: Dry, Intact, Normal Color, Warm Assessment and Plan - Assessment and Plan (Free Text) Assessment: 57yo male PMHx ESRD on HD for 7 years, HTN, DM presented to [facility] for several weeks of intermittent shaking. Found to have seizures on EEG. Patient currently in TCU for rehab Plan: -please see EEG report for findings of seizure activity -Depakote 750mg po tid -Depakote 09/06: 19 (low) recheck Depakote level and CMP in AM -Ativan prn for seizures lasting greater than 2 minutes -ammonia wnl -B12 and folate wnl -continue PT/OT -continue management as per primary Discussed with Dr. Gamal Weiss PGY2
[2017-09-06] MEDS ORDERED: Divalproex 250 mg DR (BID formulation) PO SCH (10:00)
[2017-09-06] MEDS: Divalproex 250 mg DR (BID formulation) PO SCH ×3 (10:39→17:17)
[2017-09-06] MEDS: Ammonium Lactate 12% Lotion (225 g) EXT SCH ×2 (10:40→17:18)
[2017-09-06] MEDS: POLYETHYLENE GLYCOL 3350 17 GM/Dose PACKET PO SCH ×2 (10:40→17:18)
--- NOTE | 2017-09-06 11:48 | HP ---
DATE OF EXAM: 09/05/2017 CHIEF COMPLAINT: Seizure, deconditioning. HISTORY OF PRESENT ILLNESS: Mr. Stephanie Jackson is a 57-year-old my private patient with a history of renal insufficiency, on hemodialysis; history of insulin-dependent diabetes mellitus; started new onset seizures, was brought from dialysis room to the emergency room. We admitted the patient, called Neurology consult. Patient improved and now, we transferred patient to TCU for continuity of care and for physical therapy because patient is deconditioned. Has history of multiple falls. PAST MEDICAL HISTORY: Renal failure, on hemodialysis 3 times a week; hypertension; chronic obstructive lung disease; insulin-dependent diabetes mellitus type 2; peripheral neuropathy; diabetic nephropathy; diabetic retinopathy; anemia; arthritis; GERD; recurrent UTI; anxiety disorder; depression and has new onset seizures. ALLERGIES: PATIENT IS NOT ALLERGIC WITH ANY MEDICATIONS. SOCIAL HISTORY: No smoking. No drug. No ethanol. FAMILY HISTORY: Father and mother, noncontributory. REVIEW OF SYSTEMS: Patient was seen and examined on the bedside, looking comfortable. No nausea, vomiting, or diarrhea. No hematuria or hematochezia. No swelling of the legs. No chest pain. No palpitation. No headache. No dizziness. No fever. No chills. PHYSICAL EXAMINATION: VITAL SIGNS: Temperature 98, heart rate 90, respiratory rate 20, blood pressure 145/85, pulse oximetry 91% on room air. HEENT: Head normocephalic and atraumatic. Eyes, PERRLA. Extraocular muscles intact. Conjunctivae clear. Nose patent. Mucous membrane moist. NECK: Supple. No carotid bruit, JVD, or thyromegaly. CHEST: Bilaterally symmetrical. HEART: S1 and S2 positive. LUNGS: Clear to auscultation. ABDOMEN: Soft. Bowel sounds present. No organomegaly. EXTREMITIES: No edema. No cyanosis. NEUROLOGIC: Patient is awake and alert. Follows simple command. MEDICATIONS: Ativan, Colace, Depakote, doxycycline, DuoNeb, MiraLax, Norvasc, PhosLo, Robitussin, and Tylenol. LABORATORY DATA: We do not have recent labs today, but I reviewed old labs. Sugar is 140. ASSESSMENT AND PLAN: Mr. Stephanie Jackson is a 57-year-old male with multiple medical problems, renal insufficiency, on hemodialysis three times a week; new onset of seizures; small pleural effusion; pulmonary infiltrates; cardiomyopathy; insulin-dependent diabetes mellitus; diabetic neuropathy; diabetic nephropathy; diabetic retinopathy; gastroesophageal reflux disease. Still have subtherapeutic Keppra level. Neurologist is on the case. Out of bed. Physical therapy. Repeat labs. We will follow up. Makenzie Miranda MD MTDD
--- NOTE | 2017-09-06 12:26 | PN ---
DATE: 09/06/2017 SUBJECTIVE: The patient is in bed in no acute distress. PHYSICAL EXAMINATION: VITAL SIGNS: Temperature is 98, blood pressure is 130/70, respiratory rate is16. HEENT: Unremarkable. NECK: Supple. LUNGS: Have decreased breath sounds. HEART: Normal S1, S2. ABDOMEN: Soft. LABORATORY DATA: Reveals a white count of 6.3, hemoglobin of 9. Chemistries are noted and microbiology is noted. ASSESSMENT AND PLAN: This is a 57-year-old male was seen earlier today in room 22, doing well with a right-sided healthcare-associated pneumonia, clinically improving, history of left facial preseptal cellulitis with dental caries and necrotic left lower molar in the patient with end-stage renal disease on hemodialysis, diabetes, diabetic retinopathy, diabetic neuropathy, history of deep venous thrombosis, pulmonary emboli, history of diabetic foot ulcers and history of right lung abscess, nonischemic cardiomyopathy, on doxycycline two more days. The patient is much improved. Review of orders reveals the patient's doxycycline to be active. We will follow with you. Marcos House MD
--- NOTE | 2017-09-06 17:43 | PN ---
DATE: 09/06/2017 PULMONARY PROGRESS NOTE REFERRING PHYSICIAN: Makenzie Miranda MD SUBJECTIVE: He was seen and examined in the dialysis chair. Night was unremarkable. Still on and off having some jerky movement. No nausea. No vomiting. No diarrhea. No leg pain or leg swelling. OBJECTIVE: GENERAL: In no acute distress. VITAL SIGNS: Temperature is 98, heart rate is 64, respiratory rate is 18, blood pressure 133/76, pulse ox 99% on room air. HEENT: Moist mucous membrane. Crowded airway. NECK: Supple. No JVD. LUNGS: Has fair airflow with rhonchi. HEART: S1 and S2. ABDOMEN: Soft, nontender. No organomegaly. EXTREMITIES: No edema. NEUROLOGIC: Awake and alert. Follows simple command. MEDICATIONS: He is on Ativan 0.25 mg every 6 hours p.r.n., Colace 100 mg twice a day, Coreg 3.125 mg twice a day, Depakote 750 mg three times a day, doxycycline 100 mg twice a day, DuoNeb every 6 hours, insulin coverage, Levemir 40 units subcutaneously at bedtime, MiraLax 17 g twice a day, Norvasc 10 mg daily, PhosLo three times a day, Robitussin 5 mL every 4 hours p.r.n., Tylenol p.r.n. basis. LABORATORY DATA: Shows hemoglobin 9.2, hematocrit 29.4, WBC is 6.3, platelet count is 203. Sodium 139, potassium 5.8, chloride 93, bicarbonate 29, BUN 91, creatinine 8.4, glucose 179, calcium is 11.1. Valproic acid today is 19. IMPRESSION AND PLAN: Small pleural effusion, pulmonary infiltrates, cardiomyopathy, diabetes, peripheral neuropathy, gastroesophageal reflux disease, renal failure, dialysis dependent, seizure disorder, subtherapeutic Keppra. Noted patient seen by Neurology, antiseizure is changed, still getting p.r.n. Ativan, still having some jerky movement. Fall precaution. Aspiration precaution. Spoke with nursing staff in dialysis. Thank you and we will follow with you. Lorie Zamora MD [facility] # [id number]
[2017-09-06] MEDS: Insulin Detemir 100 units/ml Vial (Levemir) SC SCH (21:21)
[2017-09-07] MEDS: Albuterol-Ipratrop 3 mg / 0.5 (3 ml) UD IH SCH ×4 (02:36→20:01)
--- NOTE | 2017-09-07 04:50 | PN ---
DATE: 09/06/2017 SUBJECTIVE: Patient is a 57-year-old male. Patient was seen and examined at the bedside on 09/06/2017, looking comfortable. No nausea, vomiting, or diarrhea. No hematuria, no hematochezia. No swelling of legs. No chest pain. No palpitation. No fever, no chills. No headache. No dizziness. PHYSICAL EXAMINATION: VITAL SIGNS: Temperature 98, heart rate 64, respiratory rate 18, blood pressure 130/70, pulse oximetry 99% on room air. HEENT: Head normocephalic, atraumatic. Eyes, PERRLA. Extraocular muscles intact. Conjunctivae clear. Nose patent. Mucous membrane moist. NECK: Supple. No carotid bruit. No JVD, thyromegaly. CHEST: Bilaterally symmetrical. HEART: S1 and S2 positive. LUNGS: Clear to auscultation. ABDOMEN: Soft. Bowel sounds present. No organomegaly. EXTREMITIES: No edema. No cyanosis. MEDICATIONS: Ativan, Colace, Coreg, Depakote, doxycycline, DuoNeb, insulin Levemir, MiraLax, Norvasc, Robitussin. LABORATORY DATA: Hemoglobin 9.2, hematocrit 29.4, white blood cells 6.3, platelets 203. Sodium 139, potassium 5.8, BUN 91, creatinine 8.4, glucose 179, valproic acid is 19. ASSESSMENT AND PLAN: Mr. Stephanie Jackson is a 57-year-old male with small pleural effusion, pulmonary infiltrates, insulin-dependant diabetes mellitus, not controlled very well, diabetic neuropathy, diabetic nephropathy, diabetic retinopathy, cardiomyopathy, gastroesophageal reflux disease, seizure disorder is a new onset. Neurologist is on the case, subtherapeutic Keppra, still having some jerky movements. Patient is seen by neurologist. still getting p.r.n. Ativan. Fall precaution, aspiration precautions. Gastrointestinal, deep vein thrombosis prophylaxis. Repeat labs. We will follow up. Makenzie Miranda MD [facility]
[2017-09-07] MEDS: Insulin Reg-LOW-Coverage SC SCH ×4 (06:39→21:19)
[2017-09-07 07:29] LABS: ALB/GLOB RATIO 1.2 (1.1-1.8); ALBUMIN 3.9 g/dL (3.0-4.8); CALCIUM 10.4 mg/dL (8.4-10.5)
[2017-09-07] MEDS: Divalproex 500 mg DR(BID formulation) PO SCH ×2 (09:41→15:07)
[2017-09-07] MEDS: POLYETHYLENE GLYCOL 3350 17 GM/Dose PACKET PO SCH ×2 (09:42→17:48)
[2017-09-07] MEDS: Ammonium Lactate 12% Lotion (225 g) EXT SCH ×2 (11:55→17:48)
[2017-09-07] MEDS ORDERED: Divalproex 500 mg DR(BID formulation) PO SCH (18:00)
[2017-09-07] MEDS: guaiFENesin DM 100 mg-10 mg/5 ml UD PO PRN (21:19)
[2017-09-07] MEDS: Insulin Detemir 100 units/ml Vial (Levemir) SC SCH (21:20)
[2017-09-08] MEDS: Albuterol-Ipratrop 3 mg / 0.5 (3 ml) UD IH SCH ×4 (01:10→21:17)
--- NOTE | 2017-09-08 01:11 | PN ---
DATE: 09/07/2017 SUBJECTIVE: The patient is seen earlier today in room 322. No fevers. No chills. No nausea or vomiting. PHYSICAL EXAMINATION: VITAL SIGNS: Temperature is 98, blood pressure is 105/58, respiratory rate of 18. HEENT: Unremarkable. NECK: Supple. LUNGS: Have decreased breath sounds. HEART: Normal S1 and S2. ABDOMEN: Soft. LABORATORY DATA: Reveals white count of 6.3, hemoglobin of 9. Chemistries reveal a BUN of 57, creatinine of 5.9 Micrology is noted. ASSESSMENT AND PLAN: This is a 57-year-old male who was seen earlier today in room 322 with a right-sided healthcare-associated pneumonia, clinically improving with a history of left facial preseptal cellulitis with dental caries and necrotic left lower molar with end-stage renal disease on hemodialysis, diabetes mellitus, diabetic retinopathy, diabetic neuropathy, history of deep venous thrombosis, history of pulmonary emboli, history of diabetic foot ulcer and a right lung abscess, nonischemic cardiomyopathy, one more day of doxycycline to complete therapy. we will discontinue the antibiotics. We will follow with you. Marcos House MD
--- NOTE | 2017-09-08 02:30 | PN ---
DATE: 09/07/2017 PULMONARY PROGRESS NOTE REFERRING PHYSICIAN: Dr. Miranda. SUBJECTIVE: He is sitting on the side of the bed. Night was unremarkable, feels better. No seizure activity today. No cough. No sputum production. No nausea. No vomiting or diarrhea. No leg pain or leg swelling. OBJECTIVE: GENERAL: In no acute distress. VITAL SIGNS: Temperature is 98, heart rate is 89, respiratory rate is 18, blood pressure 105/58, pulse ox 100% on room air. HEENT: Moist mucous membrane. Crowded airway. NECK: Supple. No JVD. LUNGS: Has fair airflow with few rhonchi. HEART: S1 and S2. ABDOMEN: Soft, nontender. No organomegaly. EXTREMITIES: No edema. NEUROLOGIC: Awake and alert, follows simple command. MEDICATIONS: He is on Ativan 0.25 mg every 6 hours p.r.n., Colace 100 mg twice a day, Coreg 3.125 mg twice a day, Depakote 1000 mg three times a day, doxycycline 100 mg twice a day, DuoNeb every 6 hours, insulin coverage, Levemir 40 units subcu at bedtime, MiraLax 17 g twice a day, Norvasc 10 mg daily, PhosLo with the meals, Robitussin DM 5 mL every 4 hours p.r.n., Tylenol p.r.n. basis. LABORATORY DATA: Shows sodium 139, potassium 5.1, chloride 94, bicarbonate 30, BUN is 57, creatinine 5.9, glucose 146, calcium 10.4. AST 24, ALT 35, alk phos is 70, albumin is 3.9. IMPRESSION AND PLAN: Small pleural effusion; pulmonary infiltrates; cardiomyopathy; diabetes; peripheral neuropathy; gastroesophageal reflux disease;renal failure, dialysis dependent; seizure disorder; change of medication, much better. Sleep apnea precaution. Keep head at 45 degrees. Bronchodilator. Fall precaution. Continue therapy. Neurology followup. Thank you and we will follow with you. Lorie Zamora MD
[2017-09-08] MEDS: guaiFENesin DM 100 mg-10 mg/5 ml UD PO PRN (04:46)
[2017-09-08] MEDS: Insulin Reg-LOW-Coverage SC SCH ×4 (06:35→21:38)
--- NOTE | 2017-09-08 07:15 | PN ---
DATE: 09/07/2017 SUBJECTIVE: Patient is a 57-year-old male. Patient was seen and examined at the bedside, sitting on the chair, having dinner, looking comfortable. No nausea, vomiting, diarrhea, hematuria, or hematochezia. Complaining about the coughing. No fever, no chills. No headache, no dizziness. PHYSICAL EXAMINATION: VITAL SIGNS: Temperature 98, blood pressure 105/50, respiratory rate 18. HEENT: Head normocephalic, atraumatic. Eyes, PERRLA. Extraocular muscles intact. Conjunctivae clear. Nose patent. NECK: Supple. No carotid bruit. No JVD, thyromegaly. CHEST: Bilaterally symmetrical. HEART: S1 and S2 positive. LUNGS: Clear to auscultation. ABDOMEN: Soft. Bowel sounds present. No organomegaly. EXTREMITIES: No edema. No cyanosis. NEUROLOGIC: Patient is awake and alert. Moving all four extremities. No focal deficits. MEDICATIONS: Ativan, Colace, Coreg, Depakote, doxycycline, albuterol, insulin, Lac-Hydrin, Levemir, MiraLax, Norvasc, PhosLo, Robitussin, and Tylenol. LABORATORY DATA: We do not have recent lab today, but I reviewed old labs. ASSESSMENT AND PLAN: Mr. Stephanie Jackson is a 57-year-old male with anemia, hyperpotassemia, renal insufficiency, improving; hyperglycemia. Valproic acid little better. Seen by Infectious Disease doctor, Dr. House. History of right-sided healthcare-associated pneumonia, clinically improving. History of left facial preseptal cellulitis with dental caries and necrotic left lower molar, end-stage renal disease on hemodialysis, diabetes mellitus, diabetic retinopathy, diabetic nephropathy, diabetic neuropathy, history of venous thrombosis, history of pulmonary emboli, history of diabetic foot ulcer, right lung abscess, nonischemic cardiomyopathy. Doxycycline need to be completed. We will discontinue antibiotics and just continue present treatment. Repeat labs, physical therapy. We will follow up. Makenzie Miranda MD
--- NOTE | 2017-09-08 08:41 | CP.PCM.PN ---
Subjective - Date & Time of Evaluation Date of Evaluation: 09/08/17 Time of Evaluation: 07:45 - Subjective Subjective: Neuro progress note for Dr. Yeung Patient seen and examined in HD unit while receiving dialysis. Patient complained of a dry cough but reported feeling better this AM. Denied acute complaints of headache, dizziness, chest pain, palpitations, SOB, cough, abd pain, nausea, vomiting, bowel complaints, pain/swelling in his legs b/l. Objective - Vital Signs/Intake and Output Vital Signs (last 24 hours): Temp Pulse Resp BP Pulse Ox 98.3 F 89 18 155/73 H 100 09/07/17 17:37 09/07/17 17:37 09/07/17 17:37 09/08/17 08:03 09/07/17 17:37 Intake and Output: 09/08/17 09/08/17 06:59 18:59 Intake Total 420 Balance 420 - Medications Medications: Current Medications Acetaminophen (Tylenol 325mg Tab) 650 mg PO Q6H PRN PRN Reason: Pain, moderate (4-7) Albuterol/Ipratropium (Duoneb 3 Mg/0.5 Mg (3 Ml) Ud) 3 ml IH [id number] [facility] Last Admin: 09/08/17 07:20 Dose: Not Given Amlodipine Besylate (Norvasc) 10 mg PO DAILY [facility] Last Admin: 09/07/17 09:42 Dose: 10 mg Calcium Acetate (Phoslo) 667 mg PO 0800,1200,1800 [facility] Last Admin: 09/08/17 08:03 Dose: 667 mg Carvedilol (Coreg) 3.125 mg PO 0800,1800 [facility] Last Admin: 09/08/17 08:03 Dose: 3.125 mg Divalproex Sodium (Depakote Dr(*Bid*)) 1,000 mg PO TuTh@1000,1400,1800 [facility] PRN Reason: Protocol Last Admin: 09/07/17 17:47 Dose: 1,000 mg Divalproex Sodium (Depakote Dr(*Bid*)) 1,000 mg PO SuSa@1000,1400,1800 [facility] Divalproex Sodium (Depakote Dr(*Bid*)) 1,500 mg PO MoWeFr@1000,1800 [facility] PRN Reason: Protocol Docusate Sodium (Colace) 100 mg PO BID [facility] Last Admin: 09/07/17 17:46 Dose: Not Given Guaifenesin/Dextromethorphan (Robitussin Dm) 5 ml PO Q4H PRN PRN Reason: Cough Last Admin: 09/08/17 04:46 Dose: 5 ml Insulin Detemir (Levemir) 14 unit SC HS [facility] Last Admin: 09/07/17 21:20 Dose: Not Given Insulin Human Regular (Humulin R Low) 0 units SC ACHS [facility] PRN Reason: Protocol Last Admin: 09/08/17 06:35 Dose: Not Given Lactic Acid (Lac-Hydrin 12% Lotion (225 G)) 0 gm EXT BID [facility] Last Admin: 09/07/17 17:48 Dose: 1 applic Lorazepam (Ativan) 0.25 mg IVP Q12H PRN; Protocol PRN Reason: seizure Polyethylene Glycol (Miralax) 17 gm PO BID [facility] Last Admin: 09/07/17 17:48 Dose: Not Given - Labs Labs: 09/06/17 06:35 09/07/17 06:00 - Constitutional Appears: Non-toxic, No Acute Distress - Head Exam Head Exam: ATRAUMATIC, NORMAL INSPECTION, NORMOCEPHALIC - Eye Exam Eye Exam: EOMI, Normal appearance, PERRL. absent: Conjunctival injection, Scleral icterus - ENT Exam ENT Exam: Mucous Membranes Moist - Neck Exam Neck Exam: Full ROM - Respiratory Exam Respiratory Exam: NORMAL BREATHING PATTERN. absent: Accessory Muscle Use, Respiratory Distress - Cardiovascular Exam Cardiovascular Exam: +S1, +S2 - Extremities Exam Extremities Exam: Normal Capillary Refill, Normal Inspection. absent: Pedal Edema - Neurological Exam Neurological Exam: Alert, Awake, CN II-XII Intact, Oriented x3 Neuro motor strength exam: Left Upper Extremity: 5, Right Upper Extremity: 5, Left Lower Extremity: 5, Right Lower Extremity: 5 - Psychiatric Exam Psychiatric exam: Normal Affect, Normal Mood - Skin Skin Exam: Dry, Intact, Normal Color, Warm Assessment and Plan - Assessment and Plan (Free Text) Assessment: 57yo male PMHx ESRD on HD for 7 years, HTN, DM presented [place] [facility] [place] several weeks of intermittent shaking. Found to have seizures on EEG. Patient currently in TCU for rehab Plan: -please see EEG report for findings of seizure activity -Depakote 1000mg po tid on //Mon and 1500mg po bid on / -Depakote 09/08: (low) -Ativan prn for seizures lasting greater than 2 minutes -ammonia wnl -B12 and folate wnl -continue PT/OT -continue management as per primary Neurology will sign off at this time Please reconsult as needed Discussed with Dr. Gamal Weiss PGY2
[2017-09-08] MEDS ORDERED: Divalproex 500 mg DR(BID formulation) PO SCH ×2 (10:00)
[2017-09-08] MEDS: Ammonium Lactate 12% Lotion (225 g) EXT SCH ×2 (10:07→17:51)
[2017-09-08] MEDS: POLYETHYLENE GLYCOL 3350 17 GM/Dose PACKET PO SCH ×2 (10:08→17:51)
[2017-09-08 11:25] LABS: BASO # 0.04 K/mm3 (0.0-2.0); BASO % 0.5 % (0.0-3.0); EOS # 0.1 (0.0-0.7); EOS % 1.7 % (1.5-5.0); GRAN # 5.81 (1.4-6.5); GRAN % 70.8 % (50.0-68.0); HEMOGLOBIN 9.2 g/dL (14.0-18.0); LYMPH # 1.7 (1.2-3.4); LYMPH % 20.5 % (22.0-35.0); MEAN CELL VOLUME 73.8 fl (80.0-105.0); MEAN CORPUSCULAR HEMOGLOBIN 23.2 pg (25.0-35.0); MEAN CORPUSCULAR HGB CONC 31.4 g/dl (31.0-37.0); MONO # 0.5 (0.1-0.6); MONO % 6.5 % (1.0-6.0); PLATELET COUNT 230 10^3/uL (120.0-450.0); RBC 3.97 10^6/uL (3.5-6.1); WHITE BLOOD COUNT 8.2 10^3/ul (4.5-11.0)
[2017-09-08 11:55] LABS: ALB/GLOB RATIO 1.2 (1.1-1.8); ALBUMIN 3.9 g/dL (3.0-4.8); CALCIUM 12.1 mg/dL (8.4-10.5)
[2017-09-08] MEDS ORDERED: Sod Polystyrene Sulf 15 gm/60 ml Susp PO ONE (19:22)
--- NOTE | 2017-09-08 19:54 | CP.PCM.PN ---
Subjective - Date & Time of Evaluation Date of Evaluation: 09/08/17 Time of Evaluation: 10:40 - Subjective Subjective: Comfortable, no fevers, not in distress. Objective - Vital Signs/Intake and Output Vital Signs (last 24 hours): Temp Pulse Resp BP Pulse Ox 98.3 F 89 18 105/58 L 100 09/07/17 17:37 09/07/17 17:37 09/07/17 17:37 09/07/17 17:47 09/07/17 17:37 Intake and Output: 09/07/17 09/08/17 18:59 06:59 Intake Total 420 Balance 420 - Medications Medications: Current Medications Acetaminophen (Tylenol 325mg Tab) 650 mg PO Q6H PRN PRN Reason: Pain, moderate (4-7) Albuterol/Ipratropium (Duoneb 3 Mg/0.5 Mg (3 Ml) Ud) 3 ml IH Q2CTGCM [facility] Last Admin: 09/08/17 01:10 Dose: Not Given Amlodipine Besylate (Norvasc) 10 mg PO DAILY [facility] Last Admin: 09/07/17 09:42 Dose: 10 mg Calcium Acetate (Phoslo) 667 mg PO 0800,1200,1800 [facility] Last Admin: 09/07/17 17:49 Dose: 667 mg Carvedilol (Coreg) 3.125 mg PO 0800,1800 [facility] Last Admin: 09/07/17 17:47 Dose: 3.125 mg Divalproex Sodium (Depakote Dr(*Bid*)) 1,000 mg PO TuTh@1000,1400,1800 [facility] PRN Reason: Protocol Last Admin: 09/07/17 17:47 Dose: 1,000 mg Divalproex Sodium (Depakote Dr(*Bid*)) 1,000 mg PO SuSa@1000,1400,1800 [facility] Divalproex Sodium (Depakote Dr(*Bid*)) 1,500 mg PO MoWeFr@1000,1800 [facility] PRN Reason: Protocol Docusate Sodium (Colace) 100 mg PO BID [facility] Last Admin: 09/07/17 17:46 Dose: Not Given Guaifenesin/Dextromethorphan (Robitussin Dm) 5 ml PO Q4H PRN PRN Reason: Cough Last Admin: 09/08/17 04:46 Dose: 5 ml Insulin Detemir (Levemir) 14 unit SC HS [facility] Last Admin: 09/07/17 21:20 Dose: Not Given Insulin Human Regular (Humulin R Low) 0 units SC ACHS [facility] PRN Reason: Protocol Last Admin: 09/08/17 06:35 Dose: Not Given Lactic Acid (Lac-Hydrin 12% Lotion (225 G)) 0 gm EXT BID [facility] Last Admin: 09/07/17 17:48 Dose: 1 applic Lorazepam (Ativan) 0.25 mg IVP Q12H PRN; Protocol PRN Reason: seizure Polyethylene Glycol (Miralax) 17 gm PO BID [facility] Last Admin: 09/07/17 17:48 Dose: Not Given - Labs Labs: 09/06/17 06:35 09/07/17 06:00 - Constitutional Appears: Non-toxic, Chronically Ill - Head Exam Head Exam: NORMAL INSPECTION - Neck Exam Neck Exam: absent: Meningismus - Respiratory Exam Respiratory Exam: Decreased Breath Sounds - Cardiovascular Exam Cardiovascular Exam: +S1, +S2 - GI/Abdominal Exam GI & Abdominal Exam: Soft. absent: Tenderness Assessment and Plan - Assessment and Plan (Free Text) Plan: Assessment S/P right sided HCAP, clinically improved and S/P treatment history of left facial pre-septal cellulitis, with dental caries and necrotic left lower molars ESRD on HD DM COPD diabetic retinopathy and neuropathy history of DVT and PE history of diabetic foot ulcers history of right lung abscess non-ischemic cardiomyopathy Plan completed course of doxycycline - will continue to monitor the patient off antibiotics since he is at risk for nosocomial infections
[2017-09-08] MEDS: Arformoterol 15 mcg/2 ml Inh Sol IH SCH (21:17)
[2017-09-08] MEDS: Insulin Detemir 100 units/ml Vial (Levemir) SC SCH (21:41)
[2017-09-09] MEDS: Albuterol-Ipratrop 3 mg / 0.5 (3 ml) UD IH SCH ×3 (01:11→13:43)
[2017-09-09] MEDS: Insulin Reg-LOW-Coverage SC SCH ×4 (06:29→21:15)
[2017-09-09] MEDS: Budesonide 0.5 mg/2 ml Inhal Susp UD IH SCH (07:55)
[2017-09-09] MEDS: Arformoterol 15 mcg/2 ml Inh Sol IH SCH (07:55)
--- NOTE | 2017-09-09 09:26 | PN ---
DATE: 09/09/2017 SUBJECTIVE: The patient is in bed, in no acute distress, nontoxic. PHYSICAL EXAMINATION: VITAL SIGNS: Temperature is 98, blood pressure is 140/70, respiratory rate of 18, heart rate is 70. HEENT: Examination of HEENT is unremarkable. NECK: Supple. LUNGS: Have decreased breath sounds. HEART: Normal S1, S2. ABDOMEN: Soft, nontender. LABORATORY DATA: Laboratory examination reveals a white count of 8.2, hemoglobin of 9, platelets of 230. Chemistries are noted with a BUN of 88, creatinine of 8.1. Microbiology is noted. ASSESSMENT AND PLAN: A 57-year-old male with status post right-sided healthcare-associated pneumonia, status post treatment, improving with a history of left facial preseptal cellulitis, dental caries and necrotic lower molars. The patient with an end-stage renal disease, on hemodialysis; diabetes; chronic obstructive pulmonary disease and completed a course of doxycycline and antibiotics. Currently off of antibiotics, afebrile. Review of orders confirms the patient to be off of antibiotics, afebrile, doing better. Marcos House MD
[2017-09-09] MEDS: Ammonium Lactate 12% Lotion (225 g) EXT SCH ×2 (10:13→17:33)
[2017-09-09] MEDS: POLYETHYLENE GLYCOL 3350 17 GM/Dose PACKET PO SCH ×2 (10:13→17:33)
[2017-09-09] MEDS: Divalproex 500 mg DR(BID formulation) PO SCH ×3 (10:14→17:32)
[2017-09-09] MEDS: Insulin Detemir 100 units/ml Vial (Levemir) SC SCH (21:15)
--- NOTE | 2017-09-09 21:32 | PN ---
DATE: 09/09/2017 PULMONARY PROGRESS NOTE REFERRING PHYSICIAN: Makenzie Miranda MD. SUBJECTIVE: He is participating in therapy. Night was unremarkable. No definite seizure activity reported. No nausea. No vomiting, diarrhea, leg pain, leg swelling. OBJECTIVE: GENERAL: In no acute distress. VITAL SIGNS: Temperature is 98, heart rate is 62, respiratory rate is 18, blood pressure 141/71. HEENT: Moist mucous membrane. Crowded airway. NECK: Supple. No JVD. LUNGS: Have a fair airflow with few rhonchi. HEART: S1 and S2. ABDOMEN: Soft, nontender. No organomegaly. EXTREMITIES: No edema. NEUROLOGICAL: Awake and alert. Follows simple command. LABORATORY DATA: Shows blood sugar this morning 167. MEDICATIONS: He is on Brovana inhaled twice a day; Colace 100 mg twice a day; Coreg 3.125 mg twice a day; Depakote 1000 mg three times a day as on , Depakote 1500 mg twice a day on Monday, Monday, Monday and then also 1000 mg three times a day on Monday; albuterol/Atrovent nebulizer every 6 hours; insulin coverage; Levemir 14 units subcu at bedtime; MiraLax 17 g twice a day; Norvasc 10 mg daily; PhosLo 667 three times a day; budesonide inhaled twice a day; Robitussin DM; Tylenol p.r.n. basis. IMPRESSION AND PLAN: Small pleural effusion, pulmonary infiltrate, cardiomyopathy, diabetes, peripheral neuropathy, gastroesophageal reflux disease, renal failure, dialysis dependent, seizure disorder. Pulmonary point of view, doing okay. Continue bronchodilator. Sleep apnea precaution. Careful with sedation. Continue Depakote and adjust doses according to response. Fall precaution. Continue therapy. Thank you and we will follow with you. Lorie Zamora MD
--- NOTE | 2017-09-09 23:09 | PN ---
DATE: 09/09/2017 SUBJECTIVE: The patient is 57-year-old male. The patient is seen and examined on the bedside, looking comfortable. Walking around. Feeling better. No fever. No chills. No nausea, vomiting, diarrhea. No hematuria or hematochezia. No swelling of the legs. No chest pain. No palpitation. No headache. No fevers. No dizziness. REVIEW OF SYSTEMS: Ten-point review of systems is negative except above. PHYSICAL EXAMINATION: VITAL SIGNS: Temperature 98, blood pressure 140/70, respiratory rate 18, heart rate 70. HEENT: Head normocephalic, atraumatic. Eyes PERRLA. Extraocular muscles intact. Conjunctivae clear. Nose patent. Mucous membrane moist. NECK: Supple. No carotid bruit. No JVD. No thyromegaly. CHEST: Bilaterally symmetrical. HEART: S1 and S2 positive. LUNGS: Clear to auscultation. ABDOMEN: Soft. Bowel sounds positive. No organomegaly. EXTREMITIES: No edema. No cyanosis. NEUROLOGICAL: The patient is awake and alert. Moving all 4 extremities. No focal deficits. LABORATORY DATA: White blood cells 8.2, hemoglobin noted , hematocrit 29.3, platelets 230. Sodium 137, potassium 5.9. BUN 18, creatinine 8.1, glucose 236, calcium 12.1. MEDICATIONS: Brovana, Colace, Coreg, Depakote, albuterol, insulin, Levemir, MiraLax, Norvasc, Pulmicort, PhosLo. ASSESSMENT AND PLAN: Mr. Stephanie Jackson, 57-year-old male with anemia; hyperkalemia; renal insufficiency, on hemodialysis 3 times a week; insulin-dependent diabetes mellitus, not controlled; hypercalcemia; hyperphosphatemia; hypermagnesemia; history of new onset seizures. Seen by Infectious Disease. History of right-sided healthcare associated pneumonia, clinically improved status post treatment; history left facial preseptal cellulitis with dental caries and necrotic left lower molar, improved; chronic obstructive pulmonary disease; diabetic retinopathy; diabetic neuropathy; diabetic nephropathy; history of deep venous thrombosis and pulmonary disease; history of diabetic foot ulcers; history of right lung abscess; nonischemic cardiomyopathy. Complete a course of doxycycline. We will continue monitoring the patient off the antibiotics since the patient has risk of nosocomial infection. Getting physical therapy. Repeat labs. We will follow up. Makenzie Miranda MD [facility] # [phone] [facility]
[2017-09-10 06:01] VITALS: RESP 16; TEMP 98.1; O2SAT 92
[2017-09-10] MEDS: Insulin Reg-LOW-Coverage SC SCH (06:43)
[2017-09-10] MEDS: Arformoterol 15 mcg/2 ml Inh Sol IH SCH (08:50)
[2017-09-10] MEDS: Albuterol-Ipratrop 3 mg / 0.5 (3 ml) UD IH SCH (08:51)
[2017-09-10] MEDS: Budesonide 0.5 mg/2 ml Inhal Susp UD IH SCH (08:51)
[2017-09-10] MEDS: POLYETHYLENE GLYCOL 3350 17 GM/Dose PACKET PO SCH ×2 (10:08→17:23)
[2017-09-10] MEDS: Ammonium Lactate 12% Lotion (225 g) EXT SCH ×2 (10:08→17:23)
[2017-09-10] MEDS: Divalproex 500 mg DR(BID formulation) PO SCH ×3 (10:09→17:44)
--- NOTE | 2017-09-10 13:43 | PN ---
DATE: 09/10/2017 SUBJECTIVE: The patient is in bed, in no acute distress, nontoxic. OBJECTIVE: VITAL SIGNS: On exam, temperature is 98, blood pressure is 140/60, respiratory rate of 18, heart rate of 74. HEENT: Examination is unremarkable. NECK: Supple. LUNGS: Have decreased breath sounds. HEART: Normal S1, S2. ABDOMEN: Soft. DATA: Laboratory examination reveals a white count of 6.3, hemoglobin of 9, platelets of 230. Chemistries are noted and BUN of 88, creatinine is 8.1. Review of orders confirm the patient to be off of antibiotics. ASSESSMENT AND PLAN: This is a 57-year-old male with status post right-sided healthcare-associated pneumonia; status post treatment, improving with left-sided facial preseptal cellulitis; dental caries and necrotic lower molars; end-stage renal disease, on hemodialysis; diabetic; chronic obstructive lung disease, now has completed the antibiotic therapy. Currently off of antibiotics. He is at risk for developing new nosocomial infections. Marcos House MD
[2017-09-10 17:46] VITALS: BP 152/83; PULSE 69
--- NOTE | 2017-09-10 21:22 | PN ---
DATE: 09/10/2017 PULMONARY PROGRESS NOTE REFERRING PHYSICIAN: Makenzie Miranda MD. SUBJECTIVE: The patient is sitting on side of the bed. Night was unremarkable. No headache. No rhinitis. No new seizure. No nausea. No vomiting, diarrhea, leg pain, leg swelling. OBJECTIVE: GENERAL: In no acute distress. VITAL SIGNS: Temperature is 98, heart rate is 74, respiratory rate is 16, blood pressure 152/83, pulse ox 92% on room air. HEENT: Moist mucous membrane. No ulcer or thrush noted. NECK: Supple. No JVD. LUNGS: Have a fair airflow with rhonchi. HEART: S1 and S2. ABDOMEN: Soft, nontender. No organomegaly. EXTREMITIES: There is no edema. NEUROLOGICAL: Awake and alert. Follows simple command. LABORATORY DATA: Reviewed and noted blood sugar this morning is 180. MEDICATIONS: Reviewed, no new changes since yesterday. IMPRESSION AND PLAN: Pleural effusion; pulmonary infiltrate, which is improved; cardiomyopathy; diabetes; peripheral neuropathy; gastroesophageal reflux disease; renal failure, dialysis dependent; seizure disorder. Pulmonary point of view, doing okay. Continue bronchodilator. Antibiotics as per Infectious Diseases. On antiseizure medication. Fall precaution. Seizure precaution. Thank you and we will follow with you. Lorie Zamora MD
--- NOTE | 2017-09-12 09:41 | PN ---
DATE: 09/08/2017 PULMONARY PROGRESS NOTE REFERRING PHYSICIAN: Makenzie Miranda MD. SUBJECTIVE: He is sitting on side of the bed. Night was unremarkable. Seizure activity is much better. Still having occasional jerky movement, last one was yesterday evening. No nausea. No vomiting. No diarrhea. No leg swelling. OBJECTIVE: GENERAL: In no acute distress. VITAL SIGNS: Temp is 98, heart rate is 79, respiratory rate is 18, blood pressure 145/78, pulse ox 95% on room air. HEENT: Moist mucous membrane. Crowded airway. NECK: Supple. No JVD. LUNGS: Have a fair airflow with rhonchi. HEART: S1 and S2. ABDOMEN: Soft and nontender. No organomegaly. EXTREMITIES: Not much edema. NEUROLOGICAL: Awake and alert. Follows simple command. LABORATORY DATA: Shows hemoglobin 9.2, hematocrit 29.3, WBC 8.2, platelet count is 230. Sodium 137, potassium 5.9, chloride 93, bicarbonate 28, BUN 88, creatinine 8.1, glucose 236, calcium 12.1, phosphorus 7.5, magnesium 2.3, AST 43, ALT 40, alk phos is 66, albumin 3.9. MEDICATIONS: He is on Ativan 0.25 mg every 12 hours p.r.n.; Colace 100 mg twice a day; Coreg 3.125 mg twice a day; getting Depakote 1000 mg three times a day, which will be increased to 1500 mg twice a day; DuoNeb every 6 hours; insulin coverage; Levemir 14 units subcu at bedtime; MiraLax 17 g twice a day; Norvasc 10 mg daily; PhosLo 3 times a day; Robitussin p.r.n. basis; Tylenol p.r.n. basis. IMPRESSION AND PLAN: Small pleural effusion; pulmonary infiltrate; cardiomyopathy; diabetes; peripheral neuropathy; gastroesophageal reflux disease; renal failure, dialysis dependent; seizure disorder, which is slowly improving as doses of medication being increased. Keep head elevated at 45 degrees. Bronchodilators. May give dose of Kayexalate for hyperkalemia. Thank you and we will follow with you. Lorie Zamora MD
--- NOTE | 2017-09-12 09:41 | PN ---
DATE: 09/08/2017 SUBJECTIVE: Patient is a 57-year-old male. Patient is seen and examined on the bedside, looking comfortable. No nausea, vomiting, or diarrhea, but still coughing especially at night. No hematuria or hematochezia. No headache, no dizziness. No chest pain, no palpitation. Patient has kidney failure, having dialysis 3 times a week. Denies fevers, chills. No dizziness. No chest pain. PHYSICAL EXAMINATION: VITAL SIGNS: Temperature 98.3, pulse 89, respiratory rate 18, blood pressure 155/76, pulse oximetry 100. HEENT: Head: Normocephalic, atraumatic. Eyes: PERRLA. Extraocular muscles intact. Conjunctivae clear. Nose: Patent. Mucosus membrane moist. NECK: Supple, no carotid bruit. No JVD or thyromegaly. CHEST: Bilaterally symmetrical. HEART: S1, S2 positive. LUNGS: Clear to auscultation. ABDOMEN: Soft, bowel sounds present. No organomegaly. EXTREMITIES: No edema, no cyanosis. NEUROLOGICAL: Patient is awake, alert, moving all 4 extremities, no focal deficit. MEDICATIONS: Tylenol, DuoNeb, Norvasc, PhosLo, Depakote, Colace, insulin. LABORATORY DATA: White blood cells 6.3, hemoglobin 9.2, hematocrit 29.4, platelets 203. Sodium 139, potassium 5.1, BUN 67, creatinine 5.9, glucose 146. ASSESSMENT AND PLAN: Mr. Jackson is a 57-year-old male with anemia, hyperkalemia, renal insufficiency, hyperglycemia, has insulin-dependent diabetes mellitus, hypertension. Patient has seizures on EEG. Patient continues in the rehab. History of pulmonary artery disease, chronic obstructive pulmonary disease. Getting Depakote, Ativan p.r.n. Continue physical therapy, out of bed. EEG report shows patient has seizure activity. Gastrointestinal and deep venous thrombosis prophylaxis. Repeat labs. Out of bed, physical therapy. We will follow up. Makenzie Miranda MD
== END 2017-09-10 19:44 | disposition home or self-care (01) | DRG 945 ==
LOC: TRCU 15:42
PROVIDERS: ADMIT Internal Medicine; ATTEND Internal Medicine
PROC: 3E0F7GC Introduction of Other Therapeutic Substance into Respiratory Tract, Via Natural or Artificial Opening (ICD-10-PCS; 2017-09-02)
PROC: F07Z9FZ Gait Training/Functional Ambulation Treatment using Assistive, Adaptive, Supportive or Protective Equipment (ICD-10-PCS; principal; 2017-09-03)
PROC: F08Z4FZ Home Management Treatment using Assistive, Adaptive, Supportive or Protective Equipment (ICD-10-PCS; 2017-09-03)
DX: R53.1 Weakness (principal); R26.81 Unsteadiness on feet; J18.9 Pneumonia, unspecified organism; N18.6 End stage renal disease; I13.2 Hypertensive heart and chronic kidney disease with heart failure and with stage 5 chronic kidney disease, or end stage renal disease; J44.0 Chronic obstructive pulmonary disease with (acute) lower respiratory infection; I42.9 Cardiomyopathy, unspecified; R29.6 Repeated falls; I50.9 Heart failure, unspecified; G40.909 Epilepsy, unspecified, not intractable, without status epilepticus; K21.9 Gastro-esophageal reflux disease without esophagitis; E11.21 Type 2 diabetes mellitus with diabetic nephropathy; E11.42 Type 2 diabetes mellitus with diabetic polyneuropathy; E11.22 Type 2 diabetes mellitus with diabetic chronic kidney disease; D64.9 Anemia, unspecified; F41.9 Anxiety disorder, unspecified; E78.00 Pure hypercholesterolemia, unspecified; Y95 Nosocomial condition; E11.319 Type 2 diabetes mellitus with unspecified diabetic retinopathy without macular edema; E11.621 Type 2 diabetes mellitus with foot ulcer; L97.509 Non-pressure chronic ulcer of other part of unspecified foot with unspecified severity; E87.5 Hyperkalemia; E11.65 Type 2 diabetes mellitus with hyperglycemia; Z79.4 Long term (current) use of insulin; Z99.2 Dependence on renal dialysis; Z91.81 History of falling; Z86.711 Personal history of pulmonary embolism; Z86.718 Personal history of other venous thrombosis and embolism; Z91.19 Patient's noncompliance with other medical treatment and regimen

== ENCOUNTER 2017-11-20 10:41 | Inpatient (IN) | payer MEDICARE, MEDICAID ==
[2017-11-20 10:42] VITALS: PULSE 69
--- NOTE | 2017-11-20 11:46 | ED PDOC ---
Arrival/HPI - General Chief Complaint: GI Problem Time Seen by Provider: 11/20/17 11:11 Historian: Patient - History of Present Illness Narrative History of Present Illness (Text): 11/20/17 11:41 57 year old male, whose past medical history includes chronic kidney disease on dialysis, anemia, nd diabetes, who presents to the emergency department complaining of watery diarrhea x 3 days. Patient notes associated weakness vomiting, chills, and fatique. However, patient states after dialysis he usually experiences these symptoms. Patient states due to symptoms and low hemoglobin the nurse at dialysis told him to visit the Emergency Department. Patient denies any fever, chest pain, shortness of breath, urinary symptoms, back pain, neck pain, headache, dizziness, or any other complaints. Time/Duration: < week (3 days) Symptom Onset: Gradual Symptom Course: Unchanged Activities at Onset: Light Context: Home Past Medical History - Provider Review Nursing Documentation Reviewed: Yes - Infectious Disease Hx of Infectious Diseases: None - Tetanus Immunization Tetanus Immunization: Up to Date - Cardiac Hx Congestive Heart Failure: Yes Hx Hypertension: Yes - Pulmonary Hx Chronic Obstructive Pulmonary Disease (COPD): Yes - Neurological Hx Neurological Disorder: Yes Hx Dizziness: Yes (after hd) Other/Comment: diabetic neuropathy pain/tingling/stinging/itch from b/l knees and below, involuntary jumping, shaking and jerking movements x 2 wks - HEENT Hx HEENT Disorder: Yes (missing teeth) Other/Comment: [place] left ear, blurred vision - Renal Hx Renal Failure: Yes (HD (MWF)) - Endocrine/Metabolic Hx Diabetes Mellitus Type 2: Yes - Hematological/Oncological Hx Blood Disorders: Yes Hx Anemia: Yes (blood transfusion) - Integumentary Hx Dermatological Disorder: Yes Other/Comment: left facial and orbital cellulitis chronic on and off, pt stated "I feel bumps under the skin on my face when I run my hands over skin"./ dry leathery skin ble with multiple dark brown skin discolorations, r knee healed wound scars, dark brown skin discoloratins to feet thick hard toenails both feet , multiple skin discolorations to both arms, multiple dark closed wounds b/l legs, healed diabetic foot ulcers - Musculoskeletal/Rheumatological Hx Falls: Yes (past) - Gastrointestinal Hx Gastrointestinal Disorders: Yes (hx c dif/reflux/missing teeth) - Genitourinary/Gynecological Hx Genitourinary Disorders: Yes (esrd) Hx Reproductive Disorders: No - Psychiatric Hx Psychophysiologic Disorder: Yes Hx Anxiety: Yes Hx Depression: Yes Hx Substance Use: No - Past Surgical History Past Surgical History: Non-Contributing - Surgical History Hx Amputation: No Hx Appendectomy: No Hx Cardiac Catheterization: Yes (01/2013 dr cedeno) Hx Cholecystectomy: No Hx Coronary Stent: No Hx Gastric Bypass Surgery: No Hx Hysterectomy: No Hx Joint Replacement: No Hx Kidney Transplant: No Hx Liver Transplant: No Hx Mastectomy: No Hx Musculoskeletal Surgery: No Hx Open Heart Surgery: No Hx Orthopedic Surgery: Yes (L hip fx orif 05/07/17, pt fell) Hx Splenectomy: No Hx Valve Replacement: No Other/Comment: sanket av shunt, ultrasound guided r thoracentesis 05/20/13 2600 straw fluid drained, fistulagram 07/13/17 - Anesthesia Hx Anesthesia: Yes Hx Anesthesia Reactions: No Hx Malignant Hyperthermia: No - Suicidal Assessment Feels Threatened In Home Enviroment: No Family/Social History - Physician Review Nursing Documentation Reviewed: Yes Family/Social History: Unknown Family HX Smoking Status: Never Smoked Hx Alcohol Use: No Hx Substance Use: No Hx Substance Use Treatment: No Allergies/Home Meds Allergies/Adverse Reactions: Allergies No Known Allergies Allergy (Verified 09/02/17 15:51) Review of Systems - Physician Review All systems were reviewed & negative as marked: Yes - Review of Systems Constitutional: Fatigue Eyes: Normal ENT: Normal Respiratory: Normal. absent: SOB, Cough Cardiovascular: Normal. absent: Chest Pain Gastrointestinal: Diarrhea, Vomiting Genitourinary Male: Normal. absent: Dysuria, Frequency Musculoskeletal: Normal. absent: Back Pain, Neck Pain Skin: Normal. absent: Rash Neurological: Normal. absent: Headache, Dizziness Endocrine: Normal Hemo/Lymphatic: Normal Psychiatric: Normal Physical Exam Vital Signs Reviewed: Yes Vital Signs Temp Pulse Resp BP Pulse Ox 11/20/17 16:04 97.6 F 70 18 129/72 98 11/20/17 14:06 98.1 F 67 18 152/77 H 100 11/20/17 12:44 97.8 F 66 18 149/81 100 11/20/17 10:57 98.7 F 72 18 151/67 H 98 Temperature: Afebrile Blood Pressure: Normal Pulse: Regular Respiratory Rate: Normal Appearance: Positive for: Well-Appearing, Non-Toxic, Comfortable Pain Distress: None Mental Status: Positive for: Alert and Oriented X 3 - Systems Exam Head: Present: Atraumatic, Normocephalic Pupils: Present: PERRL Extroacular Muscles: Present: EOMI Conjunctiva: Present: Normal Mouth: Present: Moist Mucous Membranes Neck: Present: Normal Range of Motion Respiratory/Chest: Present: Clear to Auscultation, Good Air Exchange. No: Respiratory Distress, Accessory Muscle Use Cardiovascular: Present: Regular Rate and Rhythm, Normal S1, S2. No: Murmurs Abdomen: No: Tenderness, Distention, Peritoneal Signs Back: Present: Normal Inspection Upper Extremity: Present: Normal Inspection. No: Cyanosis, Edema Lower Extremity: Present: Normal Inspection. No: Edema Neurological: Present: GCS=15, CN II-XII Intact, Speech Normal Skin: Present: Warm, Dry, Normal Color. No: Rashes Psychiatric: Present: Alert, Oriented x 3, Normal Insight, Normal Concentration Medical Decision Making ED Course and Treatment: 11/20/17 11:47 Impression: 57 year old male presents to the emergency department complaining of diarrhea x 3 days. Plan: -- Labs -- Stool Culture -- Chest X-ray -- CT Chest -- Cardiac Enzymes -- Reassess and disposition Progress Notes: 11/20/17 12:00 EKG reviewed, shows NSR at 66 bpm. Left Anterior Fascicular block. 11/20/17 12:14 Chest X-ray reviewed shows: IMPRESSION: No significant interval change in right lower lobe consolidation and small right pleural effusion. Short-term interval follow-up after medical management and if clinically indicated CT scan is recommended for further evaluation. 11/20/17 16:04 CT Chest reviewed, shows: IMPRESSION: Persistent airspace disease in the posterior right lower lobe which may represent chronic pneumonia versus atelectasis. No definite evidence for mass. Follow-up after medical management is recommended to ensure complete resolution. Persistent small right pleural effusion. - Lab Interpretations Lab Results: 11/20/17 11:50 11/20/17 11:50 Lab Results 11/20/17 11:50: Sodium 134, Potassium 4.7, Chloride 91 L, Carbon Dioxide 27, Anion Gap 20, BUN 91 H, Creatinine 10.8 H* D, Est GFR ( Amer) 6, Est GFR (Non-Af Amer) 5, Random Glucose 259 H, Calcium 8.3 L, Phosphorus 5.5 H, Magnesium 2.3 H, Total Bilirubin 0.5, AST 36, ALT 49, Alkaline Phosphatase 80, Lactate Dehydrogenase 586, Total Creatine Kinase 437 H, CK-MB (CK-2) 8.0 H, CK- MB (CK-2) % 1.8 L, Troponin I 0.05 D, NT-Pro-B Natriuret Pep 16109 H, Total Protein 7.2, Albumin 3.9, Globulin 3.3, Albumin/Globulin Ratio 1.2 11/20/17 11:50: PT 11.7, INR 1.02 11/20/17 11:50: WBC 6.1 D, RBC 3.40 L, Hgb 8.0 L, Hct 25.5 L, MCV 75.0 L, MCH 23.5 L, MCHC 31.4, RDW 14.9 H, Plt Count 163, Gran % 65.7, Lymph % (Auto) 23.2, [place] % (Auto) 7.9 H, Eos % (Auto) 3.0, Baso % (Auto) 0.2, Gran # 3.99, Lymph # ( Auto) 1.4, [place] # (Auto) 0.5, Eos # (Auto) 0.2, Baso # (Auto) 0.01 11/20/17 11:41: Blood Type A POSITIVE, Antibody Screen Negative, BBK History Checked Patient has bt - RAD Interpretation Radiology Orders: 11/20/17 11:41 CHEST PORTABLE [RAD] Stat 11/20/17 14:37 CHEST W/O CONTRAST [CT] Stat - Medication Orders Current Medication Orders: Amlodipine Besylate (Norvasc) 10 mg PO DAILY [facility] Calcium Acetate (Phoslo) 667 mg PO TID JEANETTE Divalproex Sodium (Depakote Dr(*Bid*)) 1,500 mg PO BID JEANETTE Insulin Detemir (Levemir) 16 unit SC HS JEANETTE Insulin Human Regular (Humulin R Low) 0 units SC ACHS JEANETTE PRN Reason: Protocol Discontinued Medications Ceftriaxone Sodium (Rocephin 1 Gram Ivpb) 1 gm in 100 mls @ 200 mls/hr IVPB STAT STA PRN Reason: Protocol Stop: 11/20/17 14:50 Last Admin: 11/20/17 15:08 Dose: 200 mls/hr eMAR Start Stop Document 11/20/17 15:08 LA (Rec: 11/20/17 15:08 LA [facility]) Intravenous Solution Start Date 11/20/17 Start Time 15:08 End Date 11/20/17 End time 15:38 Total Infusion Time 30 Azithromycin (Zithromax 500mg In Ns) 500 mg in 250 mls @ 167 mls/hr IVPB STAT STA PRN Reason: Protocol Stop: 11/20/17 15:50 Last Admin: 11/20/17 15:35 Dose: 167 mls/hr eMAR Start Stop Document 11/20/17 15:35 LA (Rec: 11/20/17 15:36 LA [facility]) Intravenous Solution Start Date 11/20/17 Start Time 15:35 End Date 11/20/17 End time 17:05 Total Infusion Time 90 - Scribe Statement The provider has reviewed the documentation as recorded by the Scribrocío Cervantes All medical record entries made by the Nixonibrocío were at my direction and personally dictated by me. I have reviewed the chart and agree that the record accurately reflects my personal performance of the history, physical exam, medical decision making, and the department course for this patient. I have also personally directed, reviewed, and agree with the discharge instructions and disposition. Disposition/Present on Arrival - Present on Arrival Any Indicators Present on Arrival: No History of DVT/PE: No History of Uncontrolled Diabetes: No Urinary Catheter: No History of Decub. Ulcer: No History Surgical Site Infection Following: None - Disposition Have Diagnosis and Disposition been Completed?: Yes Diagnosis: Pneumonia, Diarrhea, ESRD (end stage renal disease) Disposition: HOSPITALIZED Disposition Time: 20:13 Patient Plan: Admission Condition: FAIR
--- NOTE | 2017-11-20 12:10 | RAD ---
Date of service: 11/20/2017 HISTORY: ?Volume Status/Overload? COMPARISON: 08/29/2017 FINDINGS: LUNGS: The lungs are well inflated. There is persistent consolidation in the right lower lobe. PLEURA: No change in small right pleural effusion, no pneumothorax apparent. There is interval resolution of fluid in the minor fissure. CARDIOVASCULAR: Normal. OSSEOUS STRUCTURES: No significant abnormalities. VISUALIZED UPPER ABDOMEN: Normal. OTHER FINDINGS: Stable appearance of left axillary stent graft. IMPRESSION: No significant interval change in right lower lobe consolidation and small right pleural effusion. Short-term interval follow-up after medical management and if clinically indicated CT scan is recommended for further evaluation.
[2017-11-20 12:16] LABS: BASO # 0.01 K/mm3 (0.0-2.0); BASO % 0.2 % (0.0-3.0); EOS # 0.2 (0.0-0.7); GRAN # 3.99 (1.4-6.5); GRAN % 65.7 % (50.0-68.0); LYMPH # 1.4 (1.2-3.4); LYMPH % 23.2 % (22.0-35.0); MEAN CORPUSCULAR HEMOGLOBIN 23.5 pg (25.0-35.0); MEAN CORPUSCULAR HGB CONC 31.4 g/dl (31.0-37.0); MONO # 0.5 (0.1-0.6); MONO % 7.9 % (1.0-6.0); PLATELET COUNT 163 10^3/uL (120.0-450.0); RED CELL DISTRIBUTION WIDTH 14.9 % (11.5-14.5); WHITE BLOOD COUNT 6.1 10^3/ul (4.5-11.0)
[2017-11-20 12:20] LABS: ALB/GLOB RATIO 1.2 (1.1-1.8); ALBUMIN 3.9 g/dL (3.0-4.8); CALCIUM 8.3 mg/dL (8.4-10.5)
[2017-11-20 12:22] LABS: INR 1.02; PROTHROMBIN TIME 11.7 SECONDS (9.4-12.5)
[2017-11-20 12:26] LABS: TROPONIN I 0.05 ng/mL
[2017-11-20 12:30] LABS: CK MB% 1.8 % (2.5-3.0)
[2017-11-20] MEDS ORDERED: Azithromycin 500MG/NS 250ml 500 MG/250 ML BAG IVPB STA (14:21)
[2017-11-20] MEDS ORDERED: cefTRIAXone 1 gm 1 GM/100 ML BAG IVPB STA (14:21)
--- NOTE | 2017-11-20 15:44 | CT ---
Date of service: 11/20/2017 PROCEDURE: CT Chest without contrast HISTORY: Presistenr RLL Infiltrate/Mass? COMPARISON: Plain radiographs from 11/20/2017 and 08/29/2017 TECHNIQUE: Contiguous axial images were obtained through the chest without intravenous contrast enhancement. Sagittal and coronal reconstructions were performed. Radiation dose (DLP): mGy-cm. This CT exam was performed using one or more of the following dose reduction techniques: Automated exposure control, adjustment of the mA and/or kV according to patient size, and/or use of iterative reconstruction technique. FINDINGS: LUNGS: The lungs are well inflated. There is persistent airspace disease in the posterior right lower lobe. No suspicious pulmonary nodule. There are no endobronchial lesions. MEDIASTINUM: There is moderate cardiomegaly. No pericardial effusion. The aorta is not dilated. No bulky mediastinal adenopathy. PLEURA: Small right pleural effusion. No pneumothorax. There is minimal fluid in the minor fissure. BONES: No fracture. No destructive lesion. UPPER ABDOMEN: Grossly unremarkable. OTHER FINDINGS: None. IMPRESSION: Persistent airspace disease in the posterior right lower lobe which may represent chronic pneumonia versus atelectasis. No definite evidence for mass. Follow-up after medical management is recommended to ensure complete resolution. Persistent small right pleural effusion.
[2017-11-20] MEDS: Divalproex 500 mg DR(BID formulation) PO SCH (21:06)
[2017-11-20] MEDS: Insulin Detemir 100 units/ml Vial (Levemir) SC SCH (21:07)
[2017-11-20] MEDS: Insulin Reg-LOW-Coverage SC SCH (22:20)
--- NOTE | 2017-11-20 22:33 | CARD ---
APPROVED REPORT Date of service: 11/20/2017 EKG Measurement Heart [id number] <Conclusion> Normal sinus rhythm Left anterior fascicular block Left ventricular hypertrophy with QRS widening Cannot rule out Septal infarct, age undetermined Abnormal ECG
[2017-11-20 23:25] VITALS: BMI 18.3
[2017-11-20] MEDS ORDERED: Pneumococcal 23-Valent Vaccine IM ONE (23:25)
[2017-11-21] MEDS: Insulin Reg-LOW-Coverage SC SCH ×3 (07:46→17:06)
[2017-11-21 09:03] LABS: IRON 95 ug/dL (45-180)
[2017-11-21 09:19] LABS: % IRON SATURATION 46 % (20-55); TOTAL IRON BINDING CAPACITY 206 ug/dL (261-462)
[2017-11-21] MEDS ORDERED: Azithromycin 500 MG in Sodium Chloride 0.9% 250 ML IVPB SCH (10:00)
[2017-11-21] MEDS ORDERED: Azithromycin 500MG/NS 250ml 500 MG/250 ML BAG IVPB SCH (10:00)
[2017-11-21] MEDS: Divalproex 500 mg DR(BID formulation) PO SCH ×2 (10:11→18:00)
[2017-11-21] MEDS: cefTRIAXone 1 gm 1 GM/100 ML BAG IVPB SCH (11:06)
[2017-11-21 13:47] LABS: FOLATE 7.7 ng/mL
--- NOTE | 2017-11-21 15:55 | HP ---
Copied To: Makenzie Miranda MD Attending MD: Makenzie Miranda MD CHIEF COMPLAINTS: Diarrhea, feeling fatigued and tired. HISTORY OF PRESENT ILLNESS: Mr. Stephanie Jackson, 57-year-old male whose past medical history includes chronic kidney disease, on hemodialysis 3 times a week, anemia, diabetes mellitus. Came to the Emergency Department complaining of watery diarrhea from a couple of days. The patient noticed associated weakness, vomiting, chills, fatigue. The patient states after dialysis he usually experiences these symptoms. The patient states that due to symptoms and low hemoglobin, dialysis nurse sent the patient to the emergency room. No fever. No chest pain. No hematuria. No hematochezia. No neck pain, back pain, headache or dizziness. Discussion done with the patient's . [facility]. PAST MEDICAL HISTORY: As above. Renal insufficiency, on hemodialysis 3 times a week; COPD; history of dizziness; diabetic neuropathy; parkinsonism; anxiety; depression; left hip fracture, ORIF, due to fall. FAMILY HISTORY: Father and mother, noncontributory. HABITS: Never smoked. No drugs. No ethanol. ALLERGIES: THE PATIENT IS NOT ALLERGIC WITH ANY MEDICATIONS. HOME MEDICATIONS: Reviewed by me. REVIEW OF SYSTEMS: The patient was seen and examined on 11/20/2017 and looking comfortable. No nausea, vomiting, diarrhea. No hematuria or hematochezia. No headache. No dizziness. No swelling of the leg. No fever. No chills. Still having feeling fatigue and tired, having diarrhea and vomiting. PHYSICAL EXAMINATION: VITAL SIGNS: Temperature 98.7, pulse 72, respiratory rate 18, blood pressure 115/67, pulse oximetry 98. HEENT: Head normocephalic, atraumatic. Eyes PERRLA. Extraocular muscles intact. Conjunctivae clear. Nose patent. Mucous membrane moist. NECK: Supple. No carotid bruit. No JVD or thyromegaly. CHEST: Bilaterally symmetrical. HEART: S1 and S2 positive. LUNGS: Clear to auscultation. ABDOMEN: Soft. Bowel sounds positive. No organomegaly. EXTREMITIES: No edema. No cyanosis. NEUROLOGICAL: The patient is awake and alert. Moving all 4 extremities. No focal deficits. LABORATORY DATA: White blood cells 6.1, hemoglobin 8, hematocrit 25.5, platelets 153. Sodium 134, potassium 4.7, BUN 91, creatinine 10.8, glucose 259. ASSESSMENT AND PLAN: Mr. Stephanie Jackson, a 57-year-old male with anemia; renal insufficiency, on hemodialysis; hyperglycemia. Came with intractable nausea, vomiting, diarrhea. End-stage renal disease, on hemodialysis 3 times a week. Rule out pneumonia. Chronic obstructive pulmonary disease; dizziness; diabetes mellitus, insulin dependent; anxiety; depression. We admitted the patient. Antibiotics started. The patient has history of pneumonia. Did CAT scan of the chest. Persistent airspace disease in the posterior right upper lobe, which may represent chronic pneumonia versus atelectasis. No definite evidence for mass. We will call Pulmonology consult. Persistent small right pleural effusion. We will follow up. Makenzie Miranda MD
[2017-11-21] MEDS: Albuterol-Ipratrop 3 mg / 0.5 (3 ml) UD IH SCH (20:06)
--- NOTE | 2017-11-21 23:40 | PN ---
Copied To: Makenzie Miranda MD Attending MD: Makenzie Miranda MD DATE: 11/21/2017 SUBJECTIVE: The patient is seen and examined on the bedside. Sitting on the chair, feeling shivers, runny nose. No headache. No dizziness. No chest pain. No palpitation. REVIEW OF SYSTEMS: Twelve-point review of systems was done. Negative except above. PHYSICAL EXAMINATION: VITAL SIGNS: Temperature 97.6, pulse 69, blood pressure 152/88, respiratory rate 18. HEENT: Head normocephalic, atraumatic. Eyes PERRLA. Extraocular muscles intact. Conjunctivae clear. Nose patent. Mucous membrane moist. NECK: Supple. No carotid bruit. No JVD or thyromegaly. CHEST: Bilaterally symmetrical. HEART: S1 and S2 positive. LUNGS: Clear to auscultation. ABDOMEN: Soft. Bowel sounds positive. No organomegaly. EXTREMITIES: No edema. No cyanosis. NEUROLOGICAL: The patient is awake and alert. Moving all 4 extremities. No focal deficits. MEDICATIONS: Depakote, DuoNeb, insulin, Levemir, Norvasc, PhosLo, Rocephin, azithromycin, Zofran. LABORATORY DATA: White blood cells 6.1, hemoglobin 8, hematocrit 25.5, platelets 163. Glucose 153, 105. Hemoglobin A1c is 9.1. ASSESSMENT AND PLAN: Mr. Stephanie Jackson, a 57-year-old male with uncontrolled diabetes mellitus, hemoglobin A1c is 9.1; history of anemia, acute on chronic; history of renal insufficiency, on hemodialysis 3 times a week, not compliant, urged to be compliant. Came with nausea, vomiting and diarrhea. CAT scan of the chest done, history of pneumonia. Still has infiltrates. We will do followup with CAT scan. Pulmonary consult called. Antibiotics as per Infectious Disease. Chronic obstructive lung disease, dizziness, depression. GI, deep venous thrombosis prophylaxis. The patient has persistent small right pleural effusion. We will follow up. Makenzie Miranda MD
--- NOTE | 2017-11-22 00:19 | CON ---
Copied To: Leandro Gilbert MD Attending MD: Leandro Gilbert MD DATE: 11/21/2017 CHIEF COMPLAINT AND HISTORY OF PRESENT ILLNESS: This is a 57-year-old male who has come here to the hospital complaining of diarrhea. The patient has a past medical history of end-stage renal disease, on hemodialysis Monday, and Monday. He has been having watery diarrhea for the past 3 days. The patient says that he has weakness. He has been vomiting. He also has chills. He says that he experienced these after dialysis. He was advised to go to the ER for further evaluation. The patient has no complaints of any abdominal pain. He has no dysuria. No says that he has a vein in his head that starts "popping" when he is on dialysis. He has asked multiple times in the past about stopping dialysis. I had advised him about talking to his to come to consensus regarding dialysis. The social work manager has evaluated the patient as well because there were concerns at home that the patient's was yelling at the patient. This is according to the patient himself. REVIEW OF SYMPTOMS: All other review of symptoms are within normal limits except that was mentioned. He denied any suicidal ideation. ALLERGIES: NO KNOWN DRUG ALLERGIES. PAST MEDICAL HISTORY: 1. Diabetes type 2. 2. Secondary hyperparathyroidism. 3. End-stage renal disease, on hemodialysis. 4. Falls. 5. Diabetic neuropathy. 6. Diabetic retinopathy. 7. Diabetic nephropathy. 8. DVT/PE. 9. Esophageal cyst. 10. COPD. 11. Right lung abscess. 12. Nonischemic cardiomyopathy. FAMILY HISTORY: The patient's mother and father in the early 50s of unknown causes. SOCIAL HISTORY: The patient is . He lives with his . He has children. PAST SURGICAL HISTORY: Left AV fistula placement, hip surgery. PHYSICAL EXAMINATION: VITAL SIGNS: The patient has a temperature of 97.7, pulse is 70, blood pressure is 129/64, respirations 18, O2 saturation is 95%, height is 5 feet and 11. Weight is 132 pounds, BMI is 18.4. GENERAL: The patient lying in bed, uncomfortable, and in no acute distress. HEENT: Atraumatic and normocephalic. Anicteric sclerae. Moist mucosa. [place] conjunctivae. No oral lesions. NECK: No JVD, anterior and posterior adenopathy, thyromegaly, or bruits. CARDIOVASCULAR: S1 and S2 regular. No murmur, rubs, or gallop. LUNGS: Clear to auscultation bilaterally. No wheezes, rales, or rhonchi. ABDOMEN: Bowel sounds are positive. Soft, nontender and nondistended. No hepatosplenomegaly. No rebound and no guarding EXTREMITIES: No cyanosis, clubbing, or edema. Left arm AV fistula with good bruits and thrill. NEUROLOGIC: No facial asymmetry. Tongue is midline. No uvula deviation. Power is 5/5 upper extremity and lower extremity. Sensation intact in upper extremity and lower extremity. PSYCHIATRIC: He is awake, alert and oriented x3. No anxiety or depression. He has normal affect. The patient is concerned about veins are popping in his head. He says he sometimes feels bumps under his skin. He says his skin is very leathery and has dark spots. GENITOURINARY: No CVA tenderness. VASCULAR: 2+ pulses in the carotid pulses and pedal pulses. SKIN: No erythema or nodules. SPINE: Shows normal curvature. LABORATORY DATA: He has a white count 6.1, hemoglobin 8. Sodium is 134, the creatinine is 10.8. His folic acid is 17. His iron saturation is 46%. Chest CT done shows persistent airspace disease in the posterior right lower lobe, may represent chronic pneumonia versus atelectasis. The chest x-ray, there is no significant interval change of the right lower consolidation. EKG shows normal sinus rhythm. Left anterior fascicular block, heart rate of 66, QTc is 490. ASSESSMENT: 1. Gastroenteritis. 2. Anemia secondary to chronic kidney disease. 3. End-stage renal disease, on hemodialysis. 4. Secondary hyperparathyroidism. 5. Left arteriovenous fistula. 6. Diabetic retinopathy. 7. Diabetic neuropathy. 8. Diabetes type 2. PLAN: The patient is admitted to the hospital and the patient is on his Depakote, this will be continued. He is on insulin sliding scale for his diabetes. The patient is on Levemir for his diabetes. He is on Norvasc for his hypertension. He is going to continue with PhosLo for secondary hyperparathyroidism. The patient is receiving Rocephin for antibiotics and azithromycin. He is on a renal diet. The patient is going to be dialyzed on his regular schedule, which is Monday, , Monday. I will get type and screen tomorrow to see if he needs a transfusion. He is borderline. Chemistries done shows saturation of 46%. I will order iron studies as well by adding ferritin which was not done. Leandro Gilbert MD
[2017-11-22] MEDS: Insulin Reg-LOW-Coverage SC SCH ×5 (00:29→22:37)
[2017-11-22] MEDS: Insulin Detemir 100 units/ml Vial (Levemir) SC SCH ×2 (00:31→21:46)
--- NOTE | 2017-11-22 01:18 | CON ---
Copied To: Lorie Zamora MD Attending MD: Lorie Zamora MD DATE: 11/21/2017 REFERRING PHYSICIAN: Makenzie Miranda MD. REASON FOR CONSULT: Chronic lung disease, has a pulmonary infiltrate. HISTORY OF PRESENT ILLNESS: This is a 57-year-old gentleman well known to me from previous admission with multiple medical issues including diabetes end up with end-organ damage, renal failure, dialysis dependent, peripheral vascular disease, recurrent nonhealing lower extremity ulcers, chronic lung disease, anemia, diabetes, anxiety disorder, tremors, history of hip fracture, comes in because of cough, shortness of breath, not feeling well. No hemoptysis, no hematemesis, no hematuria or diarrhea reported. PAST MEDICAL HISTORY: As per history of present illness. SOCIAL HISTORY Nonsmoker, nondrinker. FAMILY HISTORY: No significant cardiopulmonary disease reported. ALLERGIES: NONE KNOWN. MEDICATIONS: The patient is on Depakote 1500 mg twice a day, insulin coverage, Levemir 60 units subcu at bedtime, Norvasc 10 mg daily, PhosLo 667 before meals, Rocephin 1 g IV daily, Zithromax 500 mg daily, Zofran p.r.n. basis. REVIEW OF SYSTEM: No headache, no rhinitis. No recent seizures reported. Has some cough, shortness of breath. No chest pain. No nausea, no vomiting, no diarrhea. Trace leg swelling. PHYSICAL EXAMINATION: GENERAL: Sitting up, in no acute distress. VITAL SIGNS: Temperature is 98, heart rate is 69, respiratory rate is 20, blood pressure 152/88, pulse ox 100% on nasal cannula. HEENT: Moist mucous membrane. Crowded airway. NECK: Supple. No JVD. LUNGS: Has a few crackles at the bases. HEART: S2 and S2. ABDOMEN: Soft, nontender, no organomegaly. EXTREMITIES: Trace edema. NEUROLOGIC: Awake, alert. Follows simple commands. LABORATORY DATA: Shows hemoglobin 8, hematocrit 25.5, WBC 6.1, platelet count is 163. INR 1.02. Sodium 134, potassium 4.7, chloride 91, bicarbonate 27, BUN 91, creatinine 10.8. Glucose 259, calcium 8.3, phosphorus 5.5, magnesium 2.3, AST 36, ALT 49, alk phos is 80. Albumin is 3.9. ProBNP 26,300. Microbiology: Blood culture have been negative. CAT scan of the chest done on admission, which shows airspace disease in the posterior right lower lobe, which may represent chronic pneumonia, also small right pleural effusion. IMPRESSION AND PLAN: Pulmonary infiltrate, rule out pneumonia, chronic obstructive lung disease, cardiomyopathy, diabetes, peripheral neuropathy, gastroesophageal reflux disease, renal failure, dialysis dependent, seizure disorder, peripheral vascular disease with recurrent ulcers. Continue bronchodilator. Keep head at 45 degrees. Sleep apnea precaution. Avoid sedation. Seizure precaution. Fall precaution. Dialysis. Follow up x-rays to assure the stability of infiltrate. Thank you and we will follow with you. Lorie Zamora MD
[2017-11-22] MEDS: Albuterol-Ipratrop 3 mg / 0.5 (3 ml) UD IH SCH ×4 (01:31→20:28)
[2017-11-22 07:07] LABS: MEAN CELL VOLUME 74.2 fl (80.0-105.0); MEAN CORPUSCULAR HEMOGLOBIN 23.7 pg (25.0-35.0); PLATELET COUNT 135 10^3/uL (120.0-450.0); RBC 3.37 10^6/uL (3.5-6.1); RED CELL DISTRIBUTION WIDTH 14.7 % (11.5-14.5); WHITE BLOOD COUNT 6.8 10^3/ul (4.5-11.0)
[2017-11-22 07:36] LABS: CALCIUM 7.9 mg/dL (8.4-10.5)
--- NOTE | 2017-11-22 08:49 | PN ---
Copied To: Leandro Gilbert MD Attending MD: Leandro Gilbert MD DATE: 11/22/2017 SUBJECTIVE: Patient has no complaints of any chest pain. Nor shortness of breath. No headaches or dizziness. PHYSICAL EXAMINATION: VITAL SIGNS: Temperature is 97.6, pulse of 69, blood pressure 152/88, respirations 18. GENERAL: The patient is lying in bed, flat, comfortable. HEENT: No oral lesion. Anicteric sclerae. Moist mucosa. NECK: No JVD, adenopathy, or thyromegaly. CARDIOVASCULAR: S1 and S2, regular. No murmurs, rubs, or gallops. LUNGS: Clear to auscultation bilaterally. No wheeze, rales, or rhonchi. ABDOMEN: Bowel sounds are positive. Soft, nontender and nondistended. EXTREMITIES: No cyanosis, clubbing or edema. LABORATORY DATA: White count 6.1, hemoglobin 8. Creatinine is 10.8. ASSESSMENT: 1. End-stage renal disease, on hemodialysis. 2. Diabetes type 2. 3. Gastroenteritis. 4. Anemia secondary to end-stage renal disease. 5. Left arteriovenous fistula. 6. Diabetic retinopathy. 7. Diabetic neuropathy. PLAN: The patient is currently comfortable. The patient is on dialysis. He is on Levemir for his diabetes. He is going to be on Norvasc for his hypertension. He is on PhosLo as his phosphate binder. He is on antibiotics with Rocephin and Zithromax. The patient had blood cultures x2 that were negative. He will not require dialysis today. Next planned dialysis is tomorrow. Leandro Gilbert MD
[2017-11-22] MEDS: Divalproex 500 mg DR(BID formulation) PO SCH ×2 (09:34→17:33)
[2017-11-22] MEDS: cefTRIAXone 1 gm 1 GM/100 ML BAG IVPB SCH (09:34)
--- NOTE | 2017-11-22 14:06 | PN ---
Copied To: Lorie Zamora MD Attending MD: Lorie Zamora MD DATE: 11/22/2017 PULMONARY PROGRESS NOTE REFERRING PHYSICIAN: Makenzie Miranda MD. SUBJECTIVE: He is sitting in side of the bed, having lunch. Night was unremarkable. No shortness of breath. Still has some cough. No chest pain. No nausea, no vomiting, no diarrhea. Trace ankle swelling. OBJECTIVE: GENERAL: In no acute distress. VITAL SIGNS: Temperature is 99, heart rate 74, respiratory rate is 18, blood pressure 148/79, pulse ox 97% on nasal cannula. HEENT: Moist mucous membrane. No ulcer or thrush noted. NECK: Supple. No JVD. LUNGS: Have a few crackles at bases. HEART: S1, S2. ABDOMEN: Soft, nontender. No organomegaly. EXTREMITIES: Ankle has trace edema. NEUROLOGIC: Awake, alert, follows simple command. MEDICATIONS: He is on Depakote 1.5 g p.o. twice a day; DuoNeb every 6 hours; insulin coverage, Levemir 60 units subcu at bedtime, Norvasc 10 mg daily, Rocephin 1 g IV daily, Zithromax 500 mg daily, Zofran p.r.n. basis. DATA: Laboratory data shows hemoglobin 8, hematocrit 25, WBC 6.8, platelet count is 135. Sodium 138, potassium 2.9, chloride 96, bicarbonate 31, BUN 42, creatinine 6.2, glucose 189, calcium is 7.9. Microbiology: Blood culture has been negative. IMPRESSION AND PLAN: Pulmonary infiltrate, rule out pneumonia; chronic obstructive lung disease; cardiomyopathy; diabetes; peripheral neuropathy; gastroesophageal reflux disease; renal failure, dialysis dependent; seizure disorder; peripheral vascular disease; recurrent peripheral ulcers. Pulmonary point view, doing okay. Continue inhaled bronchodilator, vasodilator. GI prophylaxis, DVT prophylaxis. Also had seizures, no recent seizure reported. Fall precaution. We will follow with you. Lorie Zamora MD
--- NOTE | 2017-11-22 22:59 | PN ---
Copied To: Makenzie Miranda MD Attending MD: Makenzie Miranda MD DATE: 11/22/2017 SUBJECTIVE: The patient was seen and examined on the bedside, looking comfortable. No nausea, vomiting, diarrhea. No hematuria or hematochezia. No headache or dizziness. No chest pain. No palpitation. PHYSICAL EXAMINATION: VITAL SIGNS: Temperature 99, heart rate 74, respiratory rate 18, blood pressure 140/79, pulse oximetry 97% on room air. HEENT: Head normocephalic, atraumatic. Eyes PERRLA. Extraocular muscles intact. Conjunctivae clear. Nose patent. NECK: Supple. No carotid bruit. No JVD or thyromegaly. LUNGS: Have a few crackles at the bases. HEART: S1 and S2 positive. ABDOMEN: Soft, nontender. No organomegaly. EXTREMITIES: Trace edema of the ankles. NEUROLOGICAL: The patient is awake and alert. Follows simple commands. MEDICATIONS: Depakote, DuoNeb, Levemir, Norvasc, Rocephin, Zithromax, Zofran. LABORATORY DATA: White blood cells 6.8, hemoglobin 8, hematocrit 25. Sodium 138, potassium 2.9, BUN 42, creatinine 6.2, glucose 189, calcium 7.9. ASSESSMENT AND PLAN: Mr. Stephanie Jackson, 57-year-old male with multiple medical problems; pulmonary infiltrates; rule out pneumonia; chronic obstructive lung disease; cardiomyopathy; diabetes mellitus; peripheral neuropathy; gastroesophageal reflux disease; renal failure, dialysis dependence, going to dialysis 3 times a week; seizure disorders, stable; peripheral vascular disease; recurrent peripheral ulcers. Continue inhaled bronchodilators. GI, deep venous thrombosis prophylaxis. Repeat labs. We will follow up. Makenzie Miranda MD
[2017-11-23] MEDS: Albuterol-Ipratrop 3 mg / 0.5 (3 ml) UD IH SCH ×4 (01:17→20:37)
--- NOTE | 2017-11-23 03:03 | CON ---
DATE: 11/22/2017 HISTORY OF PRESENT ILLNESS: Shortly, the patient is a 57-year-old male, with multiple medical issues including chronic kidney disease on dialysis, anemia, diabetes. The patient was admitted on the medical site for evaluation of diarrhea. Psych consult was called for evaluation of capacity to refuse dialysis. This patient also has questionable history of mental illness. Prolonged conversation took place today with Dr. Gilbert, primary care physician. As per Dr. Gilbert, the patient is making irrational decisions with refusing to get dialysis with no reasonable explanation. Also the patient has poor family dynamic with his , at times the patient is not talking to her, but it is crucial for the patient to have dialysis. The patient was seen and examined today. The patient presented to be sleepy, but easily arousable. The patient knows that he is in the hospital, but unaware of the date. The patient presented to be disengaged and had difficulty to stay focused. The patient is aware of what brought him to the hospital. The patient reports that diarrhea is much better. The patient reports that he does not want to continue dialysis because his assumption if he will stop dialysis, he will start feeling better. The patient said that he was told by Dr. Gilbert that if he will stop taking dialysis, he will start feeling better which obviously is not true. The patient is delusional about that. On top of that, the patient's thought process seems to be illogical, circumstantial and tangential. The patient had difficulty to stay focused and concentrate during this typewriter operator automatic evaluation. The patient at times was mumbling and this typewriter operator automatic was not able to understand what the patient's statements are. In regards of the past psychiatric history, the patient reported that he was seen by psychiatrist in the past. He did not want to discuss what problem was. The patient said that he does not want to see any psychiatrist as of now and did not want to review what diagnosis he had. The patient denied any voices, but obviously presented to be odd and disorganized. This typewriter operator automatic discussed power of sports attorney for the future. The patient said that he does not trust anyone, but his primary care physician, Dr. Gilbert. VITAL SIGNS: Reviewed. Temperature 98.2, pulse is 76, blood pressure 166/85, respiration 20 and oxygen saturation is 97%. MEDICATIONS: Reviewed. The patient refused DuoNeb. The patient refused PhosLo. The patient refused Levemir. The rest, patient took, Norvasc, Zithromax, Rocephin, Depakote 1500 twice a day, insulin and Zofran. LABORATORY DATA: Reviewed. Most recent from today. Hemoglobin 8, hematocrit 25. Coagulation reviewed. Chemistry reviewed. Toxicology reviewed. Valproic acid 17. Most likely the patient was noncompliant with the medications or the patient is status post dialysis. MENTAL STATUS EXAMINATION: The patient appears to be drowsy. The patient knows that he is in the hospital, but is not aware of what is the date. Mood described as okay. Affect was flat. Thought process disorganized. Thought content, the patient denied visual, auditory or tactile hallucinations. Denied paranoid ideation. The patient denied thoughts of harming himself or others. Denied intent or plan and at the same time, thought process is disorganized. The patient is making irrational decisions. Insight and judgment seems to be limited. Impulses are well controlled. ASSESSMENT AND PLAN: From this typewriter operator automatic evaluation, patient does not have actual understanding of diagnosis. The patient does not able to process information about risk of being without dialysis and consequences without it. The patient is convinced that if he will stop dialysis, he will start feeling better, which is not true but opposite. The patient does not have insight and appreciation. The patient does not have reasoning abilities, but was able to indicate his preferences to stop dialysis which is irrational. At this point, the patient lacks capacity to refuse dialysis. Discussed option of power of sports attorney, but the patient said that he does not trust anyone, but trust Dr. Gilbert, recommended education, support from the medical staff. As of now, the patient lacks capacity to refuse dialysis. Discussed with Dr. Gilbert. This typewriter operator automatic will follow up on this patient on Monday. I hope that the patient will start feeling better. If any acute changes with the patient presentation, call Dr. Romero who covers this typewriter operator automatic tomorrow, but there is no acute issues. Thank you very much for letting me participate in care of your patient. Christiane Mcclain MD [facility] # [id number] [place]
[2017-11-23] MEDS: Dextrose 50% SYRINGE Inj (50 ml) IV PRN ×2 (04:43→07:28)
[2017-11-23] MEDS ORDERED: Dextrose 50% SYRINGE Inj (50 ml) ONE (07:26)
[2017-11-23] MEDS ORDERED: Insulin Detemir 100 units/ml Vial (Levemir) SC SCH (08:26)
--- NOTE | 2017-11-23 08:39 | PN ---
Copied To: Leandro Gilbert MD Attending MD: Leandro Gilbert MD DATE: 11/23/2017 SUBJECTIVE: The patient has no complaints of any chest pain. No shortness of breath. No headaches. PHYSICAL EXAMINATION VITAL SIGNS: Temperature is 98.6, pulse of 76, blood pressure 128/66, respirations 18. GENERAL: The patient is lying in bed, flat, comfortable. HEENT: No oral lesion. Anicteric sclerae. Moist mucosa. NECK: No JVD, adenopathy, or thyromegaly. CARDIOVASCULAR: S1 and S2, regular. No murmurs, rubs, or gallops. LUNGS: Clear to auscultation bilaterally. No wheeze, rales, or rhonchi. ABDOMEN: Bowel sounds are positive, soft, nontender and nondistended. EXTREMITIES: No cyanosis, clubbing or edema. LABORATORY DATA: White count of 6.8, hemoglobin 8, creatinine is 6.2. ASSESSMENT: 1. End-stage renal disease, on hemodialysis. 2. Diabetes type 2. 3. Gastroenteritis, improved. 4. Anemia secondary to end-stage renal disease. 5. Left arteriovenous fistula. 6. Diabetic retinopathy. 7. Diabetic neuropathy. 8. Lack of capacity to make decisions. PLAN: The patient is seen by Dr. Mcclain, psychiatrist. I did speak to her at length regarding the patient. The patient is not able to process information regarding stopping dialysis. He has poor insight, this was confirmed by Psychiatry as well. The patient lacks capacity to refuse dialysis. The patient is going to have dialysis today. The patient is on amlodipine for hypertension. He is on PhosLo for his binders. He is receiving Rocephin for antibiotics as well as Zithromax. The patient is on a renal diet. The patient has anemia. I will give him a dose of Aranesp. His iron saturation that was done, which was 46%. Leandro Gilbert MD
[2017-11-23] MEDS ORDERED: Darbepoetin Alfa 100 mcg/ml Inj SC ONE (10:00)
[2017-11-23] MEDS: Divalproex 500 mg DR(BID formulation) PO SCH ×2 (14:14→17:38)
[2017-11-23] MEDS: cefTRIAXone 1 gm 1 GM/100 ML BAG IVPB SCH (14:16)
[2017-11-23] MEDS: Insulin Reg-LOW-Coverage SC SCH ×2 (14:17→17:38)
--- NOTE | 2017-11-23 18:38 | CP.PCM.CON ---
History of Present Illness - History of Present Illness History of Present Illness: Infectious Disease Consultation: November 23, 2017 57 yo AA male presenting with diarrhea initially for the past 3 days. The patient has an extensive past medical history that includes ESRD on HD, secondary hyperparathyroidism, anemia, type II diabetes mellitus, diabetic neuropathy, diabetic retinopathy, DVT, PE, diabetic foot ulcers, esophageal cyst , abscess of the right lung, COPD, nonischemic cardiomyopathy. The patient also has complaints of weakness, vomiting, and chills. He is a somewhat poor historian. He has been determined incapable of making his own decisions especially regarding his health. PMHx: ESRD on HD, secondary hyperparathyroidism, anemia, type II diabetes mellitus, diabetic neuropathy, diabetic retinopathy, DVT, PE, diabetic foot ulcers, esophageal cyst, abscess of the right lung, COPD, nonischemic cardiomyopathy PSHx: dialysis access, debridement of the foot. Allergies: NKDA Social Hx: No tobacco, EtOH, or illicit drug use. Lives with his Medications: Levemir, ASA, Lipitor, calcitrol, PhosLo, Reglan Family Hx: early of both mother and father ROS: Patient with chills, nausea, vomiting, diarrhea. no fevers, heacheads, dizziness, chest pain, abdominal pain, melena, hematuria, hematochezia, depression, anxiety, hematemesis. Past Patient History - Infectious Disease Hx of Infectious Diseases: None - Tetanus Immunizations Tetanus Immunization: Up to Date - Past Medical History & Family History Past Medical History?: Yes - Past Social History Smoking Status: Never Smoked - CARDIAC Hx Congestive Heart Failure: Yes Hx Hypercholesterolemia: Yes Hx Hypertension: Yes - PULMONARY Hx Chronic Obstructive Pulmonary Disease (COPD): Yes - NEUROLOGICAL Hx Neurological Disorder: Yes Hx Dizziness: Yes (after hd) Other/Comment: diabetic neuropathy pain/tingling/stinging/itch from b/l knees and below, involuntary jumping, shaking and jerking movements x 2 wks - HEENT Hx HEENT Problems: Yes (missing teeth) Other/Comment: [place] left ear, blurred vision - RENAL Hx Renal Failure: Yes (HD (MWF)) - ENDOCRINE/METABOLIC Hx Diabetes Mellitus Type 2: Yes - HEMATOLOGICAL/ONCOLOGICAL Hx Blood Disorders: Yes Hx Anemia: Yes (blood transfusion) - INTEGUMENTARY Hx Dermatological Problems: Yes Other/Comment: left facial and orbital cellulitis chronic on and off, pt stated "I feel bumps under the skin on my face when I run my hands over skin"./ dry leathery skin ble with multiple dark brown skin discolorations, r knee healed wound scars, dark brown skin discoloratins to feet thick hard toenails both feet , multiple skin discolorations to both arms, multiple dark closed wounds b/l legs, healed diabetic foot ulcers - MUSCULOSKELETAL/RHEUMATOLOGICAL Hx Falls: Yes (past) - GASTROINTESTINAL Hx Gastrointestinal Disorders: Yes (hx c dif/reflux/missing teeth) - GENITOURINARY/GYNECOLOGICAL Hx Genitourinary Disorders: Yes (esrd) - PSYCHIATRIC Hx Psychophysiologic Disorder: Yes Hx Anxiety: Yes Hx Depression: Yes Hx Substance Use: No - SURGICAL HISTORY Hx Amputation: No Hx Appendectomy: No Hx Cardiac Catheterization: Yes (01/2013 dr cedeno) Hx Cholecystectomy: No Hx Coronary Stent: No Hx Gastric Bypass Surgery: No Hx Hysterectomy: No Hx Joint Replacement: No Hx Kidney Transplant: No Hx Liver Transplant: No Hx Mastectomy: No Hx Musculoskeletal Surgery: No Hx Open Heart Surgery: No Hx Orthopedic Surgery: Yes (L hip fx orif 05/07/17, pt fell) Hx Splenectomy: No Hx Valve Replacement: No Other/Comment: sanket av shunt, ultrasound guided r thoracentesis 05/20/13 2600 straw fluid drained, fistulagram 07/13/17 - ANESTHESIA Hx Anesthesia: Yes Hx Anesthesia Reactions: No Hx Malignant Hyperthermia: No Meds Allergies/Adverse Reactions: Allergies Allergy/AdvReac Type Severity Reaction Status Date / Time No Known Allergies Allergy Verified 11/20/17 21:23 - Medications Medications: Current Medications Albuterol/Ipratropium (Duoneb 3 Mg/0.5 Mg (3 Ml) Ud) 3 ml IH [id number] [facility] Last Admin: 11/23/17 13:14 Dose: Not Given Amlodipine Besylate (Norvasc) 10 mg PO DAILY [facility] Last Admin: 11/23/17 14:15 Dose: 10 mg Azithromycin (Zithromax) 500 mg PO DAILY [facility] Stop: 11/26/17 10:01 Last Admin: 11/23/17 14:15 Dose: 500 mg Calcium Acetate (Phoslo) 667 mg PO AC [facility] Last Admin: 11/23/17 17:38 Dose: Not Given Dextrose (Dextrose 50% Inj) 0 ml IV STAT PRN; Protocol PRN Reason: Hypoglycemia Protocol Last Admin: 11/23/17 07:28 Dose: 50 ml Divalproex Sodium (Depakote Dr(*Bid*)) 1,500 mg PO BID [facility] Last Admin: 11/23/17 17:38 Dose: Not Given Ceftriaxone Sodium (Rocephin 1 Gram Ivpb) 1 gm in 100 mls @ 100 mls/hr IVPB DAILY [facility] PRN Reason: Protocol Last Admin: 11/23/17 14:16 Dose: 100 mls/hr Insulin Detemir (Levemir) 10 unit SC HS [facility] Insulin Human Regular (Humulin R Low) 0 units SC ACHS [facility] PRN Reason: Protocol Last Admin: 11/23/17 17:38 Dose: Not Given Ondansetron HCl (Zofran Inj) 4 mg IVP Q6H PRN PRN Reason: Nausea/Vomiting Last Admin: 11/23/17 04:02 Dose: 4 mg Physical Exam - Constitutional Appears: Non-toxic, No Acute Distress, Chronically Ill - Head Exam Head Exam: ATRAUMATIC, NORMOCEPHALIC - Eye Exam Eye Exam: EOMI, PERRL Pupil Exam: NORMAL ACCOMODATION, PERRL - ENT Exam ENT Exam: Mucous Membranes Moist, Normal External Ear Exam, TM's Normal Bilaterally - Neck Exam Neck exam: Positive for: Full Rom, Normal Inspection - Respiratory Exam Respiratory Exam: Clear to Auscultation Bilateral, NORMAL BREATHING PATTERN. absent: Rales, Rhonchi, Wheezes - Cardiovascular Exam Cardiovascular Exam: REGULAR RHYTHM, RRR, +S1, +S2 - GI/Abdominal Exam GI & Abdominal Exam: Normal Bowel Sounds, Soft. absent: Distended, Tenderness - Extremities Exam Extremities exam: Positive for: full ROM, joint swelling, pedal edema - Neurological Exam Neurological exam: Alert, CN II-XII Intact - Psychiatric Exam Psychiatric exam: Normal Affect, Normal Mood - Skin Additional comments: leg ulcerations. Results - Vital Signs Recent Vital Signs: Last Vital Signs Temp 98.2 F 11/23/17 14:00 Pulse 73 11/23/17 14:00 Resp 20 11/23/17 14:00 BP 154/71 H 11/23/17 14:15 Pulse Ox 100 11/23/17 14:00 - Labs Result Diagrams: 11/22/17 06:40 08/08/18 06:40 Labs: Laboratory Results - last 24 hr 11/22/17 11/22/17 11/23/17 06:40 21:03 02:00 POC Glucose (mg/dL) 191 H 149 H Hep Bs Antibody, Quant 156 Hep B Core Total Ab Non reactive Hepatitis Be Antigen Non-reactive 11/23/17 11/23/17 11/23/17 04:31 05:02 06:44 POC Glucose (mg/dL) 36 L* 121 H 51 L Hep Bs Antibody, Quant Hep B Core Total Ab Hepatitis Be Antigen 11/23/17 11/23/17 11/23/17 07:19 07:59 09:13 POC Glucose (mg/dL) 37 L* 99 77 Hep Bs Antibody, Quant Hep B Core Total Ab Hepatitis Be Antigen 11/23/17 10:50 POC Glucose (mg/dL) 83 Hep Bs Antibody, Quant Hep B Core Total Ab Hepatitis Be Antigen Assessment & Plan - Assessment and Plan (Free Text) Assessment: 57 yo AA male with multiple medical issues presenting with nausea, vomiting, chills, and cough. Persistent finding of right lower lobe structure/mass. Unclear etiology and importance. The patient is Awake and alert but appears to have a flat affect. No WBC elevation. Procalcitonin is elevated to 0.72 two days into admission. Prior admissions showed a value of 0.39. Recheck procalcitonin. Cannot rule out pneumonia with the current procalcitonin level. On Azithromycin and Rocephin which is reasonable for now. Supportive care. No additional findings. Thank you for allowing me to participate in the care of the patient, we will follow with you.
--- NOTE | 2017-11-23 21:34 | PN ---
Copied To: Lorie Zamora MD Attending MD: Lorie Zamora MD DATE: 11/23/2017 PULMONARY PROGRESS NOTE REFERRING PHYSICIAN: Dr. Makenzie Miranda. SUBJECTIVE: The patient is lying in the bed, head at 45 degrees, sleepy, arousable. Night was unremarkable. Feels better. Decreased cough and shortness breath. No chest pain. No nausea, no vomiting, no diarrhea. No significant leg swelling. OBJECTIVE: GENERAL: In no acute distress. VITAL SIGNS: Temperature is 98, heart rate 73, respiratory rate is 20, pressure 154/71, pulse ox 100% on room air. HEENT: Moist mucous membrane. Crowded airway. NECK: Supple. No JVD. LUNGS: Have fair airflow with rhonchi. HEART: S1, S2. ABDOMEN: Soft, nontender. No organomegaly. EXTREMITIES: Not much edema. NEUROLOGIC: Sleepy, arousable. Follows simple command. MEDICATIONS: He is on Depakote 1.5 g p.o. twice a day, DuoNeb every 6 hours, Levemir 10 units subcu at bedtime, Norvasc 10 mg daily, Rocephin 1 g IV daily, Zithromax 500 mg daily, Zofran 4 mg every 6 hours. LABORATORY DATA: Reviewed, blood sugar today was 83. Microbiology, blood culture has been negative. IMPRESSION AND PLAN: Pulmonary infiltrate, chronic obstructive lung disease, cardiomyopathy, diabetes, peripheral neuropathy, gastroesophageal reflux disease, history of renal failure, dialysis dependent, seizure disorder. Pulmonary point of view, he is doing okay. Does have peripheral vascular disease, recurrent peripheral ulcers, refuse to use continuous positive airway pressure. Keep head at 45 degrees. Avoid sedation, seen by Infectious Diseases, bronchodilator, fall precaution, seizure precaution. Thank you and we will follow with you. Lorie Zamora MD
[2017-11-24] MEDS: Albuterol-Ipratrop 3 mg / 0.5 (3 ml) UD IH SCH ×4 (01:59→20:54)
--- NOTE | 2017-11-24 02:24 | PN ---
Copied To: Makenzie Miranda MD Attending MD: Makenzie Miranda MD DATE: 11/23/2017 SUBJECTIVE: Patient was seen and examined at the bedside, looking comfortable. No shortness of breath. No nausea. No vomiting. No diarrhea. No hematuria or hematochezia. No headache, no dizziness. No chest pain, no palpitation. PHYSICAL EXAMINATION VITAL SIGNS: Temperature 98.6, pulse 80, blood pressure 128/66, respiratory rate 18. HEENT: Head normocephalic, atraumatic. Eyes PERRLA. Extraocular muscles intact. Conjunctivae clear. Nose patent. Mucous membrane moist. NECK: Supple. No carotid bruit. No JVD or thyromegaly. CHEST: Bilaterally symmetrical. HEART: S1 and S2 positive. LUNGS: Clear to auscultation. ABDOMEN: Soft, bowel sounds present. No organomegaly. EXTREMITIES: No edema. No cyanosis. NEUROLOGICAL: The patient is awake and alert. Moving all 4 extremities. No focal deficit. LABORATORY DATA: White blood cells 6.8, hemoglobin 8, hematocrit 25, platelet 135. Glucose 83, 77, 99, 37. ASSESSMENT AND PLAN: Ms. Stephanie Jackson is a 57-year-old male with anemia, renal insufficiency, on hemodialysis 3 times a week; diabetes mellitus type 2, insulin dependent, not very well controlled; gastroenteritis, improved; anemia secondary to end-stage renal disease, acute on chronic; left arteriovenous fistula, diabetic nephropathy, diabetic retinopathy. Patient is seen by psychiatrist and seasoning mixer, and getting amlodipine for hypertension. Infectious Disease consult called with Dr. Sanches. Dr. Zamora is on the case. History of chronic obstructive pulmonary disease, nonischemic cardiomyopathy, esophageal cyst, abscess of the right lung. Patient is not able to make his decision about his health, mainly I am talking his health condition with his and his son, he is like 19 years old, he is helping father also to make decision. History of hip fracture; persistent lower lobe structure/mass, unclear etiology. Cannot rule out pneumonia with the current prolactin level as per ID, on Zithromax and Rocephin, which is reasonable for now, supportive care. We will follow up. Makenzie Miranda MD [facility] # [id number] SUZANNE
[2017-11-24] MEDS: Insulin Reg-LOW-Coverage SC SCH ×3 (08:18→16:11)
[2017-11-24] MEDS: cefTRIAXone 1 gm 1 GM/100 ML BAG IVPB SCH (09:32)
[2017-11-24] MEDS: Divalproex 500 mg DR(BID formulation) PO SCH ×2 (09:38→19:29)
--- NOTE | 2017-11-24 11:15 | PN ---
Copied To: Leandro Gilbert MD Attending MD: Leandro Gilbert MD DATE: 11/24/2017 SUBJECTIVE: The patient has no complaints of any chest pain. No shortness of breath. No headaches or dizziness. PHYSICAL EXAMINATION VITAL SIGNS: Temperature is 98.2, pulse is 73, blood pressure 154/71, respirations 21. GENERAL: The patient is lying in bed, flat, comfortable. HEENT: No oral lesion. Anicteric sclerae. Moist mucosa. NECK: No JVD, adenopathy, or thyromegaly. CARDIOVASCULAR: S1 and S2, regular. No murmurs, rubs, or gallops. LUNGS: Clear to auscultation bilaterally. No wheeze, rales, or rhonchi. ABDOMEN: Bowel sounds are positive, soft, nontender and nondistended. EXTREMITIES: No cyanosis, clubbing or edema. LABORATORY DATA: White count of 6.8, hemoglobin 8, creatinine is 6.2. ASSESSMENT: 1. Gastroenteritis. 2. End-stage renal disease, on hemodialysis. 3. Diabetes type 2. 4. Anemia secondary to end-stage renal disease. 5. Left arteriovenous fistula. 6. Diabetic retinopathy. 7. Diabetic neuropathy. PLAN: The patient is going to continue with dialysis, Monday, and Monday. He is currently comfortable. He is not able to make his own decisions about stopping dialysis. He was seen by Psychiatry. The patient was given a dose of Aranesp because of anemia. The patient is on Levemir for diabetes. He is going to continue with PhosLo for secondary hyperparathyroidism. The patient is on Rocephin for antibiotics and Zofran for nausea. The patient is on renal diet. Leandro Gilbert MD
--- NOTE | 2017-11-24 14:25 | PN ---
Copied To: Christiane Mcclain MD Attending MD: Christiane Mcclain MD DATE: 11/24/2017 SUBJECTIVE: The patient was followed up today. The patient presented much better to compare with 2 days ago, but the patient was refusing to go to hemodialysis. The patient presented to be bright. Good personal hygiene. The patient was smiling to this health technical writer. The patient reported that "I feel much better, thank you,". The patient denied being depressed. Denied thoughts of harming himself or others. As per nursing staff report, the patient is compliant with the medications and treatment, does not have any behavioral disturbances. PHYSICAL EXAMINATION: VITAL SIGNS: Stable. Blood pressure 140/80, respiration 20, oxygen saturation is 100. MEDICATIONS: Reviewed. DuoNeb, Norvasc, Zithromax, PhosLo, Rocephin, dextrose, Depakote, Levemir, Humulin, Zofran. Labs reviewed. Coagulation reviewed. Toxicology reviewed. Serology reviewed. MENTAL STATUS EXAM: The patient presented to be alert and oriented, pleasant, cooperative. Good eye contact. Mood described "I feel better, thank you." Affect was reactive, mood congruent. Thought process was concrete, but goal directed. Thought content, the patient denied visual, auditory, tactile hallucinations. Denied paranoid ideation. The patient denied thoughts of harming himself or others. Denied intent or plan. Insight and judgment improving. Impulses are well controlled. IMPRESSION: Most likely, the patient had delirium stage last time which is improving. PLAN: Continue current management. Continue current medication. The patient pose no imminent danger to self or others. The patient is willing to get treatment and family should be involved. This health technical writer will sign off. Should you have any questions, give me a call back. In case of acute change in mental status, please re-consult as needed. Thank you very much for letting me participate in care of your patient. Christiane Mcclain MD
[2017-11-24] MEDS ORDERED: Cefepime 1gm in NS 100ml 1 GM/100 ML BAG IVPB ONE (15:09)
--- NOTE | 2017-11-24 16:11 | CP.PCM.PN ---
Subjective - Date & Time of Evaluation Date of Evaluation: 11/24/17 Time of Evaluation: 15:30 - Subjective Subjective: Infectious Disease Follow Up: November 24, 2017 57 yo AA male presenting with diarrhea initially for the past 3 days. The patient has an extensive past medical history that includes ESRD on HD, secondary hyperparathyroidism, anemia, type II diabetes mellitus, diabetic neuropathy, diabetic retinopathy, DVT, PE, diabetic foot ulcers, esophageal cyst , abscess of the right lung, COPD, nonischemic cardiomyopathy. The patient also has complaints of weakness, vomiting, and chills. He is a somewhat poor historian. He has been determined incapable of making his own decisions especially regarding his health. The patient's procalcitonin is increasing to 1.38. Repeat CT chest ordered. Currently on Rocephin and Azithromycin. Objective - Vital Signs/Intake and Output Vital Signs (last 24 hours): Temp Pulse Resp BP Pulse Ox 98.6 F 84 20 130/73 99 11/24/17 14:00 11/24/17 14:00 11/24/17 14:00 11/24/17 14:00 11/24/17 14:00 - Medications Medications: Current Medications Albuterol/Ipratropium (Duoneb 3 Mg/0.5 Mg (3 Ml) Ud) 3 ml IH [id number] [facility] Last Admin: 11/24/17 13:27 Dose: Not Given Amlodipine Besylate (Norvasc) 10 mg PO DAILY [facility] Last Admin: 11/24/17 09:38 Dose: 10 mg Azithromycin (Zithromax) 500 mg PO DAILY [facility] Stop: 11/26/17 10:01 Last Admin: 11/24/17 09:38 Dose: 500 mg Calcium Acetate (Phoslo) 667 mg PO AC [facility] Last Admin: 11/24/17 12:51 Dose: Not Given Dextrose (Dextrose 50% Inj) 0 ml IV STAT PRN; Protocol PRN Reason: Hypoglycemia Protocol Last Admin: 11/23/17 07:28 Dose: 50 ml Divalproex Sodium (Depakote Dr(*Bid*)) 1,500 mg PO BID [facility] Last Admin: 11/24/17 09:38 Dose: 1,500 mg Cefepime HCl (Maxipime 1gm) 1 gm in 100 mls @ 100 mls/hr IVPB ONCE ONE PRN Reason: Protocol Stop: 11/24/17 16:08 Last Admin: 11/24/17 16:00 Dose: 100 mls/hr Cefepime HCl (Maxipime 1gm) 1 gm in 100 mls @ 100 mls/hr IVPB Q24H [facility] PRN Reason: Protocol Insulin Detemir (Levemir) 6 unit SC HS [facility] Insulin Human Regular (Humulin R Low) 0 units SC ACHS [facility] PRN Reason: Protocol Last Admin: 11/24/17 11:14 Dose: 2 units Ondansetron HCl (Zofran Inj) 4 mg IVP Q6H PRN PRN Reason: Nausea/Vomiting Last Admin: 11/23/17 04:02 Dose: 4 mg - Labs Labs: 11/22/17 06:40 11/22/17 06:40 PT 11.7 SECONDS (9.4-12.5) 11/20/17 11:50 INR 1.02 11/20/17 11:50 - Constitutional Appears: Non-toxic, No Acute Distress, Chronically Ill - Head Exam Head Exam: ATRAUMATIC, NORMOCEPHALIC - Eye Exam Eye Exam: EOMI, PERRL Pupil Exam: NORMAL ACCOMODATION, PERRL - ENT Exam ENT Exam: Mucous Membranes Moist, Normal External Ear Exam, TM's Normal Bilaterally - Neck Exam Neck Exam: Full ROM, Normal Inspection - Respiratory Exam Respiratory Exam: Clear to Ausculation Bilateral, NORMAL BREATHING PATTERN. absent: Rales, Rhonchi, Wheezes - Cardiovascular Exam Cardiovascular Exam: REGULAR RHYTHM, RRR, +S1, +S2 - GI/Abdominal Exam GI & Abdominal Exam: Soft, Normal Bowel Sounds. absent: Distended, Tenderness - Extremities Exam Extremities Exam: Full ROM, Normal Inspection - Neurological Exam Neurological Exam: Alert, Awake, CN II-XII Intact, Oriented x3 - Psychiatric Exam Psychiatric exam: Normal Affect, Normal Mood - Skin Additional comments: leg ulcerations. Assessment and Plan - Assessment and Plan (Free Text) Assessment: 57 yo AA male with multiple medical issues presenting with nausea, vomiting, chills, and cough. Persistent finding of right lower lobe structure/mass. Unclear etiology and importance. The patient is Awake and alert but appears to have a flat affect. No WBC elevation. Procalcitonin is elevated to 0.72 two days into admission. Prior admissions showed a value of 0.39. Recheck procalcitonin. Cannot rule out pneumonia with the current procalcitonin level. Current procalcitonin has increased to 1.38 today. Was on Azithromycin and Rocephin. Supportive care. No additional findings. Will repeat CT scan of chest and change Rocephin to Cefepime. Thank you for allowing me to participate in the care of the patient, we will follow with you.
--- NOTE | 2017-11-24 17:21 | CT ---
Date of service: 11/24/2017 PROCEDURE: CT Chest without contrast HISTORY: Follow-up pneumonia COMPARISON: 11/20/2017 CT thorax. Summary of findings on the comparison examination: Persistent airspace disease in the posterior right lower lobe which may represent chronic pneumonia versus atelectasis. TECHNIQUE: Contiguous axial images were obtained through the chest without intravenous contrast enhancement. Sagittal and coronal reconstructions were performed. Radiation dose (DLP): 332.62 mGy-cm. This CT exam was performed using one or more of the following dose reduction techniques: Automated exposure control, adjustment of the mA and/or kV according to patient size, and/or use of iterative reconstruction technique. FINDINGS: LUNGS: Linear infiltrate/scarring again identified right lower lobe. MEDIASTINUM: Unremarkable thoracic aorta. No aneurysm. Cardiomegaly. No evidence of acute, significant cardiovascular disease. Main pulmonary artery unremarkable. No vascular congestion. No lymphadenopathy. PLEURA: Small bilateral pleural effusions persist. BONES: No fracture. No destructive lesion. UPPER ABDOMEN: Grossly unremarkable. OTHER FINDINGS: Incompletely visualize subclavian stent identified on the left. IMPRESSION: Stable findings right lower lobe. Areas of scarring noted. Hyperinflation, manifestations of COPD. No new abnormalities identified.
[2017-11-25] MEDS: Albuterol-Ipratrop 3 mg / 0.5 (3 ml) UD IH SCH ×4 (02:40→19:16)
[2017-11-25 06:01] LABS: HEMOGLOBIN 7.4 g/dL (14.0-18.0); MEAN CELL VOLUME 75.6 fl (80.0-105.0); MEAN CORPUSCULAR HEMOGLOBIN 23.7 pg (25.0-35.0); MEAN CORPUSCULAR HGB CONC 31.4 g/dl (31.0-37.0); MEAN PLATELET VOLUME 10.9 fl (7.0-11.0); RBC 3.12 10^6/uL (3.5-6.1); RED CELL DISTRIBUTION WIDTH 14.7 % (11.5-14.5); WHITE BLOOD COUNT 5.6 10^3/ul (4.5-11.0)
--- NOTE | 2017-11-25 06:09 | PN ---
Copied To: Makenzie Miranda MD Attending MD: Makenzie Miranda MD DATE: 11/24/2017 SUBJECTIVE: The patient is a 57-year-old male. Looking comfortable. No new complaints. No nausea or vomiting. No diarrhea. No hematuria or hematochezia. No swelling of the legs. No chest pain. No palpitation. No headache. No dizziness. PHYSICAL EXAMINATION: VITAL SIGNS: Temperature 98.2, pulse 73, blood pressure 115/70, respiratory rate 20. HEENT: Head: Normocephalic, atraumatic. Eyes: PERRLA. Extraocular muscles intact. Conjunctivae clear. Nose patent. Mucous membrane moist. NECK: Supple. No carotid bruit. No JVD or thyromegaly. CHEST: Bilaterally symmetrical. HEART: S1 and S2 positive. LUNGS: Clear to auscultation. ABDOMEN: Soft. Bowel sounds present. No organomegaly. EXTREMITIES: No edema. No cyanosis. MEDICATIONS: Depakote, dextrose, DuoNeb, insulin, Levemir, Maxipime, Norvasc, PhosLo, Zithromax, Zofran. LABORATORY DATA: White blood cells 6.8, hemoglobin 8, hematocrit 25, platelet 135. Glucose 125, 211, 127. ASSESSMENT AND PLAN: Mr. Stephanie Jackson is a 57-year-old male with multiple medical problems, end-stage renal disease on hemodialysis, diabetic nephropathy, diabetic retinopathy, diabetic neuropathy, gastroenteritis, anemia secondary to end-stage renal disease, left arteriovenous fistula. Patient is going to continue dialysis Monday, and Monday. He is currently comfortable. Continue Levemir for diabetes, but less doses. Seen by Dr. Christiane Mcclain, psychiatrist; Dr. Sanches, Infectious Disease. Continue antibiotics as per Infectious Disease. Patient has pulmonary infiltrates, chronic obstructive lung disease, cardiomyopathy, seizure disorder, recurrent peripheral ulcers. Refuses the use of continuous positive airway pressure. Avoid sedation. Lung infiltrates. CAT scan of chest is done. According to Dr. Lamine Smith, stable finding of right lower lobe, areas of scarring noted, hyper-infiltration, manifestation of chronic obstructive pulmonary disease. Repeat labs. We will follow. Makenzie Miranda MD [facility] # [id number]
[2017-11-25 06:25] LABS: CALCIUM 7.8 mg/dL (8.4-10.5)
[2017-11-25] MEDS: Insulin Reg-LOW-Coverage SC SCH ×3 (08:00→16:44)
[2017-11-25] MEDS: Divalproex 500 mg DR(BID formulation) PO SCH ×2 (09:53→17:50)
[2017-11-25] MEDS ORDERED: Cefepime 0.5 GM in Sodium Chloride 0.9% 100 ML IVPB SCH (14:00)
--- NOTE | 2017-11-25 15:20 | CP.PCM.PN ---
Subjective - Date & Time of Evaluation Date of Evaluation: 11/25/17 Time of Evaluation: 14:30 - Subjective Subjective: Infectious Disease Follow Up: November 25, 2017 57 yo AA male presenting with diarrhea initially for the past 3 days. The patient has an extensive past medical history that includes ESRD on HD, secondary hyperparathyroidism, anemia, type II diabetes mellitus, diabetic neuropathy, diabetic retinopathy, DVT, PE, diabetic foot ulcers, esophageal cyst , abscess of the right lung, COPD, nonischemic cardiomyopathy. The patient also has complaints of weakness, vomiting, and chills. He is a somewhat poor historian. He has been determined incapable of making his own decisions especially regarding his health. The patient's procalcitonin is increasing to 1.38. Repeat CT chest ordered... no new changes. Currently on Cefepime and Azithromycin. Objective - Vital Signs/Intake and Output Vital Signs (last 24 hours): Temp Pulse Resp BP Pulse Ox 98.2 F 71 20 135/68 95 11/25/17 14:48 11/25/17 14:48 11/25/17 14:48 11/25/17 14:48 11/25/17 07:45 Intake and Output: 11/25/17 11/25/17 06:59 18:59 Intake Total 960 360 Balance 960 360 - Medications Medications: Current Medications Albuterol/Ipratropium (Duoneb 3 Mg/0.5 Mg (3 Ml) Ud) 3 ml IH [id number] [facility] Last Admin: 11/25/17 13:22 Dose: Not Given Amlodipine Besylate (Norvasc) 10 mg PO DAILY [facility] Last Admin: 11/25/17 09:51 Dose: Not Given Azithromycin (Zithromax) 500 mg PO DAILY [facility] Stop: 11/26/17 10:01 Last Admin: 11/25/17 10:00 Dose: 500 mg Calcium Acetate (Phoslo) 667 mg PO AC [facility] Last Admin: 11/25/17 12:00 Dose: Not Given Dextrose (Dextrose 50% Inj) 0 ml IV STAT PRN; Protocol PRN Reason: Hypoglycemia Protocol Last Admin: 11/23/17 07:28 Dose: 50 ml Divalproex Sodium (Depakote Dr(*Bid*)) 1,500 mg PO BID [facility] Last Admin: 11/25/17 09:53 Dose: Not Given Cefepime HCl (Maxipime 1gm) 1 gm in 100 mls @ 100 mls/hr IVPB Q24H [facility] PRN Reason: Protocol Insulin Detemir (Levemir) 6 unit SC HS [facility] Insulin Human Regular (Humulin R Low) 0 units SC ACHS [facility] PRN Reason: Protocol Last Admin: 11/25/17 12:00 Dose: Not Given Ondansetron HCl (Zofran Inj) 4 mg IVP Q6H PRN PRN Reason: Nausea/Vomiting Last Admin: 11/25/17 10:41 Dose: 4 mg - Labs Labs: 11/25/17 05:00 11/25/17 05:00 PT 11.7 SECONDS (9.4-12.5) 11/20/17 11:50 INR 1.02 11/20/17 11:50 - Constitutional Appears: Non-toxic, No Acute Distress, Chronically Ill - Head Exam Head Exam: ATRAUMATIC, NORMOCEPHALIC - Eye Exam Eye Exam: EOMI, PERRL Pupil Exam: NORMAL ACCOMODATION, PERRL - ENT Exam ENT Exam: Mucous Membranes Moist, Normal External Ear Exam, TM's Normal Bilaterally - Neck Exam Neck Exam: Full ROM, Normal Inspection - Respiratory Exam Respiratory Exam: Clear to Ausculation Bilateral, NORMAL BREATHING PATTERN. absent: Rales, Rhonchi, Wheezes - Cardiovascular Exam Cardiovascular Exam: REGULAR RHYTHM, RRR, +S1, +S2 - GI/Abdominal Exam GI & Abdominal Exam: Soft, Normal Bowel Sounds. absent: Distended, Tenderness - Extremities Exam Extremities Exam: Full ROM, Normal Inspection - Neurological Exam Neurological Exam: Alert, Awake, CN II-XII Intact, Oriented x3 - Psychiatric Exam Psychiatric exam: Normal Affect, Normal Mood - Skin Additional comments: leg ulcerations. Assessment and Plan - Assessment and Plan (Free Text) Assessment: 57 yo AA male with multiple medical issues presenting with nausea, vomiting, chills, and cough. Persistent finding of right lower lobe structure/mass. Unclear etiology and importance. The patient is Awake and alert but appears to have a flat affect. No WBC elevation. Procalcitonin is elevated to 0.72 two days into admission. Prior admissions showed a value of 0.39. Recheck procalcitonin. Cannot rule out pneumonia with the current procalcitonin level. Current procalcitonin has increased to 1.38 today. On Cefepime and Rocephin. Supportive care. No additional findings. Given repeat CT scan showed no significant differences. The value of the procalcitonin of between 0.5-2 is a arguelles area especially given the lack of symptoms and the patient's ESRD on HD. A value of procalcitonin under 2 may still be normal for a patient with ESRD. I would consider use of Ancef 1gm with HD for 7-10 days more on discharge given the patient's previous procalcitonin values. Thank you for allowing me to participate in the care of the patient, we will follow with you.
[2017-11-25] MEDS: Cefepime 1gm in NS 100ml 1 GM/100 ML BAG IVPB SCH (17:50)
--- NOTE | 2017-11-25 19:29 | CP.PCM.PN ---
Subjective - Date & Time of Evaluation Date of Evaluation: 11/25/17 Time of Evaluation: 16:00 - Subjective Subjective: Patient is in dialysis, feels okay. No headache, chest pain, abdominal pain, nausea, vomiting, leg swelling reported. Objective - Vital Signs/Intake and Output Vital Signs (last 24 hours): Temp Pulse Resp BP Pulse Ox 98.2 F 73 20 137/83 95 11/25/17 15:26 11/25/17 15:26 11/25/17 15:26 11/25/17 15:26 11/25/17 07:45 Intake and Output: 11/25/17 11/26/17 18:59 06:59 Intake Total 690 Balance 690 - Medications Medications: Current Medications Albuterol/Ipratropium (Duoneb 3 Mg/0.5 Mg (3 Ml) Ud) 3 ml IH [id number] [facility] Last Admin: 11/25/17 19:16 Dose: Not Given Amlodipine Besylate (Norvasc) 10 mg PO DAILY [facility] Last Admin: 11/25/17 09:51 Dose: Not Given Azithromycin (Zithromax) 500 mg PO DAILY [facility] Stop: 11/26/17 10:01 Last Admin: 11/25/17 10:00 Dose: 500 mg Calcium Acetate (Phoslo) 667 mg PO AC [facility] Last Admin: 11/25/17 16:47 Dose: Not Given Dextrose (Dextrose 50% Inj) 0 ml IV STAT PRN; Protocol PRN Reason: Hypoglycemia Protocol Last Admin: 11/23/17 07:28 Dose: 50 ml Divalproex Sodium (Depakote Dr(*Bid*)) 1,500 mg PO BID [facility] Last Admin: 11/25/17 17:50 Dose: Not Given Cefepime HCl (Maxipime 1gm) 1 gm in 100 mls @ 100 mls/hr IVPB Q24H [facility] PRN Reason: Protocol Last Admin: 11/25/17 17:50 Dose: 100 mls/hr Insulin Detemir (Levemir) 6 unit SC HS [facility] Insulin Human Regular (Humulin R Low) 0 units SC ACHS [facility] PRN Reason: Protocol Last Admin: 11/25/17 16:44 Dose: Not Given Ondansetron HCl (Zofran Inj) 4 mg IVP Q6H PRN PRN Reason: Nausea/Vomiting Last Admin: 11/25/17 10:41 Dose: 4 mg - Labs Labs: 11/25/17 05:00 11/25/17 05:00 PT 11.7 SECONDS (9.4-12.5) 11/20/17 11:50 INR 1.02 11/20/17 11:50 - Constitutional Appears: Well, No Acute Distress - ENT Exam ENT Exam: Mucous Membranes Moist - Neck Exam Neck Exam: Full ROM, Normal Inspection - Cardiovascular Exam Cardiovascular Exam: REGULAR RHYTHM - GI/Abdominal Exam GI & Abdominal Exam: Normal Bowel Sounds - Extremities Exam Extremities Exam: Normal Inspection - Neurological Exam Neurological Exam: Alert, Awake, Oriented x3 - Psychiatric Exam Psychiatric exam: Normal Affect Assessment and Plan (1) COPD (chronic obstructive pulmonary disease) Status: Chronic - Assessment and Plan (Free Text) Assessment: COPD, ESRD on HD, secondary hyperparathyroidism, anemia, type II diabetes mellitus, diabetic neuropathy, diabetic retinopathy, DVT, PE, diabetic foot ulcers, esophageal cyst, abscess of the right lung, nonischemic cardiomyopathy, seizures. Plan: Continue Inhaled bronchodialators. Keep head of bed elevated 45 degrees. Gastric prophylaxis, DVT prophylaxis. Monitor closely after following dialysis. Serizure precautions. Fall precaution. This patient was examined with Dr. Zamora and discussed assessment and plan as described above.
[2017-11-25] MEDS: Insulin Detemir 100 units/ml Vial (Levemir) SC SCH (21:16)
--- NOTE | 2017-11-25 22:54 | PN ---
Copied To: Lorie Zamora MD Attending MD: Lorie Zamora MD DATE: 11/25/2017 PULMONARY PROGRESS NOTE REFERRING PHYSICIAN: Makenzie Miranda MD SUBJECTIVE: He is examined and seen in the dialysis. Night was unremarkable. No headache, no rhinitis. No nausea, no vomiting, no diarrhea. No leg pain or leg swelling. OBJECTIVE: GENERAL: In no acute distress. VITAL SIGNS: Temperature is 98, heart rate 73, respiratory rate is 20, blood pressure 137/83, pulse ox 95% on room air. HEENT: Moist mucous membrane. No ulcer or thrush noted. NECK: Supple. No JVD. LUNGS: Have fair airflow with rhonchi. HEART: S1, S2. ABDOMEN: Soft, nontender, no organomegaly. EXTREMITIES: There is no edema. NEUROLOGIC: Awake, alert, follows simple commands. MEDICATIONS: He is on Depakote 1.5 g IV every 12 hours, nebulizer treatment every 6 hours. Levemir 6 units subcu at bedtime, cefepime 1 g IV every 24 hours., Norvasc 10 mg daily, Zithromax 500 mg daily, Zofran 4 mg every 6 hours p.r.n. LABORATORY DATA: Shows hemoglobin 7.4, hematocrit 23.6, WBC 5.6, platelet is 151. Sodium 138, potassium 4.4, chloride 96, bicarbonate is 28, BUN 66, creatinine 6.9. Blood sugar 163, calcium is 7.8. Microbiology, blood culture has been negative. IMPRESSION AND PLAN: Pulmonary infiltrate, chronic obstructive lung disease, cardiomyopathy, diabetes, peripheral neuropathy, gastroesophageal reflux disease, history of renal failure, dialysis dependent, seizure disorder. Clinically doing well. No new seizure reported. Continue bronchodilator. Keep head at 45 degrees. Antibiotics as per Infectious Disease. Out of bed to chair, physical therapy. Fall precaution. Thank you and we will follow with you. Lorie Zamora MD
[2017-11-26] MEDS: Albuterol-Ipratrop 3 mg / 0.5 (3 ml) UD IH SCH ×4 (02:50→19:18)
[2017-11-26] MEDS: Insulin Reg-LOW-Coverage SC SCH ×6 (04:50→22:01)
[2017-11-26] MEDS: Insulin Detemir 100 units/ml Vial (Levemir) SC SCH ×2 (04:51→21:57)
[2017-11-26 06:55] LABS: HEMOGLOBIN 9.4 g/dL (14.0-18.0); MEAN CELL VOLUME 77.7 fl (80.0-105.0); MEAN CORPUSCULAR HEMOGLOBIN 24.9 pg (25.0-35.0); MEAN CORPUSCULAR HGB CONC 32.1 g/dl (31.0-37.0); MEAN PLATELET VOLUME 10.6 fl (7.0-11.0); RBC 3.77 10^6/uL (3.5-6.1); RED CELL DISTRIBUTION WIDTH 14.7 % (11.5-14.5); WHITE BLOOD COUNT 8.5 10^3/ul (4.5-11.0)
[2017-11-26 07:25] LABS: CALCIUM 8.3 mg/dL (8.4-10.5)
[2017-11-26] MEDS: Divalproex 500 mg DR(BID formulation) PO SCH ×3 (09:30→18:21)
[2017-11-26] MEDS: Cefepime 1gm in NS 100ml 1 GM/100 ML BAG IVPB SCH (13:58)
--- NOTE | 2017-11-26 17:46 | MRI ---
Date of service: 11/26/2017 PROCEDURE: Facial MRI dated 11/26/2017. HISTORY: Facial swelling COMPARISON: No prior study available for comparison. TECHNIQUE: Sagittal fat-suppressed T1, axial T1 and T2 weighted sequences of the maxillofacial skeleton and upper neck performed on. Note however the examination is extremely limited due to significant motion artifact. Patient terminated the study before completion with only these 3 sequences available for rib reviewed. This study is nearly uninterpretable on. No evidence of significant FINDINGS: No evidence of large subcutaneous fluid or abscess collections identified of so far as can be seen on the limited motion degraded study. Orbits and contents cannot be adequately evaluated tissues. . There appears to be mild mucosal thickening within both maxillary antra and possibly some mucosal thickening within the ethmoid air complex. Questionable mild exophthalmos. IMPRESSION: Limited incomplete study. The patient terminated the exam. Only 3 sequences have been completed though the sequences are nearly uninterpretable secondary to significant motion artifact. There are no large fluid or abscess collections seen within the subcutaneous. There appears to be some minor mucosal thickening within the maxillary antra bilaterally. Consider followup the CT scan of the maxillofacial skeleton for further evaluation.
--- NOTE | 2017-11-26 18:26 | CP.PCM.PN ---
Subjective - Date & Time of Evaluation Date of Evaluation: 11/26/17 Time of Evaluation: 16:40 - Subjective Subjective: Infectious Disease Follow Up: November 26, 2017 57 yo AA male presenting with diarrhea initially for the past 3 days. The patient has an extensive past medical history that includes ESRD on HD, secondary hyperparathyroidism, anemia, type II diabetes mellitus, diabetic neuropathy, diabetic retinopathy, DVT, PE, diabetic foot ulcers, esophageal cyst , abscess of the right lung, COPD, nonischemic cardiomyopathy. The patient also has complaints of weakness, vomiting, and chills. He is a somewhat poor historian. He has been determined incapable of making his own decisions especially regarding his health. The patient's procalcitonin is increasing to 1.38. Repeat CT chest ordered... no new changes. MRI of sinuses could not be completed as the patient could not stay still. Currently on Cefepime and Azithromycin. Objective - Vital Signs/Intake and Output Vital Signs (last 24 hours): Temp Pulse Resp BP Pulse Ox 98.4 F 67 18 137/67 96 11/26/17 14:55 11/26/17 14:55 11/26/17 14:55 11/26/17 14:55 11/26/17 14:55 Intake and Output: 11/26/17 11/26/17 06:59 18:59 Intake Total 780 Balance 780 - Medications Medications: Current Medications Albuterol/Ipratropium (Duoneb 3 Mg/0.5 Mg (3 Ml) Ud) 3 ml IH [id number] [facility] Last Admin: 11/26/17 13:03 Dose: Not Given Amlodipine Besylate (Norvasc) 10 mg PO DAILY [facility] Last Admin: 11/26/17 09:32 Dose: 10 mg Calcium Acetate (Phoslo) 667 mg PO AC [facility] Last Admin: 11/26/17 16:24 Dose: Not Given Dextrose (Dextrose 50% Inj) 0 ml IV STAT PRN; Protocol PRN Reason: Hypoglycemia Protocol Last Admin: 11/23/17 07:28 Dose: 50 ml Divalproex Sodium (Depakote Dr(*Bid*)) 1,500 mg PO BID [facility] Last Admin: 11/26/17 18:21 Dose: Not Given Cefepime HCl (Maxipime 1gm) 1 gm in 100 mls @ 100 mls/hr IVPB Q24H [facility] PRN Reason: Protocol Last Admin: 11/26/17 13:58 Dose: 100 mls/hr Insulin Detemir (Levemir) 6 unit SC HS [facility] Last Admin: 11/26/17 04:51 Dose: Not Given Insulin Human Regular (Humulin R Low) 0 units SC ACHS [facility] PRN Reason: Protocol Last Admin: 11/26/17 16:23 Dose: Not Given Ondansetron HCl (Zofran Inj) 4 mg IVP Q6H PRN PRN Reason: Nausea/Vomiting Last Admin: 11/25/17 10:41 Dose: 4 mg - Labs Labs: 11/26/17 06:00 11/26/17 06:00 PT 11.7 SECONDS (9.4-12.5) 11/20/17 11:50 INR 1.02 11/20/17 11:50 - Constitutional Appears: Non-toxic, No Acute Distress, Chronically Ill - Head Exam Head Exam: ATRAUMATIC, NORMOCEPHALIC - Eye Exam Eye Exam: EOMI, PERRL Pupil Exam: NORMAL ACCOMODATION, PERRL - ENT Exam ENT Exam: Mucous Membranes Moist, Normal External Ear Exam, TM's Normal Bilaterally - Neck Exam Neck Exam: Full ROM, Normal Inspection - Respiratory Exam Respiratory Exam: Clear to Ausculation Bilateral, NORMAL BREATHING PATTERN. absent: Rales, Rhonchi, Wheezes - Cardiovascular Exam Cardiovascular Exam: REGULAR RHYTHM, RRR, +S1, +S2 - GI/Abdominal Exam GI & Abdominal Exam: Soft, Normal Bowel Sounds. absent: Distended, Tenderness - Extremities Exam Extremities Exam: Full ROM, Normal Inspection - Neurological Exam Neurological Exam: Alert, Awake, CN II-XII Intact, Oriented x3 - Psychiatric Exam Psychiatric exam: Normal Affect, Normal Mood - Skin Additional comments: leg ulcerations. Assessment and Plan - Assessment and Plan (Free Text) Assessment: 57 yo AA male with multiple medical issues presenting with nausea, vomiting, chills, and cough. Persistent finding of right lower lobe structure/mass. Unclear etiology and importance. The patient is Awake and alert but appears to have a flat affect. No WBC elevation. Procalcitonin is elevated to 0.72 two days into admission. Prior admissions showed a value of 0.39. Recheck procalcitonin. Cannot rule out pneumonia with the current procalcitonin level. Current procalcitonin has increased to 1.38 today. Patient himself making very few complaints. On Cefepime and Rocephin. Supportive care. No additional findings. Given repeat CT scan showed no significant differences. The value of the procalcitonin of between 0.5-2 is a arguelles area especially given the lack of symptoms and the patient's ESRD on HD. A value of procalcitonin under 2 may still be normal for a patient with ESRD. I would consider use of Ancef 1gm with HD for 7-10 days more on discharge given the patient's previous procalcitonin values. Thank you for allowing me to participate in the care of the patient, we will follow with you. I will be away from 11/27/2017 to 12/10/2017, Dr. House will be covering for me during this time.
--- NOTE | 2017-11-26 23:38 | PN ---
Copied To: Makenzie Miranda MD Attending MD: Makenzie Miranda MD DATE: 11/26/2017 SUBJECTIVE: The patient is a 57-year-old male. The patient is seen and examined at the bedside, sitting on the chair. Left side of the face is swollen as compared to the right side. No fevers, no chills. No headache, no dizziness. No chest pain, no palpitation. The patient is refusing medications; urged to take medication. PHYSICAL EXAMINATION: VITAL SIGNS: Temperature 98.4, pulse 67, respiratory rate 18, blood pressure 137/57. HEENT: Head normocephalic, atraumatic. Eyes PERRLA. Extraocular muscles intact. Conjunctivae clear. Nose patent. Mucous membrane moist. NECK: Supple. No carotid bruit. No JVD or thyromegaly. CHEST: Bilaterally symmetrical. HEART: S1 and S2 positive. LUNGS: Clear to auscultation. ABDOMEN: Soft, bowel sounds present. No organomegaly. EXTREMITIES: No edema. No cyanosis. NEUROLOGICAL: The patient is awake and alert. Moving all 4 extremities. No focal deficit. MEDICATIONS: Depakote, dextrose, insulin, Levemir, Maxipime, amlodipine, PhosLo, Zofran. LABORATORY DATA: White blood cells 8.5, hemoglobin 9.4, hematocrit 29.2, platelets 150. Sodium 139, potassium 4, BUN 37, creatinine 4.1, glucose 72, calcium 8.3. ASSESSMENT AND PLAN: Mr. Stephanie Jackson is 57 years old male with anemia, renal insufficiency, kept on hemodialysis 3 times a week, diabetic nephropathy, diabetic retinopathy, diabetic neuropathy, hypocalcemia, has sinusitis as per magnetic resonance imaging. We will do CAT scan. The patient is very noncompliant - urged to be compliant, history of chronic obstructive pulmonary disease, pulmonary infiltrate, chronic obstructive lung disease, cardiomyopathy, gastroesophageal reflux disease, dyspepsia, history of seizure, refusing seizure medications. Education done. We will do CAT scan of the sinuses. Antibiotics, repeat labs. We will followup. Makenzie Miranda MD
[2017-11-27] MEDS: Albuterol-Ipratrop 3 mg / 0.5 (3 ml) UD IH SCH ×2 (01:12→19:14)
[2017-11-27] MEDS: Insulin Reg-LOW-Coverage SC SCH ×4 (08:30→22:06)
--- NOTE | 2017-11-27 08:39 | PN ---
Copied To: Lorie Zamora MD Attending MD: Lorie Zamora MD. DATE: 11/24/2017 PULMONARY PROGRESS NOTE REFERRING PHYSICIAN: Makenzie Miranda MD. SUBJECTIVE: He is lying in the bed, sleepy, arousable. Night was unremarkable. Had dialysis done yesterday. Cough and shortness of breath are improving. No nausea, no vomiting, no diarrhea. No leg pain or leg swelling. PHYSICAL EXAMINATION: GENERAL: In no acute distress. VITAL SIGNS: Temperature is 98, heart rate is 84, respiratory rate is 20, blood pressure 130/73, pulse ox of 99% on room air. HEENT: Moist mucous membrane. Crowded airway. NECK: Supple. No JVD. LUNGS: Have a fair airflow with rhonchi. HEART: S1 and S2. ABDOMEN: Soft, nontender. No organomegaly. EXTREMITIES: Not much edema. NEUROLOGIC: Awake and alert, follows simple command. MEDICATIONS: He is on Depakote 1.5 g p.o. twice a day, DuoNeb every 6 hours, insulin coverage, Levemir 6 units subcutaneous at bedtime, cefepime 1 g IV every 24 hours, Norvasc 10 mg daily, PhosLo 667 before meals, Zithromax 500 mg daily, and Zofran p.r.n. basis. LABORATORY DATA: Showed blood sugar this morning is 125. Microbiology, blood culture has been negative. CT scan of the chest is done today which shows stable findings right lower lobe area of scarring, hyperinflated manifestation of chronic lung disease, no new abnormality seen. IMPRESSION AND PLAN: Chronic obstructive lung disease, cardiomyopathy, diabetes, peripheral neuropathy, gastroesophageal reflux disease, history of renal failure, dialysis dependent, seizure disorder. Pulmonary point of view, he is doing okay. Keep head at 45 degrees. Bronchodilator, gastric prophylaxis. Fall precaution, sleep apnea precaution. Careful with sedation. Antibiotics as per Infectious Diseases. Thank you and we will follow with you. Lorie Zamora MD
--- NOTE | 2017-11-27 08:47 | PN ---
Copied To: Makenzie Miranda MD Attending MD: Makenzie Miranda MD DATE: 11/25/2017 SUBJECTIVE: The patient is a 57-year-old male. Patient is looking comfortable. Got dialysis. No nausea, vomiting or diarrhea. No hematuria. No hematochezia. No swelling of the leg. No chest pain. No palpitation. No headache. No dizziness. PHYSICAL EXAMINATION: VITAL SIGNS: Temperature 98, heart rate 73, respiratory rate 20, blood pressure 137/80, pulse oximetry 95% on room air. HEENT: Head: Normocephalic, atraumatic. Eyes: PERRLA. Extraocular muscles intact. Conjunctivae clear. Nose patent. Mucous membrane moist. NECK: Supple. No carotid bruit. No JVD or thyromegaly. CHEST: Bilaterally symmetrical. HEART: S1 and S2 positive. LUNGS: Clear to auscultation. ABDOMEN: Soft. Bowel sounds present. No organomegaly. EXTREMITIES: No edema. No cyanosis. NEUROLOGICAL: Patient is awake and alert. Follows simple commands. MEDICATIONS: Depakote, Levemir, cefepime, Norvasc, Zithromax, Zofran. LABORATORY DATA: Hemoglobin 7.4, hematocrit 23.6, white blood cell 5.6, platelets 151. Sodium 138, potassium 4.4, BUN 66, creatinine 6.9, blood sugar 163. ASSESSMENT AND PLAN: Mr. Stephanie Jackson is a 57-year-old male with anemia of chronic disease, renal insufficiency, getting hemodialysis, insulin-dependent diabetes mellitus, not very well controlled, hypocalcemia, pulmonary infiltrates, chronic obstructive lung disease, cardiomyopathy, peripheral neuropathy, gastroesophageal reflux disease, history of seizure disorder. Clinically doing well. Getting physical therapy. Continue bronchodilators. Antibiotics as per Infectious Disease. Out of bed. Physical therapy. Gastrointestinal and deep venous thrombosis prophylaxes. Repeat labs. We will follow up. Makenzie Miranda MD
--- NOTE | 2017-11-27 08:53 | PN ---
Copied To: Lorie Zamora MD Attending MD: Lorie Zamora MD DATE: 11/26/2017 PULMONARY PROGRESS NOTE REFERRING PHYSICIAN: Dr. Miranda. SUBJECTIVE: He is out of bed to chair. Night was unremarkable. He just came out of the shower. No headache, no rhinitis, , cough. No chest pain. No nausea, no vomiting, no diarrhea. No leg pain or leg swelling. PHYSICAL EXAMINATION: GENERAL: No acute distress. VITAL SIGNS: Temp is 98, heart rate 74, respiratory rate is 18, blood pressure 131/68, pulse ox 98% on room air. HEENT: Moist mucous membrane. No ulcer or thrush noted. NECK: Supple. No JVD. HEART: S1, S2. LUNGS: Have a fair airflow with rhonchi. ABDOMEN: Soft, nontender. No organomegaly. EXTREMITIES: No edema. NEUROLOGIC: Awake, alert, follows simple commands. MEDICATIONS: He is on Depakote 1.5 g twice a day, Levemir 6 units subcu at bedtime, cefepime 1 g IV every 24 hours, Norvasc 10 mg daily, PhosLo with meals, Zithromax 500 mg daily, Zofran on p.r.n. basis. LABORATORY DATA: Shows hemoglobin 9.4, hematocrit 29.3, WBC 8.5, platelet count is 150. Sodium 139, potassium 4, chloride 98, bicarbonate 29, BUN 37, creatinine 4.1, glucose 72, calcium is 8.3. Microbiology: Blood culture has been negative. IMPRESSION AND PLAN: Pulmonary infiltrate, chronic obstructive lung disease, cardiomyopathy, diabetes, peripheral neuropathy, gastroesophageal reflux disease, history of renal failure, dialysis dependency, seizure disorder. Pulmonary point of view, he is doing okay. Continue bronchodilator, keep head of bed at 45 degrees, fall precaution. Gastric prophylaxis. Seizure precaution. Sequential compression devices to lower extremities. We will follow with you. Lorie Zamora MD
[2017-11-27] MEDS: Divalproex 500 mg DR(BID formulation) PO SCH ×2 (10:22→18:24)
--- NOTE | 2017-11-27 10:35 | CT ---
Date of service: 11/27/2017 PROCEDURE: CT MAXILLOFACIAL BONES WITHOUT CONTRAST HISTORY: swelling COMPARISON: None available. TECHNIQUE: Contiguous axial CT images of the maxillofacial bones were obtained. Coronal and sagittal reformats were generated. Radiation dose: Total exam DLP = 683 mGy-cm. This CT exam was performed using one or more of the following dose reduction techniques: Automated exposure control, adjustment of the mA and/or kV according to patient size, and/or use of iterative reconstruction technique. FINDINGS: NASAL BONES: Unremarkable. ORBITS: Unremarkable. PARANASAL SINUSES/ MASTOIDS: Mild mucosal thickening in the maxillary sinuses MAXILLA: Unremarkable. MANDIBLE/ TEMPOROMANDIBULAR JOINTS: Unremarkable. SKULL BASE: Unremarkable. TEMPORAL BONES: Middle ears and mastoid grossly unremarkable. OTHER FINDINGS: There is diffuse subcutaneous edema and swelling throughout the face. The etiology is uncertain. No focal abscess identified. No evidence of fracture IMPRESSION: There is diffuse subcutaneous edema and swelling throughout the face. The etiology is uncertain. No focal abscess identified. No evidence of fracture
--- NOTE | 2017-11-27 11:58 | PN ---
Copied To: Leandro Gilbert MD Attending MD: Leandro Gilbert MD DATE: 11/27/2017 SUBJECTIVE: The patient has no complaints of any chest pain. No shortness of breath. No headaches. PHYSICAL EXAMINATION VITAL SIGNS: Temperature is 98.2, pulse is 77, blood pressure 140/86, respirations 18. GENERAL: The patient is lying in bed, flat, comfortable. HEENT: No oral lesion. Anicteric sclerae. Moist mucosa. NECK: No JVD, adenopathy, or thyromegaly. CARDIOVASCULAR: S1 and S2, regular. No murmurs, rubs, or gallops. LUNGS: Clear to auscultation bilaterally. No wheeze, rales, or rhonchi. ABDOMEN: Bowel sounds are positive, soft, nontender and nondistended. EXTREMITIES: No cyanosis, clubbing or edema. ASSESSMENT: 1. End-stage renal disease, on hemodialysis. 2. Gastroenteritis, resolved. 3. Diabetes type 2. 4. Left arteriovenous fistula. 5. Secondary hyperparathyroidism. 6. Anemia secondary to end-stage renal disease. 7. Diabetic retinopathy. 8. Diabetic neuropathy. PLAN: The patient had a CAT of the orbits, face and neck because of facial swelling and might be some mild exophthalmos by the incomplete study. The patient had a CT of the chest done. There is hyperinfiltration with manifestations of COPD. No new abnormalities. The patient has left-sided swelling and concerned that this may be from central stenosis, however, Dr. Rufus Sanchez to evaluate. The patient is on PhosLo for secondary hyperparathyroidism. He is on Levemir for diabetes. He is on amlodipine for hypertension. He is on a renal diet. Leandro Gilbert MD
[2017-11-27] MEDS: Cefepime 1gm in NS 100ml 1 GM/100 ML BAG IVPB SCH (14:19)
--- NOTE | 2017-11-27 15:56 | CP.PCM.PN ---
Subjective - Date & Time of Evaluation Date of Evaluation: 11/27/17 Time of Evaluation: 13:05 - Subjective Subjective: Patient has no SOB, no cough, no fevers, not in distress, no pain in the face, no swallowing issues. Objective - Vital Signs/Intake and Output Vital Signs (last 24 hours): Temp Pulse Resp BP Pulse Ox 97.9 F 77 18 148/83 96 11/27/17 06:00 11/27/17 06:00 11/27/17 06:00 11/27/17 10:28 11/27/17 06:00 Intake and Output: 11/27/17 11/27/17 06:59 18:59 Intake Total 540 Balance 540 - Medications Medications: Current Medications Albuterol/Ipratropium (Duoneb 3 Mg/0.5 Mg (3 Ml) Ud) 3 ml IH [id number] [facility] Last Admin: 11/27/17 01:12 Dose: Not Given Amlodipine Besylate (Norvasc) 10 mg PO DAILY [facility] Last Admin: 11/27/17 10:28 Dose: 10 mg Calcium Acetate (Phoslo) 667 mg PO AC [facility] Last Admin: 11/27/17 08:43 Dose: Not Given Dextrose (Dextrose 50% Inj) 0 ml IV STAT PRN; Protocol PRN Reason: Hypoglycemia Protocol Last Admin: 11/23/17 07:28 Dose: 50 ml Divalproex Sodium (Depakote Dr(*Bid*)) 1,500 mg PO BID [facility] Last Admin: 11/27/17 10:22 Dose: Not Given Cefepime HCl (Maxipime 1gm) 1 gm in 100 mls @ 100 mls/hr IVPB Q24H [facility] PRN Reason: Protocol Last Admin: 11/26/17 13:58 Dose: 100 mls/hr Insulin Detemir (Levemir) 6 unit SC HS [facility] Last Admin: 11/26/17 21:57 Dose: Not Given Insulin Human Regular (Humulin R Low) 0 units SC ACHS [facility] PRN Reason: Protocol Last Admin: 11/27/17 11:53 Dose: Not Given Ondansetron HCl (Zofran Inj) 4 mg IVP Q6H PRN PRN Reason: Nausea/Vomiting Last Admin: 11/25/17 10:41 Dose: 4 mg - Labs Labs: 11/26/17 06:00 11/26/17 06:00 PT 11.7 SECONDS (9.4-12.5) 11/20/17 11:50 INR 1.02 11/20/17 11:50 - Constitutional Appears: Chronically Ill - Head Exam Head Exam: NORMAL INSPECTION - ENT Exam ENT Exam: Mucous Membranes Moist Additional comments: left side of face with mild swelling but no tenderness, no erythema, no discharge - Neck Exam Neck Exam: absent: Meningismus - Respiratory Exam Respiratory Exam: Decreased Breath Sounds - Cardiovascular Exam Cardiovascular Exam: +S1, +S2 - GI/Abdominal Exam GI & Abdominal Exam: Soft. absent: Tenderness Assessment and Plan - Assessment and Plan (Free Text) Plan: Assessment consder right lower lobe healthcare-associated pneumonia history of right sided HCAP history of left facial pre-septal cellulitis, with dental caries and necrotic left lower molars ESRD on HD DM COPD diabetic retinopathy and neuropathy history of DVT and PE history of diabetic foot ulcers history of right lung abscess non-ischemic cardiomyopathy Plan will finish 7 day course of Cefepime (finished 5 days of Zithromax on this admission); reviewed CT chest showing possible persistent infiltrate on right lung - recommend follow up CT scan after Cefepime treatment and follow up with Pulmonary to see resolution of this infiltrate - discussed this with patient and explained the importance of the follow up and patient understands and agrees will monitor clinically
--- NOTE | 2017-11-27 16:46 | CP.PCM.CON ---
<[facility] Last Filed: 11/27/17 16:43> History of Present Illness - History of Present Illness History of Present Illness: Podiatry Consult Note for Dr. Concepcion 57 year old male patient with PMHx of chronic kidney disease on dialysis, anemia , diabetes was seen and evaluated at bedside complaining of elongated, thickened , dystrophic nails that have been present for several weeks. Patient was admitted to the hospital for diarrhea x 3 days. He is AAO x 3 and NAD at time of visit. Denies any acute overnight events or any other pedal complaints at this time. Denies any recent F/C/CP/SOB/posterior calf pain when squeezed. Review of Systems - Constitutional Constitutional: As Per HPI Past Patient History - Infectious Disease Hx of Infectious Diseases: None - Tetanus Immunizations Tetanus Immunization: Up to Date - Past Medical History & Family History Past Medical History?: Yes - Past Social History Smoking Status: Never Smoked - CARDIAC Hx Congestive Heart Failure: Yes Hx Hypercholesterolemia: Yes Hx Hypertension: Yes - PULMONARY Hx Chronic Obstructive Pulmonary Disease (COPD): Yes - NEUROLOGICAL Hx Neurological Disorder: Yes Hx Dizziness: Yes (after hd) Other/Comment: diabetic neuropathy pain/tingling/stinging/itch from b/l knees and below, involuntary jumping, shaking and jerking movements x 2 wks - HEENT Hx HEENT Problems: Yes (missing teeth) Other/Comment: ione left ear, blurred vision - RENAL Hx Renal Failure: Yes (HD (MWF)) - ENDOCRINE/METABOLIC Hx Diabetes Mellitus Type 2: Yes - HEMATOLOGICAL/ONCOLOGICAL Hx Blood Disorders: Yes Hx Anemia: Yes (blood transfusion) - INTEGUMENTARY Hx Dermatological Problems: Yes Other/Comment: left facial and orbital cellulitis chronic on and off, pt stated "I feel bumps under the skin on my face when I run my hands over skin"./ dry leathery skin ble with multiple dark brown skin discolorations, r knee healed wound scars, dark brown skin discoloratins to feet thick hard toenails both feet , multiple skin discolorations to both arms, multiple dark closed wounds b/l legs, healed diabetic foot ulcers - MUSCULOSKELETAL/RHEUMATOLOGICAL Hx Falls: Yes (past) - GASTROINTESTINAL Hx Gastrointestinal Disorders: Yes (hx c dif/reflux/missing teeth) - GENITOURINARY/GYNECOLOGICAL Hx Genitourinary Disorders: Yes (esrd) - PSYCHIATRIC Hx Psychophysiologic Disorder: Yes Hx Anxiety: Yes Hx Depression: Yes Hx Substance Use: No - SURGICAL HISTORY Hx Amputation: No Hx Appendectomy: No Hx Cardiac Catheterization: Yes (01/2013 dr cedeno) Hx Cholecystectomy: No Hx Coronary Stent: No Hx Gastric Bypass Surgery: No Hx Hysterectomy: No Hx Joint Replacement: No Hx Kidney Transplant: No Hx Liver Transplant: No Hx Mastectomy: No Hx Musculoskeletal Surgery: No Hx Open Heart Surgery: No Hx Orthopedic Surgery: Yes (L hip fx orif 05/07/17, pt fell) Hx Splenectomy: No Hx Valve Replacement: No Other/Comment: sanket av shunt, ultrasound guided r thoracentesis 05/20/13 2600 straw fluid drained, fistulagram 07/13/17 - ANESTHESIA Hx Anesthesia: Yes Hx Anesthesia Reactions: No Hx Malignant Hyperthermia: No Meds Home Medications: Home Medication List Medication Instructions Recorded Confirmed Type Insulin Detemir [Levemir] 6 unit SC HS #90 unit 11/24/17 11/20/17 Rx Allergies/Adverse Reactions: Allergies Allergy/AdvReac Type Severity Reaction Status Date / Time No Known Allergies Allergy Verified 11/20/17 21:23 - Medications Medications: Current Medications Albuterol/Ipratropium (Duoneb 3 Mg/0.5 Mg (3 Ml) Ud) 3 ml IH [id number] [facility] Last Admin: 11/27/17 01:12 Dose: Not Given Amlodipine Besylate (Norvasc) 10 mg PO DAILY [facility] Last Admin: 11/27/17 10:28 Dose: 10 mg Calcium Acetate (Phoslo) 667 mg PO AC [facility] Last Admin: 11/27/17 11:56 Dose: Not Given Dextrose (Dextrose 50% Inj) 0 ml IV STAT PRN; Protocol PRN Reason: Hypoglycemia Protocol Last Admin: 11/23/17 07:28 Dose: 50 ml Divalproex Sodium (Depakote Dr(*Bid*)) 1,500 mg PO BID [facility] Last Admin: 11/27/17 10:22 Dose: Not Given Cefepime HCl (Maxipime 1gm) 1 gm in 100 mls @ 100 mls/hr IVPB Q24H [facility] PRN Reason: Protocol Last Admin: 11/27/17 14:19 Dose: 100 mls/hr Insulin Detemir (Levemir) 6 unit SC HS [facility] Last Admin: 11/26/17 21:57 Dose: Not Given Insulin Human Regular (Humulin R Low) 0 units SC ACHS [facility] PRN Reason: Protocol Last Admin: 11/27/17 16:40 Dose: 2 units Ondansetron HCl (Zofran Inj) 4 mg IVP Q6H PRN PRN Reason: Nausea/Vomiting Last Admin: 11/25/17 10:41 Dose: 4 mg Physical Exam - Constitutional Appears: Well, Non-toxic, No Acute Distress - Extremities Exam Additional comments: B/l LE focused exam: Vasc: DP/PT pulses fully palpable 2/4 b/l. Skin temperature warm to warm from proximal to distal. CFT < 3 seconds to all digits b/l. no pitting or non- pitting edema noted bilaterally Neuro: Protective sensation mildly diminished Derm: Elongated, thickened and dystrophic toenails X 10, no open lesions, wounds , maceration, diffuse xerosis noted to bilateral LE, no abnormal pigmentation or abnormal growths noted b/l MSK: Minimal POP to nail plates. ROM WNL at all major muscle groups. MMT WNL for patient age. No other gross deformities noted - Neurological Exam Neurological exam: Alert, Oriented x3 - Psychiatric Exam Psychiatric exam: Normal Affect, Normal Mood Results - Vital Signs Recent Vital Signs: Last Vital Signs Temp 98.5 F 11/27/17 14:00 Pulse 72 11/27/17 14:00 Resp 18 11/27/17 14:00 BP 141/76 11/27/17 14:00 Pulse Ox 96 11/27/17 14:00 - Labs Result Diagrams: 11/26/17 06:00 11/26/17 06:00 Labs: Laboratory Results - last 24 hr 11/24/17 11/25/17 11/25/17 21:20 06:32 11:16 POC Glucose (mg/dL) 174 H 172 H 217 H 11/25/17 11/25/17 11/26/17 16:30 20:41 04:19 POC Glucose (mg/dL) 132 H 216 H 48 L 11/26/17 11/26/17 11/26/17 05:40 06:41 11:36 POC Glucose (mg/dL) 53 L 86 136 H 11/26/17 11/26/17 11/27/17 15:57 21:13 06:49 POC Glucose (mg/dL) 94 207 H 121 H 11/27/17 11/27/17 11:25 15:57 POC Glucose (mg/dL) 150 H 210 H Assessment & Plan - Assessment and Plan (Free Text) Assessment: 57 y/o male seen at bedside complaining of elongated, thickened, dystrophic nails Plan: Patient seen and evaluated at bedside with attending Dr. Concepcion Chart, labs and vitals reviewed Aseptic debridement of toenails X 10 with sterile nail nippers Patient tolerated procedure well Lotion applied to bilateral LE Stable from podiatry standpoint Thank You for the podiatry consult - please re-consult if needed - Date & Time Date: 11/27/17 Time: 16:50 <Morales Concepcion - Last Filed: 11/27/17 17:01> Meds - Medications Medications: Current Medications Albuterol/Ipratropium (Duoneb 3 Mg/0.5 Mg (3 Ml) Ud) 3 ml IH [id number] [facility] Last Admin: 11/27/17 01:12 Dose: Not Given Amlodipine Besylate (Norvasc) 10 mg PO DAILY [facility] Last Admin: 11/27/17 10:28 Dose: 10 mg Calcium Acetate (Phoslo) 667 mg PO AC [facility] Last Admin: 11/27/17 16:43 Dose: Not Given Dextrose (Dextrose 50% Inj) 0 ml IV STAT PRN; Protocol PRN Reason: Hypoglycemia Protocol Last Admin: 11/23/17 07:28 Dose: 50 ml Divalproex Sodium (Depakote Dr(*Bid*)) 1,500 mg PO BID [facility] Last Admin: 11/27/17 10:22 Dose: Not Given Cefepime HCl (Maxipime 1gm) 1 gm in 100 mls @ 100 mls/hr IVPB Q24H [facility] PRN Reason: Protocol Last Admin: 11/27/17 14:19 Dose: 100 mls/hr Insulin Detemir (Levemir) 6 unit SC HS [facility] Last Admin: 11/26/17 21:57 Dose: Not Given Insulin Human Regular (Humulin R Low) 0 units SC ACHS [facility] PRN Reason: Protocol Last Admin: 11/27/17 16:40 Dose: 2 units Ondansetron HCl (Zofran Inj) 4 mg IVP Q6H PRN PRN Reason: Nausea/Vomiting Last Admin: 11/25/17 10:41 Dose: 4 mg Results - Vital Signs Recent Vital Signs: Last Vital Signs Temp 98.5 F 11/27/17 14:00 Pulse 72 11/27/17 14:00 Resp 18 11/27/17 14:00 BP 141/76 11/27/17 14:00 Pulse Ox 96 11/27/17 14:00 - Labs Result Diagrams: 11/26/17 06:00 11/26/17 06:00 Labs: Laboratory Results - last 24 hr 11/24/17 11/25/17 11/25/17 21:20 06:32 11:16 POC Glucose (mg/dL) 174 H 172 H 217 H 11/25/17 11/25/17 11/26/17 16:30 20:41 04:19 POC Glucose (mg/dL) 132 H 216 H 48 L 11/26/17 11/26/17 11/26/17 05:40 06:41 11:36 POC Glucose (mg/dL) 53 L 86 136 H 11/26/17 11/26/17 11/27/17 15:57 21:13 06:49 POC Glucose (mg/dL) 94 207 H 121 H 11/27/17 11/27/17 11:25 15:57 POC Glucose (mg/dL) 150 H 210 H Attending/Attestation - Attestation I have personally seen and examined this patient.: Yes I have fully participated in the care of the patient.: Yes I have reviewed all pertinent clinical information: Yes
[2017-11-27] MEDS: Insulin Detemir 100 units/ml Vial (Levemir) SC SCH (22:06)
--- NOTE | 2017-11-27 23:16 | PN ---
Copied To: Lorie Zamora MD Attending MD: Lorie Zamora MD DATE: 11/27/2017 PULMONARY PROGRESS NOTE REFERRING PHYSICIAN: Makenzie Miranda MD SUBJECTIVE: The patient is sitting side of the bed, having lunch. Night was unremarkable. Feels better. No headache, no rhinitis. No nausea, no vomiting, no diarrhea. No leg pain or leg swelling. OBJECTIVE: GENERAL: In no acute distress. VITAL SIGNS: Temp is 98, heart rate 72, respiratory rate is 18, blood pressure 141/76, pulse ox 96% on room air. HEENT: Moist mucous membrane. Crowded airway. NECK: Supple. No JVD. LUNGS: Have a few crackles at the bases. HEART: S1 and S2. ABDOMEN: Soft, nontender. No organomegaly. EXTREMITIES: Not much edema. NEUROLOGIC: Awake, alert, follows simple commands. MEDICATIONS: He is on Depakote 1500 mg twice a day, DuoNeb every 6 hours, Levemir 6 units subcutaneously at bedtime, cefepime 1 g IV daily, Norvasc 10 mg daily, PhosLo with meals, Zofran p.r.n. basis. LABORATORY DATA: Reviewed. Blood sugar is 210. Had a maxillary sinus x-ray done today shows there is a diffuse subcutaneous edema and swelling throughout the face. Also, have MRI of the orbit, face and neck done, which shows incomplete examination because of the artifact. IMPRESSION AND PLAN: Pulmonary infiltrate, chronic obstructive lung disease, cardiomyopathy, diabetes, peripheral neuropathy, gastroesophageal reflux disease, history of renal failure, dialysis dependent, seizure disorder. Has some swelling of the facial area of unknown etiology. No complaint though. Denies any seizure activity. Noncompliant with the medication, especially with the seizure medication. High risk for recurrent seizure and aspiration precaution. I had a long discussion with the patient, risk of seizure and . He expressed understanding, promised that he will start taking medication. We will monitor facial swelling closely. Thank you and we will follow with you. Lorie Zamora MD
[2017-11-28] MEDS: Albuterol-Ipratrop 3 mg / 0.5 (3 ml) UD IH SCH ×4 (02:21→19:37)
--- NOTE | 2017-11-28 08:03 | PN ---
Copied To: Makenzie Miranda MD Attending MD: Makenzie Miranda MD DATE: 11/27/2017 SUBJECTIVE: The patient is a 57-year-old male. The patient was seen and examined on the bedside, looking comfortable. No shortness of breath, no fever, no chills, no nausea or vomiting. Facial swelling is getting better. Still having nauseous and vomiting once in a while. No diarrhea. PHYSICAL EXAMINATION VITAL SIGNS: Temperature 97.9, pulse 77, respiratory rate 18, blood pressure 148/83, pulse oximetry 96. HEENT: Head normocephalic, atraumatic. Eyes PERRLA. Extraocular muscles intact. Conjunctivae clear. Nose patent. Mucous membrane moist. NECK: Supple. No carotid bruit. No JVD or thyromegaly. CHEST: Bilaterally symmetrical. HEART: S1 and S2 positive. LUNGS: Clear to auscultation. ABDOMEN: Soft, bowel sounds present. No organomegaly. EXTREMITIES: No edema. No cyanosis. NEUROLOGICAL: The patient is awake and alert. Moving all 4 extremities. No focal deficit. MEDICATIONS: DuoNeb, Norvasc, PhosLo, dextrose, Depakote, Maxipime, Levemir, insulin, Zofran. LABORATORY DATA: White blood cells 8.5, hemoglobin 9.4, hematocrit 29.3, platelet 150. Sodium 139, potassium 4, BUN 37, creatinine 4.1, glucose 72. ASSESSMENT AND PLAN: Mr. Stephanie Jackson is a 57-year-old male with anemia, renal insufficiency, has right lower lobe healthcare associated pneumonia, history of right-sided healthcare-associated pneumonia, left facial preseptal cellulitis with dental caries and necrotic left lower molars, end-stage renal disease, on hemodialysis, diabetes mellitus, chronic obstructive pulmonary disease, diabetic retinopathy, diabetic neuropathy, diabetic nephropathy, history of deep venous thrombosis and pulmonary embolism, diabetic foot ulcers. Podiatry consult is called. Right lung abscess, nonischemic cardiomyopathy, gastroparesis. The patient is very noncompliant with food. Will finish 7-day course of cefepime. Today is day 5 of Zithromax. GI is recommending followup CAT scan of the chest after finishing antibiotics because of persistence of the infiltrates. Discussion done with the patient and nursing staff. Out of bed, physical therapy, gastrointestinal and deep venous thrombosis prophylaxis. Did CAT scan of maxillofacial area. There is a diffuse subcutaneous edema and swelling throughout the face, the etiology is unclear. No focal abscess identified. No evidence of fracture. We will continue present treatment. We will follow up. Makenzie Miranda MD
[2017-11-28] MEDS: Insulin Reg-LOW-Coverage SC SCH ×4 (08:20→21:48)
[2017-11-28] MEDS: Divalproex 500 mg DR(BID formulation) PO SCH ×2 (10:29→18:10)
[2017-11-28] MEDS: Cefepime 1gm in NS 100ml 1 GM/100 ML BAG IVPB SCH (14:23)
--- NOTE | 2017-11-28 15:42 | CP.PCM.PN ---
Subjective - Date & Time of Evaluation Date of Evaluation: 11/28/17 Time of Evaluation: 08:40 - Subjective Subjective: Had low grade temperatures but not outright fevers, no nausea, not in distress. Objective - Vital Signs/Intake and Output Vital Signs (last 24 hours): Temp Pulse Resp BP Pulse Ox 98.5 F 72 18 141/76 96 11/27/17 14:00 11/27/17 14:00 11/27/17 14:00 11/27/17 14:00 11/27/17 14:00 Intake and Output: 11/27/17 11/27/17 06:59 18:59 Intake Total 540 460 Balance 540 460 - Medications Medications: Current Medications Albuterol/Ipratropium (Duoneb 3 Mg/0.5 Mg (3 Ml) Ud) 3 ml IH [id number] [facility] Last Admin: 11/27/17 01:12 Dose: Not Given Amlodipine Besylate (Norvasc) 10 mg PO DAILY [facility] Last Admin: 11/27/17 10:28 Dose: 10 mg Calcium Acetate (Phoslo) 667 mg PO AC [facility] Last Admin: 11/27/17 11:56 Dose: Not Given Dextrose (Dextrose 50% Inj) 0 ml IV STAT PRN; Protocol PRN Reason: Hypoglycemia Protocol Last Admin: 11/23/17 07:28 Dose: 50 ml Divalproex Sodium (Depakote Dr(*Bid*)) 1,500 mg PO BID [facility] Last Admin: 11/27/17 10:22 Dose: Not Given Cefepime HCl (Maxipime 1gm) 1 gm in 100 mls @ 100 mls/hr IVPB Q24H [facility] PRN Reason: Protocol Last Admin: 11/27/17 14:19 Dose: 100 mls/hr Insulin Detemir (Levemir) 6 unit SC HS [facility] Last Admin: 11/26/17 21:57 Dose: Not Given Insulin Human Regular (Humulin R Low) 0 units SC ACHS [facility] PRN Reason: Protocol Last Admin: 11/27/17 11:53 Dose: Not Given Ondansetron HCl (Zofran Inj) 4 mg IVP Q6H PRN PRN Reason: Nausea/Vomiting Last Admin: 11/25/17 10:41 Dose: 4 mg - Labs Labs: 11/26/17 06:00 11/26/17 06:00 PT 11.7 SECONDS (9.4-12.5) 11/20/17 11:50 INR 1.02 11/20/17 11:50 - Constitutional Appears: Chronically Ill - Head Exam Head Exam: NORMAL INSPECTION - ENT Exam ENT Exam: Mucous Membranes Moist - Neck Exam Neck Exam: absent: Meningismus - Respiratory Exam Respiratory Exam: Decreased Breath Sounds - Cardiovascular Exam Cardiovascular Exam: +S1, +S2 - GI/Abdominal Exam GI & Abdominal Exam: Soft. absent: Tenderness Assessment and Plan - Assessment and Plan (Free Text) Plan: Assessment consder right lower lobe healthcare-associated pneumonia history of right sided HCAP history of left facial pre-septal cellulitis, with dental caries and necrotic left lower molars ESRD on HD DM COPD diabetic retinopathy and neuropathy history of DVT and PE history of diabetic foot ulcers history of right lung abscess non-ischemic cardiomyopathy Plan will finish 7 day course of Cefepime (Day 3 today) (finished 5 days of Zithromax on this admission); reviewed CT chest showing possible persistent infiltrate on right lung - recommend follow up CT scan after Cefepime treatment and follow up with Pulmonary to see resolution of this infiltrate - discussed this with patient and explained the importance of the follow up and patient understands and agrees will continue to monitor clinically
--- NOTE | 2017-11-28 17:04 | PN ---
Copied To: Lorie Zamora MD Attending MD: Lorie Zamora MD DATE: 11/28/2017 PULMONARY PROGRESS NOTE REFERRING PHYSICIAN: aMkenzie Miranda MD SUBJECTIVE: He is out of bed to chair. Night was unremarkable. No headache. No rhinitis. Refusing to take some of the medications. Psychiatry consult has been called. I spoke to nursing staff. No nausea. No vomiting. No diarrhea. No leg swelling though. OBJECTIVE: GENERAL: In no acute distress. VITAL SIGNS: Temp is 99, heart rate is 85, respiratory rate is 18, blood pressure 144/79, pulse ox 92% on nasal cannula. HEENT: Moist mucous membrane. Crowded airway. Has some swelling of the left side of the face. LUNGS: Have a fair airflow with rhonchi. HEART: S1 and S2. ABDOMEN: Soft and nontender. No organomegaly. EXTREMITIES: No edema. NEUROLOGICAL: Awake and alert. Follows simple command, but confused. MEDICATIONS: Refused to take Depakote, supposed to be 1.5 g twice a day. Refused DuoNeb. Insulin coverage is there. Also refused insulin. Cefepime 1 g IV daily, Norvasc 10 mg daily, Zofran p.r.n. basis. LABORATORY DATA: Reviewed. Blood sugar this morning 168. IMPRESSION AND PLAN: Pulmonary infiltrate, chronic obstructive lung disease, cardiomyopathy, diabetes, peripheral neuropathy, gastroesophageal reflux disease, history of renal failure, dialysis dependency, seizure disorder, noncompliant with the medications. Psychiatry consult had been called. Spoke to nursing staff. Sleep apnea precaution. Keep head at 45 degrees. Fall precaution. Seizure precaution. We will continue monitoring low-grade fever. Thank you and we will follow with you. Lorie Zamora MD
--- NOTE | 2017-11-28 21:22 | PN ---
Copied To: Makenzie Miranda MD Attending MD: Makenzie Miranda MD DATE: 11/28/2017 SUBJECTIVE: The patient was seen in the bed, looking comfortable. No nausea, vomiting or diarrhea. No hematuria or hematochezia. No swelling of the leg. No chest pain. No palpitation. Having jerky movements. Refusing medications, urged to be compliant, discussion done. PHYSICAL EXAMINATION: VITAL SIGNS: Temperature 99, heart rate 85, respiratory rate 18, blood pressure 144/79, pulse oximetry 92% on nasal cannula. HEENT: Head normocephalic, atraumatic. Eyes PERRLA. Extraocular muscles intact. Conjunctivae clear. Nose patent. Mucous membrane moist. NECK: Supple. No carotid bruit, JVD or thyromegaly. CHEST: Bilaterally symmetrical. HEART: S1 and S2 positive. LUNGS: Clear to auscultation. ABDOMEN: Soft, bowel sounds present. No organomegaly. EXTREMITIES: No edema. No cyanosis. NEUROLOGICAL: The patient is awake and alert. Follows simple commands. MEDICATIONS: Depakote, the patient is refusing the Depakote, supposed to be on 1.5 g twice a day; refusing the DuoNeb; insulin coverage, refusing insulin; getting cefepime, Norvasc and Zofran. LABORATORY DATA: Blood sugar is 158. We do not have recent labs, but I have reviewed old labs. ASSESSMENT AND PLAN: Mr. Stephanie Jackson is a 57-year-old male with pulmonary infiltrates; chronic obstructive lung disease; cardiomyopathy; diabetes mellitus; peripheral neuropathy; gastroesophageal reflux disease; history of renal failure, dialysis dependent; seizure disorder; noncompliance with medications. Psych is on the case, gig tender is on the case. Discussion done with nursing staff, tomorrow the patient is going for procedure. Sleep apnea precautions. Keep head elevated. We will follow up. Makenzie Miranda MD
[2017-11-28] MEDS: Insulin Detemir 100 units/ml Vial (Levemir) SC SCH (21:48)
[2017-11-29] MEDS: Albuterol-Ipratrop 3 mg / 0.5 (3 ml) UD IH SCH ×5 (02:38→20:13)
[2017-11-29 07:05] LABS: HEMOGLOBIN 8.7 g/dL (14.0-18.0); MEAN CELL VOLUME 78.5 fl (80.0-105.0); MEAN CORPUSCULAR HEMOGLOBIN 24.6 pg (25.0-35.0); MEAN CORPUSCULAR HGB CONC 31.4 g/dl (31.0-37.0); MEAN PLATELET VOLUME 11.4 fl (7.0-11.0); RBC 3.53 10^6/uL (3.5-6.1); RED CELL DISTRIBUTION WIDTH 15.6 % (11.5-14.5); WHITE BLOOD COUNT 9.2 10^3/ul (4.5-11.0)
[2017-11-29 07:29] LABS: CALCIUM 8.2 mg/dL (8.4-10.5)
[2017-11-29] MEDS: Insulin Reg-LOW-Coverage SC SCH ×4 (08:02→22:00)
--- NOTE | 2017-11-29 08:43 | PN ---
Copied To: Leandro Gilbert MD Attending MD: Leandro Gilbert MD DATE: 11/29/2017 SUBJECTIVE: The patient has no complaints of any chest pain. No shortness of breath. No headaches or dizziness. PHYSICAL EXAMINATION: VITAL SIGNS: Temperature is 99.9, pulse of 85, blood pressure 144/79, respirations 18. GENERAL: The patient is lying in bed, flat, comfortable. HEENT: No oral lesion. Anicteric sclerae. Moist mucosa. NECK: No JVD, adenopathy, or thyromegaly. CARDIOVASCULAR: S1 and S2, regular. No murmurs, rubs, or gallops. LUNGS: Clear to auscultation bilaterally. No wheeze, rales, or rhonchi. ABDOMEN: Bowel sounds are positive, soft, nontender and nondistended. EXTREMITIES: No cyanosis, clubbing or edema. LABORATORY DATA: The MRI of the orbits, face and neck done is limited. The patient terminated the exam early. ASSESSMENT: 1. End-stage renal disease, on hemodialysis. 2. Central vein stenosis. 3. Diabetes type 2. 4. Left arteriovenous fistula. 5. Secondary hyperparathyroidism. 6. Anemia secondary to end-stage renal disease. 7. Diabetic retinopathy. 8. Diabetic neuropathy. PLAN: The patient's is most likely due to central vein stenosis. Dr. Rufus Sanchez will be evaluating the patient today by doing an angiogram. He is going to continue his dialysis treatment. He is due for dialysis tomorrow. He is going to continue with Levemir for his diabetes. He is on Norvasc for hypertension. He is on a renal diet. Leandro Gilbert MD
[2017-11-29] MEDS: Divalproex 500 mg DR(BID formulation) PO SCH (10:25)
[2017-11-29] MEDS: Cefepime 1gm in NS 100ml 1 GM/100 ML BAG IVPB SCH ×2 (10:31→13:10)
--- NOTE | 2017-11-29 14:29 | CP.PCM.CON ---
History of Present Illness - History of Present Illness History of Present Illness: Rey Harley PGY2 Neurology Consult Note for Dr. Bertrand Mr. Jackson is a 57-year-old male with a PMH of seizures, ESRD on HD, secondary hyperparathyroidism, anemia, DM2, diabetic neuropathy, diabetic retinopathy, DVT /PE, diabetic foot ulcers, esophageal cyst, abscess on the right leg, COPD, nonischemic cardiomyopathy who presented to the ED with diarrhea, weakness and chills. Neurology is consulted due to patient refusing to take his Depakote stating it makes him dizzy. Of note, psych was also consulted due to patient making irrational decisions including refusing dialysis with no reasonable explanation. Per psych, the patient does not have insight and understanding of his diagnosis, and recommended POA discussion. When examined, the patient is alert but is tangential in his speech. History and ROS are limited due to patient being a poor historian. He states that he stopped taking his medication because it was making him nauseous. It was explained to him that he will be switched to a medication that will help him without the side-effects. the patient is in agreement to taking his medication. PMH: As above PSH: Dialysis access, debridement of the foot Meds: As per JUN, reviewed Allergies: NKDA SHx: Denies tobacco, EtOH or illicit drug use. Lives with his FHx: Early in mother and father Review of Systems - Review of Systems Systems not reviewed;Unavailable: Altered Mental Status Past Patient History - Infectious Disease Hx of Infectious Diseases: None - Tetanus Immunizations Tetanus Immunization: Up to Date - Past Medical History & Family History Past Medical History?: Yes - Past Social History Smoking Status: Never Smoked Alcohol: None Drugs: Denies - CARDIAC Hx Congestive Heart Failure: Yes Hx Hypercholesterolemia: Yes Hx Hypertension: Yes - PULMONARY Hx Chronic Obstructive Pulmonary Disease (COPD): Yes - NEUROLOGICAL Hx Neurological Disorder: Yes Hx Dizziness: Yes (after hd) Other/Comment: diabetic neuropathy pain/tingling/stinging/itch from b/l knees and below, involuntary jumping, shaking and jerking movements x 2 wks - HEENT Hx HEENT Problems: Yes (missing teeth) Other/Comment: big sandy left ear, blurred vision - RENAL Hx Renal Failure: Yes (HD (MWF)) - ENDOCRINE/METABOLIC Hx Diabetes Mellitus Type 2: Yes - HEMATOLOGICAL/ONCOLOGICAL Hx Blood Disorders: Yes Hx Anemia: Yes (blood transfusion) - INTEGUMENTARY Hx Dermatological Problems: Yes - MUSCULOSKELETAL/RHEUMATOLOGICAL Hx Falls: Yes (past) - GASTROINTESTINAL Hx Gastrointestinal Disorders: Yes (hx c dif/reflux/missing teeth) - GENITOURINARY/GYNECOLOGICAL Hx Genitourinary Disorders: Yes (esrd) - PSYCHIATRIC Hx Psychophysiologic Disorder: Yes Hx Anxiety: Yes Hx Depression: Yes Hx Substance Use: No - SURGICAL HISTORY Hx Amputation: No Hx Appendectomy: No Hx Cardiac Catheterization: Yes (01/2013 dr cedeno) Hx Cholecystectomy: No Hx Coronary Stent: No Hx Gastric Bypass Surgery: No Hx Hysterectomy: No Hx Joint Replacement: No Hx Kidney Transplant: No Hx Liver Transplant: No Hx Mastectomy: No Hx Musculoskeletal Surgery: No Hx Open Heart Surgery: No Hx Orthopedic Surgery: Yes (L hip fx orif 05/07/17, pt fell) Hx Splenectomy: No Hx Valve Replacement: No Other/Comment: sanket av shunt, ultrasound guided r thoracentesis 05/20/13 2600 straw fluid drained, fistulagram 07/13/17 - ANESTHESIA Hx Anesthesia: Yes Hx Anesthesia Reactions: No Hx Malignant Hyperthermia: No Meds Home Medications: Home Medication List Medication Instructions Recorded Confirmed Type Insulin Detemir [Levemir] 6 unit SC HS #90 unit 11/24/17 11/20/17 Rx Eslicarbazepine Acetate [Aptiom] 100 mg PO DAILY #30 tablet 11/29/17 Rx Allergies/Adverse Reactions: Allergies Allergy/AdvReac Type Severity Reaction Status Date / Time No Known Allergies Allergy Verified 11/20/17 21:23 - Medications Medications: Current Medications Albuterol/Ipratropium (Duoneb 3 Mg/0.5 Mg (3 Ml) Ud) 3 ml IH [id number] [facility] Last Admin: 11/29/17 13:34 Dose: Not Given Amlodipine Besylate (Norvasc) 10 mg PO DAILY [facility] Last Admin: 11/29/17 10:27 Dose: 10 mg Calcium Acetate (Phoslo) 667 mg PO AC [facility] Last Admin: 11/29/17 11:42 Dose: Not Given Dextrose (Dextrose 50% Inj) 0 ml IV STAT PRN; Protocol PRN Reason: Hypoglycemia Protocol Last Admin: 11/23/17 07:28 Dose: 50 ml Home Med (Home Med) 1 unit PO DAILY [facility] Cefepime HCl (Maxipime 1gm) 1 gm in 100 mls @ 100 mls/hr IVPB Q24H JEANETTE PRN Reason: Protocol Last Admin: 11/29/17 10:31 Dose: 100 mls/hr Insulin Detemir (Levemir) 6 unit SC HS JEANETTE Last Admin: 11/28/17 21:48 Dose: Not Given Insulin Human Regular (Humulin R Low) 0 units SC ACHS JEANETTE PRN Reason: Protocol Last Admin: 11/29/17 11:42 Dose: 2 units Ondansetron HCl (Zofran Inj) 4 mg IVP Q6H PRN PRN Reason: Nausea/Vomiting Last Admin: 11/25/17 10:41 Dose: 4 mg Physical Exam - Constitutional Appears: Non-toxic, No Acute Distress, Unkempt, Chronically Ill - Head Exam Head Exam: NORMAL INSPECTION - Eye Exam Eye Exam: Normal appearance - ENT Exam ENT Exam: Mucous Membranes Dry - Neck Exam Neck exam: Positive for: Normal Inspection. Negative for: Meningismus - Respiratory Exam Respiratory Exam: NORMAL BREATHING PATTERN. absent: Respiratory Distress - Cardiovascular Exam Cardiovascular Exam: RRR, +S1, +S2 - GI/Abdominal Exam GI & Abdominal Exam: Soft. absent: Distended, Tenderness - Extremities Exam Extremities exam: Positive for: normal inspection - Back Exam Back exam: NORMAL INSPECTION - Neurological Exam Neurological exam: Alert - Psychiatric Exam Psychiatric exam: Normal Mood - Skin Skin Exam: Normal Color Results - Vital Signs Recent Vital Signs: Last Vital Signs Temp 98.9 F 11/29/17 06:00 Pulse 79 11/29/17 06:00 Resp 20 11/29/17 06:00 BP 110/74 11/29/17 10:27 Pulse Ox 95 11/29/17 06:00 - Labs Result Diagrams: 11/29/17 06:45 11/29/17 06:45 Labs: Laboratory Results - last 24 hr 11/28/17 11/28/17 11/29/17 15:49 21:28 06:45 WBC 9.2 RBC 3.53 Hgb 8.7 L Hct 27.7 L MCV 78.5 L MCH 24.6 L MCHC 31.4 RDW 15.6 H Plt Count 185 MPV 11.4 H Sodium Potassium Chloride Carbon Dioxide Anion Gap BUN Creatinine Est GFR ( Amer) Est GFR (Non-Af Amer) POC Glucose (mg/dL) 168 H 197 H Random Glucose Calcium 11/29/17 11/29/17 11/29/17 06:45 06:46 11:13 WBC RBC Hgb Hct MCV MCH MCHC RDW Plt Count MPV Sodium 138 Potassium 4.2 Chloride 94 L Carbon Dioxide 30 Anion Gap 18 BUN 47 H Creatinine 5.4 H Est GFR ( Amer) 13 Est GFR (Non-Af Amer) 11 POC Glucose (mg/dL) 174 H 234 H Random Glucose 154 H Calcium 8.2 L Assessment & Plan - Assessment and Plan (Free Text) Assessment: 49-year-old AAM with extensive medical history including seizures, ESRD on HD, DM 2 and cardiomyopathy presenting with vomiting, chills and cough, possibly due to right lower lobe pneumonia. Patient lacks insight into his condition per psych eval. Has been refusing Depakote due to it making him dizzy and nauseous. Plan: Hx seizures - We will discontinue Depakote due to patient refusal - We will start Aptiom 100 mg daily (renally dosed for GFR less than 50); sent to outpatient pharmacy, confirmed and added as home med; however, pharmacy has not yet provided the medication due to requiring prior authorization - will start keppra 250mg q12 (renally dosed) while Aptiom is being delivered - If Aptiom is available, patient should be switched from KEppra to Aptiom - Patient should follow-up with Dr. Bertrand in office as an outpatient following discharge - Further recs per Dr. Bertrand Will sign off at this time, please reconsult if needed. Case was reviewed and discussed with attending, Dr. Jerzy Harley PGY2
--- NOTE | 2017-11-29 14:33 | PN ---
Copied To: Leandro Gilbert MD Attending MD: Leandro Gilbert MD DATE; 11/28/2017 SUBJECTIVE: The patient has no complaints of any chest pain or shortness of breath. No headaches. PHYSICAL EXAMINATION: VITAL SIGNS: Temperature is 99.9, pulse of 85, blood pressure 144/79, respirations 18. GENERAL: The patient is lying in bed, flat, comfortable. HEENT: No oral lesion. Anicteric sclerae. Moist mucosa. In the left side of the face, mild edema. NECK: No JVD, adenopathy, or thyromegaly. CARDIOVASCULAR: S1 and S2, regular. No murmurs, rubs, or gallops. LUNGS: Clear to auscultation bilaterally. No wheeze, rales, or rhonchi. ABDOMEN: Bowel sounds are positive, soft, nontender and nondistended. EXTREMITIES: No cyanosis, clubbing or edema. ASSESSMENT: 1. End-stage renal disease, on hemodialysis. 2. Gastroenteritis, resolved. 3. Left upper extremity basilic vein transposition fistula with multiple stents. 4. History of occlusion of left innominate vein. 5. Diabetes type 2. 6. Secondary hypoparathyroidism. 7. Diabetic retinopathy. 8. Anemia secondary to end-stage renal disease. 9. Central venous stenosis. PLAN: The patient is going to be seen by Dr. Rufus Sanchez for an angiogram. I did speak to him regarding the patient's edema and the history of stenosis with the fistula being in place and stents that he has had. The patient is on antibiotics. He is on Norvasc for hypertension. He is receiving Zofran. The patient is on Depakote. The patient's dialysis continues on Monday, , and Monday and blood flows are adequate. The etiology of patient's subcutaneous edema is most likely stenosis in his central vein. This is a complication that he had chronically. It was treated in 06/[address] Rufus Sanchez. Leandro Gilbert MD
--- NOTE | 2017-11-29 14:49 | PN ---
Copied To: Lorie Zamora MD Attending MD: Lorie Zamora MD DATE: 11/29/2017 PULMONARY PROGRESS NOTE REFERRING PHYSICIAN: Makenzie Miranda MD. SUBJECTIVE: He is out of bed to chair. Feels much better compared to yesterday. Refusing to take PhosLo as well as Vimpat, claiming that Vimpat making him sleepy all day. Also, suspected sleep apnea syndrome, refusing CPAP use. No headache at present. No nausea. No vomiting, diarrhea, leg pain, leg swelling. OBJECTIVE: GENERAL: In no acute distress. VITAL SIGNS: Temperature is 98, heart rate is 79, respiratory rate is 20, blood pressure 110/74, pulse ox 95% on room air. HEENT: Moist mucous membrane. Crowded airway. NECK: Supple. No JVD. LUNGS: Have a fair airflow with rhonchi. HEART: S1 and S2. ABDOMEN: Soft and nontender. No organomegaly. EXTREMITIES: No edema. NEUROLOGICAL: Awake and alert. Follows simple command. MEDICATIONS: He is on DuoNeb every 6 hours, Levemir 6 units subcu at bedtime, cefepime is at 1 g IV every 24 hours, Norvasc 10 mg daily, PhosLo 667 before meals, Zofran p.r.n. basis. LABORATORY DATA: Reviewed. Hemoglobin 8.7, hematocrit 27.7, WBC 9.2. Sodium 138, potassium 4.2, chloride 95, bicarbonate 30, BUN 47, creatinine 5.4, glucose 154, calcium is 8.2, valproic acid is 17. Microbiology: Blood culture has been negative. IMPRESSION AND PLAN: Status post pulmonary infiltrate, chronic obstructive lung disease, cardiomyopathy, diabetes, peripheral neuropathy, gastroesophageal reflux disease, renal failure, dialysis dependent, seizure disorder, noncompliant with the Vimpat. Spoke to nursing staff. I had long discussion with the patient. He claims that at daytime, he is sleepy whole day because of Vimpat. So Neurology consulted group. Spoke to Neurology. We will review the case and readjust the medication. Sleep apnea precaution. Keep head at 45 degrees. May need to study as outpatient for sleep apnea. We will try to talk to the family. Thank you and we will follow with you. Lorie Zamora MD [facility] # [id number]
[2017-11-29] MEDS ORDERED: Iohexol 350mgl/ml 50 ML ONE (14:51)
[2017-11-29] MEDS ORDERED: Iodixanol 320 mg/ml 150 ml Bottle IV ONE (14:51)
[2017-11-29] MEDS ORDERED: Lidocaine PF 2% (5 ml) Inj (For Cardiac Arrhy) ONE (14:51)
[2017-11-29] MEDS ORDERED: Midazolam 2 MG/2 ML VIAL ONE (18:06)
--- NOTE | 2017-11-29 18:22 | VASCULAR ---
PROCEDURE: 1. Left upper extremity AV fistula angiogram 2. Left innominate vein angioplasty and stent placement 3. Mid left basilic vein angioplasty HISTORY: End-stage renal disease. Recurrent left arm and face swelling with discomfort. Malfunctioning AV fistula PHYSICIAN(S): Rufus Sanchez MD. TECHNIQUE: The relative risks and indications of the procedure were explained to the patient and consent obtained. The patient was placed supine on the angiography table and the left arm prepped and draped in usual sterile fashion. Conscious sedation and monitoring provided throughout the procedure by a nurse. The left arm AV fistula was punctured near the elbow in an antegrade direction under ultrasound guidance with a micropuncture set. A 5 Danish catheter was placed. An overlapping right upper extremity AV fistula angiogram was performed. Central venous imaging was obtained. A 7 Danish sheath was placed the puncture site. The 2 stenoses were crossed with angled glidewire. Exchange is made for a 0.035 support wire in the IVC. The recurrent web-like stenosis in the left innominate vein was dilated with 12 mm balloon. Residual stenosis was seen. Subsequently a 14 mm x 4 cm Nitinol stent was deployed in the left innominate vein. This was dilated with a 12 balloon. An excellent angiographic result was obtained P The focal stenosis in the mid left basilic vein was then dilated with an 8 mm balloon. A good angiographic result was obtained. The previously placed stents in the left basilic vein are patent. FINDINGS: The patient has a left basilic vein transposition fistula which is well developed. Multiple stents are seen in the left upper arm. There is a severe focal web-like stenosis of the left basilic vein near the humerus. There is a recurrent high-grade stenosis of the left innominate vein. This was successfully treated with angioplasty and stent placement. IMPRESSION: 1. Recurrent high-grade stenosis in the left innominate vein. This was successfully treated with angioplasty and stent placement. 2. Focal stenosis in the basilic vein transposition fistula in the mid arm. This was dilated with an 8 mm balloon.
[2017-11-29] MEDS: ESLICARBAZEPINE PO SCH (18:54)
[2017-11-29] MEDS: Insulin Detemir 100 units/ml Vial (Levemir) SC SCH (22:00)
[2017-11-29 22:24] VITALS: RESP 18
--- NOTE | 2017-11-29 22:56 | PN ---
Copied To: Makenzie Miranda MD Attending MD: Makenzie Miranda MD DATE: 11/29/2017 SUBJECTIVE: The patient was seen and examined on the bedside, sleepy, arousable. Moving all 4 extremities. No focal deficit. Refusing PhosLo as well as Vimpat. Claiming that Vimpat and PhosLo is making him do vomiting and sleepy. No fevers. No chills. No headache. No dizziness. PHYSICAL EXAMINATION: VITAL SIGNS: Temperature 98.2, heart rate 80, respiratory rate 18, blood pressure 120/70. HEENT: Head normocephalic, atraumatic. Eyes PERRLA. Extraocular muscles intact. Conjunctivae clear. Nose patent. Mucous membrane moist. NECK: Supple. No carotid bruit. No JVD or thyromegaly. CHEST: Bilaterally symmetrical. HEART: S1 and S2 positive. LUNGS: Clear to auscultation. ABDOMEN: Soft. Bowel sounds positive. No organomegaly. EXTREMITIES: No edema. No cyanosis. NEUROLOGICAL: The patient is awake and alert. Moving all 4 extremities. No focal deficits. MEDICATIONS: DuoNeb, Levemir, cefepime, Norvasc, PhosLo, Zofran. LABORATORY DATA: Hemoglobin 8.7, hematocrit 27.7, white blood cells 9.2. Sodium 138, potassium 4.2, BUN 47, creatinine 5.4, valproic acid 17. ASSESSMENT AND PLAN: Mr. Stephanie Jackson, 57-year-old male with pulmonary infiltrates, chronic obstructive pulmonary disease, cardiomyopathy, diabetes mellitus, peripheral neuropathy, gastroesophageal reflux disease, renal failure, dialysis dependent, seizure disorder, noncompliant with medications. The patient today went for procedure with Dr. Rufus Sanchez. GI, DVT prophylaxis. Neurologist and non clinical advisor are on the case. Sleep apnea precautions. Repeat labs. We will follow up. Makenzie Miranda MD
[2017-11-30] MEDS: Albuterol-Ipratrop 3 mg / 0.5 (3 ml) UD IH SCH ×4 (02:40→20:16)
[2017-11-30] MEDS: Insulin Reg-LOW-Coverage SC SCH ×4 (07:53→22:38)
--- NOTE | 2017-11-30 08:07 | PN ---
Copied To: Leandro Gilbert MD Attending MD: Leandro Gilbert MD DATE: 11/30/2017 SUBJECTIVE: The patient has no complaints of any chest pain. No shortness of breath. No headaches or dizziness. PHYSICAL EXAMINATION: VITAL SIGNS: Temperature is 98.8, pulse of 77, blood pressure 115/70, respirations 18. GENERAL: The patient is lying in bed, flat, comfortable. HEENT: No oral lesion. Anicteric sclerae. Moist mucosa. On the left side of the face, mild edema. NECK: No JVD, adenopathy, or thyromegaly. CARDIOVASCULAR: S1 and S2, regular. No murmurs, rubs, or gallops. LUNGS: Clear to auscultation bilaterally. No wheeze, rales, or rhonchi. ABDOMEN: Bowel sounds are positive, soft, nontender and nondistended. EXTREMITIES: No cyanosis, clubbing or edema. ASSESSMENT: 1. End-stage renal disease, on hemodialysis. 2. Secondary hyperparathyroidism. 3. Gastroenteritis, resolved. 4. Left upper extremity basilic vein transposition fistula with multiple stents. 5. Left basilic vein stenosis with angioplasty and stent placement. 6. Diabetes type 2. 7. Secondary hyperparathyroidism. 8. Diabetic retinopathy. 9. Anemia secondary to end-stage renal disease. PLAN: The patient had angioplasty and stent done by interventional radiologist, Dr. Rufus Sanchez. The patient feels well. He is continuing to get dialysis. His dialysis is today. He is on a Monday, , Monday schedule. The patient is on Levemir for his diabetes. He is on PhosLo for his secondary hyperparathyroidism. He is on antibiotics. Blood cultures have been negative. He is on a renal diet. The patient is cleared for discharge from my perspective and we will continue with dialysis on outpatient once he is discharged. Leandro Gilbert MD
[2017-11-30] MEDS: Cefepime 1gm in NS 100ml 1 GM/100 ML BAG IVPB SCH (14:00)
[2017-11-30] MEDS: ESLICARBAZEPINE PO SCH (14:01)
--- NOTE | 2017-11-30 18:47 | PN ---
Copied To: Marcos House MD Attending MD: Marcos House MD DATE: 11/30/2017 SUBJECTIVE: The patient is in bed, in no acute distress, nontoxic. PHYSICAL EXAMINATION: VITAL SIGNS: Temperature is 98, blood pressure is 120/70, respiratory rate of 16. HEENT: Unremarkable. NECK: Supple. LUNGS: Have decreased breath sounds. HEART: Normal S1, S2. ABDOMEN: Soft. LABORATORY DATA: Reveals a white count of 9.2, hemoglobin of 8. Chemistries are noted and toxicology is noted and microbiology reveals the blood cultures are negative. ASSESSMENT AND PLAN: This is a 57-year-old male with right lower lobe healthcare-associated pneumonia, right-sided health care-associated pneumonia, diabetes, end-stage renal disease, and chronic obstructive lung disease. Today is day #4 of cefepime, would complete 4-7 days. I recommend follow the imaging until resolution as outpatient. Review of orders reveals the patient's cefepime has been discontinued by pharmacy. The patient did have a procalcitonin of 1.38 with a creatinine of 5.4. No further antibiotics necessary. Marcos House MD
[2017-11-30] MEDS: Insulin Detemir 100 units/ml Vial (Levemir) SC SCH (22:38)
--- NOTE | 2017-12-01 00:50 | PN ---
Copied To: Lorie Zamora MD Attending MD: Lorie Zamora MD DATE: 11/30/2017 PULMONARY PROGRESS NOTE REFERRING PHYSICIAN: Makenzie Miranda MD. SUBJECTIVE: He is out of bed to chair. Night was unremarkable. Feels okay. Does not want to use CPAP. Denying any new seizures. No nausea. No vomiting. No diarrhea, leg pain, leg swelling. OBJECTIVE: GENERAL: In no acute distress. VITAL SIGNS: Temp is 98, heart rate is 72, respiratory rate is 18, blood pressure 137/83, pulse ox 96% on room air. HEENT: Moist mucous membrane. Crowded airway. Mallampati score is 4. NECK: Supple. No JVD. LUNGS: Have a few scattered rhonchi. HEART: S1 and S2. ABDOMEN: Soft, nontender. No organomegaly. EXTREMITIES: No edema. NEUROLOGICAL: Awake, alert. Follows simple commands. MEDICATIONS: He is on DuoNeb every 6 hours, Levemir 6 units subcu at bedtime, levetiracetam 250 mg every 12 hours, Norvasc 10 mg daily, PhosLo with the meals, Zofran p.r.n. LABORATORY DATA: Shows hemoglobin 8.7, hematocrit 27.7. Blood sugar is 129. IMPRESSION AND PLAN: Status post pulmonary infiltrate, chronic obstructive lung disease, cardiomyopathy, diabetes, peripheral neuropathy, gastroesophageal reflux disease, renal failure, dialysis dependent, seizure disorder. Pulmonary point of view, doing okay. Spoke to nursing staff. Sleep apnea precaution. Keep head at 45 degrees. Neurology followup. The patient is noncompliant to the medicine dialysis. Thank you and we will follow with you. Lorie Zamora MD
[2017-12-01] MEDS: Albuterol-Ipratrop 3 mg / 0.5 (3 ml) UD IH SCH ×3 (01:10→13:59)
--- NOTE | 2017-12-01 03:36 | PN ---
Copied To: Makenzie Miranda MD Attending MD: Makenzie Miranda MD DATE: 11/30/2017 SUBJECTIVE: The patient is a 57-year-old male. Patient was seen and examined at the bedside. Looking comfortable. Shortness of breath is better. Coughing is better. No nausea, vomiting or diarrhea. No hematuria or hematochezia. No swelling of the legs. No chest pain or palpitation. No fever. No chills. No complaints of chest pain or shortness of breath. No headache or dizziness. PHYSICAL EXAMINATION: VITAL SIGNS: Temperature 98.8, pulse 77, blood pressure 115/70, rr 18. HEENT: Head: Normocephalic, atraumatic. Eyes, PERRLA. Extraocular muscles intact. Conjunctivae clear. Nose: Patent. Mucosus membrane moist. NECK: Supple. No carotid bruit, JVD or thyromegaly. CHEST: Bilaterally symmetrical. HEART: S1 and S2 positive. LUNGS: Clear to auscultation. ABDOMEN: Soft. Bowel sounds present. No organomegaly. EXTREMITIES: No edema, no cyanosis. NEUROLOGICAL: Patient is awake and alert. Moving all 4 extremities. No focal deficit. MEDICATIONS: Reviewed by me. No change in the medications. Dextrose, DuoNeb, Humulin, Levemir, Norvasc, Zofran and calcium with vitamin D. LABORATORY DATA: White blood cell 9.2, hemoglobin 8.7, hematocrit 27.7, platelets 185. Glucose 129, 206, 141, 215, 213. ASSESSMENT AND PLAN: Mr. Stephanie Jackson is a 57-year-old male with multiple medical problems, nephrolithiasis, on hemodialysis three times a week, has right lower lobe healthcare associated pneumonia, right-sided healthcare-associated pneumonia, diabetes mellitus, end-stage renal disease, chronic obstructive pulmonary disease. Today is day 4 of the cefepime, will have to complete 4 to 7 days. GI and DVT prophylaxis. Recommended resolution as outpatient. Repeat labs. Supervisor [employer] is on the case. We will follow up. Makenzie Miranda MD SUZANNE
[2017-12-01] MEDS: Insulin Reg-LOW-Coverage SC SCH ×3 (08:01→16:53)
[2017-12-01] MEDS ORDERED: Cefepime 1gm in NS 100ml 1 GM/100 ML BAG IVPB ONE (08:16)
[2017-12-01] MEDS: ESLICARBAZEPINE PO SCH (10:02)
[2017-12-01 14:47] VITALS: BP 136/79; PULSE 77; TEMP 98.7; O2SAT 97
--- NOTE | 2017-12-01 15:23 | CP.PCM.PN ---
Subjective - Date & Time of Evaluation Date of Evaluation: 12/01/17 Time of Evaluation: 13:20 - Subjective Subjective: No fevers, not in distress, no SOB at rest, eating well, no nausea, no diarrhea. Objective - Vital Signs/Intake and Output Vital Signs (last 24 hours): Temp Pulse Resp BP Pulse Ox 98.2 F 74 18 141/78 91 L 12/01/17 06:00 12/01/17 06:00 12/01/17 06:00 12/01/17 09:59 12/01/17 06:00 Intake and Output: 12/01/17 12/01/17 06:59 18:59 Intake Total 920 460 Balance 920 460 - Medications Medications: Current Medications Albuterol/Ipratropium (Duoneb 3 Mg/0.5 Mg (3 Ml) Ud) 3 ml IH [id number] [facility] Last Admin: 12/01/17 07:38 Dose: Not Given Amlodipine Besylate (Norvasc) 10 mg PO DAILY [facility] Last Admin: 12/01/17 09:59 Dose: 10 mg Calcium Acetate (Phoslo) 667 mg PO AC [facility] Last Admin: 12/01/17 11:56 Dose: Not Given Dextrose (Dextrose 50% Inj) 0 ml IV STAT PRN; Protocol PRN Reason: Hypoglycemia Protocol Last Admin: 11/23/17 07:28 Dose: 50 ml Home Med (Home Med) 1 unit PO DAILY [facility] Last Admin: 12/01/17 10:02 Dose: Not Given Levetiracetam 250 mg/ Sodium (Chloride) 102.5 mls @ 460 mls/hr IV Q12 [facility] Last Admin: 12/01/17 11:28 Dose: 460 mls/hr Insulin Detemir (Levemir) 6 unit SC HS [facility] Last Admin: 11/30/17 22:38 Dose: Not Given Insulin Human Regular (Humulin R Low) 0 units SC ACHS JEANETTE PRN Reason: Protocol Last Admin: 12/01/17 11:54 Dose: Not Given Ondansetron HCl (Zofran Inj) 4 mg IVP Q6H PRN PRN Reason: Nausea/Vomiting Last Admin: 11/25/17 10:41 Dose: 4 mg - Labs Labs: 11/29/17 06:45 11/29/17 06:45 PT 11.7 SECONDS (9.4-12.5) 11/20/17 11:50 INR 1.02 11/20/17 11:50 - Constitutional Appears: Chronically Ill - Head Exam Head Exam: NORMAL INSPECTION - ENT Exam ENT Exam: Mucous Membranes Moist - Neck Exam Neck Exam: absent: Meningismus - Respiratory Exam Respiratory Exam: Decreased Breath Sounds - Cardiovascular Exam Cardiovascular Exam: +S1, +S2 - GI/Abdominal Exam GI & Abdominal Exam: Soft. absent: Tenderness Assessment and Plan - Assessment and Plan (Free Text) Plan: Assessment S/P treatment for right lower lobe healthcare-associated pneumonia history of right sided HCAP history of left facial pre-septal cellulitis, with dental caries and necrotic left lower molars ESRD on HD DM COPD diabetic retinopathy and neuropathy history of DVT and PE history of diabetic foot ulcers history of right lung abscess non-ischemic cardiomyopathy Plan finished course of Cefepime - recommend follow up CT scan after Cefepime treatment and follow up with Pulmonary to see resolution of this infiltrate - discussed this with patient and explained the importance of the follow up and patient understands and agrees
[2017-12-01] MEDS ORDERED: APTIOM 200 MG PO SCH (19:10)
--- NOTE | 2017-12-01 20:10 | PN ---
Copied To: Leandro Gilbert MD Attending MD: Leandro Gilbert MD DATE: 12/01/2017 SUBJECTIVE: The patient has no complaints of any chest pain. No shortness of breath, no headaches or dizziness. PHYSICAL EXAMINATION: VITAL SIGNS: Temperature is 98.6, pulse of 68, respiration is 12. GENERAL: The patient is lying in bed, flat, comfortable. HEENT: No oral lesion. Anicteric sclerae. Moist mucosa. Left side of the face has improved significantly from the edema. NECK: No JVD, adenopathy, or thyromegaly. CARDIOVASCULAR: S1 and S2, regular. No murmurs, rubs, or gallops. LUNGS: Clear to auscultation bilaterally. No wheeze, rales, or rhonchi. ABDOMEN: Bowel sounds are positive, soft, nontender and nondistended. EXTREMITIES: No cyanosis, clubbing or edema. LABORATORY DATA: Reviewed. ASSESSMENT: 1. End-stage renal disease, on hemodialysis. 2. Secondary hyperparathyroidism. 3. Diabetes type 2. 4. Anemia chronic secondary to chronic kidney disease. 5. Left arteriovenous fistula. PLAN: The patient is currently comfortable. He will continue the hemodialysis on Monday, and Monday. He has improvement of his swelling after he had an angioplasty of the basilic vein secondary to stenosis. He does have a stent that was placed. He has multiple stents in the past. He is currently tolerating his diet. No complaints of any pain. Leandro Gilbert MD
--- NOTE | 2017-12-04 08:15 | PN ---
Copied To: Lorie Zamora MD Attending MD: Lorie Zamora MD DATE: 12/01/2017 PULMONARY PROGRESS NOTE REFERRING PHYSICIAN: Makenzie Miranda MD SUBJECTIVE: The patient is out of bed to chair. Night was unremarkable, wants to go home. No headache. No rhinitis. No nausea. No vomiting. No diarrhea. No leg pain or leg swelling. OBJECTIVE: GENERAL: In no acute distress. VITAL SIGNS: Temperature is 98, heart rate is 77, respiratory rate is 18, blood pressure 136/79, pulse ox 97% on room air. HEENT: Moist mucous membrane. No ulcer or thrush noted. NECK: Supple. No JVD. LUNGS: Have a fair airflow with few rhonchi. HEART: S1 and S2. ABDOMEN: Soft, nontender. No organomegaly. EXTREMITIES: No edema. NEUROLOGIC: Awake and alert. Follows simple command. MEDICATIONS: He is on DuoNeb every 6 hours,Levemir 6 units subcu at bedtime, levetiracetam 250 mg every 12 hours, Norvasc 10 mg daily, PhosLo before meals, Zofran p.r.n. basis. LABORATORY DATA: Reviewed and noted blood sugar this morning is 182. IMPRESSION AND PLAN: Status post pulmonary infiltrate, chronic obstructive lung disease, cardiomyopathy, diabetes, peripheral neuropathy, gastroesophageal reflux disease, renal failure, dialysis dependent, seizure disorder. Pulmonary point of view, doing well. Antibiotics as per Infectious Disease. Bronchodilator. Gastric prophylaxis. Fall precaution. Seen by Neurology to adjust antiseizure medication. No new seizure activity reported. Thank you and we will follow with you. Lorie Zamora MD
== END 2017-12-01 20:05 | disposition home or self-care (01) | DRG 166 ==
LOC: ED 10:41 → ERH 14:38 → 5RSO 18:25 → 5RNO 11-24 17:19
PROVIDERS: ADMIT Internal Medicine; ATTEND Internal Medicine
PROC: 3E0F7GC Introduction of Other Therapeutic Substance into Respiratory Tract, Via Natural or Artificial Opening (ICD-10-PCS; 2017-11-22)
PROC: 5A1D70Z Performance of Urinary Filtration, Intermittent, Less than 6 Hours Per Day (ICD-10-PCS; 2017-11-23)
PROC: 5A1D70Z Performance of Urinary Filtration, Intermittent, Less than 6 Hours Per Day (ICD-10-PCS; 2017-11-25)
PROC: 5A1D70Z Performance of Urinary Filtration, Intermittent, Less than 6 Hours Per Day (ICD-10-PCS; 2017-11-28)
PROC: 05743DZ Dilation of Left Innominate Vein with Intraluminal Device, Percutaneous Approach (ICD-10-PCS; principal; 2017-11-29)
PROC: 057C3ZZ Dilation of Left Basilic Vein, Percutaneous Approach (ICD-10-PCS; 2017-11-29)
PROC: B51W1ZZ Fluoroscopy of Dialysis Shunt/Fistula using Low Osmolar Contrast (ICD-10-PCS; 2017-11-29)
PROC: 5A1D70Z Performance of Urinary Filtration, Intermittent, Less than 6 Hours Per Day (ICD-10-PCS; 2017-11-30)
DX: J18.9 Pneumonia, unspecified organism (principal); N18.6 End stage renal disease; N25.81 Secondary hyperparathyroidism of renal origin; I42.9 Cardiomyopathy, unspecified; J44.0 Chronic obstructive pulmonary disease with (acute) lower respiratory infection; I13.2 Hypertensive heart and chronic kidney disease with heart failure and with stage 5 chronic kidney disease, or end stage renal disease; T82.858A Stenosis of other vascular prosthetic devices, implants and grafts, initial encounter; Z99.2 Dependence on renal dialysis; E11.22 Type 2 diabetes mellitus with diabetic chronic kidney disease; G20 Parkinson's disease; E11.42 Type 2 diabetes mellitus with diabetic polyneuropathy; E11.65 Type 2 diabetes mellitus with hyperglycemia; E11.319 Type 2 diabetes mellitus with unspecified diabetic retinopathy without macular edema; E11.21 Type 2 diabetes mellitus with diabetic nephropathy; D63.1 Anemia in chronic kidney disease; E11.51 Type 2 diabetes mellitus with diabetic peripheral angiopathy without gangrene; K21.9 Gastro-esophageal reflux disease without esophagitis; G40.909 Epilepsy, unspecified, not intractable, without status epilepticus; K52.9 Noninfective gastroenteritis and colitis, unspecified; Z79.4 Long term (current) use of insulin; I50.9 Heart failure, unspecified; E11.621 Type 2 diabetes mellitus with foot ulcer; E83.51 Hypocalcemia; K31.84 Gastroparesis; E11.43 Type 2 diabetes mellitus with diabetic autonomic (poly)neuropathy; Y83.2 Surgical operation with anastomosis, bypass or graft as the cause of abnormal reaction of the patient, or of later complication, without mention of misadventure at the time of the procedure; Y95 Nosocomial condition; E78.00 Pure hypercholesterolemia, unspecified; Z91.14 Patient's other noncompliance with medication regimen; Z91.19 Patient's noncompliance with other medical treatment and regimen; Z86.718 Personal history of other venous thrombosis and embolism; Z86.711 Personal history of pulmonary embolism; Z87.81 Personal history of (healed) traumatic fracture